=== PATIENT | male | born 1950 | race Caucasian/White ===

== ENCOUNTER 2017-12-23 15:41 | Inpatient (IN) | payer MEDICARE, MEDICAID, SELFPAY ==
[2017-12-23] VITALS (25 sets, daily range): BP systolic 104–173; BP diastolic 63–79; PULSE 46–70; RESP 12–28; TEMP 35.5–36.7; O2SAT 96–100; BMI 27.1; BMI 27.3; BMI 27.2
--- NOTE | 2017-12-23 15:49 | CT_ITS ---
STUDY: CT BRAIN WITHOUT CONTRAST REASON FOR EXAM: Male, 67 years old. Unresponsive. Stroke alert. RADIATION DOSAGE (If Supplied By Facility): CTDIvol = ( 60.81 ) mGy, DLP = ( 1112.69 ) mGycm TECHNIQUE: Transaxial CT imaging of the brain was performed without administration of intravenous contrast material. Individualized dose optimization techniques were used for this CT. COMPARISON: None. FINDINGS: There is no acute bleed or infarct. There are mild chronic ischemic changes. The ventricles are normal in configuration. There is no hydrocephalus. The visualized paranasal sinuses are clear. The mastoid air cells are well aerated. There is no skull fracture. CT/Brain/Head without Contrast IMPRESSION: No acute intracranial abnormality. Mild chronic ischemic changes. N.B. : The above information has been verbally conveyed by Kendall Casanova to Donn Galdamez, Referring Physician, on 12/23/2017 16:38:08 (ET). Electronically Signed: Kendall Casanova, at 16:38 EDT Tel , Service support , N.B. : The above information has been verbally conveyed by Kendall Casanova to Donn Galdamez, Referring Physician, on 12/23/2017 16:38:08 (ET).
--- NOTE | 2017-12-23 15:49 | EKG12_ITS ---
Test Reason : UNRESPONSIVE Blood Pressure : / mmHG Vent. Rate : 066 BPM Atrial Rate : 066 BPM P-R Int : 232 ms QRS Dur : 096 ms QT Int : 420 ms P-R-T Axes : 025 -39 027 degrees QTc Int : 440 ms Sinus rhythm with 1st degree A-V block Left axis deviation Abnormal ECG Confirmed by JAH RICHTER, TIMMY ([id number]), supervising film or videotape editor MENDEZ GAYTAN ([id number]) on 12/24/2017 4:54:44 PM Referred By: ISAÍAS Confirmed By:TIMMY TYSON MD
--- NOTE | 2017-12-23 15:49 | RAD_ITS ---
STUDY: X-RAY CHEST REASON FOR EXAM: Male, 67 years old. Intubation TECHNIQUE: Frontal view of the chest COMPARISON: 08/24/2016 FINDINGS: There is an endotracheal tube noted with its tip approximately 3 cm above the cuong. There is an enteric tube noted with its tip in the stomach. The lungs are clear. There are no pleural effusions. There is no pneumothorax. The heart is normal in size. The visualized osseous structures are within normal limits. RAD/Chest 1 View (Portable) IMPRESSION: Satisfactory position of the support lines and tubes. No acute thoracic pathology. Electronically Signed: Kendall Casanova, at 16:19 EDT Tel , Service support ,
--- NOTE | 2017-12-23 15:50 | CT_ITS ---
STUDY: CT CERVICAL SPINE WITHOUT CONTRAST REASON FOR EXAM: Male, 67 years old. Unresponsive RADIATION DOSAGE (If Supplied By Facility): CTDIvol = ( 26.82 ) mGy, DLP = ( 630.03 ) mGycm TECHNIQUE: High resolution transaxial imaging was performed without contrast material. Sagittal and coronal images were reconstructed. Individualized dose optimization techniques were used for this CT. COMPARISON: None FINDINGS: Normal craniovertebral junction. Normal anterior atlantoaxial articulation. Normal odontoid process. Normal cervical lordosis. Normal vertebral bodies and posterior osseous elements. C2-3: Normal endplates. Normal disc height and tiny central disc protrusion.. Normal central canal and intervertebral neuroforamina. C3-4: Normal endplates. Normal disc height and minor bulging of the disc. Normal central canal and intervertebral neuroforamina. C4-5: Normal endplates. Normal disc height and small central disc protrusion.. Normal central canal and intervertebral neuroforamina. C5-6: Minor endplate spurring.. Normal disc height and morphology. Normal central canal. Moderate left neuroforaminal stenosis secondary to bony hypertrophy C6-7: Normal endplates. Normal disc height and small central disc protrusion.. Normal central canal and intervertebral neuroforamina. C7-T1: Normal endplates. Normal disc height and morphology. Normal central canal and intervertebral neuroforamina. Ossification of the nuchal ligament.. CT/Spine Cervical without Contras IMPRESSION: No evidence for acute fracture or subluxation. Mild spondylosis. Mild multilevel spinal stenosis secondary to disc disease and bony hypertrophy Electronically Signed: Sanket Kong MD at 17:32 EDT , Service support ,
[2017-12-23] MEDS: Succinylcholine Chloride 200 MG/10 ML Vial 100 MG IV (15:53)
[2017-12-23] MEDS: Etomidate 20 MG/10 ML Vial IV (15:53)
[2017-12-23] MEDS: 0.9% Normal Saline 1,000 ML 1000 ML IV (15:53)
[2017-12-23 15:59] LABS: Absolute Lymphocyte Count 1.45 X10^3/ul (0.83-4.51); Absolute Neutrophil Count 4.7 X10^3/uL (2.0-7.7); Basophil# 0.04 X10^3/uL; Basophil% 0.5 % (0-1); Eosinophil# 0.69 X10^3/uL; Eosinophils% 8.9 % (0-5); Hematocrit 37.2 % (40-54); Hemoglobin 12.7 g/dl (13.0-16.5); Lymphocyte # 1.45 X10^3/ul (4.0); Lymphocyte % 18.7 % (19-41); Mean Corp Hgb Conc 34.1 g/gl (32-36); Mean Corpuscular Hgb 31.4 pg (27.0-32.0); Mean Corpuscular Volume 92.1 fL (80-94); Mean Platelet Vol. 10.3 fl (6.2-12.0); Monocyte# 0.85 X10^3/uL; Monocyte% 10.9 % (0-10); Neutrophil # 4.73 X10^3/uL (2.7-7.7); Neutrophil % 60.9 % (47-70); Platelet Count 177 K/mm3 (150-450); RBC Distribution Width CV 13.5 % (11.6-14.6); RBC Distribution Width SD 45.6 fl (35.1-43.9); Red Blood Count 4.04 M/mm3 (4.6-6.2); White Blood Count 7.8 K/mm3 (4.4-11.0)
[2017-12-23 16:01] LABS: Bedside Glucose 167 mg/dL (70-110)
[2017-12-23] MEDS: Midazolam 5 MG/ML Syringe IV ×2 (16:02→16:10)
[2017-12-23 16:06] LABS: POSITIVE COUNT NO; POSITIVE DIFFERENTIAL NO; POSITIVE MORPHOLOGY NO
[2017-12-23] MEDS: hydrALAZINE 20 MG/ML Vial 10 MG IV (16:11)
[2017-12-23 16:18] LABS: ALB/GLOB Ratio 0.8 RATIO (0.9-2.4); AST(SGOT) 25 U/L (15-37); Alanine Aminotransfer ALT/SGPT 26 U/L (16-61); Albumin, Serum 2.7 g/dL (3.2-5.0); Alkaline Phosphatase 92 U/L (45-117); Anion Gap 10 (5-15); BUN 22 mg/dL (7-18); BUN/Creat Ratio 13.3 RATIO (10-20); Calcium,Total 8.2 mg/dL (8.5-10.1); Chloride 108 mmol/L (98-107); Creatinine, Serum 1.65 mg/dL (0.70-1.30); EST Glomerular Filtration Rate 44 mL/min (>60); Est Glom Filt Rate - Afr Amer 54 mL/min (>60); Globulin 3.3 g/dL (2.2-4.2); Glucose 152 mg/dL (74-106); Lipase 77 U/L (73-393); Potassium 3.9 mmol/L (3.5-5.1); Sodium Level 143 mmol/L (136-145)
--- NOTE | 2017-12-23 16:20 | CT_ITS ---
STUDY: CTA NECK WITH CONTRAST REASON FOR EXAM: Male, 67 years old. Unresponsive RADIATION DOSAGE (If Supplied By Facility): CTDIvol = ( 17.66 ) mGy, DLP = ( 2339.85 ) mGycm TECHNIQUE: CT angiography with multi-detector data acquisition was performed from the aortic arch to the skull base following intravenous administration of 100 ml of Isovue 370 contrast. MIP images were reconstructed from the axial data set. Post-processing of the angiographic images was performed, with multiplanar reformation and 3D reconstruction. Individualized dose optimization techniques were used for this CT. COMPARISON: None. FINDINGS: AORTIC ARCH: Normal visualized aortic arch. Normal origins of the brachiocephalic, left common carotid, and left subclavian arteries. RIGHT CAROTID ARTERIES: Normal right common carotid artery (CCA). There is mild atherosclerotic plaque formation with minimal narrowing of the right carotid bulb. There is mild atherosclerotic plaque formation of the origin of the right internal carotid artery with less than 50% cross sectional diameter stenosis. Normal visualized cervical portion of the right internal carotid artery. Normal origin of the right external carotid artery (ECA). LEFT CAROTID ARTERIES: Normal left common carotid artery (CCA). There is mild atherosclerotic plaque formation with minimal narrowing of the left carotid bulb. Normal origin of the left internal carotid (ICA) artery without a hemodynamically significant stenosis. Normal visualized cervical portion of the left internal carotid artery. Normal origin of the left external carotid artery (ECA). VERTEBRAL ARTERIES: Visualized. Focal calcified plaque origin right vertebral artery. Left vertebral artery normal. CT/CTA Head W/WO Contrast IMPRESSION: Mild to moderate stenosis origin right vertebral artery. Otherwise no significant stenoses. Electronically Signed: Miguel Londono MD at 17:30 EDT , Service support ,
--- NOTE | 2017-12-23 16:21 | CT_ITS ---
STUDY: CTA NECK WITH CONTRAST REASON FOR EXAM: Male, 67 years old. Unresponsive RADIATION DOSAGE (If Supplied By Facility): CTDIvol = ( 17.66 ) mGy, DLP = ( 2339.85 ) mGycm TECHNIQUE: CT angiography with multi-detector data acquisition was performed from the aortic arch to the skull base following intravenous administration of 100 ml of Isovue 370 contrast. MIP images were reconstructed from the axial data set. Post-processing of the angiographic images was performed, with multiplanar reformation and 3D reconstruction. Individualized dose optimization techniques were used for this CT. COMPARISON: None. FINDINGS: AORTIC ARCH: Normal visualized aortic arch. Normal origins of the brachiocephalic, left common carotid, and left subclavian arteries. RIGHT CAROTID ARTERIES: Normal right common carotid artery (CCA). There is mild atherosclerotic plaque formation with minimal narrowing of the right carotid bulb. There is mild atherosclerotic plaque formation of the origin of the right internal carotid artery with less than 50% cross sectional diameter stenosis. Normal visualized cervical portion of the right internal carotid artery. Normal origin of the right external carotid artery (ECA). LEFT CAROTID ARTERIES: Normal left common carotid artery (CCA). There is mild atherosclerotic plaque formation with minimal narrowing of the left carotid bulb. Normal origin of the left internal carotid (ICA) artery without a hemodynamically significant stenosis. Normal visualized cervical portion of the left internal carotid artery. Normal origin of the left external carotid artery (ECA). VERTEBRAL ARTERIES: Visualized. Focal calcified plaque origin right vertebral artery. Left vertebral artery normal. CT/CTA Neck W/WO Contrast IMPRESSION: Mild to moderate stenosis origin right vertebral artery. Otherwise no significant stenoses. Electronically Signed: Miguel Londono MD at 17:30 EDT , Service support ,
[2017-12-23] MEDS: Propofol 10MG/Ml 1,000 MG/100 ML Bottle 2.73 MG CONT INF ×2 (16:27→18:49)
[2017-12-23 16:29] LABS: International Normalized Ratio 1.1; Partial Thromboplast Time 29.8 Seconds (24.1-36.2); Prothrombin Time (Protime)PT. 14.3 SECONDS (11.7-14.9)
[2017-12-23 16:35] LABS: Bacteria 0 SEEN /hpf (None Seen); Mucous, Urine 0 SEEN /hpf (<or=2+); Squamous Epithelial Cells - UA 0 SEEN /hpf (0-5)
[2017-12-23 16:51] LABS: Allen Test POS; Base Excess -1 mmol/L (-2 to +2); Bicarbonate 23.1 mmol/L (22-26); Blood Gas Specimen Type ART; FI02 30; Mode A-C; O2 Delivery Device Vent; PEEP 5; PO2 85 mmHG (75-100); RR 12; SITE R Brachial; SO2 97 % (95-99); Time Given 1635; Total Carbon Dioxide 24 mmol/L; Vt 500; pCO2 33.7 mmHg (35-45); pH 7.45 (7.35-7.45)
--- NOTE | 2017-12-23 16:51 | ED.RN ---
PROPROFAL 50 GIVEN BOLUS TITRATE TO 20
[2017-12-23] MEDS: 0.9% Normal Saline 1,000 ML 150 ML IV (17:03)
[2017-12-23 17:05] LABS: Lactic Acid 2.5 mmol/L (0.4-2.0)
--- NOTE | 2017-12-23 17:05 | ED.RN ---
LACTIC 2.[address] [facility] METZ AWARE
[2017-12-23 17:16] LABS: Color, Urine Yellow (Yellow); Glucose, Dipstick 50 mg/dl (Normal); Ketone-Dipstick Negative (Negative); Leukocyte Esterase-Dipstick Negative /ul (Negative); Nitrite-Dipstick Negative (Negative); Occult Blood-Urine 50 /ul (Negative); Protein-Dipstick 500 mg/dl (Negative); Urine Bilirubin Dipstick Negative (Negative); Urine Clarity Clear (Clear); Urine Urobilinogen Normal (Normal)
--- NOTE | 2017-12-23 17:16 | ED.RN ---
FENTANYL DRIP WAS STARTED AT 1710. UNABLE TO SCAN THE MED OR THE WRIST BAND IN THE ROOM. IS MADE AWARE.
--- NOTE | 2017-12-23 17:35 | ED.VISSUMM ---
- ER Visit Summary Date of Service: 12/23/17 Chief Complaint: Unresponsive History of Present Illness: The patient is a 67 M who went out to the [facility] to 10 to his horses at around 9:00 this morning. states that at that time he was acting normally. This afternoon he reportedly was found seen stumbling across the barn and fell over a barrel. EMS notes that he was able to slightly squeeze their hands with both sides but was essentially minimally responsive. 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 He takes aspirin and Plavix. No history of stroke. Physical Examination: Patient is hypertensive. 227/117. Temperature 97.9 heart rate is 67 respirations are 16 and pulse ox is 96% on room air Gen: Well-nourished well-developed Head: Normocephalic atraumatic Eyes: Perrl 4-2 bilaterally ENT: TMs clear no rhinorrhea moist mucous membranes Neck: Supple no lymphadenopathy no JVD nontender CVS: Regular rate rhythm no murmurs normal S1-S2 Respiratory: No distress clear to auscultation bilaterally chest nontender Abdomen: Soft nontender nondistended normal bowel sounds no masses Back: Nontender Extremity: Nontender no edema Skin: Normal color no rash Neuro: Patient is stuporous to almost comatose. His eyes are open and he has a slight corneal reflex. He has no gag. The patient mumbles incoherently when asked to repeat a phrase. I cannot get him to hold his arms up or his legs up. I cannot get him to squeeze my hands. I can get him to withdraw slightly to pain. There is no posturing. Pupils are 4 - 2 bilaterally Test Results: EKG sinus rhythm with a first-degree AV block at a rate of 66. White count 7.8 hemoglobin 12.7. Creatinine 1.65. Glucose 152. INR 1.1 PTT 29.8. Troponin less than 0.0 015 lactic acid 2.5. Chest x-ray shows adequate positioning of the endotracheal tube and orogastric tube. CT the brain demonstrated no intracranial hemorrhage or obvious stroke. CTA head and neck showed mild to moderate stenosis on the right but no obvious cut off. Emergency Department Course and Treatment: Patient was minimally responsive with no gag reflex. Patient underwent rapid sequence intubation and 80 endotracheal tube was placed in the first attempt without any difficulty. Orogastric tube was placed by this physician. Patient was taken to CT scan. Patient received hydralazine for hypertension while in the CT scanner he also received Versed for sedation. When brought back to the room he was placed on propofol and fentanyl drips. Blood pressure has dramatically been improved while being sedated. At this point there is no clear etiology for the patient's abrupt altered mental status. Patient will be transferred to the intensive care unit. Impression: 1. Altered mental status of unknown etiology 2. Hypertensive emergency 3. Intubation by physician 4. Orogastric tube by physician 5. Critical care time 35 minutes This note was generated with [employer] dictation software. It may contain incorrect words, spelling, and punctuation that were not noted in review of the chart prior to signing ED Disposition - Plan for ED Patient: Chief Complaint: Syncope Referrals: Tamanna Moreno [Primary Care Provider] -
[2017-12-23 17:38] LABS: Red Blood Cells-Urine 0 SEEN /hpf (0-5); White Blood Cells 0-5 SEEN /hpf (0-5)
--- NOTE | 2017-12-23 17:38 | PCM.CON.CC ---
Problem List (1) Hypertensive emergency Status: Acute (2) Acute metabolic encephalopathy Status: Acute (3) Old myocardial infarction Status: Chronic Comment: Acute Ant ID w/ ST elevation January 2013 (4) Diabetes mellitus Status: Chronic Qualifiers: Diabetes mellitus type: type 2 Diabetes mellitus longterm insulin use: with longterm use Diabetes mellitus complication status: with circulatory complication (5) Nicotine abuse Status: Chronic (6) Other longterm (current) drug therapy Status: Chronic (7) Atherosclerotic heart disease of [place] coronary artery without angina pectoris Status: Chronic Qualifiers: [place] vs. transplanted heart: [place] heart Comment: Cardiac cath w/PTCA PIA LAD January 11, 2013; Cardiac Cath w/PTCA PIA prox LCX, PIA distal RCA, PIA Mid RCA 2012; PCI with PIA LAD, POBA D1 D2 07/19/14; PTCA & Promus PIA to PDA 08/11/14 (8) H/O percutaneous transluminal coronary angioplasty Status: Chronic Comment: Cardiac cath w/PTCA PIA LAD January 11, 2013; Cardiac Cath w/PTCA PIA prox LCX, PIA distal RCA, PIA Mid RCA 2012; PCI with PIA LAD, POBA D1 D2 07/19/14; PTCA & Promus PIA to PDA 08/11/14 (9) HLD (hyperlipidemia) Status: Chronic Qualifiers: Hyperlipidemia type: pure hypercholesterolemia Reason for Consult Date of Consultation: 12/23/17 Reason for Consultation: Encephalopathy with coma History of Present Illness: The patient is a 67 year old M, with past medical history listed below, who presented to [facility] on 12/23/2017 after decreased mental status. Patient was reportedly of his usual health this morning [place]. Patient's reports that over the last 2-3 weeks he has had increased shortness of breath, but did not have any significant change in his cough, sputum production or shortness of breath in the last 24-48 hours. Patient was reportedly walking around and then became stuporous. EMS was called and patient was transported to the emergency room for evaluation. While in the emergency room, patient was noted to be hypertensive per ER physician report. Patient was also noted to have decreased mental status with no gag reflex. There was some concern for a possible hemorrhagic stroke, so airway was secured with intubation and patient was transported to the CT scanner. She was reportedly given Versed, etomidate and succinylcholine prior to my evaluation. I was notified of the intubation and met the patient in the CT scanner. Patient CT scan did not show any intracranial hemorrhage, so a CTA was performed showing no acute CVA. Patient is not interactive on my evaluation, but did have some spontaneous arm and head movement. Patient's was at the bedside during my evaluation in the ER. She had reported the patient does have a history of extensive coronary artery disease and sees Dr. Miller. Patient's also reports the patient has an extensive smoking history and is to see Dr. Moreno in [place] and reportedly was to have a lot of tests completed this Friday. Patient does have inhalers that he uses on a regular basis. Patient reportedly has had issues with syncope, but never this bad. She is not aware of any recent fever, chills, dysuria, reports of headache or focal neurologic deficit. There is no report of seizure activity noted. Past Medical History Past Medical History (Chronic Problems): Chronic Problems (Last Updated 12/01/17 @ 10:29 by Aniboom) Orthostatic hypotension (Chronic) Old myocardial infarction (Chronic) Acute Ant ID w/ ST elevation January 2013 Diabetes mellitus (Chronic) Nicotine abuse (Chronic) Other longterm (current) drug therapy (Chronic) Atherosclerotic heart disease of [place] coronary artery without angina pectoris (Chronic) Cardiac cath w/PTCA PIA LAD January 11, 2013; Cardiac Cath w/PTCA PIA prox LCX, PIA distal RCA, PIA Mid RCA 2012; PCI with PIA LAD, POBA D1 D2 07/19/14; PTCA & Promus PIA to PDA 08/11/14 H/O percutaneous transluminal coronary angioplasty (Chronic) Cardiac cath w/PTCA PIA LAD January 11, 2013; Cardiac Cath w/PTCA PIA prox LCX, PIA distal RCA, PIA Mid RCA 2012; PCI with PIA LAD, POBA D1 D2 07/19/14; PTCA & Promus PIA to PDA 08/11/14 HLD (hyperlipidemia) (Chronic) Medical History: Medical History (Last Updated 12/01/17 @ 10:29 by Aniboom) Orthostatic hypotension (Chronic) I95.1 Old myocardial infarction (Chronic) I25.2 Acute Ant ID w/ ST elevation January 2013 Diabetes mellitus (Chronic) E11.9 Nicotine abuse (Chronic) Z72.0 Other longterm (current) drug therapy (Chronic) Z79.899 Atherosclerotic heart disease of [place] coronary artery without angina pectoris (Chronic) I25.10 Cardiac cath w/PTCA PIA LAD January 11, 2013; Cardiac Cath w/PTCA PIA prox LCX, PIA distal RCA, PIA Mid RCA 2012; PCI with PIA LAD, POBA D1 D2 07/19/14; PTCA & Promus PIA to PDA 08/11/14 HLD (hyperlipidemia) (Chronic) E78.5 Arthritis M19.90 Depression F32.9 Dizziness and giddiness R42 GERD (gastroesophageal reflux disease) K21.9 Pain in limb M79.609 Stomach ulcer K25.9 Allergies No Known Allergies Allergy (Verified 12/23/17 15:46) Home Medications: Ambulatory Orders Medication Instructions Recorded aspirin 81 mg chewable tablet 81 mg PO QDAY #90 tab 08/01/17 atorvastatin 80 mg tablet 80 mg PO QDAY #90 tab 08/01/17 clopidogrel 75 mg tablet 75 mg PO QDAY #90 tab 08/01/17 insulin aspart U-100 100 unit/mL 10 unit SC QDAY #15 ml 08/01/17 subcutaneous pen insulin glargine (U-100) 100 25 unit SC QHS #10 ml 08/01/17 unit/mL subcutaneous solution metoprolol tartrate 25 mg tablet 25 mg PO BID #180 tab 08/01/17 nitroglycerin 0.4 mg sublingual 0.4 mg SUBLINGUAL Q5-15M PRN #25 08/01/17 tablet tab omeprazole 40 mg capsule,delayed 40 mg PO QDAY #90 cap 08/01/17 release pregabalin 50 mg capsule 50 mg PO QDAY #90 cap 08/01/17 furosemide 20 mg tablet 20 mg PO QDAY 12/01/17 losartan 100 mg tablet 100 mg PO QDAY 12/01/17 metformin 1,000 mg tablet 1,000 mg PO BID 12/01/17 Surgical History: Surgical History (Last Updated 12/01/17 @ 10:29 by Luis Barrera) H/O percutaneous transluminal coronary angioplasty (Chronic) Z98.61 Cardiac cath w/PTCA PIA LAD January 11, 2013; Cardiac Cath w/PTCA PIA prox LCX, PIA distal RCA, PIA Mid RCA 2012; PCI with PIA LAD, POBA D1 D2 07/19/14; PTCA & Promus PIA to PDA 08/11/14 Smoking Status: Current every day smoker Review of Systems Unable to obtain accurate/complete ROS d/t: Decreased mental status. See HPI Patient Problems: Active and Suspected Problems (Last Updated 12/01/17 @ 10:29 by Luis Barrera) Hypertensive emergency (Acute) Acute metabolic encephalopathy (Acute) Objective: CT scan of the head was reviewed. This did not appear to have any intracranial bleed. Chest x-ray showed no acute infiltrates and endotracheal tube was approximately 2-3 cm from the cuong. OG appears to be in appropriate position. CT scan of the neck was grossly unremarkable for any etiology of patient's decreased mental status. - Physical Exam General: - - Intubated and sedated. Positive gag reflex noted. Very little spontaneous movement for me. Sensation appear to be intact bilaterally. No facial droop is appreciated. HEENT: Atraumatic, Normocephalic, - - Pupils are very sluggish. Oral: Moist Mucosa, No Gingival or Mucosal Lesions/ Ulcerations Neck: Supple, No JVD, No Nodes, Trachea Midline Lungs: No rhonchi, No wheeze, No rales, Diminished, - - Metric expansion. No dullness to percussion. Cardiovascular: Regular rate, Regular Rhythm, Normal S1, Normal S2, No murmurs, No rub noted, No Gallop Abdomen: Bowel Sounds Present, Soft, Non Tender, Non-Distended Extremities: No clubbing, No cyanosis, No edema, Capillary Refill Less than 3 Seconds Skin: No rashes, No breakdown Musculoskeletal: No Tenderness to Palpation of Joints or Extremities, No Muscle Wasting Lymphatic: No Cervical, Supraclavicular, or Inguinal Adenopathy Neurological: - - See above. No doll's eyes noted. Psych/Mental Status: Flat Affect Vital Signs Temp Pulse Resp BP Pulse Ox 36.6 C 58 L 15 117/65 99 12/23/17 15:42 12/23/17 17:20 12/23/17 17:20 12/23/17 17:20 12/23/17 17:20 Oxygen Delivery Method Mechanical Ventilator Weight: 91 kg Body Mass Index (BMI) 27.1 Finger Stick Blood Glucose 167 Laboratory Tests Past 24 Hrs 12/23/17 12/23/17 12/23/17 15:46 15:46 15:46 WBC 7.8 RBC 4.04 L Hgb 12.7 L Hct 37.2 L MCV 92.1 MCH 31.4 MCHC 34.1 RDW 13.5 RDW Differential 45.6 H Plt Count 177 MPV 10.3 Immature Gran % (Auto) 0.100 Neut % (Auto) 60.9 Lymph % (Auto) 18.7 L [place] % (Auto) 10.9 H Eos % (Auto) 8.9 H Baso % (Auto) 0.5 Absolute Neuts (auto) 4.7 Absolute Lymphs (auto) 1.45 Total Counted Not Reportable PT 14.3 INR 1.1 APTT 29.8 Specimen Type Sample Site pH Bicarbonate Actual POC Total CO2 Base Excess O2 Saturation O2 % ABG pCO2 ABG pO2 [place] Test Respiration Rate O2 Delivery Device Minute Volume Vent Mode Tidal Volume POC PEEP Blood Gas Notified Whom Blood Gas Notified Time Sodium 143 Potassium 3.9 Chloride 108 H Carbon Dioxide 25.0 Anion Gap 10 BUN 22 H Creatinine 1.65 H Est GFR (MDRD) Af Amer 54 L Est GFR (MDRD) Non-Af 44 L BUN/Creatinine Ratio 13.3 Glucose 152 H Lactic Acid Calcium 8.2 L Total Bilirubin 0.30 AST 25 ALT 26 Alkaline Phosphatase 92 Troponin I < 0.015 Total Protein 6.0 L Albumin 2.7 L Globulin 3.3 Albumin/Globulin Ratio 0.8 L Lipase 77 Urine Color Urine Clarity Urine pH Ur Specific [place] Urine Protein Urine Glucose (UA) Urine Ketones Urine Occult Blood Urine Nitrite Urine Bilirubin Urine Urobilinogen Ur Leukocyte Esterase Urine RBC Urine WBC Ur Squamous Epith Cells Urine Bacteria Urine Mucus Urine Opiates Screen Urine Methadone Screen Ur Barbiturates Screen Ur Phencyclidine Scrn Ur Amphetamines Screen U Methamphetamin-MDMA U Benzodiazepines Scrn Urine Cocaine Screen U Cannabinoids Screen Ur Drug Screen Comment Ethyl Alcohol 12/23/17 12/23/17 12/23/17 15:46 15:46 16:30 WBC RBC Hgb Hct MCV MCH MCHC RDW RDW Differential Plt Count MPV Immature Gran % (Auto) Neut % (Auto) Lymph % (Auto) [place] % (Auto) Eos % (Auto) Baso % (Auto) Absolute Neuts (auto) Absolute Lymphs (auto) Total Counted PT INR APTT Specimen Type Sample Site pH Bicarbonate Actual POC Total CO2 Base Excess O2 Saturation O2 % ABG pCO2 ABG pO2 [place] Test Respiration Rate O2 Delivery Device Minute Volume Vent Mode Tidal Volume POC PEEP Blood Gas Notified Whom Blood Gas Notified Time Sodium Potassium Chloride Carbon Dioxide Anion Gap BUN Creatinine Est GFR (MDRD) Af Amer Est GFR (MDRD) Non-Af BUN/Creatinine Ratio Glucose Lactic Acid 2.5 H Calcium Total Bilirubin AST ALT Alkaline Phosphatase Troponin I Total Protein Albumin Globulin Albumin/Globulin Ratio Lipase Urine Color Yellow Urine Clarity Clear Urine pH 7.0 Ur Specific [place] 1.010 Urine Protein 500 H Urine Glucose (UA) 50 H Urine Ketones Negative Urine Occult Blood 50 H Urine Nitrite Negative Urine Bilirubin Negative Urine Urobilinogen Normal Ur Leukocyte Esterase Negative Urine RBC 0 SEEN Urine WBC 0-5 SEEN Ur Squamous Epith Cells 0 SEEN Urine Bacteria 0 SEEN Urine Mucus 0 SEEN Urine Opiates Screen Urine Methadone Screen Ur Barbiturates Screen Ur Phencyclidine Scrn Ur Amphetamines Screen U Methamphetamin-MDMA U Benzodiazepines Scrn Urine Cocaine Screen U Cannabinoids Screen Ur Drug Screen Comment Ethyl Alcohol 6.0 12/23/17 12/23/17 16:30 16:44 WBC RBC Hgb Hct MCV MCH MCHC RDW RDW Differential Plt Count MPV Immature Gran % (Auto) Neut % (Auto) Lymph % (Auto) [place] % (Auto) Eos % (Auto) Baso % (Auto) Absolute Neuts (auto) Absolute Lymphs (auto) Total Counted PT INR APTT Specimen Type ART Sample Site R Brachial pH 7.45 Bicarbonate Actual 23.1 POC Total CO2 24 Base Excess -1 O2 Saturation 97 O2 % 30 ABG pCO2 33.7 L ABG pO2 85 [place] Test POS Respiration Rate 12 O2 Delivery Device Vent Minute Volume 9.00 Vent Mode A-C Tidal Volume 500 POC PEEP 5 Blood Gas Notified Whom ED Blood Gas Notified Time 1635 Sodium Potassium Chloride Carbon Dioxide Anion Gap BUN Creatinine Est GFR (MDRD) Af Amer Est GFR (MDRD) Non-Af BUN/Creatinine Ratio Glucose Lactic Acid Calcium Total Bilirubin AST ALT Alkaline Phosphatase Troponin I Total Protein Albumin Globulin Albumin/Globulin Ratio Lipase Urine Color Urine Clarity Urine pH Ur Specific [place] Urine Protein Urine Glucose (UA) Urine Ketones Urine Occult Blood Urine Nitrite Urine Bilirubin Urine Urobilinogen Ur Leukocyte Esterase Urine RBC Urine WBC Ur Squamous Epith Cells Urine Bacteria Urine Mucus Urine Opiates Screen Pending Urine Methadone Screen Pending Ur Barbiturates Screen Pending Ur Phencyclidine Scrn Pending Ur Amphetamines Screen Pending U Methamphetamin-MDMA Pending U Benzodiazepines Scrn Pending Urine Cocaine Screen Pending U Cannabinoids Screen Pending Ur Drug Screen Comment Ethyl Alcohol POC Glucose 12/23/17 15:44 POC Glucose 167 H Clinical Impression(s) from Imaging Studies Brain CT 12/23/17 15:49 IMPRESSION: No acute intracranial abnormality. Mild chronic ischemic changes. N.B. : The above information has been verbally conveyed by Kendall Casanova to Donn Galdamez, Referring Physician, on 12/23/2017 16:38:08 (ET). Electronically Signed: Kendall Casanova at 16:38 EDT Tel , Service support , N.B. : The above information has been verbally conveyed by Kendall Casanova to Donn Galdamez, Referring Physician, on 12/23/2017 16:38:08 (ET). Chest X-Ray 12/23/17 15:49 IMPRESSION: Satisfactory position of the support lines and tubes. No acute thoracic pathology. Electronically Signed: Kendall Casanova at 16:19 EDT Tel , Service support , Cervical Spine CT 12/23/17 15:50 IMPRESSION: No evidence for acute fracture or subluxation. Mild spondylosis. Mild multilevel spinal stenosis secondary to disc disease and bony hypertrophy Electronically Signed: Sanket Kong MD at 17:32 EDT , Service support , Neck CTA 12/23/17 16:21 IMPRESSION: Mild to moderate stenosis origin right vertebral artery. Otherwise no significant stenoses. Electronically Signed: Miguel Londono MD at 17:30 EDT , Service support , Assessment/Plan Active and Suspected Problems (Last Updated 12/01/17 @ 10:29 by Luis Barrera) Hypertensive emergency (Acute) Acute metabolic encephalopathy (Acute) RECOMMENDATIONS: 1. Continue mechanical ventilation on current settings 2. Propofol and fentanyl for sedation 3. Cycle cardiac enzymes 4. Hydralazine and labetalol as needed for systolic blood pressure greater than 180 5. Possible EEG in a.m. IMPRESSIONS: 1. Acute respiratory failure secondary to coma Patient with reported decreased GCS on presentation requiring intubation. Patient did have a report of an elevated blood pressure initially with a lack of gag reflex. ABG shows no significant CO2 retention that would lead to decreased mental status. There is no significant leukocytosis to suggest acute infection. No coagulopathy is appreciated. Patient does have an elevation in creatinine compared to previous, but also has a significant history for cardiovascular disease. Tox screen is unremarkable. Patient does not have sedative medications noted on reported home medication list. Patient's glucose was reportedly appropriate on scene. We will continue with mechanical ventilation and support of cardiovascular status overnight. Would cycle troponins. Spontaneous breathing trial and awakening trial per protocol. 2. Coronary artery disease status post multiple stents Patient does have a history of multiple cardiac stents in the past. EKG is unremarkable at this time. Would recommend continuing with cardiac enzymes and telemetry. Chest x-ray is not consistent with congestive heart failure at this time. Patient has not had an echocardiogram recently. 3. Diabetes mellitus type 2 Patient currently n.p.o. Would monitor blood sugars every 6 hours. Sliding scale only at this time. We will continue to monitor closely. 4. Advanced age/lack of clinical history/hyperlipidemia/probable COPD/GERD/depression Complicates care, management, recovery and prognosis. Patient can likely be held on baseline medications for now. There is no indication of a suicide attempt, but volatile alcohols are currently being evaluated. TIME: 35 minutes of critical care time spent addressing patient's decreased mental status, respiratory failure, review of all data and collaboration with care team. (4:20 PM to 6 PM)
--- NOTE | 2017-12-23 17:43 | ED.RN ---
FENTANYL WAS TITRATED TO 5 MLS/HR. DIPRIVAN TITRATED TO 25MCG
[2017-12-23 17:51] LABS: Amphetamine Urine VISTA NEGATIVE (<1000 ng/mL); Barbiturate Urine VISTA NEGATIVE (< 200 ng/mL); Benzodiazepine Urine VISTA POSITIVE (< 200 ng/mL); Cocaine Urine VISTA NEGATIVE (< 300 ng/mL); Ecstacy Urine VISTA NEGATIVE (< 500 ng/mL); Methadone Urine VISTA NEGATIVE (< 300 ng/mL); PCP Urine VISTA NEGATIVE (< 25 ng/mL); THC Urine VISTA NEGATIVE (< 50 ng/mL); Vista UDS pH Range 7
--- NOTE | 2017-12-23 17:54 | CON.PCM_ITS ---
Problem List (1) Hypertensive emergency Status: Acute (2) Acute metabolic encephalopathy Status: Acute (3) Old myocardial infarction Status: Chronic Comment: Acute Ant [facility] w/ ST elevation January 2013 (4) Diabetes mellitus Status: Chronic Qualifiers: Diabetes mellitus type: type 2 Diabetes mellitus shelter insulin use: with shelter use Diabetes mellitus complication status: with circulatory complication (5) Nicotine abuse Status: Chronic (6) Other shelter (current) drug therapy Status: Chronic (7) Atherosclerotic heart disease of [place] coronary artery without angina pectoris Status: Chronic Qualifiers: [place] vs. transplanted heart: [place] heart Comment: Cardiac cath w/PTCA PIA LAD January 11, 2013; Cardiac Cath w/PTCA PIA prox LCX, PIA distal RCA, PIA Mid RCA 2012; PCI with PIA LAD, POBA D1 D2 ; PTCA & Promus PIA to PDA 08/11/14 (8) H/O percutaneous transluminal coronary angioplasty Status: Chronic Comment: Cardiac cath w/PTCA PIA LAD January 11, 2013; Cardiac Cath w/PTCA PIA prox LCX, PIA distal RCA, PIA Mid RCA 2012; PCI with PIA LAD, POBA D1 D2 07/19/14; PTCA & Promus PIA to PDA 08/11/14 (9) HLD (hyperlipidemia) Status: Chronic Qualifiers: Hyperlipidemia type: pure hypercholesterolemia Reason for Consult Date of Consultation: 12/23/17 Reason for Consultation: Encephalopathy with coma History of Present Illness: The patient is a 67 year old M, with past medical history listed below, who presented to [facility] on 12/23/2017 after decreased mental status. Patient was reportedly of his usual health this morning [place]. Patient's reports that over the last 2-3 weeks he has had increased shortness of breath, but did not have any significant change in his cough, sputum production or shortness of breath in the last 24-48 hours. Patient was reportedly walking around and then became stuporous. EMS was called and patient was transported to the emergency room for evaluation. While in the emergency room, patient was noted to be hypertensive per ER physician report. Patient was also noted to have decreased mental status with no gag reflex. There was some concern for a possible hemorrhagic stroke, so airway was secured with intubation and patient was transported to the CT scanner. She was reportedly given Versed, etomidate and succinylcholine prior to my evaluation. I was notified of the intubation and met the patient in the CT scanner. Patient CT scan did not show any intracranial hemorrhage, so a CTA was performed showing no acute CVA. Patient is not interactive on my evaluation , but did have some spontaneous arm and head movement. Patient's was at the bedside during my evaluation in the ER. She had reported the patient does have a history of extensive coronary artery disease and sees Dr. Miller. Patient's also reports the patient has an extensive smoking history and is to see Dr. Moreno in [place] and reportedly was to have a lot of tests completed this Friday. Patient does have inhalers that he uses on a regular basis. Patient reportedly has had issues with syncope, but never this bad. She is not aware of any recent fever, chills, dysuria, reports of headache or focal neurologic deficit. There is no report of seizure activity noted. Past Medical History Past Medical History (Chronic Problems): Chronic Problems (Last Updated 12/01/17 @ 10:29 by Realie) Orthostatic hypotension (Chronic) Old myocardial infarction (Chronic) Acute Ant [facility] w/ ST elevation January 2013 Diabetes mellitus (Chronic) Nicotine abuse (Chronic) Other shelter (current) drug therapy (Chronic) Atherosclerotic heart disease of [place] coronary artery without angina pectoris (Chronic) Cardiac cath w/PTCA PIA LAD January 11, 2013; Cardiac Cath w/PTCA PIA prox LCX, PIA distal RCA, PIA Mid RCA 2012; PCI with PIA LAD, POBA D1 D2 07/19/14; PTCA & Promus PIA to PDA 08/11/14 H/O percutaneous transluminal coronary angioplasty (Chronic) Cardiac cath w/PTCA PIA LAD January 11, 2013; Cardiac Cath w/PTCA PIA prox LCX, PIA distal RCA, PIA Mid RCA 2012; PCI with PIA LAD, POBA D1 D2 07/19/14; PTCA & Promus PIA to PDA 08/11/14 HLD (hyperlipidemia) (Chronic) Medical History: Medical History (Last Updated 12/01/17 @ 10:29 by Realie) Orthostatic hypotension (Chronic) I95.1 Old myocardial infarction (Chronic) I25.2 Acute Ant [facility] w/ ST elevation January 2013 Diabetes mellitus (Chronic) E11.9 Nicotine abuse (Chronic) Z72.0 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) Z79.899 Atherosclerotic heart disease of [place] coronary artery without angina pectoris (Chronic) I25.10 Cardiac cath w/PTCA PIA LAD January 11, 2013; Cardiac Cath w/PTCA PIA prox LCX, PIA distal RCA, PIA Mid RCA 2012; PCI with PIA LAD, POBA D1 D2 07/19/14; PTCA & Promus PIA to PDA 08/11/14 HLD (hyperlipidemia) (Chronic) E78.5 Arthritis M19.90 Depression F32.9 Dizziness and giddiness R42 GERD (gastroesophageal reflux disease) K21.9 Pain in limb M79.609 Stomach ulcer K25.9 Allergies No Known Allergies Allergy (Verified 12/23/17 15:46) Home Medications: Ambulatory Orders Medication Instructions Recorded aspirin 81 mg chewable tablet 81 mg PO QDAY #90 tab 08/01/17 atorvastatin 80 mg tablet 80 mg PO QDAY #90 tab 08/01/17 clopidogrel 75 mg tablet 75 mg PO QDAY #90 tab 08/01/17 insulin aspart U-100 100 unit/mL 10 unit SC QDAY #15 ml 08/01/17 subcutaneous pen insulin glargine (U-100) 100 25 unit SC QHS #10 ml 08/01/17 unit/mL subcutaneous solution metoprolol tartrate 25 mg tablet 25 mg PO BID #180 tab 08/01/17 nitroglycerin 0.4 mg sublingual 0.4 mg SUBLINGUAL Q5-15M PRN #25 08/01/17 tablet tab omeprazole 40 mg capsule,delayed 40 mg PO QDAY #90 cap 08/01/17 release pregabalin 50 mg capsule 50 mg PO QDAY #90 cap 08/01/17 furosemide 20 mg tablet 20 mg PO QDAY 12/01/17 losartan 100 mg tablet 100 mg PO QDAY 12/01/17 metformin 1,000 mg tablet 1,000 mg PO BID 12/01/17 Surgical History: Surgical History (Last Updated 12/01/17 @ 10:29 by Luis Barrera) H/O percutaneous transluminal coronary angioplasty (Chronic) Z98.61 Cardiac cath w/PTCA PIA LAD January 11, 2013; Cardiac Cath w/PTCA PIA prox LCX, PIA distal RCA, PIA Mid RCA 2012; PCI with PIA LAD, POBA D1 D2 07/19/14; PTCA & Promus PIA to PDA 08/11/14 Smoking Status: Current every day smoker Review of Systems Unable to obtain accurate/complete ROS d/t: Decreased mental status. See HPI Patient Problems: Active and Suspected Problems (Last Updated 12/01/17 @ 10:29 by Luis Barrera) Hypertensive emergency (Acute) Acute metabolic encephalopathy (Acute) Objective: CT scan of the head was reviewed. This did not appear to have any intracranial bleed. Chest x-ray showed no acute infiltrates and endotracheal tube was approximately 2-3 cm from the cuong. OG appears to be in appropriate position. CT scan of the neck was grossly unremarkable for any etiology of patient's decreased mental status. - Physical Exam General: - - Intubated and sedated. Positive gag reflex noted. Very little spontaneous movement for me. Sensation appear to be intact bilaterally. No facial droop is appreciated. HEENT: Atraumatic, Normocephalic, - - Pupils are very sluggish. Oral: Moist Mucosa, No Gingival or Mucosal Lesions/ Ulcerations Neck: Supple, No JVD, No Nodes, Trachea Midline Lungs: No rhonchi, No wheeze, No rales, Diminished, - - Metric expansion. No dullness to percussion. Cardiovascular: Regular rate, Regular Rhythm, Normal S1, Normal S2, No murmurs, No rub noted, No Gallop Abdomen: Bowel Sounds Present, Soft, Non Tender, Non-Distended Extremities: No clubbing, No cyanosis, No edema, Capillary Refill Less than 3 Seconds Skin: No rashes, No breakdown Musculoskeletal: No Tenderness to Palpation of Joints or Extremities, No Muscle Wasting Lymphatic: No Cervical, Supraclavicular, or Inguinal Adenopathy Neurological: - - See above. No doll's eyes noted. Psych/Mental Status: Flat Affect Vital Signs Temp Pulse Resp BP Pulse Ox 36.6 C 58 L 15 117/65 99 12/23/17 15:42 12/23/17 17:20 12/23/17 17:20 12/23/17 17:20 12/23/17 17:20 Oxygen Delivery Method Mechanical Ventilator Weight: 91 kg Body Mass Index (BMI) 27.1 Finger Stick Blood Glucose 167 Laboratory Tests Past 24 Hrs 12/23/17 12/23/17 12/23/17 15:46 15:46 15:46 WBC 7.8 RBC 4.04 L Hgb 12.7 L Hct 37.2 L MCV 92.1 MCH 31.4 MCHC 34.1 RDW 13.5 RDW Differential 45.6 H Plt Count 177 MPV 10.3 Immature Gran % (Auto) 0.100 Neut % (Auto) 60.9 Lymph % (Auto) 18.7 L Barron % (Auto) 10.9 H Eos % (Auto) 8.9 H Baso % (Auto) 0.5 Absolute Neuts (auto) 4.7 Absolute Lymphs (auto) 1.45 Total Counted Not Reportable PT 14.3 INR 1.1 APTT 29.8 Specimen Type Sample Site pH Bicarbonate Actual POC Total CO2 Base Excess O2 Saturation O2 % ABG pCO2 ABG pO2 [place] Test Respiration Rate O2 Delivery Device Minute Volume Vent Mode Tidal Volume POC PEEP Blood Gas Notified Whom Blood Gas Notified Time Sodium 143 Potassium 3.9 Chloride 108 H Carbon Dioxide 25.0 Anion Gap 10 BUN 22 H Creatinine 1.65 H Est GFR (MDRD) Af Amer 54 L Est GFR (MDRD) Non-Af 44 L BUN/Creatinine Ratio 13.3 Glucose 152 H Lactic Acid Calcium 8.2 L Total Bilirubin 0.30 AST 25 ALT 26 Alkaline Phosphatase 92 Troponin I < 0.015 Total Protein 6.0 L Albumin 2.7 L Globulin 3.3 Albumin/Globulin Ratio 0.8 L Lipase 77 Urine Color Urine Clarity Urine pH Ur Specific [place] Urine Protein Urine Glucose (UA) Urine Ketones Urine Occult Blood Urine Nitrite Urine Bilirubin Urine Urobilinogen Ur Leukocyte Esterase Urine RBC Urine WBC Ur Squamous Epith Cells Urine Bacteria Urine Mucus Urine Opiates Screen Urine Methadone Screen Ur Barbiturates Screen Ur Phencyclidine Scrn Ur Amphetamines Screen U Methamphetamin-MDMA U Benzodiazepines Scrn Urine Cocaine Screen U Cannabinoids Screen Ur Drug Screen Comment Ethyl Alcohol 12/23/17 12/23/17 12/23/17 15:46 15:46 16:30 WBC RBC Hgb Hct MCV MCH MCHC RDW RDW Differential Plt Count MPV Immature Gran % (Auto) Neut % (Auto) Lymph % (Auto) Barron % (Auto) Eos % (Auto) Baso % (Auto) Absolute Neuts (auto) Absolute Lymphs (auto) Total Counted PT INR APTT Specimen Type Sample Site pH Bicarbonate Actual POC Total CO2 Base Excess O2 Saturation O2 % ABG pCO2 ABG pO2 [place] Test Respiration Rate O2 Delivery Device Minute Volume Vent Mode Tidal Volume POC PEEP Blood Gas Notified Whom Blood Gas Notified Time Sodium Potassium Chloride Carbon Dioxide Anion Gap BUN Creatinine Est GFR (MDRD) Af Amer Est GFR (MDRD) Non-Af BUN/Creatinine Ratio Glucose Lactic Acid 2.5 H Calcium Total Bilirubin AST ALT Alkaline Phosphatase Troponin I Total Protein Albumin Globulin Albumin/Globulin Ratio Lipase Urine Color Yellow Urine Clarity Clear Urine pH 7.0 Ur Specific [place] 1.010 Urine Protein 500 H Urine Glucose (UA) 50 H Urine Ketones Negative Urine Occult Blood 50 H Urine Nitrite Negative Urine Bilirubin Negative Urine Urobilinogen Normal Ur Leukocyte Esterase Negative Urine RBC 0 SEEN Urine WBC 0-5 SEEN Ur Squamous Epith Cells 0 SEEN Urine Bacteria 0 SEEN Urine Mucus 0 SEEN Urine Opiates Screen Urine Methadone Screen Ur Barbiturates Screen Ur Phencyclidine Scrn Ur Amphetamines Screen U Methamphetamin-MDMA U Benzodiazepines Scrn Urine Cocaine Screen U Cannabinoids Screen Ur Drug Screen Comment Ethyl Alcohol 6.0 12/23/17 12/23/17 16:30 16:44 WBC RBC Hgb Hct MCV MCH MCHC RDW RDW Differential Plt Count MPV Immature Gran % (Auto) Neut % (Auto) Lymph % (Auto) Barron % (Auto) Eos % (Auto) Baso % (Auto) Absolute Neuts (auto) Absolute Lymphs (auto) Total Counted PT INR APTT Specimen Type ART Sample Site R Brachial pH 7.45 Bicarbonate Actual 23.1 POC Total CO2 24 Base Excess -1 O2 Saturation 97 O2 % 30 ABG pCO2 33.7 L ABG pO2 85 [place] Test POS Respiration Rate 12 O2 Delivery Device Vent Minute Volume 9.00 Vent Mode A-C Tidal Volume 500 POC PEEP 5 Blood Gas Notified Whom ED Blood Gas Notified Time 1635 Sodium Potassium Chloride Carbon Dioxide Anion Gap BUN Creatinine Est GFR (MDRD) Af Amer Est GFR (MDRD) Non-Af BUN/Creatinine Ratio Glucose Lactic Acid Calcium Total Bilirubin AST ALT Alkaline Phosphatase Troponin I Total Protein Albumin Globulin Albumin/Globulin Ratio Lipase Urine Color Urine Clarity Urine pH Ur Specific [place] Urine Protein Urine Glucose (UA) Urine Ketones Urine Occult Blood Urine Nitrite Urine Bilirubin Urine Urobilinogen Ur Leukocyte Esterase Urine RBC Urine WBC Ur Squamous Epith Cells Urine Bacteria Urine Mucus Urine Opiates Screen Pending Urine Methadone Screen Pending Ur Barbiturates Screen Pending Ur Phencyclidine Scrn Pending Ur Amphetamines Screen Pending U Methamphetamin-MDMA Pending U Benzodiazepines Scrn Pending Urine Cocaine Screen Pending U Cannabinoids Screen Pending Ur Drug Screen Comment Ethyl Alcohol POC Glucose 12/23/17 15:44 POC Glucose 167 H Clinical Impression(s) from Imaging Studies Brain CT 12/23/17 15:49 IMPRESSION: No acute intracranial abnormality. Mild chronic ischemic changes. N.B. : The above information has been verbally conveyed by Kendall Casanova to Donn Galdamez, Referring Physician, on 12/23/2017 16:38:08 (ET). Electronically Signed: Kendall Casanova at 16:38 EDT Tel , Service support , N.B. : The above information has been verbally conveyed by Kendall Casanova to Donn Galdamez, Referring Physician, on 12/23/2017 16:38:08 (ET). Chest X-Ray 12/23/17 15:49 IMPRESSION: Satisfactory position of the support lines and tubes. No acute thoracic pathology. Electronically Signed: Kendall Casanova at 16:19 EDT Tel , Service support , Cervical Spine CT 12/23/17 15:50 IMPRESSION: No evidence for acute fracture or subluxation. Mild spondylosis. Mild multilevel spinal stenosis secondary to disc disease and bony hypertrophy Electronically Signed: Sanket Kong MD at 17:32 EDT , Service support , Neck CTA 12/23/17 16:21 IMPRESSION: Mild to moderate stenosis origin right vertebral artery. Otherwise no significant stenoses. Electronically Signed: Miguel Londono MD at 17:30 EDT , Service support , Assessment/Plan Active and Suspected Problems (Last Updated 12/01/17 @ 10:29 by Luis Barrera) Hypertensive emergency (Acute) Acute metabolic encephalopathy (Acute) RECOMMENDATIONS: 1. Continue mechanical ventilation on current settings 2. Propofol and fentanyl for sedation 3. Cycle cardiac enzymes 4. Hydralazine and labetalol as needed for systolic blood pressure greater than 180 5. Possible EEG in a.m. IMPRESSIONS: 1. Acute respiratory failure secondary to coma Patient with reported decreased GCS on presentation requiring intubation. Patient did have a report of an elevated blood pressure initially with a lack of gag reflex. ABG shows no significant CO2 retention that would lead to decreased mental status. There is no significant leukocytosis to suggest acute infection. No coagulopathy is appreciated. Patient does have an elevation in creatinine compared to previous, but also has a significant history for cardiovascular disease. Tox screen is unremarkable. Patient does not have sedative medications noted on reported home medication list. Patient's glucose was reportedly appropriate on scene. We will continue with mechanical ventilation and support of cardiovascular status overnight. Would cycle troponins. Spontaneous breathing trial and awakening trial per protocol. 2. Coronary artery disease status post multiple stents Patient does have a history of multiple cardiac stents in the past. EKG is unremarkable at this time. Would recommend continuing with cardiac enzymes and telemetry. Chest x-ray is not consistent with congestive heart failure at this time. Patient has not had an echocardiogram recently. 3. Diabetes mellitus type 2 Patient currently n.p.o. Would monitor blood sugars every 6 hours. Sliding scale only at this time. We will continue to monitor closely. 4. Advanced age/lack of clinical history/hyperlipidemia/probable COPD/GERD/ depression Complicates care, management, recovery and prognosis. Patient can likely be held on baseline medications for now. There is no indication of a suicide attempt, but volatile alcohols are currently being evaluated. TIME: 35 minutes of critical care time spent addressing patient's decreased mental status, respiratory failure, review of all data and collaboration with care team. (4:20 PM to 6 PM)
--- NOTE | 2017-12-23 18:14 | ED.RN ---
TITRATED FENTANYL TO 7.5ML/HR PER VERBAL ORDER DR METZ
--- NOTE | 2017-12-23 18:49 | PCM.HP.STD ---
Problem List (1) Hypertensive emergency Status: Acute (2) Acute metabolic encephalopathy Status: Acute (3) Old myocardial infarction Status: Chronic Comment: Acute Ant [place] w/ ST elevation January 2013 (4) Diabetes mellitus Status: Chronic Qualifiers: Diabetes mellitus type: type 2 Diabetes mellitus penitentiary insulin use: with penitentiary use Diabetes mellitus complication status: with circulatory complication (5) Nicotine abuse Status: Chronic (6) H/O percutaneous transluminal coronary angioplasty Status: Chronic Comment: Cardiac cath w/PTCA PIA LAD January 11, 2013; Cardiac Cath w/PTCA PIA prox LCX, PIA distal RCA, PIA Mid RCA 2012; PCI with PIA LAD, POBA D1 D2 07/19/14; PTCA & Promus PIA to PDA 08/11/14 (7) HLD (hyperlipidemia) Status: Chronic Qualifiers: Hyperlipidemia type: pure hypercholesterolemia History of Present Illness Date of Admission: 12/23/17 Chief Complaint: Unresponsiveness. The patient is a 67 year old M with past medical history as mentioned above presented to the emergency department because he was found unresponsive. Reportedly, patient went on to [facility] this morning and his mentioned that he was acting normally. This afternoon, he reportedly was found stumbling across the barn and he fell. EMS was called and he reported that he was able to slightly squeeze their hands on both sides but was minimally responsive. At this time, his is at the bedside and she mentioned that he has been having issues with balance over the last few weeks. She mentioned that he tends to fall and has been stumbling to the tan. He has a history of CAD status post stents and he has been on aspirin, Plavix, statins, beta blockers and losartan. He had history of type 2 diabetes mellitus and he has been on Lantus and metformin. According to his , he was diagnosed with COPD recently and he was prescribed oxygen at home because his pulse ox has been as low as 80% on room air. At this time, patient is sedated and intubated. At this time, his Hao Coma Scale is 6. On arrival to ER, his blood pressure was 235/184, heart rate was stable. He was afebrile. He was intubated because he was unresponsive and started on mechanical ventilation and sedation. His routine blood work is remarkable for BUN of 22 and creatinine of 1.65. Lactic acid was 2.5. Troponin was negative. LFT and lipase were unremarkable. EKG revealed normal sinus rhythm with first-degree AV block, KS interval of 232 ms, no acute ST elevation. Urine drug screen was positive for benzodiazepines. Blood alcohol level was 6. CT scan brain showed no acute infarction or hemorrhage, no skull fractures. Chest x-ray showed no acute findings, no infiltrate or consolidation. Cervical spine showed no fractures or dislocations, showed arthritic changes. CTA of the head and neck revealed mild to moderate stenosis of the right vertebral artery, otherwise no significant stenosis. He is being admitted for altered mental status, encephalopathy, hypertensive emergency, acute kidney injury. Past Medical History Past Medical History (Chronic Problems): Chronic Problems (Last Updated 12/01/17 @ 10:29 by [employer]) Orthostatic hypotension (Chronic) Old myocardial infarction (Chronic) Acute Ant FL w/ ST elevation January 2013 Diabetes mellitus (Chronic) Nicotine abuse (Chronic) Other penitentiary (current) drug therapy (Chronic) Atherosclerotic heart disease of [place] coronary artery without angina pectoris (Chronic) Cardiac cath w/PTCA PIA LAD January 11, 2013; Cardiac Cath w/PTCA PIA prox LCX, PIA distal RCA, PIA Mid RCA 2012; PCI with PIA LAD, POBA D1 D2 07/19/14; PTCA & Promus PIA to PDA 08/11/14 H/O percutaneous transluminal coronary angioplasty (Chronic) Cardiac cath w/PTCA PIA LAD January 11, 2013; Cardiac Cath w/PTCA PIA prox LCX, PIA distal RCA, PIA Mid RCA 2012; PCI with PIA LAD, POBA D1 D2 07/19/14; PTCA & Promus PIA to PDA 08/11/14 HLD (hyperlipidemia) (Chronic) Medical History: Medical History (Last Updated 12/01/17 @ 10:29 by [employer]) Orthostatic hypotension (Chronic) I95.1 Old myocardial infarction (Chronic) I25.2 Acute Ant FL w/ ST elevation January 2013 Diabetes mellitus (Chronic) E11.9 Nicotine abuse (Chronic) Z72.0 Other spool winder (current) drug therapy (Chronic) Z79.899 Atherosclerotic heart disease of [place] coronary artery without angina pectoris (Chronic) I25.10 Cardiac cath w/PTCA PIA LAD January 11, 2013; Cardiac Cath w/PTCA PIA prox LCX, PIA distal RCA, PIA Mid RCA 2012; PCI with PIA LAD, POBA D1 D2 07/19/14; PTCA & Promus PIA to PDA 08/11/14 HLD (hyperlipidemia) (Chronic) E78.5 Arthritis M19.90 Depression F32.9 Dizziness and giddiness R42 GERD (gastroesophageal reflux disease) K21.9 Pain in limb M79.609 Stomach ulcer K25.9 Allergies No Known Allergies Allergy (Verified 12/23/17 15:46) Home Medications: Ambulatory Orders Medication Instructions Recorded furosemide 20 mg tablet 20 mg PO DAILY 12/01/17 losartan 100 mg tablet 100 mg PO DAILY 12/01/17 metformin 1,000 mg tablet 1,000 mg PO BID 12/01/17 Aspirin 81 mg PO DAILY 12/23/17 Atorvastatin Calcium [Lipitor] 80 mg PO DAILY 12/23/17 Clopidogrel Bisulfate [Clopidogrel] 75 mg PO DAILY 12/23/17 Insulin Glargine,Hum.rec.anlog 34 unit SC QHS 12/23/17 [Lantus] Metoprolol Tartrate 25 mg PO BID 12/23/17 Omeprazole 40 mg PO DAILY 12/23/17 Pregabalin [Lyrica] 50 mg PO DAILY 12/23/17 Surgical History: Surgical History (Last Updated 12/01/17 @ 10:29 by Luis Barrera) H/O percutaneous transluminal coronary angioplasty (Chronic) Z98.61 Cardiac cath w/PTCA PIA LAD January 11, 2013; Cardiac Cath w/PTCA PIA prox LCX, PIA distal RCA, PIA Mid RCA 2012; PCI with PIA LAD, POBA D1 D2 07/19/14; PTCA & Promus PIA to PDA 08/11/14 Surgical History: noncontributory Psychiatric History: No pertinent psych hx Lives: Spouse/ Significant Other Smoking Status: Current every day smoker Tobacco Use: Cigarettes Alcohol: None Drugs: None - *Family History Maternal Family History: Family History (Last Updated 12/01/17 @ 10:29 by Luis Barrera) Father CAD (coronary artery disease) Diabetes Brother Heart disease Myocardial infarction Sister Diabetes History Items: No pertinent history Paternal Family History: Family History (Last Updated 12/01/17 @ 10:29 by Luis Barrera) Father CAD (coronary artery disease) Diabetes Brother Heart disease Myocardial infarction Sister Diabetes History Items: No pertinent history Review of Systems Constitutional: Reports: - - Unobtainable, patient is sedated, intubated. Eyes: Reports: - - Unobtainable, patient is sedated, intubated. HEENT: Reports: - - Unobtainable, patient is sedated, intubated. Cardiovascular: Reports: - - Unobtainable, patient is sedated, intubated. Gastrointestinal: Reports: - - Unobtainable, patient is sedated, intubated. Genitourinary: Reports: - - Unobtainable, patient is sedated, intubated. Musculoskeletal: Reports: - - Unobtainable, patient is sedated, intubated. Skin: Reports: - - Unobtainable, patient is sedated, intubated. Neurological: Reports: - - Unobtainable, patient is sedated, intubated. Endocrine: Reports: - - Unobtainable, patient is sedated, intubated. VTE Information - Inpt Only VTE Present on Admission: No VTE Mechan Device Prophylaxis: None VTE Pharm Prophylaxis ordered?: Yes Patient Problems: Active and Suspected Problems (Last Updated 12/01/17 @ 10:29 by Luis Barrera) Hypertensive emergency (Acute) Acute metabolic encephalopathy (Acute) - Physical Exam General: - - [place] Coma Scale of 6, patient is intubated, sedated. HEENT: Atraumatic, Sluggish Pupils, - - Sluggish reaction to light on the right pupil, left pupil is reacting. Oral: Moist Mucosa, No Gingival or Mucosal Lesions/ Ulcerations Neck: Supple, No JVD, Negative Carotid Bruits, Trachea Midline, Thyroid Normal Size and Texture Lungs: Clear to auscultation, No rhonchi, No wheeze, No rales, Diminished Cardiovascular: Regular rate, Regular Rhythm, Normal S1, Normal S2, No murmurs, PMI Normal Abdomen: Bowel Sounds Present, Soft, Non Tender, Non-Distended, No Hepato-splenomegaly Extremities: No clubbing, No cyanosis, No edema Skin: No rashes, No breakdown Lymphatic: No Cervical, Supraclavicular, or Inguinal Adenopathy Neurological: - - Unable to examine, patient is comatosed. Psych/Mental Status: - - Unable to examine, patient is comatosed. Vital Signs Temp Pulse Resp BP Pulse Ox 98.1 F 56 L 19 H 115/63 100 12/23/17 18:03 12/23/17 18:06 12/23/17 18:06 12/23/17 18:06 12/23/17 18:06 Oxygen Delivery Method Mechanical Ventilator Weight: 200 lb 9.93 oz Body Mass Index (BMI) 27.1 Finger Stick Blood Glucose 167 Laboratory Tests Past 24 Hrs 12/23/17 12/23/17 12/23/17 15:46 15:46 15:46 WBC 7.8 RBC 4.04 L Hgb 12.7 L Hct 37.2 L MCV 92.1 MCH 31.4 MCHC 34.1 RDW 13.5 RDW Differential 45.6 H Plt Count 177 MPV 10.3 Immature Gran % (Auto) 0.100 Neut % (Auto) 60.9 Lymph % (Auto) 18.7 L Banks % (Auto) 10.9 H Eos % (Auto) 8.9 H Baso % (Auto) 0.5 Absolute Neuts (auto) 4.7 Absolute Lymphs (auto) 1.45 Total Counted Not Reportable PT 14.3 INR 1.1 APTT 29.8 Specimen Type Sample Site pH Bicarbonate Actual POC Total CO2 Base Excess O2 Saturation O2 % ABG pCO2 ABG pO2 [place] Test Respiration Rate O2 Delivery Device Minute Volume Vent Mode Tidal Volume POC PEEP Blood Gas Notified Whom Blood Gas Notified Time Sodium 143 Potassium 3.9 Chloride 108 H Carbon Dioxide 25.0 Anion Gap 10 BUN 22 H Creatinine 1.65 H Est GFR (MDRD) Af Amer 54 L Est GFR (MDRD) Non-Af 44 L BUN/Creatinine Ratio 13.3 Glucose 152 H Lactic Acid Calcium 8.2 L Total Bilirubin 0.30 AST 25 ALT 26 Alkaline Phosphatase 92 Troponin I < 0.015 Total Protein 6.0 L Albumin 2.7 L Globulin 3.3 Albumin/Globulin Ratio 0.8 L Lipase 77 Urine Color Urine Clarity Urine pH Ur Specific Jackson Urine Protein Urine Glucose (UA) Urine Ketones Urine Occult Blood Urine Nitrite Urine Bilirubin Urine Urobilinogen Ur Leukocyte Esterase Urine RBC Urine WBC Ur Squamous Epith Cells Urine Bacteria Urine Mucus Urine Opiates Screen Urine Methadone Screen Ur Barbiturates Screen Ur Phencyclidine Scrn Ur Amphetamines Screen U Methamphetamin-MDMA U Benzodiazepines Scrn Urine Cocaine Screen U Cannabinoids Screen Ur Drug Screen Comment Ethyl Alcohol 12/23/17 12/23/17 12/23/17 15:46 15:46 16:30 WBC RBC Hgb Hct MCV MCH MCHC RDW RDW Differential Plt Count MPV Immature Gran % (Auto) Neut % (Auto) Lymph % (Auto) Banks % (Auto) Eos % (Auto) Baso % (Auto) Absolute Neuts (auto) Absolute Lymphs (auto) Total Counted PT INR APTT Specimen Type Sample Site pH Bicarbonate Actual POC Total CO2 Base Excess O2 Saturation O2 % ABG pCO2 ABG pO2 [place] Test Respiration Rate O2 Delivery Device Minute Volume Vent Mode Tidal Volume POC PEEP Blood Gas Notified Whom Blood Gas Notified Time Sodium Potassium Chloride Carbon Dioxide Anion Gap BUN Creatinine Est GFR (MDRD) Af Amer Est GFR (MDRD) Non-Af BUN/Creatinine Ratio Glucose Lactic Acid 2.5 H Calcium Total Bilirubin AST ALT Alkaline Phosphatase Troponin I Total Protein Albumin Globulin Albumin/Globulin Ratio Lipase Urine Color Yellow Urine Clarity Clear Urine pH 7.0 Ur Specific Jackson 1.010 Urine Protein 500 H Urine Glucose (UA) 50 H Urine Ketones Negative Urine Occult Blood 50 H Urine Nitrite Negative Urine Bilirubin Negative Urine Urobilinogen Normal Ur Leukocyte Esterase Negative Urine RBC 0 SEEN Urine WBC 0-5 SEEN Ur Squamous Epith Cells 0 SEEN Urine Bacteria 0 SEEN Urine Mucus 0 SEEN Urine Opiates Screen Urine Methadone Screen Ur Barbiturates Screen Ur Phencyclidine Scrn Ur Amphetamines Screen U Methamphetamin-MDMA U Benzodiazepines Scrn Urine Cocaine Screen U Cannabinoids Screen Ur Drug Screen Comment Ethyl Alcohol 6.0 12/23/17 12/23/17 16:30 16:44 WBC RBC Hgb Hct MCV MCH MCHC RDW RDW Differential Plt Count MPV Immature Gran % (Auto) Neut % (Auto) Lymph % (Auto) Banks % (Auto) Eos % (Auto) Baso % (Auto) Absolute Neuts (auto) Absolute Lymphs (auto) Total Counted PT INR APTT Specimen Type ART Sample Site R Brachial pH 7.45 Bicarbonate Actual 23.1 POC Total CO2 24 Base Excess -1 O2 Saturation 97 O2 % 30 ABG pCO2 33.7 L ABG pO2 85 [place] Test POS Respiration Rate 12 O2 Delivery Device Vent Minute Volume 9.00 Vent Mode A-C Tidal Volume 500 POC PEEP 5 Blood Gas Notified Whom ED Blood Gas Notified Time 1635 Sodium Potassium Chloride Carbon Dioxide Anion Gap BUN Creatinine Est GFR (MDRD) Af Amer Est GFR (MDRD) Non-Af BUN/Creatinine Ratio Glucose Lactic Acid Calcium Total Bilirubin AST ALT Alkaline Phosphatase Troponin I Total Protein Albumin Globulin Albumin/Globulin Ratio Lipase Urine Color Urine Clarity Urine pH Ur Specific [place] Urine Protein Urine Glucose (UA) Urine Ketones Urine Occult Blood Urine Nitrite Urine Bilirubin Urine Urobilinogen Ur Leukocyte Esterase Urine RBC Urine WBC Ur Squamous Epith Cells Urine Bacteria Urine Mucus Urine Opiates Screen NEGATIVE Urine Methadone Screen NEGATIVE Ur Barbiturates Screen NEGATIVE Ur Phencyclidine Scrn NEGATIVE Ur Amphetamines Screen NEGATIVE U Methamphetamin-MDMA NEGATIVE U Benzodiazepines Scrn POSITIVE H Urine Cocaine Screen NEGATIVE U Cannabinoids Screen NEGATIVE Ur Drug Screen Comment Ethyl Alcohol POC Glucose 12/23/17 15:44 POC Glucose 167 H Clinical Impression(s) from Imaging Studies Brain CT 12/23/17 15:49 IMPRESSION: No acute intracranial abnormality. Mild chronic ischemic changes. N.B. : The above information has been verbally conveyed by Kendall Casanova to Donn Galdamez, Referring Physician, on 12/23/2017 16:38:08 (ET). Electronically Signed: Kendall Casanova, at 16:38 EDT Tel , Service support , N.B. : The above information has been verbally conveyed by Kendall Casanova to Donn Galdamez, Referring Physician, on 12/23/2017 16:38:08 (ET). Chest X-Ray 12/23/17 15:49 IMPRESSION: Satisfactory position of the support lines and tubes. No acute thoracic pathology. Electronically Signed: Kendall Casanova, at 16:19 EDT Tel , Service support , Cervical Spine CT 12/23/17 15:50 IMPRESSION: No evidence for acute fracture or subluxation. Mild spondylosis. Mild multilevel spinal stenosis secondary to disc disease and bony hypertrophy Electronically Signed: Sanket Kong MD at 17:32 EDT , Service support , Head CTA 12/23/17 16:20 IMPRESSION: Mild to moderate stenosis origin right vertebral artery. Otherwise no significant stenoses. Electronically Signed: Miguel Londono MD at 17:30 EDT , Service support , Neck CTA 12/23/17 16:21 IMPRESSION: Mild to moderate stenosis origin right vertebral artery. Otherwise no significant stenoses. Electronically Signed: Miguel Londono MD at 17:30 EDT , Service support , Assessment/Plan All Active Problems (Last Updated 12/01/17 @ 10:29 by Luis Barrera) Hypertensive emergency (Acute) Acute metabolic encephalopathy (Acute) This is a 67 years old male patient presented to the emergency department because of unresponsiveness, found to have high elevated blood pressure as well as acute kidney injury, was intubated for airway protection and is being admitted for encephalopathy, likely metabolic, hypertensive emergency and acute kidney injury. #1 altered mental status/encephalopathy: Probably metabolic encephalopathy due to hypertensive emergency. He does have endorgan damage including acute kidney injury and coma. CT scan brain revealed no acute infarction or hemorrhage. CTA of the head and neck reviewed, no acute findings. EKG revealed normal sinus rhythm with first-degree AV block, troponin is negative. Urine drug screen reviewed. Initially, blood pressure was highly elevated, improved after 2 doses of IV hydralazine. Plan: Admit to intensive care, critical care monitoring, complete bedrest, nothing by mouth, IV fluids, vent management per protocol, continue IV propofol and fentanyl for sedation, critical care consult, serial cardiac enzymes, repeat EKG tomorrow morning, repeat CBC and CMP tomorrow morning, insert Hunt catheter, PT OT evaluation and treatment when appropriate. #2 hypertensive emergency: Reportedly, blood pressure upon arrival was 235/184, came down to around 170 systolic after 2 doses of IV hydralazine. As mentioned above, CT scan brain without acute hemorrhage. He does have acute kidney injury. At this time, blood pressure improved. Last blood pressure was 112/67. Plan: Close medical blood pressure, IV hydralazine as needed for systolic more than 160. #3 acute respiratory failure: Patient was intubated for airway protection. ABG revealed pH of 7.45, PCO2 of 33 and PO2 of 85. Chest x-ray reviewed, no acute findings. Plan to continue vent support, continue sedation, critical care consult as above. #4 acute kidney injury: Baseline kidney function is normal. Plan: IV fluids, and put up a chart, repeat BMP tomorrow morning. #5 CAD status post stents: Plan for serial cardiac enzymes, repeat EKG tomorrow morning. Plan to resume aspirin, statins, Plavix, losartan and metoprolol through OG tube. #6 type 2 diabetes mellitus: N.p.o., Accu-Cheks every 6 hours, insulin sliding scale, hold Lantus and metformin at this time. #7 COPD: Patient is intubated, plan to continue mechanical ventilation as above. #8 hyperlipidemia: Continue statins through orogastric tube. #9 DVT prophylaxis: Subcu heparin. #10 GI prophylaxis: Start IV Pepcid twice daily. #11 CODE STATUS: Patient is intubated, sedated, Hao Coma Scale 6. was at the bedside and she mentioned that she has no idea about her 's and he does not have living will or advanced directive and they never spoke about it. This note was generated with [employer] dictation software. It may contain incorrect words, spelling, and punctuation that were not noted in checking the note before signing. Code Visit Inpatient E&M: 20202 Init Hosp L3
--- NOTE | 2017-12-23 18:59 | HP.PCM_ITS ---
Problem List (1) Hypertensive emergency Status: Acute (2) Acute metabolic encephalopathy Status: Acute (3) Old myocardial infarction Status: Chronic Comment: Acute Ant SD w/ ST elevation January 2013 (4) Diabetes mellitus Status: Chronic Qualifiers: Diabetes mellitus type: type 2 Diabetes mellitus penitentiary insulin use: with penitentiary use Diabetes mellitus complication status: with circulatory complication (5) Nicotine abuse Status: Chronic (6) H/O percutaneous transluminal coronary angioplasty Status: Chronic Comment: Cardiac cath w/PTCA PIA LAD January 11, 2013; Cardiac Cath w/PTCA PIA prox LCX, PIA distal RCA, PIA Mid RCA 2012; PCI with PIA LAD, POBA D1 D2 07/19/14; PTCA & Promus PIA to PDA 08/11/14 (7) HLD (hyperlipidemia) Status: Chronic Qualifiers: Hyperlipidemia type: pure hypercholesterolemia History of Present Illness Date of Admission: 12/23/17 Chief Complaint: Unresponsiveness. The patient is a 67 year old M with past medical history as mentioned above presented to the emergency department because he was found unresponsive. Reportedly, patient went on to [facility] this morning and his mentioned that he was acting normally. This afternoon, he reportedly was found stumbling across the barn and he fell. EMS was called and he reported that he was able to slightly squeeze their hands on both sides but was minimally responsive. At this time, his is at the bedside and she mentioned that he has been having issues with balance over the last few weeks. She mentioned that he tends to fall and has been stumbling to the tan. He has a history of CAD status post stents and he has been on aspirin, Plavix, statins, beta blockers and losartan. He had history of type 2 diabetes mellitus and he has been on Lantus and metformin. According to his , he was diagnosed with COPD recently and he was prescribed oxygen at home because his pulse ox has been as low as 80% on room air. At this time, patient is sedated and intubated. At this time, his [place] Coma Scale is 6. On arrival to ER, his blood pressure was 235/184, heart rate was stable. He was afebrile. He was intubated because he was unresponsive and started on mechanical ventilation and sedation. His routine blood work is remarkable for BUN of 22 and creatinine of 1.65. Lactic acid was 2.5. Troponin was negative. LFT and lipase were unremarkable. EKG revealed normal sinus rhythm with first-degree AV block, ME interval of 232 ms, no acute ST elevation. Urine drug screen was positive for benzodiazepines. Blood alcohol level was 6. CT scan brain showed no acute infarction or hemorrhage, no skull fractures. Chest x-ray showed no acute findings, no infiltrate or consolidation. Cervical spine showed no fractures or dislocations, showed arthritic changes. CTA of the head and neck revealed mild to moderate stenosis of the right vertebral artery, otherwise no significant stenosis. He is being admitted for altered mental status, encephalopathy, hypertensive emergency, acute kidney injury. Past Medical History Past Medical History (Chronic Problems): Chronic Problems (Last Updated 12/01/17 @ 10:29 by [employer]) Orthostatic hypotension (Chronic) Old myocardial infarction (Chronic) Acute Ant SD w/ ST elevation January 2013 Diabetes mellitus (Chronic) Nicotine abuse (Chronic) Other penitentiary (current) drug therapy (Chronic) Atherosclerotic heart disease of [place] coronary artery without angina pectoris (Chronic) Cardiac cath w/PTCA PIA LAD January 11, 2013; Cardiac Cath w/PTCA PIA prox LCX, PIA distal RCA, PIA Mid RCA 2012; PCI with PIA LAD, POBA D1 D2 07/19/14; PTCA & Promus PIA to PDA 08/11/14 H/O percutaneous transluminal coronary angioplasty (Chronic) Cardiac cath w/PTCA PIA LAD January 11, 2013; Cardiac Cath w/PTCA PIA prox LCX, PIA distal RCA, PIA Mid RCA 2012; PCI with PIA LAD, POBA D1 D2 07/19/14; PTCA & Promus PIA to PDA 08/11/14 HLD (hyperlipidemia) (Chronic) Medical History: Medical History (Last Updated 12/01/17 @ 10:29 by [employer]) Orthostatic hypotension (Chronic) I95.1 Old myocardial infarction (Chronic) I25.2 Acute Ant SD w/ ST elevation January 2013 Diabetes mellitus (Chronic) E11.9 Nicotine abuse (Chronic) Z72.0 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 dispatcher (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) drug therapy (Chronic) Z79.899 Atherosclerotic heart disease of [place] coronary artery without angina pectoris (Chronic) I25.10 Cardiac cath w/PTCA PIA LAD January 11, 2013; Cardiac Cath w/PTCA PIA prox LCX, PIA distal RCA, PIA Mid RCA 2012; PCI with PIA LAD, POBA D1 D2 07/19/14; PTCA & Promus IPA to PDA 08/11/14 HLD (hyperlipidemia) (Chronic) E78.5 Arthritis M19.90 Depression F32.9 Dizziness and giddiness R42 GERD (gastroesophageal reflux disease) K21.9 Pain in limb M79.609 Stomach ulcer K25.9 Allergies No Known Allergies Allergy (Verified 12/23/17 15:46) Home Medications: Ambulatory Orders Medication Instructions Recorded furosemide 20 mg tablet 20 mg PO DAILY 12/01/17 losartan 100 mg tablet 100 mg PO DAILY 12/01/17 metformin 1,000 mg tablet 1,000 mg PO BID 12/01/17 Aspirin 81 mg PO DAILY 12/23/17 Atorvastatin Calcium [Lipitor] 80 mg PO DAILY 12/23/17 Clopidogrel Bisulfate [Clopidogrel] 75 mg PO DAILY 12/23/17 Insulin Glargine,Hum.rec.anlog 34 unit SC QHS 12/23/17 [Lantus] Metoprolol Tartrate 25 mg PO BID 12/23/17 Omeprazole 40 mg PO DAILY 12/23/17 Pregabalin [Lyrica] 50 mg PO DAILY 12/23/17 Surgical History: Surgical History (Last Updated 12/01/17 @ 10:29 by Luis Barrera) H/O percutaneous transluminal coronary angioplasty (Chronic) Z98.61 Cardiac cath w/PTCA PIA LAD January 11, 2013; Cardiac Cath w/PTCA PIA prox LCX, PIA distal RCA, PAI Mid RCA 2012; PCI with PIA LAD, POBA D1 D2 07/19/14; PTCA & Promus PIA to PDA 08/11/14 Surgical History: noncontributory Psychiatric History: No pertinent psych hx Lives: Spouse/ Significant Other Smoking Status: Current every day smoker Tobacco Use: Cigarettes Alcohol: None Drugs: None - *Family History Maternal Family History: Family History (Last Updated 12/01/17 @ 10:29 by Luis Barrera) Father CAD (coronary artery disease) Diabetes Brother Heart disease Myocardial infarction Sister Diabetes History Items: No pertinent history Paternal Family History: Family History (Last Updated 12/01/17 @ 10:29 by Luis Barrera) Father CAD (coronary artery disease) Diabetes Brother Heart disease Myocardial infarction Sister Diabetes History Items: No pertinent history Review of Systems Constitutional: Reports: - - Unobtainable, patient is sedated, intubated. Eyes: Reports: - - Unobtainable, patient is sedated, intubated. HEENT: Reports: - - Unobtainable, patient is sedated, intubated. Cardiovascular: Reports: - - Unobtainable, patient is sedated, intubated. Gastrointestinal: Reports: - - Unobtainable, patient is sedated, intubated. Genitourinary: Reports: - - Unobtainable, patient is sedated, intubated. Musculoskeletal: Reports: - - Unobtainable, patient is sedated, intubated. Skin: Reports: - - Unobtainable, patient is sedated, intubated. Neurological: Reports: - - Unobtainable, patient is sedated, intubated. Endocrine: Reports: - - Unobtainable, patient is sedated, intubated. VTE Information - Inpt Only VTE Present on Admission: No VTE Mechan Device Prophylaxis: None VTE Pharm Prophylaxis ordered?: Yes Patient Problems: Active and Suspected Problems (Last Updated 12/01/17 @ 10:29 by Luis Barrera) Hypertensive emergency (Acute) Acute metabolic encephalopathy (Acute) - Physical Exam General: - - [place] Coma Scale of 6, patient is intubated, sedated. HEENT: Atraumatic, Sluggish Pupils, - - Sluggish reaction to light on the right pupil, left pupil is reacting. Oral: Moist Mucosa, No Gingival or Mucosal Lesions/ Ulcerations Neck: Supple, No JVD, Negative Carotid Bruits, Trachea Midline, Thyroid Normal Size and Texture Lungs: Clear to auscultation, No rhonchi, No wheeze, No rales, Diminished Cardiovascular: Regular rate, Regular Rhythm, Normal S1, Normal S2, No murmurs, PMI Normal Abdomen: Bowel Sounds Present, Soft, Non Tender, Non-Distended, No Hepato- splenomegaly Extremities: No clubbing, No cyanosis, No edema Skin: No rashes, No breakdown Lymphatic: No Cervical, Supraclavicular, or Inguinal Adenopathy Neurological: - - Unable to examine, patient is comatosed. Psych/Mental Status: - - Unable to examine, patient is comatosed. Vital Signs Temp Pulse Resp BP Pulse Ox 98.1 F 56 L 19 H 115/63 100 12/23/17 18:03 12/23/17 18:06 12/23/17 18:06 12/23/17 18:06 12/23/17 18:06 Oxygen Delivery Method Mechanical Ventilator Weight: 200 lb 9.93 oz Body Mass Index (BMI) 27.1 Finger Stick Blood Glucose 167 Laboratory Tests Past 24 Hrs 12/23/17 12/23/17 12/23/17 15:46 15:46 15:46 WBC 7.8 RBC 4.04 L Hgb 12.7 L Hct 37.2 L MCV 92.1 MCH 31.4 MCHC 34.1 RDW 13.5 RDW Differential 45.6 H Plt Count 177 MPV 10.3 Immature Gran % (Auto) 0.100 Neut % (Auto) 60.9 Lymph % (Auto) 18.7 L [place] % (Auto) 10.9 H Eos % (Auto) 8.9 H Baso % (Auto) 0.5 Absolute Neuts (auto) 4.7 Absolute Lymphs (auto) 1.45 Total Counted Not Reportable PT 14.3 INR 1.1 APTT 29.8 Specimen Type Sample Site pH Bicarbonate Actual POC Total CO2 Base Excess O2 Saturation O2 % ABG pCO2 ABG pO2 [place] Test Respiration Rate O2 Delivery Device Minute Volume Vent Mode Tidal Volume POC PEEP Blood Gas Notified Whom Blood Gas Notified Time Sodium 143 Potassium 3.9 Chloride 108 H Carbon Dioxide 25.0 Anion Gap 10 BUN 22 H Creatinine 1.65 H Est GFR (MDRD) Af Amer 54 L Est GFR (MDRD) Non-Af 44 L BUN/Creatinine Ratio 13.3 Glucose 152 H Lactic Acid Calcium 8.2 L Total Bilirubin 0.30 AST 25 ALT 26 Alkaline Phosphatase 92 Troponin I < 0.015 Total Protein 6.0 L Albumin 2.7 L Globulin 3.3 Albumin/Globulin Ratio 0.8 L Lipase 77 Urine Color Urine Clarity Urine pH Ur Specific [place] Urine Protein Urine Glucose (UA) Urine Ketones Urine Occult Blood Urine Nitrite Urine Bilirubin Urine Urobilinogen Ur Leukocyte Esterase Urine RBC Urine WBC Ur Squamous Epith Cells Urine Bacteria Urine Mucus Urine Opiates Screen Urine Methadone Screen Ur Barbiturates Screen Ur Phencyclidine Scrn Ur Amphetamines Screen U Methamphetamin-MDMA U Benzodiazepines Scrn Urine Cocaine Screen U Cannabinoids Screen Ur Drug Screen Comment Ethyl Alcohol 12/23/17 12/23/17 12/23/17 15:46 15:46 16:30 WBC RBC Hgb Hct MCV MCH MCHC RDW RDW Differential Plt Count MPV Immature Gran % (Auto) Neut % (Auto) Lymph % (Auto) [place] % (Auto) Eos % (Auto) Baso % (Auto) Absolute Neuts (auto) Absolute Lymphs (auto) Total Counted PT INR APTT Specimen Type Sample Site pH Bicarbonate Actual POC Total CO2 Base Excess O2 Saturation O2 % ABG pCO2 ABG pO2 [place] Test Respiration Rate O2 Delivery Device Minute Volume Vent Mode Tidal Volume POC PEEP Blood Gas Notified Whom Blood Gas Notified Time Sodium Potassium Chloride Carbon Dioxide Anion Gap BUN Creatinine Est GFR (MDRD) Af Amer Est GFR (MDRD) Non-Af BUN/Creatinine Ratio Glucose Lactic Acid 2.5 H Calcium Total Bilirubin AST ALT Alkaline Phosphatase Troponin I Total Protein Albumin Globulin Albumin/Globulin Ratio Lipase Urine Color Yellow Urine Clarity Clear Urine pH 7.0 Ur Specific [place] 1.010 Urine Protein 500 H Urine Glucose (UA) 50 H Urine Ketones Negative Urine Occult Blood 50 H Urine Nitrite Negative Urine Bilirubin Negative Urine Urobilinogen Normal Ur Leukocyte Esterase Negative Urine RBC 0 SEEN Urine WBC 0-5 SEEN Ur Squamous Epith Cells 0 SEEN Urine Bacteria 0 SEEN Urine Mucus 0 SEEN Urine Opiates Screen Urine Methadone Screen Ur Barbiturates Screen Ur Phencyclidine Scrn Ur Amphetamines Screen U Methamphetamin-MDMA U Benzodiazepines Scrn Urine Cocaine Screen U Cannabinoids Screen Ur Drug Screen Comment Ethyl Alcohol 6.0 12/23/17 12/23/17 16:30 16:44 WBC RBC Hgb Hct MCV MCH MCHC RDW RDW Differential Plt Count MPV Immature Gran % (Auto) Neut % (Auto) Lymph % (Auto) [place] % (Auto) Eos % (Auto) Baso % (Auto) Absolute Neuts (auto) Absolute Lymphs (auto) Total Counted PT INR APTT Specimen Type ART Sample Site R Brachial pH 7.45 Bicarbonate Actual 23.1 POC Total CO2 24 Base Excess -1 O2 Saturation 97 O2 % 30 ABG pCO2 33.7 L ABG pO2 85 [place] Test POS Respiration Rate 12 O2 Delivery Device Vent Minute Volume 9.00 Vent Mode A-C Tidal Volume 500 POC PEEP 5 Blood Gas Notified Whom ED Blood Gas Notified Time 1635 Sodium Potassium Chloride Carbon Dioxide Anion Gap BUN Creatinine Est GFR (MDRD) Af Amer Est GFR (MDRD) Non-Af BUN/Creatinine Ratio Glucose Lactic Acid Calcium Total Bilirubin AST ALT Alkaline Phosphatase Troponin I Total Protein Albumin Globulin Albumin/Globulin Ratio Lipase Urine Color Urine Clarity Urine pH Ur Specific [place] Urine Protein Urine Glucose (UA) Urine Ketones Urine Occult Blood Urine Nitrite Urine Bilirubin Urine Urobilinogen Ur Leukocyte Esterase Urine RBC Urine WBC Ur Squamous Epith Cells Urine Bacteria Urine Mucus Urine Opiates Screen NEGATIVE Urine Methadone Screen NEGATIVE Ur Barbiturates Screen NEGATIVE Ur Phencyclidine Scrn NEGATIVE Ur Amphetamines Screen NEGATIVE U Methamphetamin-MDMA NEGATIVE U Benzodiazepines Scrn POSITIVE H Urine Cocaine Screen NEGATIVE U Cannabinoids Screen NEGATIVE Ur Drug Screen Comment Ethyl Alcohol POC Glucose 12/23/17 15:44 POC Glucose 167 H Clinical Impression(s) from Imaging Studies Brain CT 12/23/17 15:49 IMPRESSION: No acute intracranial abnormality. Mild chronic ischemic changes. N.B. : The above information has been verbally conveyed by Kendall Casanova to Donn Galdamez, Referring Physician, on 12/23/2017 16:38:08 (ET). Electronically Signed: Kendall Casanova, at 16:38 EDT Tel , Service support , N.B. : The above information has been verbally conveyed by Kendall Casanova to Donn Galdamez, Referring Physician, on 12/23/2017 16:38:08 (ET). Chest X-Ray 12/23/17 15:49 IMPRESSION: Satisfactory position of the support lines and tubes. No acute thoracic pathology. Electronically Signed: Kendall Casanova, at 16:19 EDT Tel , Service support , Cervical Spine CT 12/23/17 15:50 IMPRESSION: No evidence for acute fracture or subluxation. Mild spondylosis. Mild multilevel spinal stenosis secondary to disc disease and bony hypertrophy Electronically Signed: Sanket Kong MD at 17:32 EDT , Service support , Head CTA 12/23/17 16:20 IMPRESSION: Mild to moderate stenosis origin right vertebral artery. Otherwise no significant stenoses. Electronically Signed: Miguel Londono MD at 17:30 EDT , Service support , Neck CTA 12/23/17 16:21 IMPRESSION: Mild to moderate stenosis origin right vertebral artery. Otherwise no significant stenoses. Electronically Signed: Miguel Londono MD at 17:30 EDT , Service support , Assessment/Plan All Active Problems (Last Updated 12/01/17 @ 10:29 by Luis Barrera) Hypertensive emergency (Acute) Acute metabolic encephalopathy (Acute) This is a 67 years old male patient presented to the emergency department because of unresponsiveness, found to have high elevated blood pressure as well as acute kidney injury, was intubated for airway protection and is being admitted for encephalopathy, likely metabolic, hypertensive emergency and acute kidney injury. #1 altered mental status/encephalopathy: Probably metabolic encephalopathy due to hypertensive emergency. He does have endorgan damage including acute kidney injury and coma. CT scan brain revealed no acute infarction or hemorrhage. CTA of the head and neck reviewed, no acute findings. EKG revealed normal sinus rhythm with first-degree AV block, troponin is negative. Urine drug screen reviewed. Initially, blood pressure was highly elevated, improved after 2 doses of IV hydralazine. Plan: Admit to intensive care, critical care monitoring, complete bedrest, nothing by mouth, IV fluids, vent management per protocol, continue IV propofol and fentanyl for sedation, critical care consult , serial cardiac enzymes, repeat EKG tomorrow morning, repeat CBC and CMP tomorrow morning, insert Hunt catheter, PT OT evaluation and treatment when appropriate. #2 hypertensive emergency: Reportedly, blood pressure upon arrival was 235/184, came down to around 170 systolic after 2 doses of IV hydralazine. As mentioned above, CT scan brain without acute hemorrhage. He does have acute kidney injury. At this time, blood pressure improved. Last blood pressure was 112/ 67. Plan: Close medical blood pressure, IV hydralazine as needed for systolic more than 160. #3 acute respiratory failure: Patient was intubated for airway protection. ABG revealed pH of 7.45, PCO2 of 33 and PO2 of 85. Chest x-ray reviewed, no acute findings. Plan to continue vent support, continue sedation, critical care consult as above. #4 acute kidney injury: Baseline kidney function is normal. Plan: IV fluids, and put up a chart, repeat BMP tomorrow morning. #5 CAD status post stents: Plan for serial cardiac enzymes, repeat EKG tomorrow morning. Plan to resume aspirin, statins, Plavix, losartan and metoprolol through OG tube. #6 type 2 diabetes mellitus: N.p.o., Accu-Cheks every 6 hours, insulin sliding scale, hold Lantus and metformin at this time. #7 COPD: Patient is intubated, plan to continue mechanical ventilation as above. #8 hyperlipidemia: Continue statins through orogastric tube. #9 DVT prophylaxis: Subcu heparin. #10 GI prophylaxis: Start IV Pepcid twice daily. #11 CODE STATUS: Patient is intubated, sedated, [place] Coma Scale 6. was at the bedside and she mentioned that she has no idea about her 's and he does not have living will or advanced directive and they never spoke about it. This note was generated with [employer] dictation software. It may contain incorrect words, spelling, and punctuation that were not noted in checking the note before signing. Code Visit Inpatient E&M: 27737 Init Hosp L3
[2017-12-23] MEDS: 0.9% Normal Saline 1,000 ML 100 ML IV (19:40)
[2017-12-23 19:53] LABS: Reflex Lactate? Y
[2017-12-23 20:50] LABS: Lactic Acid 0.9 mmol/L (0.4-2.0)
[2017-12-23] MEDS: 0.9% NaCl IVPB Med Flush (250 mL) 15 ML IV (21:49)
[2017-12-23] MEDS: Chlorhexidine 15 ML PO (21:50)
--- NOTE | 2017-12-23 22:02 | CT_ITS ---
STUDY: CT BRAIN WITHOUT CONTRAST REASON FOR EXAM: Male, 67 years old. Altered mental status RADIATION DOSAGE (If Supplied By Facility): CTDIvol = ( 44.99 ) mGy, DLP = ( 829.85 ) mGycm TECHNIQUE: Transaxial CT imaging of the brain was performed without administration of intravenous contrast material. Individualized dose optimization techniques were used for this CT. COMPARISON: December 23, 2017 FINDINGS: Normal soft tissue structures. Normal calvarium. Normal size ventricles and extra-axial spaces for the patient's age. Normal white matter tracts of the cerebral hemispheres. Normal basal ganglia and thalami. 6 mm calcified lesion head of caudate on the left. Normal brainstem. Normal cerebellum. There is no intracranial hemorrhage. There are no findings of an acute ischemic infarction. Air-fluid level right maxillary sinus. CT/Brain/Head without Contrast IMPRESSION: Calcifications left caudate head of doubtful significance. No acute disease. Electronically Signed: Miguel Londono MD at 22:45 EDT , Service support ,
[2017-12-23] MEDS: 0.9% NaCl Peripheral Flush Adult/Peds IV ×2 (22:30→23:43)
[2017-12-23 22:35] LABS: M R Staph aureus DNA By PCR Negative (Negative); Probe Check PASS; Specimen Processing Control PASS
--- NOTE | 2017-12-23 22:54 | PCM.HOSP.N ---
Hospitalist Note Notified by nursing earlier the patient's pupils are fixed and dilated. Given the patient coming in with unresponsive decreased gag reflex I advised repeat head CT. Patient sedation was held at that point. Apparently in the CAT scan patient was agitated and try to pull out his endotracheal tube. Since arriving to the floor patient does respond to his voice, he still intubated and does really nothing else purposeful at this point time but his pupils are not fixed and dilated. I suspected that the patient's decreased responsiveness and pupil dilation was related with the medication received for rapid sequence intubation and just the sedation that he had. Patient is being resumed slowly on his sedation at this point time. Head CT showed no acute process. No indication for any change in the patient's therapy at this point time unless new events arise. Code Visit Procedures: Other Procedure - See Report - Non billable rounding.
[2017-12-23] MEDS: Insulin Lispro 100 UNIT/ML INSULN.PEN SC (23:40)
[2017-12-23 23:55] LABS: Bedside Glucose 157 mg/dL (70-110)
[2017-12-24] VITALS (29 sets, daily range): BP systolic 130–170; BP diastolic 70–136; PULSE 59–90; RESP 10–21; TEMP 35.9–36.7; O2SAT 94–100
[2017-12-24] MEDS: Propofol 10MG/Ml 1,000 MG/100 ML Bottle 2.73 MG CONT INF (01:40)
[2017-12-24 03:59] LABS: Absolute Lymphocyte Count 1.57 X10^3/ul (0.83-4.51); Absolute Neutrophil Count 8.2 X10^3/uL (2.0-7.7); Basophil# 0.06 X10^3/uL; Basophil% 0.5 % (0-1); Eosinophil# 0.77 X10^3/uL; Eosinophils% 6.6 % (0-5); Hematocrit 34.8 % (40-54); Lymphocyte # 1.57 X10^3/ul (4.0); Lymphocyte % 13.5 % (19-41); Mean Corp Hgb Conc 34.5 g/gl (32-36); Mean Corpuscular Hgb 32.3 pg (27.0-32.0); Mean Corpuscular Volume 93.5 fL (80-94); Mean Platelet Vol. 10.2 fl (6.2-12.0); Monocyte# 1.02 X10^3/uL; Monocyte% 8.8 % (0-10); Neutrophil # 8.17 X10^3/uL (2.7-7.7); Neutrophil % 70.3 % (47-70); Platelet Count 168 K/mm3 (150-450); RBC Distribution Width CV 13.5 % (11.6-14.6); RBC Distribution Width SD 44.6 fl (35.1-43.9); Red Blood Count 3.72 M/mm3 (4.6-6.2); White Blood Count 11.6 K/mm3 (4.4-11.0)
[2017-12-24 04:07] LABS: POSITIVE COUNT NO; POSITIVE DIFFERENTIAL NO; POSITIVE MORPHOLOGY NO
[2017-12-24 04:20] LABS: ALB/GLOB Ratio 0.8 RATIO (0.9-2.4); AST(SGOT) 20 U/L (15-37); Alanine Aminotransfer ALT/SGPT 22 U/L (16-61); Albumin, Serum 2.3 g/dL (3.2-5.0); Alkaline Phosphatase 74 U/L (45-117); Anion Gap 7 (5-15); BUN 18 mg/dL (7-18); BUN/Creat Ratio 15.4 RATIO (10-20); Calcium,Total 7.5 mg/dL (8.5-10.1); Chloride 112 mmol/L (98-107); Creatinine, Serum 1.17 mg/dL (0.70-1.30); EST Glomerular Filtration Rate 66 mL/min (>60); Est Glom Filt Rate - Afr Amer 80 mL/min (>60); Globulin 2.9 g/dL (2.2-4.2); Glucose 122 mg/dL (74-106); Potassium 3.7 mmol/L (3.5-5.1); Protein, Total 5.2 g/dL (6.4-8.2); Sodium Level 145 mmol/L (136-145)
[2017-12-24] MEDS: Heparin Injection (Vial) 5,000 UNIT/ML VIAL 5000 UNIT SC ×3 (05:33→21:21)
[2017-12-24] MEDS: 0.9% Normal Saline 1,000 ML 100 ML IV ×2 (05:33→17:36)
--- NOTE | 2017-12-24 05:55 | EKG12_ITS ---
Test Reason : AM EKG Blood Pressure : / mmHG Vent. Rate : 063 BPM Atrial Rate : 063 BPM P-R Int : 212 ms QRS Dur : 092 ms QT Int : 426 ms P-R-T Axes : 034 -39 067 degrees QTc Int : 435 ms Sinus rhythm with 1st degree A-V block Left axis deviation Septal infarct , age undetermined Abnormal ECG Confirmed by RYAN RICHTER, AMMON ([id number]), desk editor MENDEZ GAYTAN ([id number]) on 01/01/2018 11:42:05 AM Referred By: LORE Confirmed By:AMMON DAVIS MD
[2017-12-24 06:21] LABS: Bedside Glucose 125 mg/dL (70-110)
--- NOTE | 2017-12-24 07:25 | PCM.PN.INT ---
Subjective: Overnight events were noted. This morning, patient was following commands appropriately, but became severely agitated during spontaneous awakening trial. Patient was placed back on sedation. On my evaluation, patient was more reasonable and was able to be placed on a spontaneous breathing trial. Patient has tolerated 1 hour a spontaneous breathing and ABG is currently pending. General: Alert, Cooperative, No apparent distress, - - Following commands. Appears stated age. HEENT: Atraumatic, PERRLA, EOMI, Normocephalic, - - Slight scleral injection without icterus Oral: Moist Mucosa, No Gingival or Mucosal Lesions/ Ulcerations Neck: Supple, No JVD, No Nodes, Trachea Midline Lungs: No rhonchi, No wheeze, No rales, Diminished, - - Symmetric expansion. No dullness to percussion. Cardiovascular: Regular rate, Regular Rhythm, Normal S1, Normal S2, No murmurs, No rub noted, No Gallop Abdomen: Bowel Sounds Present, Soft, Non Tender, Non-Distended Extremities: No clubbing, No cyanosis, No edema, Capillary Refill Less than 3 Seconds Skin: No rashes, No breakdown Musculoskeletal: No Tenderness to Palpation of Joints or Extremities, No Muscle Wasting Lymphatic: No Cervical, Supraclavicular, or Inguinal Adenopathy Neurological: Cranial nerves II-XII grossly intact, Neuro grossly intact, Motor Exam 5/5 strength throughout, Sensory exam intact to light touch and pain Psych/Mental Status: Appropriate, Anxious Vital Signs Temp Pulse Resp BP Pulse Ox 36.2 C L 68 16 168/82 H 100 12/24/17 06:00 12/24/17 07:00 12/24/17 07:00 12/24/17 07:00 12/24/17 07:00 Oxygen Delivery Method Mechanical Ventilator Weight: 92.3 kg Body Mass Index (BMI) 27.3 Intake and Output for Last 24 Hours 12/22/17 12/23/17 12/24/17 23:59 23:59 23:59 Intake Total 555 / 555 668.8 / 668.8 Output Total 900 / 900 425 / 425 Balance -345 / -345 243.8 / 243.8 Labs (Last 48 Hours) 12/23/17 12/23/17 12/23/17 19:45 19:45 19:45 WBC RBC Hgb Hct MCV MCH MCHC RDW RDW Differential Plt Count MPV Immature Gran % (Auto) Neut % (Auto) Lymph % (Auto) [place] % (Auto) Eos % (Auto) Baso % (Auto) Absolute Neuts (auto) Absolute Lymphs (auto) Total Counted Sodium Potassium Chloride Carbon Dioxide Anion Gap BUN Creatinine Est GFR (MDRD) Af Amer Est GFR (MDRD) Non-Af BUN/Creatinine Ratio Glucose Lactic Acid 0.9 Calcium Total Bilirubin AST ALT Alkaline Phosphatase Troponin I < 0.015 Total Protein Albumin Globulin Albumin/Globulin Ratio MRSA (PCR) Negative POC Glucose 12/23/17 12/23/17 12/24/17 22:55 23:35 03:50 WBC 11.6 H RBC 3.72 L Hgb 12.0 L Hct 34.8 L MCV 93.5 MCH 32.3 H MCHC 34.5 RDW 13.5 RDW Differential 44.6 H Plt Count 168 MPV 10.2 Immature Gran % (Auto) 0.300 Neut % (Auto) 70.3 H Lymph % (Auto) 13.5 L [place] % (Auto) 8.8 Eos % (Auto) 6.6 H Baso % (Auto) 0.5 Absolute Neuts (auto) 8.2 H Absolute Lymphs (auto) 1.57 Total Counted Not Reportable Sodium Potassium Chloride Carbon Dioxide Anion Gap BUN Creatinine Est GFR (MDRD) Af Amer Est GFR (MDRD) Non-Af BUN/Creatinine Ratio Glucose Lactic Acid Calcium Total Bilirubin AST ALT Alkaline Phosphatase Troponin I < 0.015 Total Protein Albumin Globulin Albumin/Globulin Ratio MRSA (PCR) POC Glucose 157 H 12/24/17 12/24/17 03:50 05:26 WBC RBC Hgb Hct MCV MCH MCHC RDW RDW Differential Plt Count MPV Immature Gran % (Auto) Neut % (Auto) Lymph % (Auto) [place] % (Auto) Eos % (Auto) Baso % (Auto) Absolute Neuts (auto) Absolute Lymphs (auto) Total Counted Sodium 145 Potassium 3.7 Chloride 112 H Carbon Dioxide 26.0 Anion Gap 7 BUN 18 Creatinine 1.17 Est GFR (MDRD) Af Amer 80 Est GFR (MDRD) Non-Af 66 BUN/Creatinine Ratio 15.4 Glucose 122 H Lactic Acid Calcium 7.5 L Total Bilirubin 0.20 AST 20 ALT 22 Alkaline Phosphatase 74 Troponin I Total Protein 5.2 L Albumin 2.3 L Globulin 2.9 Albumin/Globulin Ratio 0.8 L MRSA (PCR) POC Glucose 125 H Clinical Impression(s) from Imaging Studies Brain CT 12/23/17 15:49 IMPRESSION: No acute intracranial abnormality. Mild chronic ischemic changes. N.B. : The above information has been verbally conveyed by Kendall Casanova to Donn Galdamez, Referring Physician, on 12/23/2017 16:38:08 (ET). Electronically Signed: Kendall Casanova at 16:38 EDT Tel , Service support , N.B. : The above information has been verbally conveyed by Kendall Casanova to Donn Galdamez, Referring Physician, on 12/23/2017 16:38:08 (ET). Chest X-Ray 12/23/17 15:49 IMPRESSION: Satisfactory position of the support lines and tubes. No acute thoracic pathology. Electronically Signed: Kendall Casanova at 16:19 EDT Tel , Service support , Cervical Spine CT 12/23/17 15:50 IMPRESSION: No evidence for acute fracture or subluxation. Mild spondylosis. Mild multilevel spinal stenosis secondary to disc disease and bony hypertrophy Electronically Signed: Sanket Kong MD at 17:32 EDT , Service support , Head CTA 12/23/17 16:20 IMPRESSION: Mild to moderate stenosis origin right vertebral artery. Otherwise no significant stenoses. Electronically Signed: Miguel Londono MD at 17:30 EDT , Service support , Neck CTA 12/23/17 16:21 IMPRESSION: Mild to moderate stenosis origin right vertebral artery. Otherwise no significant stenoses. Electronically Signed: Miguel Londono MD at 17:30 EDT , Service support , Brain CT 12/23/17 22:02 IMPRESSION: Calcifications left caudate head of doubtful significance. No acute disease. Electronically Signed: Miguel Londono MD at 22:45 EDT , Service support , Medical Necessity - Tobacco Use Smoking Status: Current every day smoker Tobacco Use: Cigarettes Assessment/Plan All Active Problems (Last Updated 12/01/17 @ 10:29 by Luis Barrera) Hypertensive emergency (Acute) Acute metabolic encephalopathy (Acute) RECOMMENDATIONS: 1. Potential extubation following results of arterial blood gas 2. Possibly transition to Precedex therapy if unable to pass spontaneous breathing trial 3. Consider consultation to neurology 4. Hydralazine and labetalol as needed for systolic blood pressure greater than 180 5. Possible EEG/MRI IMPRESSIONS: 1. Acute respiratory failure secondary to coma Patient with reported decreased GCS on presentation requiring intubation. Patient did have a report of an elevated blood pressure initially with a lack of gag reflex. ABG shows no significant CO2 retention that would lead to decreased mental status, but this was obtained over an hour after intubation. There is no significant leukocytosis to suggest acute infection. No coagulopathy is appreciated. Renal function has improved compared to admission. Tox screen is unremarkable. Patient does not have sedative medications noted on reported home medication list. Patient's glucose was reportedly appropriate on scene. Cycling cardiac enzymes were unremarkable. Patient may benefit from a neurologic evaluation, but appears to be protecting his airway at this time. Possible extubation later this morning. 2. Coronary artery disease status post multiple stents Patient does have a history of multiple cardiac stents in the past. EKG is unremarkable at this time. We will continue to monitor with telemetry only. No indication for continued cardiac enzymes. Chest x-ray is not consistent with congestive heart failure at this time. Patient has not had an echocardiogram recently. 3. Diabetes mellitus type 2 Patient currently n.p.o. Would monitor blood sugars every 6 hours. Sliding scale only at this time. We will continue to monitor closely. Likely reinitiate diet and home medications following extubation. 4. Advanced age/lack of clinical history/hyperlipidemia/probable COPD/GERD/depression Complicates care, management, recovery and prognosis. Patient can likely be held on baseline medications for now. There is no indication of a suicide attempt, but volatile alcohols are currently being evaluated. TIME: 35 minutes of critical care time spent addressing patient's decreased mental status, respiratory failure, review of all data and collaboration with care team. (6 AM to 7:30 AM) Code Visit 9xxxx: [id number] Critical care first hour
--- NOTE | 2017-12-24 07:32 | PN_ITS ---
Subjective: Overnight events were noted. This morning, patient was following commands appropriately, but became severely agitated during spontaneous awakening trial. Patient was placed back on sedation. On my evaluation, patient was more reasonable and was able to be placed on a spontaneous breathing trial. Patient has tolerated 1 hour a spontaneous breathing and ABG is currently pending. General: Alert, Cooperative, No apparent distress, - - Following commands. Appears stated age. HEENT: Atraumatic, PERRLA, EOMI, Normocephalic, - - Slight scleral injection without icterus Oral: Moist Mucosa, No Gingival or Mucosal Lesions/ Ulcerations Neck: Supple, No JVD, No Nodes, Trachea Midline Lungs: No rhonchi, No wheeze, No rales, Diminished, - - Symmetric expansion. No dullness to percussion. Cardiovascular: Regular rate, Regular Rhythm, Normal S1, Normal S2, No murmurs, No rub noted, No Gallop Abdomen: Bowel Sounds Present, Soft, Non Tender, Non-Distended Extremities: No clubbing, No cyanosis, No edema, Capillary Refill Less than 3 Seconds Skin: No rashes, No breakdown Musculoskeletal: No Tenderness to Palpation of Joints or Extremities, No Muscle Wasting Lymphatic: No Cervical, Supraclavicular, or Inguinal Adenopathy Neurological: Cranial nerves II-XII grossly intact, Neuro grossly intact, Motor Exam 5/5 strength throughout, Sensory exam intact to light touch and pain Psych/Mental Status: Appropriate, Anxious Vital Signs Temp Pulse Resp BP Pulse Ox 36.2 C L 68 16 168/82 H 100 12/24/17 06:00 12/24/17 07:00 12/24/17 07:00 12/24/17 07:00 12/24/17 07:00 Oxygen Delivery Method Mechanical Ventilator Weight: 92.3 kg Body Mass Index (BMI) 27.3 Intake and Output for Last 24 Hours 12/22/17 12/23/17 12/24/17 23:59 23:59 23:59 Intake Total 555 / 555 668.8 / 668.8 Output Total 900 / 900 425 / 425 Balance -345 / -345 243.8 / 243.8 Labs (Last 48 Hours) 12/23/17 12/23/17 12/23/17 19:45 19:45 19:45 WBC RBC Hgb Hct MCV MCH MCHC RDW RDW Differential Plt Count MPV Immature Gran % (Auto) Neut % (Auto) Lymph % (Auto) [place] % (Auto) Eos % (Auto) Baso % (Auto) Absolute Neuts (auto) Absolute Lymphs (auto) Total Counted Sodium Potassium Chloride Carbon Dioxide Anion Gap BUN Creatinine Est GFR (MDRD) Af Amer Est GFR (MDRD) Non-Af BUN/Creatinine Ratio Glucose Lactic Acid 0.9 Calcium Total Bilirubin AST ALT Alkaline Phosphatase Troponin I < 0.015 Total Protein Albumin Globulin Albumin/Globulin Ratio MRSA (PCR) Negative POC Glucose 12/23/17 12/23/17 12/24/17 22:55 23:35 03:50 WBC 11.6 H RBC 3.72 L Hgb 12.0 L Hct 34.8 L MCV 93.5 MCH 32.3 H MCHC 34.5 RDW 13.5 RDW Differential 44.6 H Plt Count 168 MPV 10.2 Immature Gran % (Auto) 0.300 Neut % (Auto) 70.3 H Lymph % (Auto) 13.5 L [place] % (Auto) 8.8 Eos % (Auto) 6.6 H Baso % (Auto) 0.5 Absolute Neuts (auto) 8.2 H Absolute Lymphs (auto) 1.57 Total Counted Not Reportable Sodium Potassium Chloride Carbon Dioxide Anion Gap BUN Creatinine Est GFR (MDRD) Af Amer Est GFR (MDRD) Non-Af BUN/Creatinine Ratio Glucose Lactic Acid Calcium Total Bilirubin AST ALT Alkaline Phosphatase Troponin I < 0.015 Total Protein Albumin Globulin Albumin/Globulin Ratio MRSA (PCR) POC Glucose 157 H 12/24/17 12/24/17 03:50 05:26 WBC RBC Hgb Hct MCV MCH MCHC RDW RDW Differential Plt Count MPV Immature Gran % (Auto) Neut % (Auto) Lymph % (Auto) [place] % (Auto) Eos % (Auto) Baso % (Auto) Absolute Neuts (auto) Absolute Lymphs (auto) Total Counted Sodium 145 Potassium 3.7 Chloride 112 H Carbon Dioxide 26.0 Anion Gap 7 BUN 18 Creatinine 1.17 Est GFR (MDRD) Af Amer 80 Est GFR (MDRD) Non-Af 66 BUN/Creatinine Ratio 15.4 Glucose 122 H Lactic Acid Calcium 7.5 L Total Bilirubin 0.20 AST 20 ALT 22 Alkaline Phosphatase 74 Troponin I Total Protein 5.2 L Albumin 2.3 L Globulin 2.9 Albumin/Globulin Ratio 0.8 L MRSA (PCR) POC Glucose 125 H Clinical Impression(s) from Imaging Studies Brain CT 12/23/17 15:49 IMPRESSION: No acute intracranial abnormality. Mild chronic ischemic changes. N.B. : The above information has been verbally conveyed by Kendall Casanova to Donn Galdamez, Referring Physician, on 12/23/2017 16:38:08 (ET). Electronically Signed: Kendall Casanova at 16:38 EDT Tel , Service support , N.B. : The above information has been verbally conveyed by Kendall Casanova to Donn Galdamez, Referring Physician, on 12/23/2017 16:38:08 (ET). Chest X-Ray 12/23/17 15:49 IMPRESSION: Satisfactory position of the support lines and tubes. No acute thoracic pathology. Electronically Signed: Kendall Casanova at 16:19 EDT Tel , Service support , Cervical Spine CT 12/23/17 15:50 IMPRESSION: No evidence for acute fracture or subluxation. Mild spondylosis. Mild multilevel spinal stenosis secondary to disc disease and bony hypertrophy Electronically Signed: Sanket Kong MD at 17:32 EDT , Service support , Head CTA 12/23/17 16:20 IMPRESSION: Mild to moderate stenosis origin right vertebral artery. Otherwise no significant stenoses. Electronically Signed: Miguel Londono MD at 17:30 EDT , Service support , Neck CTA 12/23/17 16:21 IMPRESSION: Mild to moderate stenosis origin right vertebral artery. Otherwise no significant stenoses. Electronically Signed: Miguel Londono MD at 17:30 EDT , Service support , Brain CT 12/23/17 22:02 IMPRESSION: Calcifications left caudate head of doubtful significance. No acute disease. Electronically Signed: Miguel Londono MD at 22:45 EDT , Service support , Medical Necessity - Tobacco Use Smoking Status: Current every day smoker Tobacco Use: Cigarettes Assessment/Plan All Active Problems (Last Updated 12/01/17 @ 10:29 by Luis Barrera) Hypertensive emergency (Acute) Acute metabolic encephalopathy (Acute) RECOMMENDATIONS: 1. Potential extubation following results of arterial blood gas 2. Possibly transition to Precedex therapy if unable to pass spontaneous breathing trial 3. Consider consultation to neurology 4. Hydralazine and labetalol as needed for systolic blood pressure greater than 180 5. Possible EEG/MRI IMPRESSIONS: 1. Acute respiratory failure secondary to coma Patient with reported decreased GCS on presentation requiring intubation. Patient did have a report of an elevated blood pressure initially with a lack of gag reflex. ABG shows no significant CO2 retention that would lead to decreased mental status, but this was obtained over an hour after intubation. There is no significant leukocytosis to suggest acute infection. No coagulopathy is appreciated. Renal function has improved compared to admission. Tox screen is unremarkable. Patient does not have sedative medications noted on reported home medication list. Patient's glucose was reportedly appropriate on scene. Cycling cardiac enzymes were unremarkable. Patient may benefit from a neurologic evaluation, but appears to be protecting his airway at this time. Possible extubation later this morning. 2. Coronary artery disease status post multiple stents Patient does have a history of multiple cardiac stents in the past. EKG is unremarkable at this time. We will continue to monitor with telemetry only. No indication for continued cardiac enzymes. Chest x-ray is not consistent with congestive heart failure at this time. Patient has not had an echocardiogram recently. 3. Diabetes mellitus type 2 Patient currently n.p.o. Would monitor blood sugars every 6 hours. Sliding scale only at this time. We will continue to monitor closely. Likely reinitiate diet and home medications following extubation. 4. Advanced age/lack of clinical history/hyperlipidemia/probable COPD/GERD/ depression Complicates care, management, recovery and prognosis. Patient can likely be held on baseline medications for now. There is no indication of a suicide attempt, but volatile alcohols are currently being evaluated. TIME: 35 minutes of critical care time spent addressing patient's decreased mental status, respiratory failure, review of all data and collaboration with care team. (6 AM to 7:30 AM) Code Visit 9xxxx: [id number] Critical care first hour
--- NOTE | 2017-12-24 07:40 | PCM.PN.HOSP ---
Patient Problems: Active and Suspected Problems (Last Updated 12/01/17 @ 10:29 by Luis Barrera) Hypertensive emergency (Acute) Acute metabolic encephalopathy (Acute) Subjective: Patient is awake and alert. In preparation for extubation. Currently on 30% FiO2/500 mL tidal volume/26/11. Patient follows commands. Blood pressure is better controlled, currently 160/82. Vitals/I&O's: Vital Signs Temp Pulse Resp BP Pulse Ox 97.1 F L 68 16 168/82 H 100 12/24/17 06:00 12/24/17 07:00 12/24/17 07:00 12/24/17 07:00 12/24/17 07:00 Oxygen Delivery Method Mechanical Ventilator Weight: 203 lb 7.787 oz Body Mass Index (BMI) 27.3 Intake and Output for Last 24 Hours 12/22/17 12/23/17 12/24/17 23:59 23:59 23:59 Intake Total 555 / 555 668.8 / 668.8 Output Total 900 / 900 425 / 425 Balance -345 / -345 243.8 / 243.8 Laboratory Results 12/23/17 19:45: Troponin I < 0.015 12/23/17 19:45: Lactic Acid 0.9 12/23/17 19:45: MRSA (PCR) Negative 12/23/17 22:55: Troponin I < 0.015 12/23/17 23:35: POC Glucose 157 H 12/24/17 03:50: WBC 11.6 H, RBC 3.72 L, Hgb 12.0 L, Hct 34.8 L, MCV 93.5, MCH 32.3 H, MCHC 34.5, RDW 13.5, RDW Differential 44.6 H, Plt Count 168, MPV 10.2, Immature Gran % (Auto) 0.300, Neut % (Auto) 70.3 H, Lymph % (Auto) 13.5 L, [place] % (Auto) 8.8, Eos % (Auto) 6.6 H, Baso % (Auto) 0.5, Absolute Neuts (auto) 8.2 H, Absolute Lymphs (auto) 1.57, Total Counted Not Reportable 12/24/17 03:50: Sodium 145, Potassium 3.7, Chloride 112 H, Carbon Dioxide 26.0, Anion Gap 7, BUN 18, Creatinine 1.17, Est GFR (MDRD) Af Amer 80, Est GFR (MDRD) Non-Af 66, BUN/Creatinine Ratio 15.4, Glucose 122 H, Calcium 7.5 L, Total Bilirubin 0.20, AST 20, ALT 22, Alkaline Phosphatase 74, Total Protein 5.2 L, Albumin 2.3 L, Globulin 2.9, Albumin/Globulin Ratio 0.8 L 12/24/17 05:26: POC Glucose 125 H Current Medications Chlorhexidine Gluconate () 15 ml PO BID KARINE Last Admin: 12/23/17 21:50 Dose: 15 ml Heparin Sodium (Porcine) (Heparin Na) 5,000 unit SC Q8 KARINE Last Admin: 12/24/17 05:33 Dose: 5,000 units Sodium Chloride () 1,000 mls @ 100 mls/hr IV .Q10H KARINE Last Admin: 12/24/17 05:33 Dose: 100 mls/hr Famotidine 20 mg/ Sodium (Chloride) 10 mls @ 300 mls/hr IV Q12 KARINE Last Admin: 12/23/17 21:49 Dose: 300 mls/hr Sodium Chloride () 250 mls @ 15 mls/hr IV .[id number] PRN PRN Reason: SALINE FLUSH Last Admin: 12/23/17 21:49 Dose: 15 mls/hr Dexmedetomidine HCl 400 mcg/ (Sodium Chloride) 100 mls @ 11.37 mls/hr IV .Q8H48M KARINE; 0.5 MCG/KG/HR PRN Reason: Protocol Insulin Human Lispro (Humalog Kwikpen (Bkc)) 0 unit SC Q6 KARINE PRN Reason: Protocol Last Admin: 12/24/17 05:33 Dose: Not Given Ondansetron HCl (Zofran) 4 mg IV Q8H PRN PRN PRN Reason: Nausea Sodium Chloride () 5 - 30 ml IV UD PRN PRN Reason: SALINE FLUSH Last Admin: 12/23/17 23:43 Dose: 20 ml Medical Necessity - Tobacco Use Smoking Status: Current every day smoker Tobacco Use: Cigarettes Assessment/Plan All Active Problems (Last Updated 12/01/17 @ 10:29 by Luis Barrera) Hypertensive emergency (Acute) Acute metabolic encephalopathy (Acute) This is a 67 years old male patient presented to the emergency department because of unresponsiveness, found to have high elevated blood pressure as well as acute kidney injury, was intubated for airway protection and is being admitted for encephalopathy, likely metabolic, hypertensive emergency and acute kidney injury. #1 altered mental status/encephalopathy: Probably metabolic encephalopathy due to hypertensive emergency: Serial troponin enzymes are negative. CT scan brain revealed no acute infarction or hemorrhage. CTA of the head and neck reviewed, no acute findings. #2 hypertensive emergency: Reportedly, blood pressure upon arrival was 235/184, came down to around 170 systolic after 2 doses of IV hydralazine. He does have endorgan damage including acute kidney injury and coma. EKG revealed normal sinus rhythm with first-degree AV block, troponin is negative. Urine drug screen reviewed. Currently the blood pressure is controlled. The patient had IV hydralazine last night. Plan: Close medical blood pressure, IV hydralazine as needed for systolic more than 160. #3 acute respiratory failure mainly because of unresponsiveness: Patient was intubated for airway protection. ABG revealed pH of 7.45, PCO2 of 33 and PO2 of 85. Chest x-ray reviewed, no acute findings. Impression for extubation #4 acute kidney injury: Baseline kidney function is normal. Plan: IV fluids. Repeat lab shows creatinine 1.17. BUN 18 #5 CAD status post stents: Continue aspirin, statins, Plavix, losartan and metoprolol through OG tube. The patient had last echo in 2013 reported as EF 60% with mild concentric LVH and no regional wall motion abnormality. Mild TR with RVSP 34 mmHg. 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 After extubation, if mental status is okay patient can be started on diet #7 COPD: On review of extubation. #8 hyperlipidemia: Continue statins through orogastric tube. #9 DVT prophylaxis: Subcu heparin. #10 GI prophylaxis: Start IV Pepcid twice daily. #11 CODE STATUS: Patient is intubated, sedated, [place] Coma Scale 6. was at the bedside and she mentioned that she has no idea about her 's and he does not have living will or advanced directive and they never spoke about it. Active Medications Chlorhexidine Gluconate () 15 ml PO BID KARINE Last Admin: 12/23/17 21:50 Dose: 15 ml Heparin Sodium (Porcine) (Heparin Na) 5,000 unit SC Q8 KARINE Last Admin: 12/24/17 05:33 Dose: 5,000 units Sodium Chloride () 1,000 mls @ 100 mls/hr IV .Q10H KARINE Last Admin: 12/24/17 05:33 Dose: 100 mls/hr Famotidine 20 mg/ Sodium (Chloride) 10 mls @ 300 mls/hr IV Q12 KARNIE Last Admin: 12/23/17 21:49 Dose: 300 mls/hr Sodium Chloride () 250 mls @ 15 mls/hr IV .[id number] PRN PRN Reason: SALINE FLUSH Last Admin: 12/23/17 21:49 Dose: 15 mls/hr Dexmedetomidine HCl 400 mcg/ (Sodium Chloride) 100 mls @ 11.37 mls/hr IV .Q8H48M KARINE; 0.5 MCG/KG/HR PRN Reason: Protocol Insulin Human Lispro (Humalog Kwikpen (Bkc)) 0 unit SC Q6 KARINE PRN Reason: Protocol Last Admin: 12/24/17 05:33 Dose: Not Given Ondansetron HCl (Zofran) 4 mg IV Q8H PRN PRN PRN Reason: Nausea Sodium Chloride () 5 - 30 ml IV UD PRN PRN Reason: SALINE FLUSH Last Admin: 12/23/17 23:43 Dose: 20 ml Laboratory Results 12/23/17 15:44: POC Glucose 167 H 12/23/17 15:46: WBC 7.8, RBC 4.04 L, Hgb 12.7 L, Hct 37.2 L, MCV 92.1, MCH 31.4, MCHC 34.1, RDW 13.5, RDW Differential 45.6 H, Plt Count 177, MPV 10.3, Immature Gran % (Auto) 0.100, Neut % (Auto) 60.9, Lymph % (Auto) 18.7 L, [place] % (Auto) 10.9 H, Eos % (Auto) 8.9 H, Baso % (Auto) 0.5, Absolute Neuts (auto) 4.7, Absolute Lymphs (auto) 1.45, Total Counted Not Reportable 12/23/17 15:46: PT 14.3, INR 1.1, APTT 29.8 12/23/17 15:46: Sodium 143, Potassium 3.9, Chloride 108 H, Carbon Dioxide 25.0, Anion Gap 10, BUN 22 H, Creatinine 1.65 H, Est GFR (MDRD) Af Amer 54 L, Est GFR (MDRD) Non-Af 44 L, BUN/Creatinine Ratio 13.3, Glucose 152 H, Calcium 8.2 L, Total Bilirubin 0.30, AST 25, ALT 26, Alkaline Phosphatase 92, Troponin I < 0.015, Total Protein 6.0 L, Albumin 2.7 L, Globulin 3.3, Albumin/Globulin Ratio 0.8 L, Lipase 77 12/23/17 15:46: Ethyl Alcohol 6.0 12/23/17 15:46: Lactic Acid 2.5 H 12/23/17 16:30: Urine Color Yellow, Urine Clarity Clear, Urine pH 7.0, Ur Specific [place] 1.010, Urine Protein 500 H, Urine Glucose (UA) 50 H, Urine Ketones Negative, Urine Occult Blood 50 H, Urine Nitrite Negative, Urine Bilirubin Negative, Urine Urobilinogen Normal, Ur Leukocyte Esterase Negative, Urine RBC 0 SEEN, Urine WBC 0-5 SEEN, Ur Squamous Epith Cells 0 SEEN, Urine Bacteria 0 SEEN, Urine Mucus 0 SEEN 12/23/17 16:30: Urine Opiates Screen NEGATIVE, Urine Methadone Screen NEGATIVE, Ur Barbiturates Screen NEGATIVE, Ur Phencyclidine Scrn NEGATIVE, Ur Amphetamines Screen NEGATIVE, U Methamphetamin-MDMA NEGATIVE, U Benzodiazepines Scrn POSITIVE H, Urine Cocaine Screen NEGATIVE, U Cannabinoids Screen NEGATIVE, Ur Drug Screen Comment 12/23/17 16:44: Specimen Type ART, Sample Site R Brachial, pH 7.45, Bicarbonate Actual 23.1, POC Total CO2 24, Base Excess -1, O2 Saturation 97, O2 % 30, ABG pCO2 33.7 L, ABG pO2 85, [place] Test POS, Respiration Rate 12, O2 Delivery Device Vent, Minute Volume 9.00, Vent Mode A-C, Tidal Volume 500, POC PEEP 5, Blood Gas Notified Whom ED , Blood Gas Notified Time 1635 12/23/17 19:45: Troponin I < 0.015 12/23/17 19:45: Lactic Acid 0.9 12/23/17 19:45: MRSA (PCR) Negative 12/23/17 22:55: Troponin I < 0.015 12/23/17 23:35: POC Glucose 157 H 12/24/17 03:50: WBC 11.6 H, RBC 3.72 L, Hgb 12.0 L, Hct 34.8 L, MCV 93.5, MCH 32.3 H, MCHC 34.5, RDW 13.5, RDW Differential 44.6 H, Plt Count 168, MPV 10.2, Immature Gran % (Auto) 0.300, Neut % (Auto) 70.3 H, Lymph % (Auto) 13.5 L, [place] % (Auto) 8.8, Eos % (Auto) 6.6 H, Baso % (Auto) 0.5, Absolute Neuts (auto) 8.2 H, Absolute Lymphs (auto) 1.57, Total Counted Not Reportable 12/24/17 03:50: Sodium 145, Potassium 3.7, Chloride 112 H, Carbon Dioxide 26.0, Anion Gap 7, BUN 18, Creatinine 1.17, Est GFR (MDRD) Af Amer 80, Est GFR (MDRD) Non-Af 66, BUN/Creatinine Ratio 15.4, Glucose 122 H, Calcium 7.5 L, Total Bilirubin 0.20, AST 20, ALT 22, Alkaline Phosphatase 74, Total Protein 5.2 L, Albumin 2.3 L, Globulin 2.9, Albumin/Globulin Ratio 0.8 L 12/24/17 05:26: POC Glucose 125 H Clinical Impression(s) from Imaging Studies Brain CT 12/23/17 15:49 IMPRESSION: No acute intracranial abnormality. Mild chronic ischemic changes. Chest X-Ray 12/23/17 15:49 IMPRESSION: Satisfactory position of the support lines and tubes. Cervical Spine CT 12/23/17 15:50 IMPRESSION: No evidence for acute fracture or subluxation. Mild spondylosis. Mild multilevel spinal stenosis secondary to disc disease and bony hypertrophy Head CTA 12/23/17 16:20 IMPRESSION: Mild to moderate stenosis origin right vertebral artery. Otherwise no significant stenoses. Neck CTA 12/23/17 16:21 IMPRESSION: Mild to moderate stenosis origin right vertebral artery. Otherwise no si Brain CT 12/23/17 22:02 IMPRESSION: Calcifications left caudate head of doubtful significance. No acute disease. Code Visit Inpatient E&M: 34138 Subs Hosp L3
[2017-12-24 07:51] LABS: Allen Test POS; Base Excess -3 mmol/L (-2 to +2); Bicarbonate 21.6 mmol/L (22-26); Blood Gas Specimen Type ART; FI02 30; Mode A-C; O2 Delivery Device Vent; PEEP 5; PO2 104 mmHG (75-100); RR 12; SITE R Brachial; SO2 98 % (95-99); Time Given 742; Total Carbon Dioxide 23 mmol/L; Vt 500; pCO2 32.1 mmHg (35-45); pH 7.44 (7.35-7.45)
--- NOTE | 2017-12-24 08:24 | ECHOD_ITS ---
Reason For Study: HTN Procedure This was a 2D Doppler, Color Flow transthoracic echocardiogram. The study was technically difficult. Exam performed portable in ICU/CCU. Left Ventricle Normal LV size. Moderate concentric left ventricular hypertrophy. Left ventricular systolic function is normal. The estimated ejection fraction is 55 %. Stage 1 diastolic dysfunction. No regional wall motion abnormalities noted. Right Ventricle Normal right ventricle. Normal systolic function. Atria Normal left atrium. Normal right atrium. Mitral Valve Normal mitral valve. Mild (1+) eccentric mitral valve insufficiency. Tricuspid Valve Normal tricuspid valve. Aortic Valve The aortic valve is not well visualized. Pulmonic Valve The pulmonic valve is not well visualized. Great Vessels Normal aortic root. The pulmonary artery is normal size. Normal inferior vena cava. Pericardium/Pleural No pericardial effusion. Medication Performed a rapid injection of agitated mix of 9 cc saline and 1cc air to assess for atrial septal defect. MMode/2D Measurements & Calculations LVIDd: 4.4 cm IVSd: 1.6 cm Ao root diam: 3.9 cm LVIDs: 3.1 cm LVPWd: 1.5 cm LA dimension: 3.3 cm RVDd: 3.0 cm FS: 29.0 % LAV(MOD-bp): 33.3 ml LVAd ap4: 29.0 cm2 SV(MOD-sp4): 39.0 ml LAV(MOD-bp) Indexed: 15.8 ml/m2 EDV(MOD-sp4): 77.6 ml LAV(MOD-sp2): 36.8 ml EDV(sp4-el): 82.2 ml LAV(MOD-sp4): 29.2 ml LVAs ap4: 18.5 cm2 ESV(MOD-sp4): 38.6 ml ESV(sp4-el): 37.5 ml EF(MOD-sp4): 50.2 % EF(sp4-el): 54.3 % SV(sp4-el): 44.6 ml LA A4 area: 14.1 cm2 RA A4 area: 9.6 cm2 Time Measurements MV dec time: 0.22 sec Doppler Measurements & Calculations MV E max lior: 58.9 cm/sec Lat Peak E' Lior: 8.3 cm/sec Med Peak E' Lior: 5.6 cm/sec MV A max lior: 85.7 cm/sec E/E' lat: 7.1 E/E' med: 10.6 MV E/A: 0.69 MV V2 max: 94.2 cm/sec MV P1/2t max lior: 69.6 cm/sec Ao V2 max: 125.8 cm/sec MV max P.5 mmHg MV P1/2t: 83.7 msec Ao max P.3 mmHg MV V2 mean: 50.2 cm/sec MV dec slope: 243.5 cm/sec2 MV mean P.3 mmHg MVA(P1/2t): 2.6 cm2 MV V2 VTI: 20.0 cm LV V1 max: 100.0 cm/sec LV V1 max P.0 mmHg Interpretation Summary Normal LV size. Moderate concentric left ventricular hypertrophy. Left ventricular systolic function is normal. The estimated ejection fraction is 55 %. Stage 1 diastolic dysfunction. Ordering Physician: Konrad Dudley Referring Physician: PRIYANKA FUENTES Performed By: Roger Abdalla RCS
--- NOTE | 2017-12-24 10:05 | CASEMGMT ---
See assessment. SW spoke w/ in room after ICU rounds. Pt intermittentely awake during conversation. Pt is normally alert and oriented, indpendent w/ADL's, drives. Pt has no history of home health or SNF placement. Pt has a cane and walker, uses occasionally as is unsteady at times on his feet. Pt can go up and down stairs but takes his time. Pt is on 2L O2 at night. 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 SW explained will continue to follow for any discharge needs. It is not anticipated pt will have any needs, though SW/CM will follow in the event needs arise. LEO Arriaza, ACCOUNT MANAGER EDUCATION
[2017-12-24] MEDS: Acetaminophen 500 MG Tablet 1000 MG PO (10:53)
--- NOTE | 2017-12-24 11:40 | CON.PCM_ITS ---
Reason for Consult Date of Consultation: 12/24/17 Reason for Consultation: loss of consciousness History of Present Illness: The patient is a 67 year old right handed white male with a history of diabetes and diabetic neuropathy, as well as multiple lightheaded events, was found unresponsive in the [place] at the [facility]. He tells me that he has a history of multiple lightheaded spells, apparently [place] then was found unresponsive. When he came to the emergency department his blood pressure was very high at 227 systolic, his lactate was also elevated at 2.5. He was intubated and he is now extubated. Cause for his event is not otherwise evident. per admit hk&p:The patient is a 67 year old M with past medical history as mentioned above presented to the emergency department because he was found unresponsive. Reportedly, patient went on to [facility] this morning and his mentioned that he was acting normally. This afternoon, he reportedly was found stumbling across the barn and he fell. EMS was called and he reported that he was able to slightly squeeze their hands on both sides but was minimally responsive. At this time, his is at the bedside and she mentioned that he has been having issues with balance over the last few weeks. She mentioned that he tends to fall and has been stumbling to the tan. He has a history of CAD status post stents and he has been on aspirin, Plavix, statins, beta blockers and losartan. He had history of type 2 diabetes mellitus and he has been on Lantus and metformin. According to his , he was diagnosed with COPD recently and he was prescribed oxygen at home because his pulse ox has been as low as 80% on room air. At this time, patient is sedated and intubated. At this time, his Hao Coma Scale is 6. On arrival to ER, his blood pressure was 235/184, heart rate was stable. He was afebrile. He was intubated because he was unresponsive and started on mechanical ventilation and sedation. His routine blood work is remarkable for BUN of 22 and creatinine of 1.65. Lactic acid was 2.5. Troponin was negative. LFT and lipase were unremarkable. EKG revealed normal sinus rhythm with first-degree AV block, MN interval of 232 ms, no acute ST elevation. Urine drug screen was positive for benzodiazepines. Blood alcohol level was 6. CT scan brain showed no acute infarction or hemorrhage, no skull fractures. Chest x-ray showed no acute findings, no infiltrate or consolidation. Cervical spine showed no fractures or dislocations, showed arthritic changes. CTA of the head and neck revealed mild to moderate stenosis of the right vertebral artery, otherwise no significant stenosis. He is being admitted for altered mental status, encephalopathy, hypertensive emergency, acute kidney injury. Past Medical History Past Medical History (Chronic Problems): Chronic Problems (Last Updated 12/01/17 @ 10:29 by Luis [employer]) Orthostatic hypotension (Chronic) Old myocardial infarction (Chronic) Acute Ant [place] w/ ST elevation January 2013 Diabetes mellitus (Chronic) Nicotine abuse (Chronic) Other long-term (current) drug therapy (Chronic) Atherosclerotic heart disease of [place] coronary artery without angina pectoris (Chronic) Cardiac cath w/PTCA PIA LAD January 11, 2013; Cardiac Cath w/PTCA PIA prox LCX, PIA distal RCA, PIA Mid RCA 2012; PCI with PIA LAD, POBA D1 D2 07/19/14; PTCA & Promus PIA to PDA 08/11/14 H/O percutaneous transluminal coronary angioplasty (Chronic) Cardiac cath w/PTCA PIA LAD January 11, 2013; Cardiac Cath w/PTCA PIA prox LCX, PIA distal RCA, PIA Mid RCA 2012; PCI with PIA LAD, POBA D1 D2 07/19/14; PTCA & Promus PIA to PDA 08/11/14 HLD (hyperlipidemia) (Chronic) Medical History: Medical History (Last Updated 12/01/17 @ 10:29 by [employer]) Orthostatic hypotension (Chronic) I95.1 Old myocardial infarction (Chronic) I25.2 Acute Ant [place] w/ ST elevation January 2013 Diabetes mellitus (Chronic) E11.9 Nicotine abuse (Chronic) Z72.0 Other oysterman (current) drug therapy (Chronic) Z79.899 Atherosclerotic heart disease of [place] coronary artery without angina pectoris (Chronic) I25.10 Cardiac cath w/PTCA PIA LAD January 11, 2013; Cardiac Cath w/PTCA PIA prox LCX, PIA distal RCA, PIA Mid RCA 2012; PCI with PIA LAD, POBA D1 D2 07/19/14; PTCA & Promus PIA to PDA 08/11/14 HLD (hyperlipidemia) (Chronic) E78.5 Arthritis M19.90 Depression F32.9 Dizziness and giddiness R42 GERD (gastroesophageal reflux disease) K21.9 Pain in limb M79.609 Stomach ulcer K25.9 Allergies No Known Allergies Allergy (Verified 12/23/17 15:46) Home Medications: Ambulatory Orders Medication Instructions Recorded furosemide 20 mg tablet 20 mg PO DAILY 12/01/17 losartan 100 mg tablet 100 mg PO DAILY 12/01/17 metformin 1,000 mg tablet 1,000 mg PO BID 12/01/17 Aspirin 81 mg PO DAILY 12/23/17 Atorvastatin Calcium [Lipitor] 80 mg PO DAILY 12/23/17 Clopidogrel Bisulfate [Clopidogrel] 75 mg PO DAILY 12/23/17 Insulin Glargine,Hum.rec.anlog 34 unit SC QHS 12/23/17 [Lantus] Metoprolol Tartrate 25 mg PO BID 12/23/17 Omeprazole 40 mg PO DAILY 12/23/17 Pregabalin [Lyrica] 50 mg PO DAILY 12/23/17 Surgical History: Surgical History (Last Updated 12/01/17 @ 10:29 by Luis Barrera) H/O percutaneous transluminal coronary angioplasty (Chronic) Z98.61 Cardiac cath w/PTCA PIA LAD January 11, 2013; Cardiac Cath w/PTCA PIA prox LCX, PIA distal RCA, PIA Mid RCA 2012; PCI with PIA LAD, POBA D1 D2 07/19/14; PTCA & Promus PIA to PDA 08/11/14 Surgical History: noncontributory Psychiatric History: No pertinent psych hx Lives: Spouse/ Significant Other Smoking Status: Current every day smoker Tobacco Use: Cigarettes Alcohol: None Drugs: None - *Family History Maternal Family History: Family History (Last Updated 12/01/17 @ 10:29 by Luis Barrera) Father CAD (coronary artery disease) Diabetes Brother Heart disease Myocardial infarction Sister Diabetes History Items: No pertinent history Paternal Family History: Family History (Last Updated 12/01/17 @ 10:29 by Luis Barrera) Father CAD (coronary artery disease) Diabetes Brother Heart disease Myocardial infarction Sister Diabetes History Items: No pertinent history Review of Systems Constitutional: Denies: Chills, Fever, Night Sweats Eyes: Reports: Blurred vision HEENT: Reports: Head Aches. Denies: Sinus Congestion, Sinus Drainage Cardiovascular: Denies: Chest Pain, Palpitations Respiratory: Reports: Shortness of Breath Gastrointestinal: Denies: Abdominal Pain, Nausea, Vomiting Genitourinary: Denies: Dysuria Musculoskeletal: Denies: Joint Pain, Joint Tenderness Skin: Denies: Rash, Wounds Neurological: Reports: Balance problems, Blurred vision, Double vision, Headaches, Incoordination, Numbness, Tingling. Denies: Difficulty swallowing, Focal weakness Psychiatric: Denies: Anxiety, Depression, Homicidal Ideations, Suicidal Ideations Hematologic/ Lymphatic: Denies: Easy Bruising, Easy Bleeding Patient Problems: Active and Suspected Problems (Last Updated 12/01/17 @ 10:29 by Luis Barrera) Hypertensive emergency (Acute) Acute metabolic encephalopathy (Acute) - Physical Exam General: Alert, Oriented x3, Cooperative HEENT: Atraumatic, PERRLA, EOMI, Normocephalic Neurological: Cranial nerves II-XII grossly intact, - - on my neurologic exam his reflexes are 0 diffusely. There is no drift. There is no abnormalities with respect to forearm orbit testing however there is giveaway weakness in all of his extremities. Sensation is intact to double simultaneous stimulation. Psych/Mental Status: Normal Affect, Appropriate Vital Signs Temp Pulse Resp BP Pulse Ox 36.6 C 89 17 138/83 H 98 12/24/17 09:00 12/24/17 11:00 12/24/17 11:00 12/24/17 11:00 12/24/17 11:00 Oxygen Flow Rate (L/min) 2 Oxygen Delivery Method Room Air Weight: 92.3 kg Body Mass Index (BMI) 27.3 Intake and Output for Last 24 Hours 12/22/17 12/23/17 12/24/17 23:59 23:59 23:59 Intake Total 555 / 555 668.8 / 668.8 Output Total 900 / 900 425 / 425 Balance -345 / -345 243.8 / 243.8 Laboratory Tests Past 24 Hrs 12/23/17 12/23/17 12/23/17 19:45 19:45 19:45 WBC RBC Hgb Hct MCV MCH MCHC RDW RDW Differential Plt Count MPV Immature Gran % (Auto) Neut % (Auto) Lymph % (Auto) [place] % (Auto) Eos % (Auto) Baso % (Auto) Absolute Neuts (auto) Absolute Lymphs (auto) Total Counted Specimen Type Sample Site pH Bicarbonate Actual POC Total CO2 Base Excess O2 Saturation O2 % ABG pCO2 ABG pO2 [place] Test Respiration Rate O2 Delivery Device Minute Volume Vent Mode Tidal Volume POC PEEP Blood Gas Notified Whom Blood Gas Notified Time Sodium Potassium Chloride Carbon Dioxide Anion Gap BUN Creatinine Est GFR (MDRD) Af Amer Est GFR (MDRD) Non-Af BUN/Creatinine Ratio Glucose Lactic Acid 0.9 Calcium Total Bilirubin AST ALT Alkaline Phosphatase Troponin I < 0.015 Total Protein Albumin Globulin Albumin/Globulin Ratio MRSA (PCR) Negative 12/23/17 12/24/17 12/24/17 22:55 03:50 03:50 WBC 11.6 H RBC 3.72 L Hgb 12.0 L Hct 34.8 L MCV 93.5 MCH 32.3 H MCHC 34.5 RDW 13.5 RDW Differential 44.6 H Plt Count 168 MPV 10.2 Immature Gran % (Auto) 0.300 Neut % (Auto) 70.3 H Lymph % (Auto) 13.5 L [place] % (Auto) 8.8 Eos % (Auto) 6.6 H Baso % (Auto) 0.5 Absolute Neuts (auto) 8.2 H Absolute Lymphs (auto) 1.57 Total Counted Not Reportable Specimen Type Sample Site pH Bicarbonate Actual POC Total CO2 Base Excess O2 Saturation O2 % ABG pCO2 ABG pO2 [place] Test Respiration Rate O2 Delivery Device Minute Volume Vent Mode Tidal Volume POC PEEP Blood Gas Notified Whom Blood Gas Notified Time Sodium 145 Potassium 3.7 Chloride 112 H Carbon Dioxide 26.0 Anion Gap 7 BUN 18 Creatinine 1.17 Est GFR (MDRD) Af Amer 80 Est GFR (MDRD) Non-Af 66 BUN/Creatinine Ratio 15.4 Glucose 122 H Lactic Acid Calcium 7.5 L Total Bilirubin 0.20 AST 20 ALT 22 Alkaline Phosphatase 74 Troponin I < 0.015 Total Protein 5.2 L Albumin 2.3 L Globulin 2.9 Albumin/Globulin Ratio 0.8 L MRSA (PCR) 12/24/17 07:45 WBC RBC Hgb Hct MCV MCH MCHC RDW RDW Differential Plt Count MPV Immature Gran % (Auto) Neut % (Auto) Lymph % (Auto) [place] % (Auto) Eos % (Auto) Baso % (Auto) Absolute Neuts (auto) Absolute Lymphs (auto) Total Counted Specimen Type ART Sample Site R Brachial pH 7.44 Bicarbonate Actual 21.6 L POC Total CO2 23 Base Excess -3 L O2 Saturation 98 O2 % 30 ABG pCO2 32.1 L ABG pO2 104 H [place] Test POS Respiration Rate 12 O2 Delivery Device Vent Minute Volume 9.00 Vent Mode A-C Tidal Volume 500 POC PEEP 5 Blood Gas Notified Whom ICU MD Blood Gas Notified Time 742 Sodium Potassium Chloride Carbon Dioxide Anion Gap BUN Creatinine Est GFR (MDRD) Af Amer Est GFR (MDRD) Non-Af BUN/Creatinine Ratio Glucose Lactic Acid Calcium Total Bilirubin AST ALT Alkaline Phosphatase Troponin I Total Protein Albumin Globulin Albumin/Globulin Ratio MRSA (PCR) POC Glucose 12/24/17 12/23/17 05:26 23:35 POC Glucose [address] reviewed, no acute Assessment/Plan All Active Problems (Last Updated 12/01/17 @ 10:29 by Luis Barrera) Hypertensive emergency (Acute) Acute metabolic encephalopathy (Acute) Unresponsiveness: This sounds like prolonged syncope however, he was very hypertensive in the emergency department. Seizures are less likely. There is no evidence of brain injury at this point however given the unexplained nature of these events I think it is reasonable to pursue further testing including MRI with sedation and an EEG if available.
--- NOTE | 2017-12-24 12:04 | MRI_ITS ---
STUDY: MRI BRAIN WITH AND WITHOUT CONTRAST REASON FOR EXAM: Male, 67 years old. Confusion TECHNIQUE: Standardized multiplanar fat and water weighted pulse sequences were obtained. 10 ml of Gadavist contrast material was administered intravenously for the contrast portion of the examination. COMPARISON: CT of the brain on December 23, 2017 FINDINGS: Normal size of the ventricles and extra-axial spaces for the patient's age. Normal white matter tracts of the supratentorial brain. Normal bilateral basal ganglia. Normal thalami. There is no extra-axial fluid accumulation. Normal flow voids within the major intracranial circulation suggesting patency by spin echo criteria. Normal venous enhancement. There is no enhancing intra-axial or extra-axial abnormality. Normal sella turcica, pituitary gland, infundibular stalk, optic chiasm and hypothalamus. Normal tectal plate and pineal gland. Normal midbrain, mariella and medulla. Normal cerebellum. Normal basal cisterns. Normal bilateral temporal bones. Normal bilateral internal auditory canals. There are postsurgical changes involving the right orbit. There is moderate mucosal thickening in the right maxillary sinus and mild mucosal thickening within the ethmoid and sphenoid sinuses.. Normal calvarium and skull base. Normal visualized soft tissue structures. Normal visualized upper cervical spine. MRI/Brain W/WO Contrast IMPRESSION: Normal unenhanced and enhanced MRI of the brain. Right maxillary, bilateral ethmoid and sphenoid sinusitis Electronically Signed: Sanket Kong MD at 16:27 EDT , Service support ,
[2017-12-24 12:21] LABS: Bedside Glucose 158 mg/dL (70-110)
[2017-12-24] MEDS: Insulin Lispro 100 UNIT/ML INSULN.PEN SC ×2 (12:21→21:23)
[2017-12-24] MEDS: DiphenhydrAMINE 50 MG/ML Syringe IV (14:27)
[2017-12-24] MEDS: LORazepam 2 MG/ML Syringe 0.5 MG IV (14:30)
[2017-12-24] MEDS: Haloperidol Lactate 5 MG/ML Vial 3 MG IV (16:16)
[2017-12-24] MEDS: Haloperidol Lactate 5 MG/ML Vial 2 MG IV (17:02)
[2017-12-24] MEDS: Glucerna Shake 120 ML LIQUID PO ×2 (17:36→21:23)
[2017-12-24 17:41] LABS: Bedside Glucose 141 mg/dL (70-110)
[2017-12-24 22:56] LABS: Bedside Glucose 194 mg/dL (70-110)
[2017-12-25] VITALS (15 sets, daily range): BP systolic 127–176; BP diastolic 80–105; PULSE 62–78; RESP 12–20; TEMP 36.2–36.8; O2SAT 93–99
[2017-12-25] MEDS: 0.9% Normal Saline 1,000 ML 100 ML IV (05:03)
[2017-12-25 05:22] LABS: Anion Gap 6 (5-15); BUN 16 mg/dL (7-18); BUN/Creat Ratio 13.1 RATIO (10-20); Calcium,Total 7.6 mg/dL (8.5-10.1); Chloride 114 mmol/L (98-107); Creatinine, Serum 1.22 mg/dL (0.70-1.30); EST Glomerular Filtration Rate 63 mL/min (>60); Est Glom Filt Rate - Afr Amer 76 mL/min (>60); Estimated Creatinine Clearance 64.49 ml/min; Glucose 152 mg/dL (74-106); Phosphorus 2.4 mg/dL (2.5-4.9); Sodium Level 146 mmol/L (136-145)
[2017-12-25 05:24] LABS: Absolute Lymphocyte Count 1.53 X10^3/ul (0.83-4.51); Absolute Neutrophil Count 5.1 X10^3/uL (2.0-7.7); Basophil# 0.04 X10^3/uL; Basophil% 0.5 % (0-1); Eosinophil# 0.52 X10^3/uL; Eosinophils% 6.5 % (0-5); Hematocrit 35.6 % (40-54); Hemoglobin 12.1 g/dl (13.0-16.5); Lymphocyte # 1.53 X10^3/ul (4.0); Mean Corpuscular Hgb 31.5 pg (27.0-32.0); Mean Corpuscular Volume 92.7 fL (80-94); Mean Platelet Vol. 10.5 fl (6.2-12.0); Monocyte# 0.91 X10^3/uL; Monocyte% 11.3 % (0-10); Neutrophil # 5.05 X10^3/uL (2.7-7.7); Neutrophil % 62.6 % (47-70); Platelet Count 167 K/mm3 (150-450); RBC Distribution Width CV 13.8 % (11.6-14.6); RBC Distribution Width SD 46.7 fl (35.1-43.9); Red Blood Count 3.84 M/mm3 (4.6-6.2); White Blood Count 8.1 K/mm3 (4.4-11.0)
[2017-12-25 05:26] LABS: POSITIVE COUNT NO; POSITIVE DIFFERENTIAL NO; POSITIVE MORPHOLOGY NO
[2017-12-25] MEDS: Heparin Injection (Vial) 5,000 UNIT/ML VIAL 5000 UNIT SC (05:52)
[2017-12-25 06:36] LABS: Bedside Glucose 159 mg/dL (70-110)
--- NOTE | 2017-12-25 06:43 | PCM.PN.INT ---
Subjective: Patient did well overnight. No acute issues were reported. Patient has had some elevated blood pressures, but no repeat of presenting neurologic condition has occurred. Patient tolerating room air well. Patient denying any headache at this time. Patient does not feel more short of breath compared to baseline. General: Alert, Oriented x3, Cooperative, No apparent distress, Well developed, Well nourished, - - Speaking in full sentences. HEENT: Atraumatic, PERRLA, EOMI, Normocephalic, - - No scleral icterus or injection noted. Oral: Moist Mucosa, No Gingival or Mucosal Lesions/ Ulcerations Neck: Supple, No JVD, No Nodes, Trachea Midline Lungs: Clear to auscultation, Normal air movement, No rhonchi, No wheeze, No rales, - - Symmetric expansion. No dullness to percussion. Cardiovascular: Regular rate, Regular Rhythm, Normal S1, Normal S2, No murmurs, No rub noted, No Gallop Abdomen: Bowel Sounds Present, Soft, Non Tender, Non-Distended Extremities: No clubbing, No cyanosis, No edema, Capillary Refill Less than 3 Seconds Skin: No rashes, No breakdown Musculoskeletal: No Tenderness to Palpation of Joints or Extremities Lymphatic: No Cervical, Supraclavicular, or Inguinal Adenopathy Neurological: Cranial nerves II-XII grossly intact, Neuro grossly intact, Motor Exam 5/5 strength throughout, Sensory exam intact to light touch and pain Psych/Mental Status: Alert and oriented to time, place, person, mood and affect Vital Signs Temp Pulse Resp BP Pulse Ox 36.8 C 64 16 169/81 H 99 12/25/17 04:00 12/25/17 06:00 12/25/17 06:00 12/25/17 06:00 12/25/17 06:00 Oxygen Flow Rate (L/min) 2 Oxygen Delivery Method Room Air Weight: 94.3 kg Body Mass Index (BMI) 27.3 Intake and Output for Last 24 Hours 12/23/17 12/24/17 12/25/17 23:59 23:59 23:59 Intake Total 555 / 555 2153.8 / 2153.8 1428 / 1428 Output Total 900 / 900 2175 / 2175 1150 / 1150 Balance -345 / -345 -21.2 / -21.2 278 / 278 Labs (Last 48 Hours) 12/23/17 12/23/17 12/23/17 19:45 19:45 19:45 WBC RBC Hgb Hct MCV MCH MCHC RDW RDW Differential Plt Count MPV Immature Gran % (Auto) Neut % (Auto) Lymph % (Auto) [place] % (Auto) Eos % (Auto) Baso % (Auto) Absolute Neuts (auto) Absolute Lymphs (auto) Total Counted Specimen Type Sample Site pH Bicarbonate Actual POC Total CO2 Base Excess O2 Saturation O2 % ABG pCO2 ABG pO2 [place] Test Respiration Rate O2 Delivery Device Minute Volume Vent Mode Tidal Volume POC PEEP Blood Gas Notified Whom Blood Gas Notified Time Sodium Potassium Chloride Carbon Dioxide Anion Gap BUN Creatinine Estim Creat Clear Calc Est GFR (MDRD) Af Amer Est GFR (MDRD) Non-Af BUN/Creatinine Ratio Glucose Lactic Acid 0.9 Calcium Phosphorus Magnesium Total Bilirubin AST ALT Alkaline Phosphatase Troponin I < 0.015 Total Protein Albumin Globulin Albumin/Globulin Ratio MRSA (PCR) Negative POC Glucose 12/23/17 12/23/17 12/24/17 22:55 23:35 03:50 WBC 11.6 H RBC 3.72 L Hgb 12.0 L Hct 34.8 L MCV 93.5 MCH 32.3 H MCHC 34.5 RDW 13.5 RDW Differential 44.6 H Plt Count 168 MPV 10.2 Immature Gran % (Auto) 0.300 Neut % (Auto) 70.3 H Lymph % (Auto) 13.5 L [place] % (Auto) 8.8 Eos % (Auto) 6.6 H Baso % (Auto) 0.5 Absolute Neuts (auto) 8.2 H Absolute Lymphs (auto) 1.57 Total Counted Not Reportable Specimen Type Sample Site pH Bicarbonate Actual POC Total CO2 Base Excess O2 Saturation O2 % ABG pCO2 ABG pO2 [place] Test Respiration Rate O2 Delivery Device Minute Volume Vent Mode Tidal Volume POC PEEP Blood Gas Notified Whom Blood Gas Notified Time Sodium Potassium Chloride Carbon Dioxide Anion Gap BUN Creatinine Estim Creat Clear Calc Est GFR (MDRD) Af Amer Est GFR (MDRD) Non-Af BUN/Creatinine Ratio Glucose Lactic Acid Calcium Phosphorus Magnesium Total Bilirubin AST ALT Alkaline Phosphatase Troponin I < 0.015 Total Protein Albumin Globulin Albumin/Globulin Ratio MRSA (PCR) POC Glucose 157 H 12/24/17 12/24/17 12/24/17 03:50 05:26 07:45 WBC RBC Hgb Hct MCV MCH MCHC RDW RDW Differential Plt Count MPV Immature Gran % (Auto) Neut % (Auto) Lymph % (Auto) [place] % (Auto) Eos % (Auto) Baso % (Auto) Absolute Neuts (auto) Absolute Lymphs (auto) Total Counted Specimen Type ART Sample Site R Brachial pH 7.44 Bicarbonate Actual 21.6 L POC Total CO2 23 Base Excess -3 L O2 Saturation 98 O2 % 30 ABG pCO2 32.1 L ABG pO2 104 H [place] Test POS Respiration Rate 12 O2 Delivery Device Vent Minute Volume 9.00 Vent Mode A-C Tidal Volume 500 POC PEEP 5 Blood Gas Notified Whom ICU MD Blood Gas Notified Time 742 Sodium 145 Potassium 3.7 Chloride 112 H Carbon Dioxide 26.0 Anion Gap 7 BUN 18 Creatinine 1.17 Estim Creat Clear Calc Est GFR (MDRD) Af Amer 80 Est GFR (MDRD) Non-Af 66 BUN/Creatinine Ratio 15.4 Glucose 122 H Lactic Acid Calcium 7.5 L Phosphorus Magnesium Total Bilirubin 0.20 AST 20 ALT 22 Alkaline Phosphatase 74 Troponin I Total Protein 5.2 L Albumin 2.3 L Globulin 2.9 Albumin/Globulin Ratio 0.8 L MRSA (PCR) POC Glucose 125 H 12/24/17 12/24/17 12/24/17 12:14 17:30 21:18 WBC RBC Hgb Hct MCV MCH MCHC RDW RDW Differential Plt Count MPV Immature Gran % (Auto) Neut % (Auto) Lymph % (Auto) [place] % (Auto) Eos % (Auto) Baso % (Auto) Absolute Neuts (auto) Absolute Lymphs (auto) Total Counted Specimen Type Sample Site pH Bicarbonate Actual POC Total CO2 Base Excess O2 Saturation O2 % ABG pCO2 ABG pO2 [place] Test Respiration Rate O2 Delivery Device Minute Volume Vent Mode Tidal Volume POC PEEP Blood Gas Notified Whom Blood Gas Notified Time Sodium Potassium Chloride Carbon Dioxide Anion Gap BUN Creatinine Estim Creat Clear Calc Est GFR (MDRD) Af Amer Est GFR (MDRD) Non-Af BUN/Creatinine Ratio Glucose Lactic Acid Calcium Phosphorus Magnesium Total Bilirubin AST ALT Alkaline Phosphatase Troponin I Total Protein Albumin Globulin Albumin/Globulin Ratio MRSA (PCR) POC Glucose 158 H 141 H 194 H 12/25/17 12/25/17 12/25/17 04:45 04:45 06:29 WBC 8.1 RBC 3.84 L Hgb 12.1 L Hct 35.6 L MCV 92.7 MCH 31.5 MCHC 34.0 RDW 13.8 RDW Differential 46.7 H Plt Count 167 MPV 10.5 Immature Gran % (Auto) 0.100 Neut % (Auto) 62.6 Lymph % (Auto) 19.0 [place] % (Auto) 11.3 H Eos % (Auto) 6.5 H Baso % (Auto) 0.5 Absolute Neuts (auto) 5.1 Absolute Lymphs (auto) 1.53 Total Counted Not Reportable Specimen Type Sample Site pH Bicarbonate Actual POC Total CO2 Base Excess O2 Saturation O2 % ABG pCO2 ABG pO2 [place] Test Respiration Rate O2 Delivery Device Minute Volume Vent Mode Tidal Volume POC PEEP Blood Gas Notified Whom Blood Gas Notified Time Sodium 146 H Potassium 4.0 Chloride 114 H Carbon Dioxide 26.0 Anion Gap 6 BUN 16 Creatinine 1.22 Estim Creat Clear Calc 64.49 Est GFR (MDRD) Af Amer 76 Est GFR (MDRD) Non-Af 63 BUN/Creatinine Ratio 13.1 Glucose 152 H Lactic Acid Calcium 7.6 L Phosphorus 2.4 L Magnesium 2.0 Total Bilirubin AST ALT Alkaline Phosphatase Troponin I Total Protein Albumin Globulin Albumin/Globulin Ratio MRSA (PCR) POC Glucose 159 H Clinical Impression(s) from Imaging Studies Brain MRI 12/24/17 12:04 IMPRESSION: Normal unenhanced and enhanced MRI of the brain. Right maxillary, bilateral ethmoid and sphenoid sinusitis Electronically Signed: Sanket Kong MD at 16:27 EDT , Service support , Medical Necessity - Tobacco Use Smoking Status: Current every day smoker Tobacco Use: Cigarettes Assessment/Plan All Active Problems (Last Updated 12/01/17 @ 10:29 by Luis Barrera) Hypertensive emergency (Acute) Acute metabolic encephalopathy (Acute) RECOMMENDATIONS: 1. Await neurologic workup 2. Reinitiate home medications. 3. Hemodynamically stable on room air. Okay to leave the intensive care unit 4. Defer to hospitalist/neurology and if patient can be discharged today. IMPRESSIONS: 1. Acute respiratory failure secondary to coma Patient successfully liberated from the ventilator yesterday. Patient's mental status appears to be back to baseline. No repeat events have been reported. Patient's blood sugars have been well controlled. Patient with no cough or signs or symptoms of aspiration event during the decreased mental status. 2. Coronary artery disease status post multiple stents Patient does have a history of multiple cardiac stents in the past. EKG is unremarkable at this time. Telemetry has been unremarkable. Echocardiogram does show some diastolic dysfunction, but otherwise is unremarkable and does not explain presenting symptoms. 3. Diabetes mellitus type 2 Patient currently on a p.o. diet. Blood sugars have been well controlled. 4. Advanced age/lack of clinical history/hyperlipidemia/probable COPD/GERD/depression Complicates care, management, recovery and prognosis. Reinitiate baseline medications. Code Visit Inpatient E&M: 59005 Subs Hosp L2
[2017-12-25] MEDS: Insulin Lispro 100 UNIT/ML INSULN.PEN SC (08:38)
--- NOTE | 2017-12-25 08:55 | DCINST_ITS ---
- Discharge Diagnoses Current Active Problems: Current Active and Chronic Problems (Last Updated 12/01/17 @ 10:29 by Luis Barrera) Hypertensive emergency (Acute) Acute metabolic encephalopathy (Acute) You will use the following diet at home:: Calorie/Carbohydrate Controlled ( specify 1200, 1400, etc) - 1800, Cardiac Discharge Activity: May not drive while taking narcotic pain medications. Allergies/Adverse Reactions: Allergies No Known Allergies Allergy (Verified 12/23/17 15:46) Medications to take at Discharge losartan 100 mg tablet 100 mg PO DAILY 12/01/17 metformin 1,000 mg tablet 1,000 mg PO BID 12/01/17 Aspirin 81 mg PO DAILY 12/23/17 Atorvastatin Calcium [Lipitor] 80 mg PO DAILY 12/23/17 Clopidogrel Bisulfate [Clopidogrel] 75 mg PO DAILY 12/23/17 Insulin Glargine,Hum.rec.anlog [Lantus] 34 unit SC QHS 12/23/17 Metoprolol Tartrate 25 mg PO BID 12/23/17 Omeprazole 40 mg PO DAILY 12/23/17 Pregabalin [Lyrica] 50 mg PO DAILY 12/23/17 Hydrochlorothiazide [Hctz] 12.5 mg PO DAILY #30 tab 12/25/17 The following prescriptions were given: Hydrochlorothiazide [Hctz] 12.5 mg PO DAILY #30 tab Primary Care Physician: Tamanna Moreno [Primary Care Provider] - Please follow up with your Primary Care Physician in: in 2 weeks
--- NOTE | 2017-12-25 08:56 | DS.PCM_ITS ---
Discharge Date and Diagnosis Date of Admission: 12/23/17 Date of Discharge: 12/25/17 - Primary Discharge Diagnosis Active and Suspected Problems (Last Updated 12/01/17 @ 10:29 by Luis Barrera) #1 altered mental status/ACUTE encephalopathy; Probably metabolic encephalopathy due to hypertensive emergency: Resolved #2 hypertensive emergency with features of end organ damage: #3 acute respiratory failure mainly because of unresponsiveness required intubation for airway protection. #4 acute kidney injury; exact etiology unclear but possible features of hypertensive emergency probably ATN: - Secondary Discharge Diagnosis Chronic Problems (Last Updated 12/01/17 @ 10:29 by Luis Barrera) Orthostatic hypotension (Chronic) Old myocardial infarction (Chronic) Acute Ant MA w/ ST elevation January 2013 Diabetes mellitus (Chronic) Nicotine abuse (Chronic) Other senior living (current) drug therapy (Chronic) Atherosclerotic heart disease of [place] coronary artery without angina pectoris (Chronic) Cardiac cath w/PTCA PIA LAD January 11, 2013; Cardiac Cath w/PTCA PIA prox LCX, PIA distal RCA, PIA Mid RCA 2012; PCI with PIA LAD, POBA D1 D2 07/19/14; PTCA & Promus PIA to PDA 08/11/14 H/O percutaneous transluminal coronary angioplasty (Chronic) Cardiac cath w/PTCA PIA LAD January 11, 2013; Cardiac Cath w/PTCA PIA prox LCX, PIA distal RCA, PIA Mid RCA 2012; PCI with PIA LAD, POBA D1 D2 07/19/14; PTCA & Promus PIA to PDA 08/11/14 HLD (hyperlipidemia) (Chronic) Hospital Course and Treatment Summary of Care Provided: This is a 67 years old male patient presented to the emergency department because of unresponsiveness, found to have high elevated blood pressure as well as acute kidney injury, was intubated for airway protection and is being admitted for encephalopathy, likely metabolic, hypertensive emergency and acute kidney injury. The patient was seen and examined today General: Alert, Oriented x3, Cooperative, No apparent distress, Well developed, Well nourished HEENT: Atraumatic, PERRLA, EOMI, Normocephalic, scleral icterus negative Oral: Moist Mucosa, No Gingival or Mucosal Lesions/ Ulcerations Neck: Supple, No JVD, No Nodes, Trachea Midline Lungs: Clear to auscultation, Normal air movement, No rhonchi, No wheeze, No rales Cardiovascular: Regular rate, Regular Rhythm, Normal S1, Normal S2, No murmurs, No rub noted, No Gallop Abdomen: Bowel Sounds Present, Soft, Non Tender, Non-Distended Extremities: No clubbing, No cyanosis, No edema Skin: No rashes, No breakdown Musculoskeletal: No Tenderness to Palpation of Joints or Extremities Lymphatic: No Cervical, Supraclavicular, or Inguinal Adenopathy Neurological: Cranial nerves II-XII grossly intact, Neuro grossly intact, Motor Exam 5/5 strength throughout Overall hospital course and management as follows #1 altered mental status/encephalopathy; Probably metabolic encephalopathy due to hypertensive emergency: Resolved serial troponin enzymes are negative. CT scan brain revealed no acute infarction or hemorrhage. CTA of the head and neck reviewed, no acute findings. EEG showed nonspecific slowing of EEG waves but no epileptiform discharges. Seen by neurologist Dr. Brothers for discharge home #2 hypertensive emergency with features of endorgan damage: Reportedly, blood pressure upon arrival was 235/184, came down to around 170 systolic after 2 doses of IV hydralazine. He does have endorgan damage including acute kidney injury and coma. EKG revealed normal sinus rhythm with first-degree AV block, troponin is negative. Urine drug screen reviewed. Currently the blood pressure is controlled. The patient had IV hydralazine last night. Currently blood pressure is lowered systolic in 156/94. Heart rate 67/min. Pulse ox 98% on room air. #3 acute respiratory failure mainly because of unresponsiveness: Patient was intubated for airway protection. ABG revealed pH of 7.45, PCO2 of 33 and PO2 of 85. Chest x-ray reviewed, no acute findings. The patient was extubated yesterday and currently on room air #4 acute kidney injury; exact etiology unclear but possible features of hypertensive emergency probably ATN: Baseline kidney function is normal. Admitting creatinine was 1.65, BUN 22. Plan: IV fluids. Repeat lab shows creatinine 1.17. BUN 18; on baseline. #5 CAD status post stents: Continue aspirin, statins, Plavix, losartan and metoprolol through OG tube. The patient had last echo in 2013 reported as EF 60 % with mild concentric LVH and no regional wall motion abnormality. Mild TR with RVSP 34 mmHg. 2D echo was done on 12/24/2017 and reported as EF 55% with normal left ventricular systolic function with moderate concentric LVH. Stage I diastolic dysfunction. No regional wall motion abnormality. Normal right ventricle systolic function and size. Normal right and left atrium. Mild eccentric MR. #6 type 2 diabetes mellitus: Initially patient was n.p.o. and then started diet. On Accu-Cheks before meals and at bedtime. Resume home medication. Blood sugars controlled #7 COPD: Stable. #8 hyperlipidemia: Continue statins through orogastric tube. #9 DVT prophylaxis: Subcu heparin. #10 GI prophylaxis: Start IV Pepcid twice daily. #11 CODE STATUS: Patient is intubated, sedated, Hao Coma Scale 6. was at the bedside and she mentioned that she has no idea about her 's and he does not have living will or advanced directive and they never spoke about it. Discharge medication reconciliation done. Discharge follow-up instructions discussed with the patient. Patient wants to go home. Total time spent, exact 35 minutes on discharge meds reconciliation, examination , review of imaging and blood test and discussion with the patient on follow-up instructions. Clinical Impression(s) from Imaging Studies Brain CT 12/23/17 15:49 IMPRESSION: No acute intracranial abnormality. Mild chronic ischemic changes. N.B. : The above information has been verbally conveyed by Kendall Casanova to Donn Galdamez, Referring Physician, on 12/23/2017 16:38:08 (ET). Electronically Signed: Kendall Casanova, at 16:38 EDT Tel , Service support , N.B. : The above information has been verbally conveyed by Kendall Casanova to Donn Galdamez, Referring Physician, on 12/23/2017 16:38:08 (ET). Chest X-Ray 12/23/17 15:49 IMPRESSION: Satisfactory position of the support lines and tubes. No acute thoracic pathology. Electronically Signed: Kendall Casanova, at 16:19 EDT Tel , Service support , Cervical Spine CT 12/23/17 15:50 IMPRESSION: No evidence for acute fracture or subluxation. Mild spondylosis. Mild multilevel spinal stenosis secondary to disc disease and bony hypertrophy Electronically Signed: Sanket Kong MD at 17:32 EDT , Service support , Head CTA 12/23/17 16:20 IMPRESSION: Mild to moderate stenosis origin right vertebral artery. Otherwise no significant stenoses. Electronically Signed: Miguel Londono MD at 17:30 EDT , Service support , Neck CTA 12/23/17 16:21 IMPRESSION: Mild to moderate stenosis origin right vertebral artery. Otherwise no significant stenoses. Electronically Signed: Miguel Londono MD at 17:30 EDT , Service support , Brain CT 12/23/17 22:02 IMPRESSION: Calcifications left caudate head of doubtful significance. No acute disease. Electronically Signed: Miguel Londono MD at 22:45 EDT , Service support , Brain MRI 12/24/17 12:04 IMPRESSION: Normal unenhanced and enhanced MRI of the brain. Right maxillary, bilateral ethmoid and sphenoid sinusitis Electronically Signed: Sanket Kong MD at 16:27 EDT , Service support , Laboratory Results 12/24/17 12:14: POC Glucose 158 H 12/24/17 17:30: POC Glucose 141 H 12/24/17 21:18: POC Glucose 194 H 12/25/17 04:45: WBC 8.1, RBC 3.84 L, Hgb 12.1 L, Hct 35.6 L, MCV 92.7, MCH 31.5 , MCHC 34.0, RDW 13.8, RDW Differential 46.7 H, Plt Count 167, MPV 10.5, Immature Gran % (Auto) 0.100, Neut % (Auto) 62.6, Lymph % (Auto) 19.0, [place] % ( Auto) 11.3 H, Eos % (Auto) 6.5 H, Baso % (Auto) 0.5, Absolute Neuts (auto) 5.1, Absolute Lymphs (auto) 1.53, Total Counted Not Reportable 12/25/17 04:45: Sodium 146 H, Potassium 4.0, Chloride 114 H, Carbon Dioxide 26.0 , Anion Gap 6, BUN 16, Creatinine 1.22, Estim Creat Clear Calc 64.49, Est GFR ( MDRD) Af Amer 76, Est GFR (MDRD) Non-Af 63, BUN/Creatinine Ratio 13.1, Glucose 152 H, Calcium 7.6 L, Phosphorus 2.4 L, Magnesium 2.0 12/25/17 06:29: POC Glucose 159 H Discharge Activity: May not drive while taking narcotic pain medications. Home Medications: Medications to take at Discharge losartan 100 mg tablet 100 mg PO DAILY 12/01/17 metformin 1,000 mg tablet 1,000 mg PO BID 12/01/17 Aspirin 81 mg PO DAILY 12/23/17 Atorvastatin Calcium [Lipitor] 80 mg PO DAILY 12/23/17 Clopidogrel Bisulfate [Clopidogrel] 75 mg PO DAILY 12/23/17 Insulin Glargine,Hum.rec.anlog [Lantus] 34 unit SC QHS 12/23/17 Metoprolol Tartrate 25 mg PO BID 12/23/17 Omeprazole 40 mg PO DAILY 12/23/17 Pregabalin [Lyrica] 50 mg PO DAILY 12/23/17 Hydrochlorothiazide [Hctz] 12.5 mg PO DAILY #30 tab 12/25/17 Following Prescrptions Were Given to Patient: Hydrochlorothiazide [Hctz] 12.5 mg PO DAILY #30 tab Primary Care Physician: Tamanna Moreno [Primary Care Provider] - Please follow up with your Primary Care Physician in: in 2 weeks Medical Necessity - Tobacco Use Smoking Status: Current every day smoker Tobacco Use: Cigarettes Meaningful Use Info Meaningful Use Diagnoses (Choose all that apply): None applicable Code Visit Inpatient E&M: 16445 Disch Hosp
[2017-12-25] MEDS: Pantoprazole Sodium 40 MG Tablet PO (09:28)
[2017-12-25] MEDS: Metoprolol Tartrate 25 MG Tablet PO (09:28)
[2017-12-25] MEDS: Furosemide 20 MG Tablet PO (09:29)
[2017-12-25] MEDS: Clopidogrel Bisulfate 75 MG Tablet PO (09:29)
[2017-12-25] MEDS: Losartan Potassium 100 MG Tablet PO (09:29)
[2017-12-25] MEDS: Aspirin 81 MG TAB.CHEW PO (09:29)
[2017-12-25] MEDS: Pregabalin 50 MG Capsule PO (09:29)
[2017-12-25] MEDS: Glucerna Shake 120 ML LIQUID PO (09:31)
[2017-12-25] MEDS: HYDROCHLOROTHIAZIDE 12.5 MG CAPSULE PO (09:31)
--- NOTE | 2017-12-25 11:18 | PN.NEURO_ITS ---
Patient Problems: Active and Suspected Problems (Last Updated 12/01/17 @ 10:29 by Luis Barrera) Hypertensive emergency (Acute) Acute metabolic encephalopathy (Acute) Subjective: No new complaints. Feels baseline. is present and agrees. Objective: Examination is nonfocal. - Physical Exam Vital Signs Temp Pulse Resp BP Pulse Ox 36.2 C L 67 20 H 176/89 H 98 12/25/17 08:00 12/25/17 11:00 12/25/17 11:00 12/25/17 11:00 12/25/17 11:00 Oxygen Flow Rate (L/min) 2 Oxygen Delivery Method Room Air Weight: 94.3 kg Body Mass Index (BMI) 27.3 Intake and Output for Last 24 Hours 12/23/17 12/24/17 12/25/17 23:59 23:59 23:59 Intake Total 555 / 555 2153.8 / 2153.8 1428 / 1428 Output Total 900 / 900 2175 / 2175 1150 / 1150 Balance -345 / -345 -21.2 / -21.2 278 / 278 Laboratory Tests Past 24 Hrs 12/25/17 12/25/17 04:45 04:45 WBC 8.1 RBC 3.84 L Hgb 12.1 L Hct 35.6 L MCV 92.7 MCH 31.5 MCHC 34.0 RDW 13.8 RDW Differential 46.7 H Plt Count 167 MPV 10.5 Immature Gran % (Auto) 0.100 Neut % (Auto) 62.6 Lymph % (Auto) 19.0 [place] % (Auto) 11.3 H Eos % (Auto) 6.5 H Baso % (Auto) 0.5 Absolute Neuts (auto) 5.1 Absolute Lymphs (auto) 1.53 Total Counted Not Reportable Sodium 146 H Potassium 4.0 Chloride 114 H Carbon Dioxide 26.0 Anion Gap 6 BUN 16 Creatinine 1.22 Estim Creat Clear Calc 64.49 Est GFR (MDRD) Af Amer 76 Est GFR (MDRD) Non-Af 63 BUN/Creatinine Ratio 13.1 Glucose 152 H Calcium 7.6 L Phosphorus 2.4 L Magnesium 2.0 POC Glucose 12/25/17 12/24/17 12/24/17 06:29 21:18 17:30 POC Glucose 159 H 194 H 141 H 12/24/17 12:14 POC Glucose 158 H MRI reviewed, no acute. EEG normal. Medical Necessity - Tobacco Use Smoking Status: Current every day smoker Tobacco Use: Cigarettes Assessment/Plan All Active Problems (Last Updated 12/01/17 @ 10:29 by Luis Barrera) Hypertensive emergency (Acute) Acute metabolic encephalopathy (Acute) Unresponsiveness: This sounds like prolonged syncope however, he was very hypertensive in the emergency department. Sting is normal including MRI and EEG. Okay to discharge to home. I suggested to the patient that he follow his blood pressures at home, and pursue adequate hydration. Outpatient follow-up.
--- NOTE | 2017-12-25 11:19 | EEG_ITS ---
- Electroencephalogram Date of service 12/24/17 This is an 18 channel electroencephalogram performed utilizing the International 10-20 electrode placement protocol as well as EKG reference leads , photic stimulation and hyperventilation. The patient did drowse during the recording. Background activity is 7 Hz symmetrically in the posterior leads which attenuates with eye opening. Hyperventilation is performed with good effort for 2 minutes with no lateralizing or epileptiform changes and the post hyperventilatory phase was unremarkable. EKG rhythm strip recording was normal sinus rhythm throughout the recording and photic stimulation does generate a normal symmetric driving response in the posterior leads. Impression: This EEG is abnormal due to very mild nonspecific slowing however there are no epileptiform abnormalities.
--- NOTE | 2017-12-25 11:37 | CASEMGMT ---
Pt had PT/OT today, as per OT pt walked 2 laps with a walker, as long as someone is w/pt he should be fine to return home and should use his walker. SW spoke w/pt and in room in regard to discharge plan. SW reiterated what PT/OT had said, that if pt uses walker and someone is with him, he should be fine to go home. Pt feels he is walking at his baseline, pt and both in agreement for pt to return home. states she can be w/pt. Home health is not indicated at this time, pt is not home bound as per pt and . SW again encouraged pt to use the walker when he goes home. Pt and both state understanding. No further needs, pt home w/ today. LEO Arriaza, [employer]
== END 2017-12-25 12:00 | disposition home or self-care (01) | DRG 70 ==
LOC: ED 16:03 → ICU 18:45
PROVIDERS: Internal Medicine Critical Care Medicine; Admitting Provider Hospitalist; Emergency Provider Emergency Medicine; Family Provider Internal Medicine Infectious Disease; PCP Internal Medicine Infectious Disease; Visit Provider Internal Medicine
DX: G93.41 Metabolic encephalopathy (principal); N17.0 Acute kidney failure with tubular necrosis; J96.00 Acute respiratory failure, unspecified whether with hypoxia or hypercapnia; I16.1 Hypertensive emergency; E78.5 Hyperlipidemia, unspecified; I44.0 Atrioventricular block, first degree; I25.10 Atherosclerotic heart disease of native coronary artery without angina pectoris; F17.200 Nicotine dependence, unspecified, uncomplicated; J44.9 Chronic obstructive pulmonary disease, unspecified; K21.9 Gastro-esophageal reflux disease without esophagitis; F32.9 Major depressive disorder, single episode, unspecified; R40.2430 Glasgow coma scale score 3-8, unspecified time; I25.2 Old myocardial infarction; Z79.899 Other long term (current) drug therapy; Z79.82 Long term (current) use of aspirin; Z79.4 Long term (current) use of insulin
CPT/HCPCS: 31500; 36600; 51702; 70450; 70496; 70498; 70553; 71045; 72125; 80048; 80053; 80307; 80320; 81001; 82803; 82962; 83605; 83690; 83735; 84100; 84484; 85025; 85610; 85730; 87641; 93005; 93306; 94002; 94003; 94660; 97162; 97166; 97802; 99251; 99285; 99406; A9585; J7030; J7050; Q9967; A4216; G0463; G0480; J0330; J3490

== ENCOUNTER → 2018-06-25 16:26 | Outpatient (CLI) | payer MEDICARE, MEDICAID, SELFPAY ==
[2018-06-25 15:41] VITALS: BMI 26.2
[2018-06-25 18:22] LABS: AST(SGOT) 15 U/L (15-37); Alanine Aminotransfer ALT/SGPT 21 U/L (16-61); Albumin, Serum 2.9 g/dL (3.2-5.0); Alkaline Phosphatase 100 U/L (45-117); Anion Gap 8 (5-15); BUN 33 mg/dL (7-18); BUN/Creat Ratio 22.8 RATIO (10-20); Bilirubin, Direct 0.13 mg/dL (0.00-0.30); Calcium,Total 8.9 mg/dL (8.5-10.1); Chloride 105 mmol/L (98-107); Cholesterol 143 mg/dL (200); Creatinine, Serum 1.45 mg/dL (0.70-1.30); EST Glomerular Filtration Rate 51 mL/min (>60); Est Glom Filt Rate - Afr Amer 62 mL/min (>60); Globulin 3.5 g/dL (2.2-4.2); Glucose 184 mg/dL (74-106); High Density Lipoprotein 43 mg/dL; Potassium 3.9 mmol/L (3.5-5.1); Protein, Total 6.4 g/dL (6.4-8.2); Sodium Level 140 mmol/L (136-145); Triglycerides 108 mg/dL; Very Low Density Lipoprotein 22 mg/dL (5-40)
--- OUTSIDE RECORDS SUMMARY | 2018-08-11 14:07 | XMS RPT_ITS ---
:1950 Author Organization OHIP Support Name Relationship Address Phone LANDFAIR RAUL Unavailable [address] + [place], [place] [phone] LANDFAIR, RAUL Unavailable [address] Unavailable [place], [place] [phone] NOT GIVEN Unavailable Unavailable Unavailable LANDFAIR, RAUL Unavailable [address] + [place] [address] LANDFAIR, ALIA Unavailable [address] [place] [address] R Unavailable Unavailable Unavailable LANDFAIR, RAUL Unavailable [address] + [place] [address] LANDFAIR, ALIA Unavailable [address] + [place] [address] R Unavailable Unavailable Unavailable LANDFAIR, RAUL Unavailable [address] + [place], [place] [phone] LANDFAIR, RAUL Unavailable [address] Unavailable [place], [place] [phone] NOT GIVEN Unavailable Unavailable Unavailable NOT GIVEN Unavailable Unavailable Unavailable NOT GIVEN Unavailable Unavailable Unavailable LANDFAIR, RAUL Unavailable [address] + [place], [place] [phone] LANDFAIR, RAUL Unavailable [address] Unavailable [place], [place] [phone] NOT GIVEN Unavailable Unavailable Unavailable NOT GIVEN Unavailable Unavailable Unavailable NOT GIVEN Unavailable Unavailable Unavailable LANDFAIR, RAUL Unavailable [address] + [place], [place] [phone] LANDFAIR, RAUL Unavailable [address] Unavailable [place], [place] [phone] NOT GIVEN Unavailable Unavailable Unavailable LANDFAIR, RAUL Unavailable [address] + [place], [place] [phone] LANDFAIR, RAUL Unavailable [address] Unavailable [place], [place] [phone] NOT GIVEN Unavailable Unavailable Unavailable NOT GIVEN Unavailable Unavailable Unavailable LANDFAIR, RAUL Unavailable [address] + [place] [address] LANDFAIR, ALIA Unavailable [address] + [place] [address] R Unavailable Unavailable Unavailable LANDFAIR, RAUL Unavailable [address] + [place] [address] LANDFAIR, ALIA Unavailable [address] + [place] [address] R Unavailable Unavailable Unavailable LANDFAIR, RAUL Unavailable [address] + [place] [address] LANDFAIR, ALIA Unavailable [address] + [place] [address] R Unavailable Unavailable Unavailable LANDFAIR, RAUL Unavailable [address] + [place] [address] LANDFAIR, ALIA Unavailable [address] + [place] [address] R Unavailable Unavailable Unavailable LANDFAIR, RAUL Unavailable [address] + [place] [address] LANDFAIR, ALIA Unavailable [address] + [place] [address] R Unavailable Unavailable Unavailable LANDFAIR, RAUL Unavailable [address] + [place] [address] LANDFAIR, ALIA Unavailable [address] + [place] [address] R Unavailable Unavailable Unavailable LANDFAIR, RAUL Unavailable [address] + [place] [address] LANDFAIR, ALIA Unavailable [address] + [place] [address] R Unavailable Unavailable Unavailable LANDFAIR, RAUL Unavailable [address] + [place], [place] [phone] LANDFAIR, RAUL Unavailable [address] Unavailable [place], [place] [phone] NOT GIVEN Unavailable Unavailable Unavailable LANDFAIR, RAUL Unavailable [address] + [place] [address] LANDFAIR, ALIA Unavailable [address] + [place] [address] R Unavailable Unavailable Unavailable LANDFAIR, RAUL Unavailable [address] + [place] [address] LANDFAIR, ALIA Unavailable [address] + [place] [address] R Unavailable Unavailable Unavailable LANDFAIR, RAUL Unavailable [address] + [place] [address] LANDFAIR, ALIA Unavailable [address] + [place] [address] R Unavailable Unavailable Unavailable LANDFAIR, RAUL Unavailable [address] + [place], [place] [phone] LANDFAIR, RAUL Unavailable [address] Unavailable [place], [place] [phone] NOT GIVEN Unavailable Unavailable Unavailable LANDFAIR, RAUL Unavailable [address] + [place], [place] [phone] LANDFAIR, RAUL Unavailable [address] Unavailable [place], [place] [phone] NOT GIVEN Unavailable Unavailable Unavailable LANDFAIR, RAUL Unavailable [address] + [place], [place] [phone] LANDFAIR, RAUL Unavailable [address] Unavailable [place], [place] [phone] NOT GIVEN Unavailable Unavailable Unavailable LANDFAIR, RAUL Unavailable [address] + [place], [place] [phone] LANDFAIR, RAUL Unavailable [address] Unavailable [place], [place] [phone] NOT GIVEN Unavailable Unavailable Unavailable Care Team Providers Name Role Phone TAMANNA FUENTES MD Admitting Unavailable TAMANNA FUENTES MD Attending Unavailable TAMANNA FUENTES MD Primary Care Unavailable TALAMPAS, TRISHA Consulting Unavailable PROVIDER, UNKNOWN Consulting Unavailable MYRIAM, JAYAPRAKASH Admitting Unavailable MYRIAM, JAYAPRAKASH Attending Unavailable MYRIAM, JAYAPRAKASH Primary Care Unavailable TAMANNA FUENTES MD Referring Unavailable RHIANNA RUBIO DO Admitting Unavailable RHIANNA RUBIO DO Attending Unavailable RHIANNA RUBIO DO Primary Care Unavailable TALAMPAS, TRISHA Consulting Unavailable PROVIDER, UNKNOWN Consulting Unavailable TAMANNA FUENTES MD Admitting Unavailable TAMANNA FUENTES MD Attending Unavailable TAMANNA FUENTES MD Primary Care Unavailable TALAMPAS, TRISHA Referring Unavailable TALAMPAS, TRISHA Consulting Unavailable PROVIDER, UNKNOWN Consulting Unavailable TAMANNA FUENTES MD Admitting Unavailable TAMANNA FUENTES MD Attending Unavailable TAMANNA FUENTES MD Primary Care Unavailable TALAMPAS, TRISHA Consulting Unavailable PROVIDER, UNKNOWN Consulting Unavailable TAMANNA FUENTES MD Admitting Unavailable TAMANNA FUENTES MD Attending Unavailable TAMANNA FUENTES MD Primary Care Unavailable TALAMPAS, TRISHA Consulting Unavailable PROVIDER, UNKNOWN Consulting Unavailable TAMANNA FUENTES MD Admitting Unavailable TAMANNA FUENTES MD Attending Unavailable TAMANNA FUENTES MD Primary Care Unavailable TALAMPAS, TRISHA Consulting Unavailable PROVIDER, UNKNOWN Consulting Unavailable PRAKASH EVANS MD Admitting Unavailable PRAKASH EVANS MD Attending Unavailable PRAKASH EVANS MD Primary Care Unavailable TALAMPAS, TRISHA Consulting Unavailable PROVIDER, UNKNOWN Consulting Unavailable MYRIAM, JAYAPRAKASH Admitting Unavailable MYRIAM, JAYAPRAKASH Attending Unavailable MYRIAM, JAYAPRAKASH Primary Care Unavailable TAMANNA FUENTES MD Referring Unavailable TAMANNA FUENTES MD Consulting Unavailable PROVIDER, UNKNOWN Consulting Unavailable PROVIDER, UNKNOWN Consulting Unavailable PROVIDER, UNKNOWN Consulting Unavailable PRAKASH EVANS MD Admitting Unavailable PRAKASH EVANS MD Attending Unavailable PRAKASH EVANS MD Primary Care Unavailable TALAMPAS, TRISHA Consulting Unavailable PROVIDER, UNKNOWN Consulting Unavailable TAMANNA FUENTES MD Admitting Unavailable TAMANNA FUENTES MD Attending Unavailable TAMANNA FUENTES MD Primary Care Unavailable TALAMPAS, TRISHA Consulting Unavailable PROVIDER, UNKNOWN Consulting Unavailable TAMANNA FUENTES MD Admitting Unavailable TAMANNA FUENTES MD Attending Unavailable TAMANNA FUENTES MD Primary Care Unavailable TALAMPAS, TRISHA Consulting Unavailable PROVIDER, UNKNOWN Consulting Unavailable MYRIAM, JAYAPRAKASH Admitting Unavailable MYRIAM, JAYAPRAKASH Attending Unavailable MYRIAM, JAYAPRAKASH Primary Care Unavailable TALAMPAS, TRISHA Consulting Unavailable PROVIDER, UNKNOWN Consulting Unavailable MYRIAM, JAYAPRAKASH Admitting Unavailable MYRIAM, JAYAPRAKASH Attending Unavailable MYRIAM, JAYAPRAKASH Primary Care Unavailable TALAMPAS, TRISHA Consulting Unavailable PROVIDER, UNKNOWN Consulting Unavailable TAMANNA FUENTES MD Admitting Unavailable TAMANNA FUENTES MD Attending Unavailable TAMANNA FUENTES MD Primary Care Unavailable TAMANNA FUENTES MD Consulting Unavailable PROVIDER, UNKNOWN Consulting Unavailable PROVIDER, UNKNOWN Consulting Unavailable PROVIDER, UNKNOWN Consulting Unavailable Jeff Miller Attending Unavailable OMRAN, YASSER Referring Unavailable Jeff Miller Attending Unavailable Angela Jeff Referring Unavailable OMRAN, YASSER Primary Care Unavailable Hortencia Mathew Attending Unavailable Zunilda Cabezas Attending Unavailable Mainor Soto Attending Unavailable Talampas, Trisha Referring Unavailable Talampas, Trisha Primary Care Unavailable OMRAN, YASSER Primary Care Unavailable Ashelfah, Ghasem Admitting Unavailable Luis Enrique, Konrad Attending Unavailable Ortiz, Kehinde Consulting Unavailable Juarez, Agustin Consulting Unavailable Ashelfah, Ghasem Admitting Unavailable Ashelfah, Ghasem Attending Unavailable OMRAN, YASSER Primary Care Unavailable Luis Enrique, Konrad Consulting Unavailable Ashelfah, Ghasem Admitting Unavailable Luis Enrique, Konrad Attending Unavailable OMRAN, YASSER Primary Care Unavailable Ortiz, Keihnde Consulting Unavailable Luis Enrique, Konrad Consulting Unavailable Ashelfah, Ghasem Admitting Unavailable Luis Enrique, Konrad Attending Unavailable OMRAN, YASSER Primary Care Unavailable Ortiz, Kehinde Consulting Unavailable Juarez, Agustin Consulting Unavailable Luis Enrique, Konrad Consulting Unavailable Ortiz, Kehinde Attending Unavailable Ashelfah, Ghasem Referring Unavailable Angela, [place] Attending Unavailable Darron Davis Attending Unavailable Karl Noble Referring Unavailable PROBLEMS PROBLEMS DATE TYPE CONDITION / CODE ATTENDING STATUS SOURCE Principle Type 2 diabetes TAMANNA FUENTES MD Active [facility] 9 Diagnosis mellitus without [facility] complications / Hospital E119(ICD-10) Repository Secondary Essential (primary) TAMANNA FUENTES MD Active [facility] 9 Diagnosis hypertension / [facility] I10(ICD-10) Hospital Repository Unknown I16.1 - Hypertensive Angela, Jeff Active [facility] emergency / Community I16.1(ICD-10) Hospital Repository Unknown E78.5 - Angela, Jeff Active [facility] Hyperlipidemia, Community unspecified / Hospital E78.5(ICD-10) Repository Unknown Z98.61 - Coronary Angela, [place] Active [place] 8 angioplasty status / Community Z98.61(ICD-10) Hospital Repository Secondary Vitamin D deficiency, TAMANNA FUENTES MD Active [facility] 8 Diagnosis unspecified / [facility] E559(ICD-10) Hospital Repository Secondary Unspecified TAMANNA FUENTES MD Active [facility] 8 Diagnosis abnormalities of gait [facility] and mobility / Hospital R269(ICD-10) Repository Secondary Type 2 diabetes LATOUF, PRAKASH Active [facility] 8 Diagnosis mellitus without MD [facility] complications / Hospital E119(ICD-10) Repository Principle Abnormal weight loss / LATOUF, PRAKASH Active [facility] 8 Diagnosis R634(ICD-10) [facility] Repository Secondary Shortness of breath / LATOUF, PRAKASH Active [facility] 8 Diagnosis R0602(ICD-10) [facility] Repository Secondary Encounter for routine LATOUF, PRAKASH Active [facility] 8 Diagnosis child health [facility] examination without Hospital abnormal findings / Repository F19437(ICD-10) Principle Essential (primary) TAMANNA FUENTES MD 8 Diagnosis hypertension / [facility] I10(ICD-10) Hospital Repository Unknown I25.10 - MoodisDarron altman Active [facility] 8 Atherosclerotic heart Community disease [facility] coronary artery Repository without angina pectoris / I25.10(ICD-10) Unknown R44.0 - Auditory MoodisDarron altman Active [facility] hallucinations / Community R44.0(ICD-10) Hospital Repository Unknown R94.31 - Abnormal MoodispaDarron carver Active [facility] 8 electrocardiogram Community [ECG] [EKG] / Hospital R94.31(ICD-10) Repository Unknown I25.2 - Old myocardial MoodispaDarron carver Active [place] 8 infarction / Community I25.2(ICD-10) Hospital Repository Admitting Shortness of breath / RHIANNA RUBIO DO Active [facility] 8 Diagnosis R0602(ICD-10) [facility] Hospital Repository Principle Chronic obstructive DIDRHIANNA FAN DO Active [facility] 8 Diagnosis pulmonary disease with [facility] (acute) exacerbation / Hospital J441(ICD-10) Repository Secondary Heart failure, RHIANNA RUBIO DO Active [facility] 8 Diagnosis unspecified / [facility] I509(ICD-10) Hospital Repository Secondary Old myocardial DIDRHIANNA FAN DO Active [facility] 8 Diagnosis infarction / [facility] I252(ICD-10) Hospital Repository Secondary Atherosclerotic heart DIDRHIANNA FAN DO Active [facility] 8 Diagnosis disease of [place] [facility] coronary artery Hospital without angina Repository pectoris / I2510(ICD-10) Secondary Presence of DIDRHIANNA FAN DO Active [facility] 8 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 / Z951(ICD-10) Hospital Repository Secondary Presence of coronary RHIANNA RUBIO DO Active [facility] 8 Diagnosis angioplasty implant [facility] and graft / Hospital Z955(ICD-10) Repository Secondary Nicotine dependence, RHIANNA RUBIO DO Active [facility] 8 Diagnosis cigarettes, [facility] uncomplicated / Hospital H56085(ICD-10) Repository Admitting Type 2 diabetes MYRIAM, Active [facility] 8 Diagnosis mellitus without JAYAPRAKASH [facility] complications / Hospital E119(ICD-10) Repository Secondary Proteinuria, MYRIAM, Active [facility] 8 Diagnosis unspecified / JAYAPRAKASH [facility] R809(ICD-10) Hospital Repository Admitting Pneumonia, unspecified TAMANNA FUENTES MD Active [facility] 8 Diagnosis organism / [facility] J189(ICD-10) Hospital Repository Principle Pneumonia, unspecified [facility] J189(ICD-10) Hospital Repository Secondary Chronic obstructive T[facility] ([facility] exacerbation / Hospital J441(ICD-10) Repository PROCEDURES PROCEDURES No Procedure Records FoundRESULTS RESULTS CBC (NO DIFF) Collected: 07/29/2018 Status: F Source: [facility] 4:40 PM [facility] REPOSITORY TYPE CODE TESTS RESULT OUT OF RANGE REFERENCE UNITS LAB CBC (NO DIFF)(LOINC ) CBC (NO DIFF) Result Comment: CBC(WITHOUT DIFFERENTIAL) LAB WBC(LOINC) 4.5 - 10.8 x 10EE3/UL WBC 8.4 LAB RBC(LOINC) 4.50 - x 10EE6/UL 6.00 RBC Low 4.17 LAB HEMOGLOBIN(LOINC) 13.0 - g/dl 17.5 HEMOGLOBIN 13.2 LAB HEMATOCRIT(LOINC) 40.0 - % 52.0 Low HEMATOCRIT 38.9 LAB MCV(LOINC) 81 - 98 fl MCV 93 LAB MCH(LOINC) 27 - 33 pg MCH 32 LAB MCHC(LOINC) 32 - 36 X10 3 MCHC 34 LAB RDW/CV(LOINC) 12.0 - % 15.6 RDW/CV 13.7 LAB PLATELET(LOINC) 150 - 450 x10EE3/UL PLATELET 202 LAB MPV(LOINC) 6.4 - 10.5 fl MPV 8.9 Result Comment: {CB] Performed By: #### [id number] #### [facility] [place],[address] [place] [address] LIPID PROFILE Collected: 07/29/2018 Status: F Source: [facility] 4:40 PM [facility] REPOSITORY TYPE CODE TESTS RESULT OUT OF REFERENCE UNITS RANGE LAB LIPID PROFILE(LOIN C) LIPID PROFILE Result Comment: LIPID PROFILE LAB TRIGLYCERIDE(LOINC) 0 - 150 mg/dl TRIGLYCERIDE 122 LAB CHOLESTEROL(LOINC) 0 - 200 mg/dl CHOLESTEROL 131 LAB HDL(LOINC) 40 - 60 mg/dl HDL Low 39 LAB CHOL/HDL(LOINC) 0.0 - 5.0 CHOL/HDL 3.4 LAB LDL(LOINC) 0 - 129 mg/dl LDL 68 Performed By: #### [id number] #### [facility] [place],[address] [place] [address] CMP WITH EGFR Collected: 07/29/2018 Status: F Source: [facility] 4:40 PM [facility] REPOSITORY TYPE CODE TESTS RESULT OUT OF RANGE REFERENCE UNITS LAB CMP with eGFR(LOINC) CMP with eGFR Result Comment: COMPREHENSIVE METABOLIC PANEL LAB SODIUM(LOINC) 136 - 145 mmol/l SODIUM Low 135 LAB POTASSIUM(LOINC) 3.5 - 5.1 mmol/L POTASSIUM 4.7 LAB CHLORIDE(LOINC) 98 - 107 mmol/L CHLORIDE 101 LAB CO2(LOINC) 21.0 - mmol/L 31.0 CO2 27.8 LAB GLUCOSE(LOINC) 74 - 106 mg/dl GLUCOSE High 337 LAB BUN(LOINC) 6 - 20 mg/dl BUN High 34 LAB CREATININE(LOINC) 0.7 - 1.3 mg/dl High CREATININE 1.9 LAB AST/SGOT(LOINC) 13 - 39 U/L AST/SGOT 15 LAB ALK PHOS(LOINC) 38 - 126 U/L ALK PHOS 94 LAB CALCIUM(LOINC) 8.6 - mg/dl 10.2 CALCIUM 9.1 LAB TOTAL 6.4 - 8.3 g/dl PROTEIN(LOINC) TOTAL Low PROTEIN 6.0 LAB ALBUMIN(LOINC) 3.4 - 4.8 g/dL ALBUMIN 3.4 LAB GLOBULIN(LOINC) 1.5 - 3.8 G/DL GLOBULIN 2.6 LAB A/G RATIO(LOINC) 0.9 - 1.6 A/G RATIO 1.3 LAB TOTAL BILI(LOINC) 0.0 - 1.5 mg/dl TOTAL BILI 0.4 LAB B/C RATIO(LOINC) 0 - 30 ratio B/C RATIO 18 LAB ALT/SGPT(LOINC) 10 - 40 U/L ALT/SGPT 15 LAB ANION GAP(LOINC) 10 - 20 mmol/L ANION GAP 11 LAB AGE(LOINC) years AGE 68 LAB eGFR(LOINC) 60 - 999 ML/MINUTE eGFR Low 35 LAB eGFR(AA)(LOINC) 60 - 999 ML/MINUTE eGFR(AA) Low 43 Result Comment: ACCORDING TO THE NATIONAL KIDNEY DISEASE EDUCATION PROGRAM(NKDE), A NORMAL eGFR IS A VALUE GREATER THAN OR EQUAL TO 60 ML/MIN/1.73 SQ METERS. CHRONIC KIDNEY DISEASE: <60mL/MIN/1.73 SQ METERS KIDNEY FAILURE: <15mL/MIN/1.73 SQ METERS THIS TEST SHOULD ONLY BE USED FOR PATIENTS 18 YEARS OF AGE AND OLDER. Performed By: #### [id number] #### [facility] [place],[address] [place], [place] [phone] HGB A1C Collected: 07/29/2018 Status: F Source: [facility] [place] 4:40 PM [facility] REPOSITORY TYPE CODE TESTS RESULT OUT OF RANGE REFERENCE UNITS LAB HGB A1C(LOINC) HGB A1C Result Comment: _HEMOGLOBIN A1C_ HGB A1C Reported: 07/30/2018 08:58 Status=F TEST RESULT FLAG RANGE UNITS Hemoglobin A1c 10.1 H 4.3-5.6 % 07/30/18.900.rfl.COMPLETE.ATLR [place] [employer] guidelines indicate that patients with HgbA1c in the range 5.7-6.4% are at increased risk for development of diabetes, and intervention by lifestyle modification may be beneficial. HgbA1c greater or equal to 6.5% is considered diagnostic of diabetes. Est. Average Glucose 243 mg/dL 07/30/18.rfl.COMPLETE.ATLR eAG: (Estimated average glucose) is a calculated value from HgbA1c and is retail account representative of the average blood glucose level in the last 2-3 month period. [facility] [address] [place] [address] Christina Zaidi M.D. [id number] Performed By: #### [id number] #### [facility] [place],[address] [id number] HEMOGLOBIN A1C Collected: 07/29/2018 Status: F Source: [place] 4:40 PM CLINIC REFERENCE REPOSITORY TYPE CODE TESTS RESULT OUT OF REFERENCE UNITS RANGE LAB HGBA1C(PATRICIA 4.3-5.6 % NC) High Hemoglobin A1c 10.1 LAB HBA0(LOINC mg/dL ) Est. Average Glucose 243 BASIC METABOLIC Collected: 06/25/2018 Status: F Source: [place] PROFILE (BMP) 4:42 PM [facility] REPOSITORY TYPE CODE TESTS RESULT OUT OF RANGE REFERENCE UNITS LAB L501.0100 74-106 mg/dL High GLU 184 Result Comment: Fasting Glucose result greater than or equal to 126 mg/dL suggests DIABETES MELLITUS per A.D.A. criteria. Please note revised GLUCOSE reference range effective 2017. LAB L501.1000 7-18 mg/dL High BUN 33 LAB L501.1100 0.70-1.30 mg/dL High CREAT,SERUM 1.45 Result Comment: The validity of the calculated GFR AND GFRAA in patients over 70 years has not been determined. Clinical correlation is essential. LAB L501.1110 >60 mL/min Low EST GFR 51 Result Comment: Non- GFR Calc LAB L501.1115 >60 mL/min Normal EST GFR - AA 62 Result Comment: GFR Calc LAB L501.1300 10-20 RATIO High BUN/CRE 22.8 LAB L501.2200 8.5-10.1 mg/dL CA Normal 8.9 LAB L501.5300 136-145 mmol/L NA Normal 140 LAB L501.5600 3.5-5.1 mmol/L K Normal 3.9 LAB L501.5900 98-107 mmol/L CL Normal 105 LAB L501.6100 21.0-32.0 mmol/L Normal CO2 27.0 LAB L501.6200 5-15 Normal GAP 8 Performed By: #### L500.2500, L500.3400, L500.4100 #### [facility] [address] [place], [place], [id number] LIVER PROFILE Collected: 06/25/2018 Status: F Source: [place] 4:42 PM [facility] REPOSITORY TYPE CODE TESTS RESULT OUT OF RANGE REFERENCE UNITS LAB L501.1500 6.4-8.2 g/dL Normal T PROT 6.4 LAB L501.1800 3.2-5.0 g/dL Low ALB 2.9 LAB L501.1950 2.2-4.2 g/dL Normal GLOB 3.5 LAB L501.4100 15-37 U/L Normal AST 15 LAB L501.4305 45-117 U/L Normal ALK P 100 LAB L501.4405 16-61 U/L Normal ALT 21 LAB L501.4600 0.20-1.00 mg/dL Normal T BILI 0.50 LAB L501.4700 0.00-0.30 mg/dL Normal D BILI 0.13 Performed By: #### L500.2500, L500.3400, L500.4100 #### [facility] [address] [facility] [address] [place], [place], [address] LIPID PROFILE Collected: 06/25/2018 Status: F Source: [facility] 4:42 PM [facility] REPOSITORY TYPE CODE TESTS RESULT OUT OF RANGE REFERENCE UNITS LAB L501.4900 200 mg/dL Normal CHOL 143 Result Comment: <200 mg/dL Desirable 200-240 mg/dL Borderline >240 mg/dL High Risk LAB L501.5000 mg/dL Normal TRIG 108 Result Comment: The drugs N-Acetylcysteine and Metamizole may falsely depress this assay. Serum Triglycerides Reference Interval Normal <150 mg/dL Borderline high 150 - 199 mg/dL High 200 - 499 mg/dL Very High > or = 500 mg/dL LAB L501.6400 mg/dL Normal HDL 43 Result Comment: The drugs N-Acetylcysteine and Metamizole may falsely depress this assay. Reference Range HDL <40 mg/dL Low HDL Cholesterol HDL >or= 60 mg/dL High HDL Cholesterol LAB L501.6500 0-130 mg/dL Normal LDL 78 LAB L501.6600 5-40 mg/dL Normal VLDL 22 Performed By: #### L500.2500, L500.3400, L500.4100 #### [facility] [address] [place], [address] CARDIOLOGY VISIT Observed: 06/25/2018 Status: F Source: [place] [facility] 4:00 PM [facility] REPOSITORY [facility] [address] [place] [address] OFFICE VISIT Date of Service: 06/25/18 MR#: [id number] Acct: [id number] Name: FAYE MAO Rep #: [id number] : 1950 Provider: Jeff Miller MD Age/Sex: 68/M Location: [facility] Status: Signed HPI HPI Chief Complaint: Follow-up visit Details: FAYE MAO, is a 68 M who presents to the office today for a follow-up visit. He is a gentleman with a history of coronary artery disease status post drug-eluting stents to the mid left anterior descending artery in January 2013, drug-eluting stent to the proximal circumflex artery mid and distal right coronary artery in February 2013 and drug-eluting stents to the mid LAD and proximal diagonal in July 2014. He also had repeat drug-eluting stent placed to the posterior descending artery at the end of July 2014. He tells me that he recently presented to the hospital in December of this year with a hypertensive emergency with encephalopathy. He was admitted to the intensive care unit his blood pressure was over 200 systolic. An echocardiogram which was performed demonstrated preserved ejection fraction and no wall motion abnormalities. He was treated aggressively with blood pressure medication and has done well since. He has had no neck arm or jaw discomfort suggest angina occasional dizziness has been noted but this is chronic and no syncopal episodes have been present. His physical exam here today demonstrates clear lung mohan regular rate and rhythm and no pedal edema his blood pressure is under excellent control. Intake Vital Signs06/25/18 Height 6 ft 1 in 06/25/18 Weight: 199 lb 06/25/18 Body Mass Index (BMI) 26.2 06/25/18 Blood Pressure 128/74 H 06/25/18 Blood Pressure Location Lt brachial Intake Visit Reasons: 7 m fu Online Advertising Manager Required: No Accompanied by: none Is patient in pain?: No Allergies No Known Allergies Allergy (Verified 06/25/18 15:44) Medications losartan 100 mg tablet 100 mg PO DAILY 12/01/17 [History Confirmed 06/25/18] metformin 1,000 mg tablet 1,000 mg PO BID 12/01/17 [History Confirmed 06/25/18] Aspirin 81 mg PO DAILY 12/23/17 [History Confirmed 06/25/18] Atorvastatin Calcium [Lipitor] 80 mg PO DAILY 12/23/17 [History Confirmed 06/25/18] Insulin Glargine,Hum.rec.anlog [Lantus] 34 unit SUBCUT QHS 12/23/17 [History Confirmed 06/25/18] Metoprolol Tartrate 25 mg PO BID 12/23/17 [History Confirmed 06/25/18] Omeprazole 40 mg PO DAILY 12/23/17 [History Confirmed 06/25/18] Pregabalin [Lyrica] 50 mg PO DAILY 12/23/17 [History Confirmed 06/25/18] Hydrochlorothiazide [Hctz] 12.5 mg PO DAILY #30 tab 12/25/17 [Rx Confirmed 06/25/18] clopidogrel 75 mg tablet 75 mg PO DAILY #30 tab 01/30/18 [Rx Confirmed 06/25/18] PFSH Medical History Orthostatic hypotension (Chronic) Old myocardial infarction (Chronic) Diabetes mellitus (Chronic) Nicotine abuse (Chronic) Other mcc (current) drug therapy (Chronic) Atherosclerotic heart disease of [place] coronary artery without angina pectoris (Chronic) HLD (hyperlipidemia) (Chronic) Arthritis (Chronic) Depression (Chronic) Dizziness and giddiness (Chronic) GERD (gastroesophageal reflux disease) (Chronic) Pain in limb (Chronic) Stomach ulcer (Chronic) Surgical History H/O percutaneous transluminal coronary angioplasty (Chronic) Family History Father CAD (coronary artery disease) CABG Diabetes Brother Heart disease Myocardial infarction Sister Diabetes Social History Smoking Status: Current every day smoker alcohol intake: never substance use type: does not use ROS Const Const: Negative for fatigue, weakness, night sweats, excessive sweating, frequent falls, headache(s) or daytime sleepiness Eyes Eyes: Negative for loss of peripheral vision, transient loss of vision, blind spots, double vision or blurry vision ENT ENT: Positive for dizziness (ongoing); negative for headache(s), balance problems, Nosebleed/epistaxis, tongue swelling or lip swelling Cardio Chest Pain: No Palpitations: No Edema: None Muscle aches with walking: Bilateral Resp Respiratory: Positive for SOB at rest and SOB with activity; negative for SOB orthopnea\SOB lying down, Cough or paroxysmal nocturnal dyspnea GI GI: Negative nausea, vomiting, heartburn, black,tarry stools or bright, red blood in stools : Negative for hematuria Musc Musc: Negative for balance problems, muscle aches/ myalgia, muscle weakness or joint pain Skin Skin: Negative non-healing lesions, unusual bruising or rash Neuro Neuro: Positive for dizziness (ongoing); negative for weakness, frequent falls, headache(s), double vision, lightheadedness, orthostatic symptoms, blurry vision or lack of coordination Aleksandr Hematologic/Lymphatic: Negative for easy bruising or easy bleeding Endo Endo: Negative for fatigue, excessive sweating, cold intolerance, heat intolerance, increased thirst/drinking or hair loss Psych Psych: Negative for anxiety or depression Allergy Allergy/Immunology: Negative for throat swelling, Negative for tongue swelling, Negative for hives, Negative for rash, Negative for lip swelling Cardiology Exam Const Appearance: cooperative, healthy appearing, well developed, well groomed and no acute distress Nutritional Appearance: well nourished and average body habitus Orientation: alert, awake and oriented x3 Head Head: normal to inspection, normocephalic and atraumatic Ears: hearing grossly normal bilaterally and external ears normal Nose: external nose normal, nasal mucous membranes and turbinates normal, nares normal, septum normal, no nasal discharge Face and Sinus: face symmetric Mouth: oral mucosae normal, tongue normal, oropharynx normal and moist mucous membranes Teeth and gingiva: dentition normal Throat: posterior oropharynx normal, tonsils normal and uvula midline Eyes General: appearance normal, both eyes and all related structures Eyelids: eyelids normal Conjunctivae: conjunctivae normal Pupils: PERRL, normal by confrontation and accommodation normal EOM: EOM intact bilaterally Neck Neck: normal visual inspection, trachea midline and no JVD JVD: +5 Carotids: normal carotid upstroke and bounding pulses Chest Chest inspection: normal inspection of the chest, symmetric chest movement and normal respiratory effort Auscultation: Bilateral: Clear to Auscultation Cardio Palpation: normal PMI Rate: regular rate Rhythm: regular rhythm Heart sounds: S1 normal, S2 normal and normal, physiologic split S2; negative rub, gallop or murmur GI GI: normal to inspection, soft, no hepatosplenomegaly and bowel sounds present Neuro General: alert, awake, oriented x3, no focal sensory deficit, gait normal and moves all extremities Skin Skin: no rashes or lesions noted Extremities Pulses: Normal: Right Femoral Pulse, Left Femoral Pulse, Right Dorsalis Pedis Pulse, Left Dorsalis Pedis Pulse, Right Posterior Tibial Pulse, Left Posterior Tibial Pulse, Right Radial Pulse, Left Radial Pulse Lower Extremity Edema: None: Bilateral Musculoskel Musculoskeletal: No joint tenderness Psych Psychological: normal affect Assessment AND Plan 1. Hypertensive emergency I16.1 Plan His blood pressure at this time appears to be much better controlled. He has not had a recent chemistry profile done and I will suggest that we obtain one. At this time I will not suggest that we make any changes. His last echocardiogram had demonstrated preserved ejection fraction. Orders Orders: 2. H/O percutaneous transluminal coronary angioplasty Z98.61 Cardiac cath w/PTCA PIA LAD January 11, 2013; Cardiac Cath w/PTCA PIA prox LCX, PIA distal RCA, PIA Mid RCA 2012; PCI with PIA LAD, POBA D1 D2 07/19/14; PTCA AND Promus PIA to PDA 08/11/14 Plan He does have a history of percutaneous transluminal coronary and angioplasty as noted above. With his recent hypertensive episode he did not have any significant abnormalities. We will continue to treat him aggressively. 3. Pure hypercholesterolemia E78.5 Plan He does have a history of hyperlipidemia. In addition I do not see a recent lipid profile performed. Depending on the findings further recommendations will be made. Thank you for allowing me to participate in the care of your patient. Please don't hesitate to call if any issues arise Orders Orders: Plan Detail Follow Up 6 Months (jhr) Coding Level of Care Code Off vis,est,level 4 Diagnoses Hypertensive emergency I16.1 H/O percutaneous transluminal coronary angioplasty Z98.61 Pure hypercholesterolemia E78.5 Hyperlipidemia type: pure hypercholesterolemia Coding Level of Care Code Off vis,est,level 4 Diagnoses Hypertensive emergency I16.1 H/O percutaneous transluminal coronary angioplasty Z98.61 Pure hypercholesterolemia E78.5 Hyperlipidemia type: pure hypercholesterolemia 12/13/18 1600 <Electronically signed by Jeff Miller MD> Date Jeff Miller MD Cosigner Signature: Date (if applicable) CC: Tamanna Fuentes CBC Collected: 04/13/2018 Status: F Source: [facility] 9:43 [facility] REPOSITORY TYPE CODE TESTS RESULT OUT OF RANGE REFERENCE UNITS LAB CBC(LOINC) CBC Result Comment: CBC-COMPLETE BLOOD COUNT LAB WBC(LOINC) 4.5 - 10.8 x 10EE3/UL WBC 8.7 LAB RBC(LOINC) 4.50 - x 10EE6/UL 6.00 RBC Low 4.18 LAB HEMOGLOBIN(LOINC) 13.0 - g/dl 17.5 HEMOGLOBIN 13.6 LAB HEMATOCRIT(LOINC) 40.0 - % 52.0 Low HEMATOCRIT 38.9 LAB MCV(LOINC) 81 - 98 fl MCV 93 LAB MCH(LOINC) 27 - 33 pg MCH 33 LAB MCHC(LOINC) 32 - 36 X10 3 MCHC 35 LAB RDW/CV(LOINC) 12.0 - % 15.6 RDW/CV 13.6 LAB PLATELET(LOINC) 150 - 450 x10EE3/UL PLATELET 204 LAB MPV(LOINC) 6.4 - 10.5 fl MPV 9.2 Result Comment: AUTOMATED DIFFERENTIAL LAB NEUT %(LOINC) 46.0 - 76.0 % NEUT % 71.4 LAB LYMPH %(LOINC) 20.0 - 45.0 % LYMPH % Low 15.4 LAB MONOS %(LOINC) 0.0 - 10.0 % MONOS % 8.3 LAB EO %(LOINC) 0.0 - 7.0 % EO % 4.1 LAB BASO %(LOINC) 0.0 - 2.0 % BASO % 0.8 LAB Lymph #(LOINC) 0.80 - 2.80 x10EE3/U L Lymph # 1.30 LAB Neut #(LOINC) 1.50 - 7.10 x10EE3/U L Neut # 6.20 LAB [place] #(LOINC) 0.20 - 1.00 x10EE3/U L [place] # 0.70 LAB EO #(LOINC) 0.00 - 0.50 x10EE3/U L EO # 0.40 LAB Baso #(LOINC) 0.00 - 0.10 x10EE3/U L Baso # 0.10 LAB MANUAL DIFF(LOINC) MANUAL DIFF N/A LAB MORPHOLOGY(LOINC ) MORPHOLOGY N/A Result Comment: {CD] Performed By: #### [id number] #### [place] [id number] RENAL FUNCTION PANEL Collected: 04/13/2018 Status: F Source: [facility]U [place] 9:43 AM [facility] REPOSITORY TYPE CODE TESTS RESULT OUT OF REFERENCE UNITS RANGE LAB RENAL FUNCTION PANEL(LOINC) RENAL FUNCTION PANEL Result Comment: RENAL FUNCTION PANEL LAB SODIUM(LOINC) 136 - 145 mmol/l SODIUM 137 LAB POTASSIUM(LOINC) 3.5 - 5.1 mmol/L POTASSIUM 4.9 LAB CHLORIDE(LOINC) 98 - 107 mmol/L CHLORIDE 104 LAB GLUCOSE(LOINC) 74 - 106 mg/dl GLUCOSE High 432 LAB BUN(LOINC) 6 - 20 mg/dl BUN High 29 LAB CREATININE(LOINC) 0.7 - 1.3 mg/dl High CREATININE 1.6 LAB CALCIUM(LOINC) 8.6 - mg/dl 10.2 CALCIUM 9.3 LAB ALBUMIN(LOINC) 3.4 - 4.8 g/dL ALBUMIN Low 3.3 LAB B/C RATIO(LOINC) 0 - 30 ratio B/C RATIO 18 LAB CO2(LOINC) 21.0 - mmol/L 31.0 CO2 26.7 LAB PHOSPHORUS(LOINC) 2.7 - 4.9 mg/dl PHOSPHORUS 3.4 Performed By: #### [id number] #### [address] [address] VITAMIN D, 25 Collected: 04/13/2018 Status: F Source: [facility] HYDROXY 9:43 AM [facility] REPOSITORY TYPE CODE TESTS RESULT OUT OF RANGE REFERENCE UNITS LAB VitD(LOINC) 30.00 - 100 ng/mL Low VitD 19.02 Result Comment: 25-OHD3 indicates both endogenous production and supplementation. 25-OHD2 is an indicator of exogenous sources, such as diet or supplementation. Therapy is based on measurement of Total 25-OHD, with levels <20 ng/mL indicative of Vitamin D deficiency, while levels between 20 ng/mL and 30 ng/mL suggest insufficiency. Optimal levels are >=30ng/mL. Vitamin D, 25-OH D3 Not Established Vitamin D, 25-OH D2 Not Established Performed By: #### [id number] #### [facility] [place],[address] [place] [address] MICROALBUMIN RANDOM Collected: 04/13/2018 Status: F Source: [facility] URINE W/CREATININE 9:43 [facility] REPOSITORY TYPE CODE TESTS RESULT OUT OF REFERENCE UNITS RANGE LAB MICROALBUMIN 0.1 - 25.1 mg/dL UR(LOINC) High MICROALBUMIN UR 128.1 LAB CREATININE mg/dl UR(LOINC) CREATININE UR 63.4 Result Comment: Microalbumin/Creat Ratio LAB UACR(LOINC) mg/g UACR 2020 Performed By: #### [id number] #### [facility] [place],[address] [place] [address] PTH, INTACT (W/OUT Collected: 04/13/2018 Status: F Source: [facility] CALCIUM) [QUEST] 9:43 [facility] REPOSITORY TYPE CODE TESTS RESULT OUT OF REFERENCE UNITS RANGE LAB PTH, INTACT (W/OUT CALCIUM) [QUEST](LOINC PTH, ) INTACT (W/OUT CALCIUM) [QUEST] Result Comment: _PTH, INTACT (WITHOUT CALCIUM)_ PTH, INTACT WITHOUT CALCIUM Reported: 04/15/2018 13:16 Status=F TEST RESULT FLAG RANGE UNITS PARATHYROID 14 14-64 pg/mL 04/15/[id number].HERIBERTO.AMRR .2731-8 HORMONE,INTACT Interpretive Guide Intact PTH Calcium Normal Parathyroid Normal Normal Hypoparathyroidism Low or Low Normal Low Hyperparathyroidism Primary Normal or High High Secondary High Normal or Low Tertiary High High Non-Parathyroid Hypercalcemia Low or Low Normal High For additional information, please refer to [email or web address]/faq/SVF830 (This link is being provided for informational/ educational purposes only.) Test Performed by [employer] [employer] [facility], [address] [place] [address] Dlaton Rhodes M.D., Ph.D., Director of Laboratories , [facility] [id number] Performed By: #### [id number] #### [facility] [place],[address] [place] [address] CBC (NO DIFF) Collected: 02/23/2018 Status: F Source: [facility] 8:49 AM [facility] REPOSITORY TYPE CODE TESTS RESULT OUT OF RANGE REFERENCE UNITS LAB CBC (NO DIFF)(LOINC ) CBC (NO DIFF) Result Comment: CBC(WITHOUT DIFFERENTIAL) LAB WBC(LOINC) 4.5 - 10.8 x 10EE3/UL WBC 8.7 LAB RBC(LOINC) 4.50 - x 10EE6/UL 6.00 RBC Low 4.07 LAB HEMOGLOBIN(LOINC) 13.0 - g/dl 17.5 HEMOGLOBIN 13.4 LAB HEMATOCRIT(LOINC) 40.0 - % 52.0 Low HEMATOCRIT 37.8 LAB MCV(LOINC) 81 - 98 fl MCV 93 LAB MCH(LOINC) 27 - 33 pg MCH 33 LAB MCHC(LOINC) 32 - 36 X10 3 MCHC 36 LAB RDW/CV(LOINC) 12.0 - % 15.6 RDW/CV 13.9 LAB PLATELET(LOINC) 150 - 450 x10EE3/UL PLATELET 204 LAB MPV(LOINC) 6.4 - 10.5 fl MPV 9.4 Result Comment: {CB] Performed By: #### [id number] #### [facility] [place],[address] [place] [address] CMP WITH EGFR Collected: 02/23/2018 Status: F Source: [facility] 8:49 AM [facility] REPOSITORY TYPE CODE TESTS RESULT OUT OF RANGE REFERENCE UNITS LAB CMP with eGFR(LOINC) CMP with eGFR Result Comment: COMPREHENSIVE METABOLIC PANEL LAB SODIUM(LOINC) 136 - 145 mmol/l SODIUM 137 LAB POTASSIUM(LOINC) 3.5 - 5.1 mmol/L POTASSIUM 4.6 LAB CHLORIDE(LOINC) 98 - 107 mmol/L CHLORIDE 104 LAB CO2(LOINC) 21.0 - mmol/L 31.0 CO2 27.2 LAB GLUCOSE(LOINC) 74 - 106 mg/dl GLUCOSE High 333 LAB BUN(LOINC) 6 - 20 mg/dl BUN High 29 LAB CREATININE(LOINC) 0.7 - 1.3 mg/dl High CREATININE 1.5 LAB AST/SGOT(LOINC) 13 - 39 U/L AST/SGOT Low 11 LAB ALK PHOS(LOINC) 38 - 126 U/L ALK PHOS 106 LAB CALCIUM(LOINC) 8.6 - mg/dl 10.2 CALCIUM 9.6 LAB TOTAL 6.4 - 8.3 g/dl PROTEIN(LOINC) TOTAL PROTEIN 6.4 LAB ALBUMIN(LOINC) 3.4 - 4.8 g/dL ALBUMIN 3.5 LAB GLOBULIN(LOINC) 1.5 - 3.8 G/DL GLOBULIN 2.9 LAB A/G RATIO(LOINC) 0.9 - 1.6 A/G RATIO 1.2 LAB TOTAL BILI(LOINC) 0.0 - 1.5 mg/dl TOTAL BILI 0.4 LAB B/C RATIO(LOINC) 0 - 30 ratio B/C RATIO 19 LAB ALT/SGPT(LOINC) 10 - 40 U/L ALT/SGPT 12 LAB ANION GAP(LOINC) 10 - 20 mmol/L ANION GAP 10 LAB AGE(LOINC) years AGE 67 LAB eGFR(LOINC) 60 - 999 ML/MINUTE eGFR Low 47 LAB eGFR(AA)(LOINC) 60 - 999 ML/MINUTE eGFR(AA) Low 57 Result Comment: ACCORDING TO THE NATIONAL KIDNEY DISEASE EDUCATION PROGRAM(NKDE), A NORMAL eGFR IS A VALUE GREATER THAN OR EQUAL TO 60 ML/MIN/1.73 SQ METERS. CHRONIC KIDNEY DISEASE: <60mL/MIN/1.73 SQ METERS KIDNEY FAILURE: <15mL/MIN/1.73 SQ METERS THIS TEST SHOULD ONLY BE USED FOR PATIENTS 18 YEARS OF AGE AND OLDER. Performed By: #### [id number] #### [address] [address] VITAMIN D, 25 Collected: 02/23/2018 Status: F Source: [facility] 8:49 AM [facility] REPOSITORY TYPE CODE TESTS RESULT OUT OF RANGE REFERENCE UNITS LAB VitD(LOINC) 30.00 - 100 ng/mL Low VitD 17.59 Result Comment: 25-OHD3 indicates both endogenous production and supplementation. 25-OHD2 is an indicator of exogenous sources, such as diet or supplementation. Therapy is based on measurement of Total 25-OHD, with levels <20 ng/mL indicative of Vitamin D deficiency, while levels between 20 ng/mL and 30 ng/mL suggest insufficiency. Optimal levels are >=30ng/mL. Vitamin D, 25-OH D3 Not Established Vitamin D, 25-OH D2 Not Established Performed By: #### [id number] #### [address] [address] HGB A1C Collected: 02/23/2018 Status: F Source: [facility] 8:49 AM [facility] REPOSITORY TYPE CODE TESTS RESULT OUT OF RANGE REFERENCE UNITS LAB HGB 4.4 - 6.4 % A1C(LOINC) High HGB A1C 9.0 Result Comment: {HB] {A1] Performed By: #### [id number] #### [address] [address] 12 LEAD ELECTROCARDIOGRAM Observed: 01/01/2018 Status: F Source: [place] 11:42 AM [facility] REPOSITORY [facility] Cardiovascular Services [address] [place] [address] 12 Lead EKG 12/24/17 0438 MR#: [id number] Acct: [id number] Name: FAYE MAO Rep #: [id number] : 1950 67 From: Darron Davis MD Attending Dr: Konrad Dudley MD Status: DIS IN Ordering Dr: Emma Scherer MD Date: 12/24/17 Location: ICU Sex: M C Admitted: 12/23/17 Test Reason : AM EKG Blood Pressure : / mmHG Vent. Rate : 063 BPM Atrial Rate : 063 BPM P-R Int : 212 ms QRS Dur : 092 ms QT Int : 426 ms P-R-T Axes : 034 -39 067 degrees QTc Int : 435 ms Sinus rhythm with 1st degree A-V block Left axis deviation Septal infarct , age undetermined Abnormal ECG Confirmed by RYAN RICHTER, DARRON ([id number]), supervising editor news reel MENDEZ GAYTAN ([id number]) on 01/01/2018 11:42:05 AM Referred By: LORE Confirmed By:DARRON DAVIS MD 01/01/18 1142 Date Darron Davis MD CC: Emma Scherer; Konrad Dudley MD; TAMANNA FUENTES Signed 12 LEAD ELECTROCARDIOGRAM Observed: 12/29/2017 Status: F Source: [facility] 8:41 AM [facility] REPOSITORY [facility] Cardiovascular Services [address] [place] [address] 12 Lead EKG 12/23/17 1544 MR#: [id number] Acct: [id number] Name: FAYE MAO Rep #: [id number] : 1950 67 From: Jeff Miller MD Attending Dr: Konrad Dudley MD Status: DIS IN Ordering Dr: Donn Galdamez DO Date: 12/23/17 Location: ICU Sex: M C Admitted: 12/23/17 Test Reason : UNRESPONSIVE Blood Pressure : / mmHG Vent. Rate : 066 BPM Atrial Rate : 066 BPM P-R Int : 232 ms QRS Dur : 096 ms QT Int : 420 ms P-R-T Axes : 025 -39 027 degrees QTc Int : 440 ms Sinus rhythm with 1st degree A-V block Left axis deviation Abnormal ECG Confirmed by JEFF MILLER MD ([id number]), supervising editor news reel MENDEZ GAYTAN ([id number]) on 12/24/2017 4:54:44 PM Referred By: ISAÍAS Confirmed By:JEFF MILLER MD 12/24/17 1654 Date Jeff Miller MD CC: Donn Galdamez DO; Konrad Dudley MD; TAMANNA FUENTES Signed EMERGENCY DEPARTMENT Observed: 12/26/2017 Status: F Source: [facility] SUMMARY 4:09 PM [facility] REPOSITORY [facility] Medical Records Department [address] [place] [address] Emergency Department Summary 12/23/17 1735 MR#: [id number] Acct: [id number] Name: FAYE MAO Rep #: [id number] : 1950 67 From: Donn Galdamez DO PCP: TAMANNA FUENTES Status: DIS IN - ER Visit Summary Date of Service: 12/23/17 Chief Complaint: Unresponsive History of Present Illness: The patient is a 67 M [facility] at around 9:00 this morning. states that at that time he was acting normally. This afternoon he reportedly was found seen stumbling across the barn and fell over a barrel. EMS notes that he was able to slightly squeeze their hands with both sides but was essentially minimally responsive. He has a history of [place] and has 7 cardiac stents. He takes aspirin and Plavix. No history of stroke. Physical Examination: Patient is hypertensive. 227/117. Temperature 97.9 heart rate is 67 respirations are 16 and pulse ox is 96% on room air Gen: Well-nourished well-developed Head: Normocephalic atraumatic Eyes: Perrl 4-2 bilaterally ENT: TMs clear no rhinorrhea moist mucous membranes Neck: Supple no lymphadenopathy no JVD nontender CVS: Regular rate rhythm no murmurs normal S1-S2 Respiratory: No distress clear to auscultation bilaterally chest nontender Abdomen: Soft nontender nondistended normal bowel sounds no masses Back: Nontender Extremity: Nontender no edema Skin: Normal color no rash Neuro: Patient is stuporous to almost comatose. His eyes are open and he has a slight corneal reflex. He has no gag. The patient mumbles incoherently when asked to repeat a phrase. I cannot get him to hold his arms up or his legs up. I cannot get him to squeeze my hands. I can get him to withdraw slightly to pain. There is no posturing. Pupils are 4 - 2 bilaterally Test Results: EKG sinus rhythm with a first-degree AV block at a rate of 66. White count 7.8 hemoglobin 12.7. Creatinine 1.65. Glucose 152. INR 1.1 PTT 29.8. Troponin less than 0.0 015 lactic acid 2.5. Chest x-ray shows adequate positioning of the endotracheal tube and orogastric tube. CT the brain demonstrated no intracranial hemorrhage or obvious stroke. CTA head and neck showed mild to moderate stenosis on the right but no obvious cut off. Emergency Department Course and Treatment: Patient was minimally responsive with no gag reflex. Patient underwent rapid sequence intubation and 80 endotracheal tube was placed in the first attempt without any difficulty. Orogastric tube was placed by this physician. Patient was taken to CT scan. Patient received hydralazine for hypertension while in the CT scanner he also received Versed for sedation. When brought back to the room he was placed on propofol and fentanyl drips. Blood pressure has dramatically been improved while being sedated. At this point there is no clear etiology for the patient's abrupt altered mental status. Patient will be transferred to the intensive care unit. Impression: 1. Altered mental status of unknown etiology 2. Hypertensive emergency 3. Intubation by physician 4. Orogastric tube by physician 5. Critical care time 35 minutes This note was generated with Prenova dictation software. It may contain incorrect words, spelling, and punctuation that were not noted in review of the chart prior to signing ED Disposition - Plan for ED Patient: Chief Complaint: Syncope Referrals: Tamanna Fuentes [Primary Care Provider] - What to do if you have Problems For any increased pain, shortness of breath, bleeding, nausea or vomiting, chest pain, or any unexpected problems, contact your Primary Care Provider. Call [facility] ([phone]) or report to the closest Emergency Room. Call 911 if necessary. 06/15/18 1609 <Electronically signed by Donn Galdamez DO> Date Donn Galdamez DO Cosigner Signature (If Indicated): Date CC: TAMANNA FUENTES CONSULTATION Observed: 12/26/2017 Status: F Source: [facility] 11:22 AM [facility] REPOSITORY [facility] Medical Records Department [address] [place] [address] Consultation 12/24/17 1138 MR#: [id number] Acct: [id number] Name: FAYE MAO Rep #: [id number] : 1950 67 From: Agustin Juarez MD PCP: TAMANNA FUENTES Status: DIS IN Y Location: ICU [id number] Reason for Consult Date of Consultation: 12/24/17 Reason for Consultation: loss of consciousness History of Present Illness: The patient is a 67 year old right handed white male with a history of diabetes and diabetic neuropathy, as well as multiple lightheaded events, was [facility] un[facility]. He tells me that he has a history of multiple lightheaded spells, apparently [place] then was found unresponsive. When he came to the emergency department his blood pressure was very high at 227 systolic, his lactate was also elevated at 2.5. He was intubated and he is now extubated. Cause for his event is not otherwise evident. per admit hk AND p:The patient is a 67 year old M with past medical history as mentioned above presented to the emergency department because he was found unresponsive. Reportedly, patient went on to [facility] this morning and his mentioned that he was acting normally. This afternoon, he reportedly was found stumbling across the barn and he fell. EMS was called and he reported that he was able to slightly squeeze their hands on both sides but was minimally responsive. At this time, his is at the bedside and she mentioned that he has been having issues with balance over the last few weeks. She mentioned that he tends to fall and has been stumbling to the tan. He has a history of CAD status post stents and he has been on aspirin, Plavix, statins, beta blockers and losartan. He had history of type 2 diabetes mellitus and he has been on Lantus and metformin. According to his , he was diagnosed with COPD recently and he was prescribed oxygen at home because his pulse ox has been as low as 80% on room air. At this time, patient is sedated and intubated. At this time, his Hao Coma Scale is 6. On arrival to ER, his blood pressure was 235/184, heart rate was stable. He was afebrile. He was intubated because he was unresponsive and started on mechanical ventilation and sedation. His routine blood work is remarkable for BUN of 22 and creatinine of 1.65. Lactic acid was 2.5. Troponin was negative. LFT and lipase were unremarkable. EKG revealed normal sinus rhythm with first- degree AV block, NC interval of 232 ms, no acute ST elevation. Urine drug screen was positive for benzodiazepines. Blood alcohol level was 6. CT scan brain showed no acute infarction or hemorrhage, no skull fractures. Chest x-ray showed no acute findings, no infiltrate or consolidation. Cervical spine showed no fractures or dislocations, showed arthritic changes. CTA of the head and neck revealed mild to moderate stenosis of the right vertebral artery, otherwise no significant stenosis. He is being admitted for altered mental status, encephalopathy, hypertensive emergency, acute kidney injury. 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) Atherosclerotic heart disease of [place] coronary artery without angina pectoris (Chronic) Cardiac cath w/PTCA PIA LAD January 11, 2013; Cardiac Cath w/PTCA PIA prox LCX, PIA distal RCA, PIA Mid RCA 2012; PCI with PIA LAD, POBA D1 D2 07/19/14; PTCA AND Promus PIA to PDA 08/11/14 H/O percutaneous transluminal coronary angioplasty (Chronic) Cardiac cath w/PTCA PIA LAD January 11, 2013; Cardiac Cath w/PTCA PIA prox LCX, PIA distal RCA, PIA Mid RCA 2012; PCI with PIA LAD, POBA D1 D2 07/19/14; PTCA AND Promus PIA to PDA 08/11/14 HLD (hyperlipidemia) (Chronic) Medical History: Medical History (Last Updated 12/01/17 @ 10:29 by Luis Brarera) Orthostatic hypotension (Chronic) I95.1 Old myocardial infarction (Chronic) I25.2 Acute Ant [place] w/ ST elevation January 2013 Diabetes mellitus (Chronic) E11.9 Nicotine abuse (Chronic) Z72.0 Other mcc (current) drug therapy (Chronic) Z79.899 Atherosclerotic heart disease of [place] coronary artery without angina pectoris (Chronic) I25.10 Cardiac cath w/PTCA PIA LAD January 11, 2013; Cardiac Cath w/PTCA PIA prox LCX, PIA distal RCA, PIA Mid RCA 2012; PCI with PIA LAD, POBA D1 D2 07/19/14; PTCA AND Promus PIA to PDA 08/11/14 HLD (hyperlipidemia) (Chronic) E78.5 Arthritis M19.90 Depression F32.9 Dizziness and giddiness R42 GERD (gastroesophageal reflux disease) K21.9 Pain in limb M79.609 Stomach ulcer K25.9 Allergies No Known Allergies Allergy (Verified 12/23/17 15:46) Home Medications: Ambulatory Orders Medication Instructions Recorded furosemide 20 mg tablet 20 mg PO DAILY 12/01/17 losartan 100 mg tablet 100 mg PO DAILY 12/01/17 metformin 1,000 mg tablet 1,000 mg PO BID 12/01/17 Surgical History: Surgical History (Last Updated 12/01/17 @ 10:29 by Luis Smartling) H/O percutaneous transluminal coronary angioplasty (Chronic) Z98.61 Cardiac cath w/PTCA PIA LAD January 11, 2013; Cardiac Cath w/PTCA PIA prox LCX, PIA distal RCA, PIA Mid RCA 2012; PCI with PIA LAD, POBA D1 D2 07/19/14; PTCA AND Promus PIA to PDA 08/11/14 Surgical History: noncontributory Psychiatric History: No pertinent psych hx Lives: Spouse/ Significant Other Smoking Status: Current every day smoker Tobacco Use: Cigarettes Alcohol: None Drugs: None - *Family History Maternal Family History: Family History (Last Updated 12/01/17 @ 10:29 by Luis Barrera) Father CAD (coronary artery disease) Diabetes Brother Heart disease Myocardial infarction Sister Diabetes History Items: No pertinent history Paternal Family History: Family History (Last Updated 12/01/17 @ 10:29 by Luis Barrera) Father CAD (coronary artery disease) Diabetes Brother Heart disease Myocardial infarction Sister Diabetes History Items: No pertinent history Review of Systems Constitutional: Denies: Chills, Fever, Night Sweats Eyes: Reports: Blurred vision HEENT: Reports: Head Aches. Denies: Sinus Congestion, Sinus Drainage Cardiovascular: Denies: Chest Pain, Palpitations Respiratory: Reports: Shortness of Breath Gastrointestinal: Denies: Abdominal Pain, Nausea, Vomiting Genitourinary: Denies: Dysuria Musculoskeletal: Denies: Joint Pain, Joint Tenderness Skin: Denies: Rash, Wounds Neurological: Reports: Balance problems, Blurred vision, Double vision, Headaches, Incoordination, Numbness, Tingling. Denies: Difficulty swallowing, Focal weakness Psychiatric: Denies: Anxiety, Depression, Homicidal Ideations, Suicidal Ideations Hematologic/ Lymphatic: Denies: Easy Bruising, Easy Bleeding Patient Problems: Active and Suspected Problems (Last Updated 12/01/17 @ 10:29 by Luis Barrera) Hypertensive emergency (Acute) Acute metabolic encephalopathy (Acute) - Physical Exam General: Alert, Oriented x3, Cooperative HEENT: Atraumatic, PERRLA, EOMI, Normocephalic Neurological: Cranial nerves II-XII grossly intact, - - on my neurologic exam his reflexes are 0 diffusely. There is no drift. There is no abnormalities with respect to forearm orbit testing however there is giveaway weakness in all of his extremities. Sensation is intact to double simultaneous stimulation. Psych/Mental Status: Normal Affect, Appropriate Vital Signs Temp Pulse Resp BP Pulse Ox 36.6 C 89 17 138/83 H 98 12/24/17 09:00 12/24/17 11:00 12/24/17 11:00 12/24/17 11:00 12/24/17 11:00 Oxygen Flow Rate (L/min) 2 Oxygen Delivery Method Room Air Weight: 92.3 kg Body Mass Index (BMI) 27.3 Intake and Output for Last 24 Hours Intake Total 555 / 555 668.8 / 668.8 Output Total 900 / 900 425 / 425 Balance -345 / -345 243.8 / 243.8 Laboratory Tests Past 24 Hrs WBC RBC Hgb Hct MCV MCH MCHC RDW RDW Differential WBC 11.6 H RBC 3.72 L Hgb 12.0 L Hct 34.8 L MCV 93.5 MCH 32.3 H WBC RBC Hgb Hct POC Glucose POC Glucose [address] reviewed, no acute Assessment/Plan All Active Problems (Last Updated 12/01/17 @ 10:29 by Luis Barrera) Hypertensive emergency (Acute) Acute metabolic encephalopathy (Acute) Unresponsiveness: This sounds like prolonged syncope however, he was very hypertensive in the emergency department. Seizures are less likely. There is no evidence of brain injury at this point however given the unexplained nature of these events I think it is reasonable to pursue further testing including MRI with sedation and an EEG if available. 12/26/17 1122 <Electronically signed by Agustin Juarez MD> Date Agustin Juarez MD Cosigner Signature (if applicable): Date CC: Kehinde Alcantar MD; Agustin Juarez MD; TAMANNA FUENTES Signed ELECTROENCEPHALOGRAM Observed: 12/26/2017 Status: F Source: [place] 11:22 AM [facility] REPOSITORY [facility] Pulmonary Services/Neurology [address] [place] [address] MR#: [id number] Acct: [id number] Name: FAYE MAO Rep #: [id number] : 1950 67 From: Agustin Juarez MD [facility] Dr[facility]: DIS IN Ordering Dr: Date: Location: ICU [place] [address] Sex: M C - Electroencephalogram Date of service 12/24/17 This is an 18 channel electroencephalogram performed utilizing the International 10-20 electrode placement protocol as well as EKG reference leads, photic stimulation and hyperventilation. The patient did drowse during the recording. Background activity is 7 Hz symmetrically in the posterior leads which attenuates with eye opening. Hyperventilation is performed with good effort for 2 minutes with no lateralizing or epileptiform changes and the post hyperventilatory phase was unremarkable. EKG rhythm strip recording was normal sinus rhythm throughout the recording and photic stimulation does generate a normal symmetric driving response in the posterior leads. Impression: This EEG is abnormal due to very mild nonspecific slowing however there are no epileptiform abnormalities. 12/26/17 1122 <Electronically signed by Agustin Juarez MD> Date Agustin Juarez MD CC: Agustin Juarez MD; Konrad Dudley MD; TAMANNA FUENTES Date Dictated: 12/25/17 1118 Date Transcribed: 12/25/171117 Furniture Detailer: NF Signed DISCHARGE SUMMARY Observed: 12/25/2017 Status: F Source: [place] 12:25 PM [facility] REPOSITORY [facility] Medical Records Department [address] [place] [id number] Discharge Summary 12/25/17 0856 MR#: [id number] Acct: [id number] Name: FAYE MAO Rep #: [id number] : 1950 67 From: Konrad Dudley MD PCP: TAMANNA FUENTES Status: DIS IN [facility] Date and Diagnosis Date of Admission: 12/23/17 Date of Discharge: 12/25/17 - Primary Discharge Diagnosis Active and Suspected Problems (Last Updated 12/01/17 @ 10:29 by BrennenRidley) #1 altered mental status/ACUTE encephalopathy; Probably metabolic encephalopathy due to hypertensive emergency: Resolved #2 hypertensive emergency with features of end organ damage: #3 acute respiratory failure mainly because of unresponsiveness required intubation for airway protection. #4 acute kidney injury; exact etiology unclear but possible features of hypertensive emergency probably ATN: - Secondary Discharge Diagnosis Chronic Problems (Last Updated 12/01/17 @ 10:29 by Luis Barrera) Orthostatic hypotension (Chronic) Old myocardial infarction (Chronic) Acute Ant [place] w/ ST elevation January 2013 Diabetes mellitus (Chronic) Nicotine abuse (Chronic) Other mcc (current) drug therapy (Chronic) Atherosclerotic heart disease of [place] coronary artery without angina pectoris (Chronic) Cardiac cath w/PTCA PIA LAD January 11, 2013; Cardiac Cath w/PTCA PIA prox LCX, PIA distal RCA, PIA Mid RCA 2012; PCI with PIA LAD, POBA D1 D2 07/19/14; PTCA AND Promus PIA to PDA 08/11/14 H/O percutaneous transluminal coronary angioplasty (Chronic) Cardiac cath w/PTCA PIA LAD January 11, 2013; Cardiac Cath w/PTCA PIA prox LCX, PIA distal RCA, PIA Mid RCA 2012; PCI with PIA LAD, POBA D1 D2 07/19/14; PTCA AND Promus PIA to PDA 08/11/14 HLD (hyperlipidemia) (Chronic) Hospital Course and Treatment Summary of Care Provided: This is a 67 years old male patient presented to the emergency department because of unresponsiveness, found to have high elevated blood pressure as well as acute kidney injury, was intubated for airway protection and is being admitted for encephalopathy, likely metabolic, hypertensive emergency and acute kidney injury. The patient was seen and examined today General: Alert, Oriented x3, Cooperative, No apparent distress, Well developed, Well nourished HEENT: Atraumatic, PERRLA, EOMI, Normocephalic, scleral icterus negative Oral: Moist Mucosa, No Gingival or Mucosal Lesions/ Ulcerations Neck: Supple, No JVD, No Nodes, Trachea Midline Lungs: Clear to auscultation, Normal air movement, No rhonchi, No wheeze, No rales Cardiovascular: Regular rate, Regular Rhythm, Normal S1, Normal S2, No murmurs, No rub noted, No Gallop Abdomen: Bowel Sounds Present, Soft, Non Tender, Non-Distended Extremities: No clubbing, No cyanosis, No edema Skin: No rashes, No breakdown Musculoskeletal: No Tenderness to Palpation of Joints or Extremities Lymphatic: No Cervical, Supraclavicular, or Inguinal Adenopathy Neurological: Cranial nerves II-XII grossly intact, Neuro grossly intact, Motor Exam 5/5 strength throughout Overall hospital course and management as follows #1 altered mental status/encephalopathy; Probably metabolic encephalopathy due to hypertensive emergency: Resolved serial troponin enzymes are negative. CT scan brain revealed no acute infarction or hemorrhage. CTA of the head and neck reviewed, no acute findings. EEG showed nonspecific slowing of EEG waves but no epileptiform discharges. Seen by neurologist Dr. Brothers for discharge home #2 hypertensive emergency with features of endorgan damage: Reportedly, blood pressure upon arrival was 235/184, came down to around 170 systolic after 2 doses of IV hydralazine. He does have endorgan damage including acute kidney injury and coma. EKG revealed normal sinus rhythm with first-degree AV block, troponin is negative. Urine drug screen reviewed. Currently the blood pressure is controlled. The patient had IV hydralazine last night. Currently blood pressure is lowered systolic in 156/94. Heart rate 67/min. Pulse ox 98% on room air. #3 acute respiratory failure mainly because of unresponsiveness: Patient was intubated for airway protection. ABG revealed pH of 7.45, PCO2 of 33 and PO2 of 85. Chest x-ray reviewed, no acute findings. The patient was extubated yesterday and currently on room air #4 acute kidney injury; exact etiology unclear but possible features of hypertensive emergency probably ATN: Baseline kidney function is normal. Admitting creatinine was 1.65, BUN 22. Plan: IV fluids. Repeat lab shows creatinine 1.17. BUN 18; on baseline. #5 CAD status post stents: Continue aspirin, statins, Plavix, losartan and metoprolol through OG tube. The patient had last echo in 2013 reported as EF 60% with mild concentric LVH and no regional wall motion abnormality. Mild TR with RVSP 34 mmHg. 2D echo was done on 12/24/2017 and reported as EF 55% with normal left ventricular systolic function with moderate concentric LVH. Stage I diastolic dysfunction. No regional wall motion abnormality. Normal right ventricle systolic function and size. Normal right and left atrium. Mild eccentric MR. #6 type 2 diabetes mellitus: Initially patient was n.p.o. and then started diet. On Accu-Cheks before meals and at bedtime. Resume home medication. Blood sugars controlled #7 COPD: Stable. #8 hyperlipidemia: Continue statins through orogastric tube. #9 DVT prophylaxis: Subcu heparin. #10 GI prophylaxis: Start IV Pepcid twice daily. #11 CODE STATUS: Patient is intubated, sedated, [place] Coma Scale 6. was at the bedside and she mentioned that she has no idea about her 's and he does not have living will or advanced directive and they never spoke about it. Discharge medication reconciliation done. Discharge follow- up instructions discussed with the patient. Patient wants to go home. Total time spent, exact 35 minutes on discharge meds reconciliation, examination, review of imaging and blood test and discussion with the patient on follow-up instructions. Clinical Impression(s) from Imaging Studies Brain CT 12/23/17 15:49 IMPRESSION: No acute intracranial abnormality. Mild chronic ischemic changes. N.B. : The above information has been verbally conveyed by Kendall Casanova to Donn Galdamez, Referring Physician, on 12/23/2017 16:38:08 (ET). Electronically Signed: Kendall Casanova, at 16:38 EDT Tel , Service support , N.B. : The above information has been verbally conveyed by Kendall Casanova to Donn Galdamez, Referring Physician, on 12/23/2017 16:38:08 (ET). Chest X-Ray 12/23/17 15:49 IMPRESSION: Satisfactory position of the support lines and tubes. No acute thoracic pathology. Electronically Signed: Kendall Casanova, at 16:19 EDT Tel , Service support , Cervical Spine CT 12/23/17 15:50 IMPRESSION: No evidence for acute fracture or subluxation. Mild spondylosis. Mild multilevel spinal stenosis secondary to disc disease and bony hypertrophy Electronically Signed: Sanket Kong MD at 17:32 EDT , Service support , Head CTA 12/23/17 16:20 IMPRESSION: Mild to moderate stenosis origin right vertebral artery. Otherwise no significant stenoses. Electronically Signed: Miguel Londono MD at 17:30 EDT , Service support , Neck CTA 12/23/17 16:21 IMPRESSION: Mild to moderate stenosis origin right vertebral artery. Otherwise no significant stenoses. Electronically Signed: Miguel Londono MD at 17:30 EDT , Service support , Brain CT 12/23/17 22:02 IMPRESSION: Calcifications left caudate head of doubtful significance. No acute disease. Electronically Signed: Miguel Londono MD at 22:45 EDT , Service support , Brain MRI 12/24/17 12:04 IMPRESSION: Normal unenhanced and enhanced MRI of the brain. Right maxillary, bilateral ethmoid and sphenoid sinusitis Electronically Signed: Sanket Kong MD at 16:27 EDT , Service support , Laboratory Results 12/24/17 12:14: POC Glucose 158 H 12/24/17 17:30: POC Glucose 141 H 12/24/17 21:18: POC Glucose 194 H 12/25/17 04:45: WBC 8.1, RBC 3.84 L, Hgb 12.1 L, Hct 35.6 L, MCV 92.7, MCH 31.5, MCHC 34.0, RDW 13.8, RDW Differential 46.7 H, Plt Count 167, MPV 10.5, Immature Gran % (Auto) 0.100, Neut % (Auto) 62.6, Lymph % (Auto) 19.0, [place] % (Auto) 11.3 H, Eos % (Auto) 6.5 H, Baso % (Auto) 0.5, Absolute Neuts (auto) 5.1, Absolute Lymphs (auto) 1.53, Total Counted Not Reportable 12/25/17 04:45: Sodium 146 H, Potassium 4.0, Chloride 114 H, Carbon Dioxide 26.0, Anion Gap 6, BUN 16, Creatinine 1.22, Estim Creat Clear Calc 64.49, Est GFR (MDRD) Af Amer 76, Est GFR (MDRD) Non-Af 63, BUN/Creatinine Ratio 13.1, Glucose 152 H, Calcium 7.6 L, Phosphorus 2.4 L, Magnesium 2.0 12/25/17 06:29: POC Glucose 159 H Discharge Activity: May not drive while taking narcotic pain medications. Home Medications: Medications to take at Discharge losartan 100 mg tablet 100 mg PO DAILY 12/01/17 metformin 1,000 mg tablet 1,000 mg PO BID 12/01/17 Aspirin 81 mg PO DAILY 12/23/17 Atorvastatin Calcium [Lipitor] 80 mg PO DAILY 12/23/17 Clopidogrel Bisulfate [Clopidogrel] 75 mg PO DAILY 12/23/17 Insulin Glargine,Hum.rec.anlog [Lantus] 34 unit SC QHS 12/23/17 Metoprolol Tartrate 25 mg PO BID 12/23/17 Omeprazole 40 mg PO DAILY 12/23/17 Pregabalin [Lyrica] 50 mg PO DAILY 12/23/17 Hydrochlorothiazide [Hctz] 12.5 mg PO DAILY #30 tab 12/25/17 Following Prescrptions Were Given to Patient: Hydrochlorothiazide [Hctz] 12.5 mg PO DAILY #30 tab Primary Care Physician: Tamanna Fuentes [Primary Care Provider] - Please follow up with your Primary Care Physician in: in 2 weeks Medical Necessity - Tobacco Use Smoking Status: Current every day smoker Tobacco Use: Cigarettes Meaningful Use Info Meaningful Use Diagnoses (Choose all that apply): None applicable Code Visit Inpatient E AND M: 96729 Disch Hosp 12/25/17 1225 <Electronically signed by Konrad Dudley MD> Date Konrad Dudley MD Cosigner Signature (if applicable): Date CC: Konrad Dudley MD; TAMANNA FUENTES Signed DISCHARGE INSTRUCTION Observed: 12/25/2017 Status: F Source: [place] 8:56 AM [facility] REPOSITORY [facility] Medical Records Department [address] [place] [address] Instructions for Home/Discharge Instructions 12/25/17 0854 MR#: [id number] Acct: [id number] Name: FAYE MAO Rep #: [id number] : 1950 67 From: Konrad Dudley MD PCP: TAMANNA FUENTES Status: ADM IN - Discharge Diagnoses Current Active Problems: Current Active and Chronic Problems (Last Updated 12/01/17 @ 10:29 by Luis Barrera) Hypertensive emergency (Acute) Acute metabolic encephalopathy (Acute) You will use the following diet at home:: Calorie/Carbohydrate Controlled (specify 1200, 1400, etc) - 1800, Cardiac Discharge Activity: May not drive while taking narcotic pain medications. Allergies/Adverse Reactions: Allergies No Known Allergies Allergy (Verified 12/23/17 15:46) Medications to take at Discharge losartan 100 mg tablet 100 mg PO DAILY 12/01/17 metformin 1,000 mg tablet 1,000 mg PO BID 12/01/17 Aspirin 81 mg PO DAILY 12/23/17 Atorvastatin Calcium [Lipitor] 80 mg PO DAILY 12/23/17 Clopidogrel Bisulfate [Clopidogrel] 75 mg PO DAILY 12/23/17 Insulin Glargine,Hum.rec.anlog [Lantus] 34 unit SC QHS 12/23/17 Metoprolol Tartrate 25 mg PO BID 12/23/17 Omeprazole 40 mg PO DAILY 12/23/17 Pregabalin [Lyrica] 50 mg PO DAILY 12/23/17 Hydrochlorothiazide [Hctz] 12.5 mg PO DAILY #30 tab 12/25/17 The following prescriptions were given: Hydrochlorothiazide [Hctz] 12.5 mg PO DAILY #30 tab Primary Care Physician: Tamanna Fuentes [Primary Care Provider] - Please follow up with your Primary Care Physician in: in 2 weeks 12/25/17 0855 <Electronically signed by Konrad Dudley MD> Date Konrad Dudley MD CC: Kehinde Alcantar MD; Agustin Juarez MD; TAMANNA FUENTES BEDSIDE GLUCOSE Collected: 12/25/2017 Status: F Source: [place] 6:29 AM [facility] REPOSITORY TYPE CODE TESTS RESULT OUT OF REFERENCE UNITS RANGE LAB L501.080 70-110 mg/dL High BEDSIDE GLU 159 Result Comment: MANAGEMENT OF PATIENT CARE PER NURSING PROTOCOL Performed By: #### L501.080 #### [facility] Point of Care [address] [place], [place] [address] BASIC METABOLIC Collected: 12/25/2017 Status: F Source: [place] PROFILE (BMP) 4:45 AM [facility] REPOSITORY TYPE CODE TESTS RESULT OUT OF RANGE REFERENCE UNITS LAB L501.0100 74-106 mg/dL High GLU 152 Result Comment: Fasting Glucose result greater than or equal to 126 mg/dL suggests DIABETES MELLITUS per A.D.A. criteria. Please note revised GLUCOSE reference range effective 2017. LAB L501.1000 7-18 mg/dL Normal BUN 16 LAB L501.1100 0.70-1.30 mg/dL Normal CREAT,SERUM 1.22 Result Comment: The validity of the calculated GFR AND GFRAA in patients over 70 years has not been determined. Clinical correlation is essential. LAB L501.1110 >60 mL/min Normal EST GFR 63 Result Comment: Non- GFR Calc LAB L501.1115 >60 mL/min Normal EST GFR - AA 76 Result Comment: GFR Calc LAB L501.1255 ml/min Normal Estimated CRCL 64.49 LAB L501.1300 10-20 RATIO Normal BUN/CRE 13.1 LAB L501.2200 8.5-10 mg/dL Low .1 CA 7.6 LAB L501.5300 136-14 mmol/L High 5 NA 146 LAB L501.5600 3.5-5. mmol/L Normal 1 K 4.0 LAB L501.5900 98-107 mmol/L High CL 114 LAB L501.6100 21.0-3 mmol/L Normal 2.0 CO2 26.0 LAB L501.6200 5-15 Normal GAP 6 Performed By: #### L500.2500, L501.2300, L501.5200 #### [facility] [address] [place], [place], [address] PHOSPHORUS Collected: 12/25/2017 Status: F Source: [place] 4:45 AM [facility] REPOSITORY TYPE CODE TESTS RESULT OUT OF RANGE REFERENCE UNITS LAB L501.2300 2.5-4.9 mg/dL Low PHOS 2.4 Performed By: #### L500.2500, L501.2300, L501.5200 #### [facility] [address] [place], [place], [address] MAGNESIUM Collected: 12/25/2017 Status: F Source: [place] 4:45 AM [facility] REPOSITORY TYPE CODE TESTS RESULT OUT OF RANGE REFERENCE UNITS LAB L501.5200 1.6-2.6 mg/dL Normal MG 2.0 Performed By: #### L500.2500, L501.2300, L501.5200 #### [facility] [address] [place], [address] CBC W/DIFF, AUTOMATED Collected: 12/25/2017 Status: F Source: [place] 4:45 AM [facility] REPOSITORY TYPE CODE TESTS RESULT OUT OF RANGE REFERENCE UNITS LAB L100.1000 4.4-11.0 K/mm3 Normal WBC 8.1 LAB L100.1200 4.6-6.2 M/mm3 Low RBC 3.84 LAB L100.1300 13.0-16.5 g/dl Low HGB 12.1 LAB L100.1400 40-54 % Low HCT 35.6 LAB L100.1500 80-94 fL Normal MCV 92.7 LAB L100.1600 27.0-32.0 pg Normal MCH 31.5 LAB L100.1700 32-36 g/gl Normal MCHC 34.0 LAB L100.1810 11.6-14.6 % Normal RDW CV 13.8 LAB L100.1820 35.1-43.9 fl High RDW SD 46.7 LAB L100.1900 150-450 K/mm3 Normal PLT 167 LAB L100.2000 6.2-12.0 fl Normal MPV 10.5 LAB L100.2100 47-70 % Normal NEUT% 62.6 LAB L100.2200 19-41 % Normal LY% 19.0 LAB L100.2300 0-10 % High MONO% 11.3 LAB L100.2400 0-5 % High EO% 6.5 LAB L100.2500 0-1 % Normal BASO% 0.5 LAB L100.2550 0.0-0.9 % Normal IM GRAN % 0.100 Result Comment: IG% - Immature Granulocytes (promyelocytes, myelocytes and metamyelocytes) > 1% indicates that a LEFT SHIFT is Present. LAB L100.2620 2.0-7.7 X10 3/uL Normal Absolute Neut 5.1 LAB L100.2720 0.83-4.51 X10 3/ul Normal Absolute Lymph 1.53 Performed By: #### L100.0100 #### [facility] [address] [place], [address] BEDSIDE GLUCOSE Collected: 12/24/2017 Status: F Source: [place] 9:18 PM [facility] REPOSITORY TYPE CODE TESTS RESULT OUT OF REFERENCE UNITS RANGE LAB L501.080 70-110 mg/dL High BEDSIDE GLU 194 Result Comment: MANAGEMENT OF PATIENT CARE PER NURSING PROTOCOL Performed By: #### L501.080 #### [facility] Point of Care [address] [place] [address] BEDSIDE GLUCOSE Collected: 12/24/2017 Status: F Source: [place] 5:30 PM [facility] REPOSITORY TYPE CODE TESTS RESULT OUT OF REFERENCE UNITS RANGE LAB L501.080 70-110 mg/dL High BEDSIDE GLU 141 Result Comment: MANAGEMENT OF PATIENT CARE PER NURSING PROTOCOL Performed By: #### L501.080 #### [facility] Point of Care [address] [place] [address] BEDSIDE GLUCOSE Collected: 12/24/2017 Status: F Source: [place] 12:14 PM [facility] REPOSITORY TYPE CODE TESTS RESULT OUT OF REFERENCE UNITS RANGE LAB L501.080 70-110 mg/dL High BEDSIDE GLU 158 Result Comment: MANAGEMENT OF PATIENT CARE PER NURSING PROTOCOL Performed By: #### L501.080 #### [facility] Point of Care [address] [place] [address] BRAIN W/WO CONTRAST Observed: 12/24/2017 Status: F Source: [place] 12:07 PM [facility] REPOSITORY [facility] Imaging Services [address] [place] [address] Brain W/WO Contrast MR#: [id number] Acct: [id number] Name: FAYE MAO Rep #: [id number] : 1950 M 67 From: Sanket Kong MD PCP: TAMANNA FUENTES Status: ADM IN Study: Brain W/WO Contrast Date of Exam: 12/24/17 Exam# [id number] Ordering Dr: Agustin Juarez MD STUDY: MRI BRAIN WITH AND WITHOUT CONTRAST REASON FOR EXAM: Male, 67 years old. Confusion TECHNIQUE: Standardized multiplanar fat and water weighted pulse sequences were obtained. 10 ml of Gadavist contrast material was administered intravenously for the contrast portion of the examination. COMPARISON: CT of the brain on December 23, 2017 FINDINGS: Normal size of the ventricles and extra-axial spaces for the patient's age. Normal white matter tracts of the supratentorial brain. Normal bilateral basal ganglia. Normal thalami. There is no extra-axial fluid accumulation. Normal flow voids within the major intracranial circulation suggesting patency by spin echo criteria. Normal venous enhancement. There is no enhancing intra-axial or extra-axial abnormality. Normal sella turcica, pituitary gland, infundibular stalk, optic chiasm and hypothalamus. Normal tectal plate and pineal gland. Normal midbrain, mariella and medulla. Normal cerebellum. Normal basal cisterns. Normal bilateral temporal bones. Normal bilateral internal auditory canals. There are postsurgical changes involving the right orbit. There is moderate mucosal thickening in the right maxillary sinus and mild mucosal thickening within the ethmoid and sphenoid sinuses.. Normal calvarium and skull base. Normal visualized soft tissue structures. Normal visualized upper cervical spine. MRI/Brain W/WO Contrast IMPRESSION: Normal unenhanced and enhanced MRI of the brain. Right maxillary, bilateral ethmoid and sphenoid sinusitis Electronically Signed: Sanket Kong MD at 16:27 EDT , Service support , CC: Agustin Juarez MD; TAMANNA FUENTES Furniture Detailer: Signed ECHOCARDIOGRAM COMPLETE Observed: 12/24/2017 Status: F Source: [place] 11:54 AM [facility] REPOSITORY [facility] Cardiovascular Services [address] [place] [address] Echo Complete 12/24/17 0849 MR#: [id number] Acct: [id number] Name: FAYE MAO Rep #: [id number] : 1950 67 From: Jeff Miller MD Attending Dr: Konrad Dudley MD Status: ADM IN Ordering Dr: Konrad Dudley MD Date: 12/24/17 Location: ICU Sex: M C Admitted: 12/23/17 Reason For Study: HTN Procedure This was a 2D Doppler, Color Flow transthoracic echocardiogram. The study was technically difficult. Exam performed portable in ICU/CCU. Left Ventricle Normal LV size. Moderate concentric left ventricular hypertrophy. Left ventricular systolic function is normal. The estimated ejection fraction is 55 %. Stage 1 diastolic dysfunction. No regional wall motion abnormalities noted. Right Ventricle Normal right ventricle. Normal systolic function. Atria Normal left atrium. Normal right atrium. Mitral Valve Normal mitral valve. Mild (1+) eccentric mitral valve insufficiency. Tricuspid Valve Normal tricuspid valve. Aortic Valve The aortic valve is not well visualized. Pulmonic Valve The pulmonic valve is not well visualized. Great Vessels Normal aortic root. The pulmonary artery is normal size. Normal inferior vena cava. Pericardium/Pleural No pericardial effusion. Medication Performed a rapid injection of agitated mix of 9 cc saline and 1cc air to assess for atrial septal defect. MMode/2D Measurements AND Calculations LVIDd: 4.4 cm IVSd: 1.6 cm Ao root diam: 3.9 cm LVIDs: 3.1 cm LVPWd: 1.5 cm LA dimension: 3.3 cm RVDd: 3.0 cm FS: 29.0 % LAV(MOD-bp): 33.3 ml LVAd ap4: 29.0 cm2 SV(MOD-sp4): 39.0 ml LAV(MOD-bp) Indexed: 15.8 ml/m2 EDV(MOD-sp4): 77.6 ml LAV(MOD-sp2): 36.8 ml EDV(sp4-el): 82.2 ml LAV(MOD-sp4): 29.2 ml LVAs ap4: 18.5 cm2 ESV(MOD-sp4): 38.6 ml ESV(sp4-el): 37.5 ml EF(MOD-sp4): 50.2 % EF(sp4-el): 54.3 % SV(sp4-el): 44.6 ml LA A4 area: 14.1 cm2 RA A4 area: 9.6 cm2 Time Measurements MV dec time: 0.22 sec Doppler Measurements AND Calculations MV E max kiko: 58.9 cm/sec Lat Peak E' Kiko: 8.3 cm/sec Med Peak E' Kiko: 5.6 cm/sec MV A max kiko: 85.7 cm/sec E/E' lat: 7.1 E/E' med: 10.6 MV E/A: 0.69 MV V2 max: 94.2 cm/sec MV P1/2t max kiko: 69.6 cm/sec Ao V2 max: 125.8 cm/sec MV max P.5 mmHg MV P1/2t: 83.7 msec Ao max P.3 mmHg MV V2 mean: 50.2 cm/sec MV dec slope: 243.5 cm/sec2 MV mean P.3 mmHg MVA(P1/2t): 2.6 cm2 MV V2 VTI: 20.0 cm LV V1 max: 100.0 cm/sec LV V1 max P.0 mmHg Interpretation Summary Normal LV size. Moderate concentric left ventricular hypertrophy. Left ventricular systolic function is normal. The estimated ejection fraction is 55 %. Stage 1 diastolic dysfunction. Ordering Physician: Konrad Dudley Referring Physician: TAMANNA FUENTES Performed By: Roger Abdalla RCS 12/24/17 1154 Date Jeff Miller MD CC: Konrad Dudley MD; TAMANNA FUENTES Date Dictated: 12/24/17 0849 Date Transcribed: 12/24/17 1154 Furniture Detailer: Signed BLOOD GASES BY [facility] Collected: 12/24/2017 Status: F Source: [place] 7:45 AM [facility] REPOSITORY TYPE CODE TESTS RESULT OUT OF RANGE REFERENCE UNITS LAB L9000.9990 Normal BLD GAS TYPE ART LAB L9001.1000 R Normal SITE Brachial LAB L9001.1010 Normal RONALD TEST POS LAB L9001.1048 Normal Mode A-C LAB L9001.1050 O2 Normal Delivery Dev Vent LAB L9001.1060 MV Normal 9.00 LAB L9001.1065 Vt Normal 500 LAB L9001.1070 RR 12 Normal LAB L9001.1074 30 Normal FI02 LAB L9001.1076 5 Normal PEEP LAB L9001.1104 Normal Results To ICU MD LAB L9001.1105 Normal Time Given 742 LAB L9001.1110 7.35-7.45 pH Normal - I-STAT 7.44 LAB L9001.1210 35-45 mmHg Low pCO2 - ISTAT 32.1 LAB L9001.1310 75-100 mmHG High PO2 I-STAT 104 LAB L9001.2300 22-26 mmol/L Low HCO3 ISTAT 21.6 LAB L9001.2400 -2 to +2 mmol/L Low BE -3 ISTAT LAB L9001.2415 mmol/L 23 Normal TOTAL CO2 ISTAT LAB L9001.2425 95-99 % 98 Normal SO2 ISTAT Performed By: #### L9000.0800 #### [facility] Point of Care [address] [facility] [place] [address] CONSULTATION Observed: 12/24/2017 Status: F Source: [place] 5:33 AM [facility] REPOSITORY [facility] Medical Records Department [address] [place] [address] Consultation 12/23/17 1738 MR#: [id number] Acct: [id number] Name: FAYE MAO Manisha Rep #: [id number] : 1950 67 From: Kehinde Alcantar MD PCP: TAMANNA FUENTES Status: ADM IN Y Location: ICU ICU04-1 Problem List (1) Hypertensive emergency Status: Acute (2) Acute metabolic encephalopathy Status: Acute (3) Old myocardial infarction Status: Chronic Comment: Acute Ant [place] w/ ST elevation January 2013 (4) Diabetes mellitus Status: Chronic Qualifiers: Diabetes mellitus type: type 2 Diabetes mellitus ferry terminal agent insulin use: with mcc use Diabetes mellitus complication status: with circulatory complication (5) Nicotine abuse Status: Chronic (6) Other ferry terminal agent (current) drug therapy Status: Chronic (7) Atherosclerotic heart disease of [place] coronary artery without angina pectoris Status: Chronic Qualifiers: [place] vs. transplanted heart: [place] heart Comment: Cardiac cath w/PTCA PIA LAD January 11, 2013; Cardiac Cath w/PTCA PIA prox LCX, PIA distal RCA, PIA Mid RCA 2012; PCI with PIA LAD, POBA D1 D2 07/19/14; PTCA AND Promus PIA to PDA 08/11/14 (8) H/O percutaneous transluminal coronary angioplasty Status: Chronic Comment: Cardiac cath w/PTCA PIA LAD January 11, 2013; Cardiac Cath w/PTCA PIA prox LCX, PIA distal RCA, PIA Mid RCA 2012; PCI with PIA LAD, POBA D1 D2 07/19/14; PTCA AND Promus PIA to PDA 08/11/14 (9) HLD (hyperlipidemia) Status: Chronic Qualifiers: Hyperlipidemia type: pure hypercholesterolemia Reason for Consult Date of Consultation: 12/23/17 Reason for Consultation: Encephalopathy with coma History of Present Illness: The patient is a 67 year old M, with past medical history listed below, who presented to [facility] on 12/23/2017 after decreased mental status. Patient was reportedly of his usual health this morning [place]. Patient's reports that over the last 2-3 weeks he has had increased shortness of breath, but did not have any significant change in his cough, sputum production or shortness of breath in the last 24-48 hours. Patient was reportedly walking around and then became stuporous. EMS was called and patient was transported to the emergency room for evaluation. While in the emergency room, patient was noted to be hypertensive per ER physician report. Patient was also noted to have decreased mental status with no gag reflex. There was some concern for a possible hemorrhagic stroke, so airway was secured with intubation and patient was transported to the CT scanner. She was reportedly given Versed, etomidate and succinylcholine prior to my evaluation. I was notified of the intubation and met the patient in the CT scanner. Patient CT scan did not show any intracranial hemorrhage, so a CTA was performed showing no acute CVA. Patient is not interactive on my evaluation, but did have some spontaneous arm and head movement. Patient's was at the bedside during my evaluation in the ER. She had reported the patient does have a history of extensive coronary artery disease and sees Dr. Miller. Patient's also reports the patient has an extensive smoking history and is to see Dr. Fuentes in [place] and reportedly was to have a lot of tests completed this Friday. Patient does have inhalers that he uses on a regular basis. Patient reportedly has had issues with syncope, but never this bad. She is not aware of any recent fever, chills, dysuria, reports of headache or focal neurologic deficit. There is no report of seizure activity noted. 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) Atherosclerotic heart disease of [place] coronary artery without angina pectoris (Chronic) Cardiac cath w/PTCA PIA LAD January 11, 2013; Cardiac Cath w/PTCA PIA prox LCX, PIA distal RCA, PIA Mid RCA 2012; PCI with PIA LAD, POBA D1 D2 07/19/14; PTCA AND Promus PIA to PDA 08/11/14 H/O percutaneous transluminal coronary angioplasty (Chronic) Cardiac cath w/PTCA PIA LAD January 11, 2013; Cardiac Cath w/PTCA PIA prox LCX, PIA distal RCA, PIA Mid RCA 2012; PCI with PIA LAD, POBA D1 D2 07/19/14; PTCA AND Promus PIA to PDA 08/11/14 HLD (hyperlipidemia) (Chronic) Medical History: Medical History (Last Updated 12/01/17 @ 10:29 by Luis Barrera) Orthostatic hypotension (Chronic) I95.1 Old myocardial infarction (Chronic) I25.2 Acute Ant [place] w/ ST elevation January 2013 Diabetes mellitus (Chronic) E11.9 Nicotine abuse (Chronic) Z72.0 Other mcc (current) drug therapy (Chronic) Z79.899 Atherosclerotic heart disease of [place] coronary artery without angina pectoris (Chronic) I25.10 Cardiac cath w/PTCA PIA LAD January 11, 2013; Cardiac Cath w/PTCA PIA prox LCX, PIA distal RCA, PIA Mid RCA 2012; PCI with PIA LAD, POBA D1 D2 07/19/14; PTCA AND Promus PIA to PDA 08/11/14 HLD (hyperlipidemia) (Chronic) E78.5 Arthritis M19.90 Depression F32.9 Dizziness and giddiness R42 GERD (gastroesophageal reflux disease) K21.9 Pain in limb M79.609 Stomach ulcer K25.9 Allergies No Known Allergies Allergy (Verified 12/23/17 15:46) Home Medications: Ambulatory Orders Medication Instructions Recorded aspirin 81 mg chewable tablet 81 mg PO QDAY #90 tab 08/01/17 Surgical History: Surgical History (Last Updated 12/01/17 @ 10:29 by Luis Barrera) H/O percutaneous transluminal coronary angioplasty (Chronic) Z98.61 Cardiac cath w/PTCA PIA LAD January 11, 2013; Cardiac Cath w/PTCA PIA prox LCX, PIA distal RCA, PIA Mid RCA 2012; PCI with PIA LAD, POBA D1 D2 07/19/14; PTCA AND Promus PIA to PDA 08/11/14 Smoking Status: Current every day smoker Review of Systems Unable to obtain accurate/complete ROS d/t: Decreased mental status. See HPI Patient Problems: Active and Suspected Problems (Last Updated 12/01/17 @ 10:29 by Luis Barrera) Hypertensive emergency (Acute) Acute metabolic encephalopathy (Acute) Objective: CT scan of the head was reviewed. This did not appear to have any intracranial bleed. Chest x-ray showed no acute infiltrates and endotracheal tube was approximately 2-3 cm from the cuong. OG appears to be in appropriate position. CT scan of the neck was grossly unremarkable for any etiology of patient's decreased mental status. - Physical Exam General: - - Intubated and sedated. Positive gag reflex noted. Very little spontaneous movement for me. Sensation appear to be intact bilaterally. No facial droop is appreciated. HEENT: Atraumatic, Normocephalic, - - Pupils are very sluggish. Oral: Moist Mucosa, No Gingival or Mucosal Lesions/ Ulcerations Neck: Supple, No JVD, No Nodes, Trachea Midline Lungs: No rhonchi, No wheeze, No rales, Diminished, - - Metric expansion. No dullness to percussion. Cardiovascular: Regular rate, Regular Rhythm, Normal S1, Normal S2, No murmurs, No rub noted, No Gallop Abdomen: Bowel Sounds Present, Soft, Non Tender, Non-Distended Extremities: No clubbing, No cyanosis, No edema, Capillary Refill Less than 3 Seconds Skin: No rashes, No breakdown Musculoskeletal: No Tenderness to Palpation of Joints or Extremities, No Muscle Wasting Lymphatic: No Cervical, Supraclavicular, or Inguinal Adenopathy Neurological: - - See above. No doll's eyes noted. Psych/Mental Status: Flat Affect Vital Signs Temp Pulse Resp BP Pulse Ox 36.6 C 58 L 15 117/65 99 12/23/17 15:42 12/23/17 17:20 12/23/17 17:20 12/23/17 17:20 12/23/17 17:20 Oxygen Delivery Method Mechanical Ventilator Weight: 91 kg Body Mass Index (BMI) 27.1 Finger Stick Blood Glucose 167 Laboratory Tests Past 24 Hrs WBC RBC Hgb Hct MCV MCH POC Glucose POC Glucose 167 H Clinical Impression(s) from Imaging Studies Brain CT 12/23/17 15:49 IMPRESSION: No acute intracranial abnormality. Mild chronic ischemic changes. N.B. : The above information has been verbally conveyed by Kendall Casanova to Donn Galdamez, Referring Physician, on 12/23/2017 16:38:08 (ET). Electronically Signed: Kendall Casanova, at 16:38 EDT Tel , Service support , N.B. : The above information has been verbally conveyed by Kendall Casanova to Donn Galdamez, Referring Physician, on 12/23/2017 16:38:08 (ET). Chest X-Ray 12/23/17 15:49 IMPRESSION: Satisfactory position of the support lines and tubes. No acute thoracic pathology. Electronically Signed: Kendall Casanova, at 16:19 EDT Tel , Service support , Cervical Spine CT 12/23/17 15:50 IMPRESSION: No evidence for acute fracture or subluxation. Mild spondylosis. Mild multilevel spinal stenosis secondary to disc disease and bony hypertrophy Electronically Signed: Sanket Kong MD at 17:32 EDT , Service support , Neck CTA 12/23/17 16:21 IMPRESSION: Mild to moderate stenosis origin right vertebral artery. Otherwise no significant stenoses. Electronically Signed: Miguel Londono MD at 17:30 EDT , Service support , Assessment/Plan Active and Suspected Problems (Last Updated 12/01/17 @ 10:29 by Luis Barrera) Hypertensive emergency (Acute) Acute metabolic encephalopathy (Acute) RECOMMENDATIONS: 1. Continue mechanical ventilation on current settings 2. Propofol and fentanyl for sedation 3. Cycle cardiac enzymes 4. Hydralazine and labetalol as needed for systolic blood pressure greater than 180 5. Possible EEG in a.m. IMPRESSIONS: 1. Acute respiratory failure secondary to coma Patient with reported decreased GCS on presentation requiring intubation. Patient did have a report of an elevated blood pressure initially with a lack of gag reflex. ABG shows no significant CO2 retention that would lead to decreased mental status. There is no significant leukocytosis to suggest acute infection. No coagulopathy is appreciated. Patient does have an elevation in creatinine compared to previous, but also has a significant history for cardiovascular disease. Tox screen is unremarkable. Patient does not have sedative medications noted on reported home medication list. Patient's glucose was reportedly appropriate on scene. We will continue with mechanical ventilation and support of cardiovascular status overnight. Would cycle troponins. Spontaneous breathing trial and awakening trial per protocol. 2. Coronary artery disease status post multiple stents Patient does have a history of multiple cardiac stents in the past. EKG is unremarkable at this time. Would recommend continuing with cardiac enzymes and telemetry. Chest x-ray is not consistent with congestive heart failure at this time. Patient has not had an echocardiogram recently. 3. Diabetes mellitus type 2 Patient currently n.p.o. Would monitor blood sugars every 6 hours. Sliding scale only at this time. We will continue to monitor closely. 4. Advanced age/lack of clinical history/hyperlipidemia/probable COPD/GERD/depression Complicates care, management, recovery and prognosis. Patient can likely be held on baseline medications for now. There is no indication of a suicide attempt, but volatile alcohols are currently being evaluated. TIME: 35 minutes of critical care time spent addressing patient's decreased mental status, respiratory failure, review of all data and collaboration with care team. (4:20 PM to 6 PM) 12/24/17 0533 <Electronically signed by Kehinde Alcantar MD> Date Kehinde Alcantar MD Cosigner Signature (if applicable): Date CC: TAMANNA FUENTES Signed BEDSIDE GLUCOSE Collected: 12/24/2017 Status: F Source: [place] 5:26 AM [facility] REPOSITORY TYPE CODE TESTS RESULT OUT OF REFERENCE UNITS RANGE LAB L501.080 70-110 mg/dL High BEDSIDE GLU 125 Result Comment: Dr Espino Followed MANAGEMENT OF PATIENT CARE PER NURSING PROTOCOL Performed By: #### L501.080 #### [facility] [place] [address] CBC W/DIFF, AUTOMATED Collected: 12/24/2017 Status: F Source: [place] 3:50 AM [facility] REPOSITORY TYPE CODE TESTS RESULT OUT OF RANGE REFERENCE UNITS LAB L100.1000 4.4-11.0 K/mm3 High WBC 11.6 LAB L100.1200 4.6-6.2 M/mm3 Low RBC 3.72 LAB L100.1300 13.0-16.5 g/dl Low HGB 12.0 LAB L100.1400 40-54 % Low HCT 34.8 LAB L100.1500 80-94 fL Normal MCV 93.5 LAB L100.1600 27.0-32.0 pg High MCH 32.3 LAB L100.1700 32-36 g/gl Normal MCHC 34.5 LAB L100.1810 11.6-14.6 % Normal RDW CV 13.5 LAB L100.1820 35.1-43.9 fl High RDW SD 44.6 LAB L100.1900 150-450 K/mm3 Normal PLT 168 LAB L100.2000 6.2-12.0 fl Normal MPV 10.2 LAB L100.2100 47-70 % High NEUT% 70.3 LAB L100.2200 19-41 % Low LY% 13.5 LAB L100.2300 0-10 % Normal MONO% 8.8 LAB L100.2400 0-5 % High EO% 6.6 LAB L100.2500 0-1 % Normal BASO% 0.5 LAB L100.2550 0.0-0.9 % Normal IM GRAN % 0.300 Result Comment: IG% - Immature Granulocytes (promyelocytes, myelocytes and metamyelocytes) > 1% indicates that a LEFT SHIFT is Present. LAB L100.2620 2.0-7.7 X10 3/uL High Absolute Neut 8.2 LAB L100.2720 0.83-4.51 X10 3/ul Normal Absolute Lymph 1.57 Performed By: #### L100.0100 #### [facility] [address] [place], [address] COMPREHENSIVE METABOLIC Collected: 12/24/2017 Status: F Source: [facility] 3:50 AM [facility] REPOSITORY TYPE CODE TESTS RESULT OUT OF RANGE REFERENCE UNITS LAB L501.0100 74-106 mg/dL High GLU 122 Result Comment: Fasting Glucose result from 100 to 125 mg/dL suggests IMPAIRED HOMEOSTASIS per A.D.A. criteria. Please note revised GLUCOSE reference range effective 2017. LAB L501.1000 7-18 mg/dL Normal BUN 18 LAB L501.1100 0.70-1.30 mg/dL Normal CREAT,SERUM 1.17 Result Comment: The validity of the calculated GFR AND GFRAA in patients over 70 years has not been determined. Clinical correlation is essential. LAB L501.1110 >60 mL/min Normal EST GFR 66 Result Comment: Non- GFR Calc LAB L501.1115 >60 mL/min Normal EST GFR - AA 80 Result Comment: GFR Calc LAB L501.1300 10-20 RATIO Normal BUN/CRE 15.4 LAB L501.1500 6.4-8.2 g/dL Low T PROT 5.2 LAB L501.1800 3.2-5.0 g/dL Low ALB 2.3 LAB L501.1950 2.2-4.2 g/dL Normal GLOB 2.9 LAB L501.2000 0.9-2.4 RATIO Low A/G 0.8 LAB L501.2200 8.5-10.1 mg/dL Low CA 7.5 LAB L501.4100 15-37 U/L Normal AST 20 LAB L501.4305 45-117 U/L Normal ALK P 74 LAB L501.4405 16-61 U/L Normal ALT 22 LAB L501.4600 0.20-1.00 mg/dL T Normal BILI 0.20 LAB L501.5300 136-145 mmol/L NA Normal 145 LAB L501.5600 3.5-5.1 mmol/L K Normal 3.7 LAB L501.5900 98-107 mmol/L High CL 112 LAB L501.6100 21.0-32.0 mmol/L Normal CO2 26.0 LAB L501.6200 5-15 Normal GAP 7 Performed By: #### L500.4050 #### [facility] [address] [place], [place], [address] BEDSIDE GLUCOSE Collected: 12/23/2017 Status: F Source: [place] 11:35 PM [facility] REPOSITORY TYPE CODE TESTS RESULT OUT OF REFERENCE UNITS RANGE LAB L501.080 70-110 mg/dL High BEDSIDE GLU 157 Result Comment: Dr Espino Followed MANAGEMENT OF PATIENT CARE PER NURSING PROTOCOL Performed By: #### L501.080 #### [facility] Point of Care [address] [place] [place] [address] TROPONIN-I Collected: 12/23/2017 Status: F Source: [place] 10:55 PM [facility] REPOSITORY TYPE CODE TESTS RESULT OUT OF RANGE REFERENCE UNITS LAB L501.4010 <0.045 ng/mL Normal < 0.015 TROPONIN-I Result Comment: TROPONIN-I EXPECTED VALUES <0.045 Negative 0.045 - 0.590 Consistent with Cardiac Damage > OR = 0.600 Critical Value Not every elevated troponin is indicative of [place]. These values should be used with clinical judgement in examining the patient's clinical picture for diagnosis. To establish a diagnosis of [place] versus myocardial injury, there must be a demonstrated rise and/or fall in the troponin values, in addition to ischemic symptoms, EKG changes, new regional wall motion abnormality, and/or angiographical evidence. PLEASE NOTE: REFERENCE RANGES EDITED 17 Performed By: #### L501.4010 #### [facility] [address] [place], [address] BRAIN/HEAD WITHOUT Observed: 12/23/2017 Status: F Source: [facility] [place] CONTRAST 10:03 PM [facility] REPOSITORY [facility] Imaging Services [address] [place] [address] Brain/Head without Contrast MR#: [id number] Acct: [id number] Name: FAYE MAO Rep #: [id number] : 1950 M 67 From: Miguel Londono MD PCP: TAMANNA FUENTES Status: ADM IN Study: Brain/Head without Contrast Date of Exam: 12/23/17 Exam# [id number] Ordering Dr: Karl Noble DO STUDY: CT BRAIN WITHOUT CONTRAST REASON FOR EXAM: Male, 67 years old. Altered mental status RADIATION DOSAGE (If Supplied By Facility): CTDIvol = ( 44.99 ) mGy, DLP = ( 829.85 ) mGycm TECHNIQUE: Transaxial CT imaging of the brain was performed without administration of intravenous contrast material. Individualized dose optimization techniques were used for this CT. COMPARISON: December 23, 2017 FINDINGS: Normal soft tissue structures. Normal calvarium. Normal size ventricles and extra-axial spaces for the patient's age. Normal white matter tracts of the cerebral hemispheres. Normal basal ganglia and thalami. 6 mm calcified lesion head of caudate on the left. Normal brainstem. Normal cerebellum. There is no intracranial hemorrhage. There are no findings of an acute ischemic infarction. Air-fluid level right maxillary sinus. CT/Brain/Head without Contrast IMPRESSION: Calcifications left caudate head of doubtful significance. No acute disease. Electronically Signed: Miguel Londono MD at 22:45 EDT , Service support , CC: Karl FUENTES Furniture Detailer: Signed TROPONIN-I Collected: 12/23/2017 Status: F Source: [place] 7:45 PM [facility] REPOSITORY Order Comment: 'TROP' Serial specimen #1, #2 or #3: 2 TYPE CODE TESTS RESULT OUT OF RANGE REFERENCE UNITS LAB L501.4010 <0.045 ng/mL Normal < 0.015 TROPONIN-I Result Comment: TROPONIN-I EXPECTED VALUES <0.045 Negative 0.045 - 0.590 Consistent with Cardiac Damage > OR = 0.600 Critical Value Not every elevated troponin is indicative of [place]. These values should be used with clinical judgement in examining the patient's clinical picture for diagnosis. To establish a diagnosis of [place] versus myocardial injury, there must be a demonstrated rise and/or fall in the troponin values, in addition to ischemic symptoms, EKG changes, new regional wall motion abnormality, and/or angiographical evidence. PLEASE NOTE: REFERENCE RANGES EDITED 17 Performed By: #### L501.4010 #### [facility] [address] [place], [place], [address] LACTIC ACID Collected: 12/23/2017 Status: F Source: [place] 7:45 PM [facility] REPOSITORY Order Comment: Yes/No query for Sepsis Lactate Rule Y TYPE CODE TESTS RESULT OUT OF RANGE REFERENCE UNITS LAB L503.6005 0.4-2.0 mmol/L Normal LACTIC ACID 0.9 Performed By: #### L503.6005 #### [facility] [address] [place], [address] M R STAPH AUREUS Collected: 12/23/2017 Status: F Source: [place] DNA BY PCR 7:45 PM [facility] REPOSITORY TYPE CODE TESTS RESULT OUT OF RANGE REFERENCE UNITS LAB L8200.1100 Negative Normal MRSA Negative RESULT Performed By: #### L8200.1000 #### [facility] [address] [place], [address] HISTORY AND PHYSICAL Observed: 12/23/2017 Status: F Source: [facility] [place] EXAM 7:11 PM [facility] REPOSITORY [facility] Medical Records Department [address] [place] [address] History and Physical 12/23/179 MR#: [id number] Acct: [id number] Name: FAYE MAO Rep #: [id number] : 1950 67 From: Emma Scherer MD PCP: TAMANNA FUENTES Status: ADM IN Y Location: ICU ICU04-1 Problem List (1) Hypertensive emergency Status: Acute (2) Acute metabolic encephalopathy Status: Acute (3) Old myocardial infarction Status: Chronic Comment: Acute Ant [place] w/ ST elevation January 2013 (4) Diabetes mellitus Status: Chronic Qualifiers: Diabetes mellitus type: type 2 Diabetes mellitus ferry terminal agent insulin use: with ferry terminal agent use Diabetes mellitus complication status: with circulatory complication (5) Nicotine abuse Status: Chronic (6) H/O percutaneous transluminal coronary angioplasty Status: Chronic Comment: Cardiac cath w/PTCA PIA LAD January 11, 2013; Cardiac Cath w/PTCA PIA prox LCX, PIA distal RCA, PIA Mid RCA 2012; PCI with PIA LAD, POBA D1 D2 07/19/14; PTCA AND Promus PIA to PDA 08/11/14 (7) HLD (hyperlipidemia) Status: Chronic Qualifiers: Hyperlipidemia type: pure hypercholesterolemia History of Present Illness Date of Admission: 12/23/17 Chief Complaint: Unresponsiveness. The patient is a 67 year old M with past medical history as mentioned above presented to the emergency department because he was found unresponsive. Reportedly, patient went on to [facility] this morning and his mentioned that he was acting normally. This afternoon, he reportedly was found stumbling across the barn and he fell. EMS was called and he reported that he was able to slightly squeeze their hands on both sides but was minimally responsive. At this time, his is at the bedside and she mentioned that he has been having issues with balance over the last few weeks. She mentioned that he tends to fall and has been stumbling to the tan. He has a history of CAD status post stents and he has been on aspirin, Plavix, statins, beta blockers and losartan. He had history of type 2 diabetes mellitus and he has been on Lantus and metformin. According to his , he was diagnosed with COPD recently and he was prescribed oxygen at home because his pulse ox has been as low as 80% on room air. At this time, patient is sedated and intubated. At this time, his [place] Coma Scale is 6. On arrival to ER, his blood pressure was 235/184, heart rate was stable. He was afebrile. He was intubated because he was unresponsive and started on mechanical ventilation and sedation. His routine blood work is remarkable for BUN of 22 and creatinine of 1.65. Lactic acid was 2.5. Troponin was negative. LFT and lipase were unremarkable. EKG revealed normal sinus rhythm with first-degree AV block, NC interval of 232 ms, no acute ST elevation. Urine drug screen was positive for benzodiazepines. Blood alcohol level was 6. CT scan brain showed no acute infarction or hemorrhage, no skull fractures. Chest x-ray showed no acute findings, no infiltrate or consolidation. Cervical spine showed no fractures or dislocations, showed arthritic changes. CTA of the head and neck revealed mild to moderate stenosis of the right vertebral artery, otherwise no significant stenosis. He is being admitted for altered mental status, encephalopathy, hypertensive emergency, acute kidney injury. Past Medical History Past Medical History (Chronic Problems): Chronic Problems (Last Updated 12/01/17 @ 10:29 by Luis Barrera) Orthostatic hypotension (Chronic) Old myocardial infarction (Chronic) Acute Ant [place] w/ ST elevation January 2013 Diabetes mellitus (Chronic) Nicotine abuse (Chronic) Other mcc (current) drug therapy (Chronic) Atherosclerotic heart disease of [place] coronary artery without angina pectoris (Chronic) Cardiac cath w/PTCA PIA LAD January 11, 2013; Cardiac Cath w/PTCA PIA prox LCX, PIA distal RCA, PIA Mid RCA 2012; PCI with PIA LAD, POBA D1 D2 07/19/14; PTCA AND Promus PIA to PDA 08/11/14 H/O percutaneous transluminal coronary angioplasty (Chronic) Cardiac cath w/PTCA PIA LAD January 11, 2013; Cardiac Cath w/PTCA PIA prox LCX, PIA distal RCA, PIA Mid RCA 2012; PCI with PIA LAD, POBA D1 D2 07/19/14; PTCA AND Promus PAI to PDA 08/11/14 HLD (hyperlipidemia) (Chronic) Medical History: Medical History (Last Updated 12/01/17 @ 10:29 by Luis Barrera) Orthostatic hypotension (Chronic) I95.1 Old myocardial infarction (Chronic) I25.2 Acute Ant [place] w/ ST elevation January 2013 Diabetes mellitus (Chronic) E11.9 Nicotine abuse (Chronic) Z72.0 Other mcc (current) drug therapy (Chronic) Z79.899 Atherosclerotic heart disease of [place] coronary artery without angina pectoris (Chronic) I25.10 Cardiac cath w/PTCA PIA LAD January 11, 2013; Cardiac Cath w/PTCA PIA prox LCX, PIA distal RCA, PIA Mid RCA 2012; PCI with PIA LAD, POBA D1 D2 07/19/14; PTCA AND Promus PIA to PDA 08/11/14 HLD (hyperlipidemia) (Chronic) E78.5 Arthritis M19.90 Depression F32.9 Dizziness and giddiness R42 GERD (gastroesophageal reflux disease) K21.9 Pain in limb M79.609 Stomach ulcer K25.9 Allergies No Known Allergies Allergy (Verified 12/23/17 15:46) Home Medications: Ambulatory Orders Medication Instructions Recorded furosemide 20 mg tablet 20 mg PO DAILY 12/01/17 losartan 100 mg tablet 100 mg PO DAILY 12/01/17 metformin 1,000 mg tablet 1,000 mg PO BID 12/01/17 Surgical History: Surgical History (Last Updated 12/01/17 @ 10:29 by Luis Barrera) H/O percutaneous transluminal coronary angioplasty (Chronic) Z98.61 Cardiac cath w/PTCA PIA LAD January 11, 2013; Cardiac Cath w/PTCA PIA prox LCX, PIA distal RCA, PIA Mid RCA 2012; PCI with PIA LAD, POBA D1 D2 07/19/14; PTCA AND Promus PIA to PDA 08/11/14 Surgical History: noncontributory Psychiatric History: No pertinent psych hx Lives: Spouse/ Significant Other Smoking Status: Current every day smoker Tobacco Use: Cigarettes Alcohol: None Drugs: None - *Family History Maternal Family History: Family History (Last Updated 12/01/17 @ 10:29 by Luis Barrera) Father CAD (coronary artery disease) Diabetes Brother Heart disease Myocardial infarction Sister Diabetes History Items: No pertinent history Paternal Family History: Family History (Last Updated 12/01/17 @ 10:29 by Luis Barrera) Father CAD (coronary artery disease) Diabetes Brother Heart disease Myocardial infarction Sister Diabetes History Items: No pertinent history Review of Systems Constitutional: Reports: - - Unobtainable, patient is sedated, intubated. Eyes: Reports: - - Unobtainable, patient is sedated, intubated. HEENT: Reports: - - Unobtainable, patient is sedated, intubated. Cardiovascular: Reports: - - Unobtainable, patient is sedated, intubated. Gastrointestinal: Reports: - - Unobtainable, patient is sedated, intubated. Genitourinary: Reports: - - Unobtainable, patient is sedated, intubated. Musculoskeletal: Reports: - - Unobtainable, patient is sedated, intubated. Skin: Reports: - - Unobtainable, patient is sedated, intubated. Neurological: Reports: - - Unobtainable, patient is sedated, intubated. Endocrine: Reports: - - Unobtainable, patient is sedated, intubated. VTE Information - Inpt Only VTE Present on Admission: No VTE Mechan Device Prophylaxis: None VTE Pharm Prophylaxis ordered?: Yes Patient Problems: Active and Suspected Problems (Last Updated 12/01/17 @ 10:29 by Luis Barrera) Hypertensive emergency (Acute) Acute metabolic encephalopathy (Acute) - Physical Exam General: - - [place] Coma Scale of 6, patient is intubated, sedated. HEENT: Atraumatic, Sluggish Pupils, - - Sluggish reaction to light on the right pupil, left pupil is reacting. Oral: Moist Mucosa, No Gingival or Mucosal Lesions/ Ulcerations Neck: Supple, No JVD, Negative Carotid Bruits, Trachea Midline, Thyroid Normal Size and Texture Lungs: Clear to auscultation, No rhonchi, No wheeze, No rales, Diminished Cardiovascular: Regular rate, Regular Rhythm, Normal S1, Normal S2, No murmurs, PMI Normal Abdomen: Bowel Sounds Present, Soft, Non Tender, Non-Distended, No Hepato-splenomegaly Extremities: No clubbing, No cyanosis, No edema Skin: No rashes, No breakdown Lymphatic: No Cervical, Supraclavicular, or Inguinal Adenopathy Neurological: - - Unable to examine, patient is comatosed. Psych/Mental Status: - - Unable to examine, patient is comatosed. Vital Signs Temp Pulse Resp BP Pulse Ox 98.1 F 56 L 19 H 115/63 100 12/23/17 18:03 12/23/17 18:06 12/23/17 18:06 12/23/17 18:06 12/23/17 18:06 Oxygen Delivery Method Mechanical Ventilator Weight: 200 lb 9.93 oz Body Mass Index (BMI) 27.1 Finger Stick Blood Glucose 167 Laboratory Tests Past 24 Hrs WBC RBC Hgb Hct MCV MCH POC Glucose POC Glucose 167 H Clinical Impression(s) from Imaging Studies Brain CT 12/23/17 15:49 IMPRESSION: No acute intracranial abnormality. Mild chronic ischemic changes. N.B. : The above information has been verbally conveyed by Kendall Casanova to Donn Galdamez, Referring Physician, on 12/23/2017 16:38:08 (ET). Electronically Signed: Kendall Casanova, at 16:38 EDT Tel , Service support , N.B. : The above information has been verbally conveyed by Kendall Casanova to Donn Galdamez, Referring Physician, on 12/23/2017 16:38:08 (ET). Chest X-Ray 12/23/17 15:49 IMPRESSION: Satisfactory position of the support lines and tubes. No acute thoracic pathology. Electronically Signed: Kendall Casanova, at 16:19 EDT Tel , Service support , Cervical Spine CT 12/23/17 15:50 IMPRESSION: No evidence for acute fracture or subluxation. Mild spondylosis. Mild multilevel spinal stenosis secondary to disc disease and bony hypertrophy Electronically Signed: Sanket Kong MD at 17:32 EDT , Service support , Head CTA 12/23/17 16:20 IMPRESSION: Mild to moderate stenosis origin right vertebral artery. Otherwise no significant stenoses. Electronically Signed: Miguel Londono MD at 17:30 EDT , Service support , Neck CTA 12/23/17 16:21 IMPRESSION: Mild to moderate stenosis origin right vertebral artery. Otherwise no significant stenoses. Electronically Signed: Miguel Londono MD at 17:30 EDT , Service support , Assessment/Plan All Active Problems (Last Updated 12/01/17 @ 10:29 by Luis Barrera) Hypertensive emergency (Acute) Acute metabolic encephalopathy (Acute) This is a 67 years old male patient presented to the emergency department because of unresponsiveness, found to have high elevated blood pressure as well as acute kidney injury, was intubated for airway protection and is being admitted for encephalopathy, likely metabolic, hypertensive emergency and acute kidney injury. #1 altered mental status/encephalopathy: Probably metabolic encephalopathy due to hypertensive emergency. He does have endorgan damage including acute kidney injury and coma. CT scan brain revealed no acute infarction or hemorrhage. CTA of the head and neck reviewed, no acute findings. EKG revealed normal sinus rhythm with first-degree AV block, troponin is negative. Urine drug screen reviewed. Initially, blood pressure was highly elevated, improved after 2 doses of IV hydralazine. Plan: Admit to intensive care, critical care monitoring, complete bedrest, nothing by mouth, IV fluids, vent management per protocol, continue IV propofol and fentanyl for sedation, critical care consult, serial cardiac enzymes, repeat EKG tomorrow morning, repeat CBC and CMP tomorrow morning, insert Hunt catheter, PT OT evaluation and treatment when appropriate. #2 hypertensive emergency: Reportedly, blood pressure upon arrival was 235/184, came down to around 170 systolic after 2 doses of IV hydralazine. As mentioned above, CT scan brain without acute hemorrhage. He does have acute kidney injury. At this time, blood pressure improved. Last blood pressure was 112/67. Plan: Close medical blood pressure, IV hydralazine as needed for systolic more than 160. #3 acute respiratory failure: Patient was intubated for airway protection. ABG revealed pH of 7.45, PCO2 of 33 and PO2 of 85. Chest x-ray reviewed, no acute findings. Plan to continue vent support, continue sedation, critical care consult as above. #4 acute kidney injury: Baseline kidney function is normal. Plan: IV fluids, and put up a chart, repeat BMP tomorrow morning. #5 CAD status post stents: Plan for serial cardiac enzymes, repeat EKG tomorrow morning. Plan to resume aspirin, statins, Plavix, losartan and metoprolol through OG tube. #6 type 2 diabetes mellitus: N.p.o., Accu-Cheks every 6 hours, insulin sliding scale, hold Lantus and metformin at this time. #7 COPD: Patient is intubated, plan to continue mechanical ventilation as above. #8 hyperlipidemia: Continue statins through orogastric tube. #9 DVT prophylaxis: Subcu heparin. #10 GI prophylaxis: Start IV Pepcid twice daily. #11 CODE STATUS: Patient is intubated, sedated, [place] Coma Scale 6. was at the bedside and she mentioned that she has no idea about her 's and he does not have living will or advanced directive and they never spoke about it. This note was generated with [employer] dictation software. It may contain incorrect words, spelling, and punctuation that were not noted in checking the note before signing. Code Visit Inpatient E AND M: 21125 Init Hosp L3 12/23/171910 <Electronically signed by Emma Scherer MD> Date Emma Scherer MD Cosigner Signature: Date (if applicable) CC: Emma Scherer; TAMANNA FUENTES Signed BLOOD GASES BY [facility] Collected: 12/23/2017 Status: F Source: [place] 4:44 PM [facility] REPOSITORY TYPE CODE TESTS RESULT OUT OF RANGE REFERENCE UNITS LAB L9000.9990 Normal BLD GAS TYPE ART LAB L9001.1000 R Normal SITE Brachial LAB L9001.1010 Normal RONALD TEST POS LAB L9001.1048 Normal Mode A-C LAB L9001.1050 O2 Normal Delivery Dev Vent LAB L9001.1060 MV Normal 9.00 LAB L9001.1065 Vt Normal 500 LAB L9001.1070 RR 12 Normal LAB L9001.1074 30 Normal FI02 LAB L9001.1076 5 Normal PEEP LAB L9001.1104 ED Normal Results To LAB L9001.1105 Normal Time Given 1635 LAB L9001.1110 7.35-7.45 pH Normal - I-STAT 7.45 LAB L9001.1210 35-45 mmHg Low pCO2 - ISTAT 33.7 LAB L9001.1310 75-100 mmHG 85 Normal PO2 I-STAT LAB L9001.2300 22-26 mmol/L Normal HCO3 ISTAT 23.1 LAB L9001.2400 -2 to +2 mmol/L BE -1 Normal ISTAT LAB L9001.2415 mmol/L 24 Normal TOTAL CO2 ISTAT LAB L9001.2425 95-99 % 97 Normal SO2 ISTAT Performed By: #### L9000.0800 #### [facility] Point of [facility] [address] [place] [address] URINE DRUG SCREEN Collected: 12/23/2017 Status: F Source: [facility] ([place]) 4:30 PM [facility] REPOSITORY Order Comment: Order Date: 12/23/17 Has pt arrived? Y TYPE CODE TESTS RESULT OUT OF RANGE REFERENCE UNITS LAB L505.0075 TO BE Normal CONFIRMED Result Comment: CONFIRMATORY TESTING FOR ALL POSITIVE URINE DRUG SCREEN RESULTS WILL ONLY BE SENT OUT UPON PHYSICIAN ORDER. VISTA Urine Drug Screen methods provide only preliminary analytical test results. A more specific alternate chemical method must be used in order to obtain a confirmed analytical result. Gas chromatography/mass spectrometery (GC/MS) is the preferred confirmatory method. Clinical consideration and professional judgement should be applied to any drug of abuse test result, particularly when preliminary positive results are used. URINE TCA TESTING MUST BE ORDERED SEPARATELY. USE TEST MNEMONIC: [facility] LAB L505.5005 VISTA UDS PH 7 Normal LAB L505.5015 <1000 ng/mL AMPHETAMINES Normal NEGATIVE LAB L505.5025 < 200 ng/mL BARBITIURATES Normal NEGATIVE LAB L505.5035 < 200 High ng/mL BENZODIAZIPINE POSITIVE LAB L505.5045 < 300 ng/mL COCAINE Normal NEGATIVE LAB L505.5055 < 500 ng/mL ECSTACY Normal NEGATIVE LAB L505.5065 < 300 ng/mL METHADONE Normal NEGATIVE LAB L505.5075 < 300 ng/mL OPIATES Normal NEGATIVE LAB L505.5085 < 25 ng/mL PCP Normal NEGATIVE LAB L505.5095 < 50 ng/mL THC Normal NEGATIVE Performed By: #### L505.5000 #### [facility] [address] [place], [address] URINALYSIS, COMPLETE Collected: 12/23/2017 Status: F Source: [place] 4:30 PM [facility] REPOSITORY Order Comment: Order Date: 12/23/17 How was Urine Obtained? CLEAN CATCH TYPE CODE TESTS RESULT OUT OF RANGE REFERENCE UNITS LAB L400.3000 Yellow COLOR Normal Yellow LAB L400.3050 Clear Normal CLARITY Clear LAB L400.3200 Normal mg/dl High 50 GLUCOSE, UR LAB L400.3300 Negative mg/dL Normal BILIRUBIN URINE Negative LAB L400.3400 Negative mg/dl Normal KETONE UR Negative LAB L400.3465 1.002-1.030 Normal SP.GR. DIPSTX 1.010 LAB L400.3550 5.0 - 8.0 pH UR Normal 7.0 LAB L400.3600 Negative mg/dl High PROT DIPSTX 500 LAB L400.3700 Normal mg/dl Normal UROBILI Normal LAB L400.3750 Negative Normal NITRITE UR Negative LAB L400.3780 Negative /ul High 50 OCCULT BLOOD-UR LAB L400.3800 Negative /ul LEUK Normal ESTERASE Negative LAB L400.4050 0-5 /hpf WBC Normal 0-5 SEEN LAB L400.4100 0-5 /hpf 0 Normal RBC-UA SEEN LAB L400.4150 0-5 /hpf SQUAM 0 Normal EPI SEEN LAB L400.4300 None Seen /hpf 0 Normal BACTERIA SEEN LAB L400.4350 <or=2+ /hpf 0 Normal MUCUS, URINE SEEN Performed By: #### L400.0001 #### [facility] [address] [place], [place], [address] CTA NECK W/WO Observed: 12/23/2017 Status: F Source: [place] CONTRAST 4:21 PM [facility] REPOSITORY [facility] Imaging Services [address] [place] [address] CTA Neck W/WO Contrast MR#: [id number] Acct: [id number] Name: FAYE MOA Rep #: [id number] : 1950 M 67 From: Miguel Londono MD PCP: TAMANNA FUENTES Status: REG ER Study: CTA Neck W/WO Contrast Date of Exam: 12/23/17 Exam# [id number] Ordering Dr: Donn Galdamez DO STUDY: CTA NECK WITH CONTRAST REASON FOR EXAM: Male, 67 years old. Unresponsive RADIATION DOSAGE (If Supplied By Facility): CTDIvol = ( 17.66 ) mGy, DLP = ( 2339.85 ) mGycm TECHNIQUE: CT angiography with multi-detector data acquisition was performed from the aortic arch to the skull base following intravenous administration of 100 ml of Isovue 370 contrast. MIP images were reconstructed from the axial data set. Post-processing of the angiographic images was performed, with multiplanar reformation and 3D reconstruction. Individualized dose optimization techniques were used for this CT. COMPARISON: None. FINDINGS: AORTIC ARCH: Normal visualized aortic arch. Normal origins of the brachiocephalic, left common carotid, and left subclavian arteries. RIGHT CAROTID ARTERIES: Normal right common carotid artery (CCA). There is mild atherosclerotic plaque formation with minimal narrowing of the right carotid bulb. There is mild atherosclerotic plaque formation of the origin of the right internal carotid artery with less than 50% cross sectional diameter stenosis. Normal visualized cervical portion of the right internal carotid artery. Normal origin of the right external carotid artery (ECA). LEFT CAROTID ARTERIES: Normal left common carotid artery (CCA). There is mild atherosclerotic plaque formation with minimal narrowing of the left carotid bulb. Normal origin of the left internal carotid (ICA) artery without a hemodynamically significant stenosis. Normal visualized cervical portion of the left internal carotid artery. Normal origin of the left external carotid artery (ECA). VERTEBRAL ARTERIES: Visualized. Focal calcified plaque origin right vertebral artery. Left vertebral artery normal. CT/CTA Neck W/WO Contrast IMPRESSION: Mild to moderate stenosis origin right vertebral artery. Otherwise no significant stenoses. Electronically Signed: Miguel Londono MD at 17:30 EDT , Service support , CC: Donn Galdamez DO; TAMANNA FUENTES Furniture Detailer: Signed CTA HEAD W/WO Observed: 12/23/2017 Status: F Source: [place] CONTRAST 4:21 PM [facility] REPOSITORY [facility] Imaging Services [facility] [place] [address] CTA Head W/WO Contrast MR#: [id number] Acct: [id number] Name: FAYE AMO Rep #: [id number] : 1950 M 67 From: Miguel Londono MD PCP: TAMANNA FUENTES Status: REG ER Study: CTA Head W/WO Contrast Date of Exam: 12/23/17 Exam# [id number] Ordering Dr: Donn Galdamez DO STUDY: CTA NECK WITH CONTRAST REASON FOR EXAM: Male, 67 years old. Unresponsive RADIATION DOSAGE (If Supplied By Facility): CTDIvol = ( 17.66 ) mGy, DLP = ( 2339.85 ) mGycm TECHNIQUE: CT angiography with multi-detector data acquisition was performed from the aortic arch to the skull base following intravenous administration of 100 ml of Isovue 370 contrast. MIP images were reconstructed from the axial data set. Post-processing of the angiographic images was performed, with multiplanar reformation and 3D reconstruction. Individualized dose optimization techniques were used for this CT. COMPARISON: None. FINDINGS: AORTIC ARCH: Normal visualized aortic arch. Normal origins of the brachiocephalic, left common carotid, and left subclavian arteries. RIGHT CAROTID ARTERIES: Normal right common carotid artery (CCA). There is mild atherosclerotic plaque formation with minimal narrowing of the right carotid bulb. There is mild atherosclerotic plaque formation of the origin of the right internal carotid artery with less than 50% cross sectional diameter stenosis. Normal visualized cervical portion of the right internal carotid artery. Normal origin of the right external carotid artery (ECA). LEFT CAROTID ARTERIES: Normal left common carotid artery (CCA). There is mild atherosclerotic plaque formation with minimal narrowing of the left carotid bulb. Normal origin of the left internal carotid (ICA) artery without a hemodynamically significant stenosis. Normal visualized cervical portion of the left internal carotid artery. Normal origin of the left external carotid artery (ECA). VERTEBRAL ARTERIES: Visualized. Focal calcified plaque origin right vertebral artery. Left vertebral artery normal. CT/CTA Head W/WO Contrast IMPRESSION: Mild to moderate stenosis origin right vertebral artery. Otherwise no significant stenoses. Electronically Signed: Miguel Londono MD at 17:30 EDT , Service support , CC: Donn Galdamez DO; TAMANNA FUENTES Furniture Detailer: Signed CHEST 1 VIEW Observed: 12/23/2017 Status: F Source: [place] (PORTABLE) 3:51 PM [facility] REPOSITORY [facility] Imaging Services [address] [place] [id number] Chest 1 View (Portable) MR#: [id number] Acct: [id number] Name: FAYE MAO Rep #: [id number] : 1950 M 67 From: Kendall Casanova MD PCP: TAMANNA FUENTES Status: REG ER Study: Chest 1 View (Portable) Date of Exam: 12/23/17 Exam# [id number] Ordering Dr: Donn Galdamez DO STUDY: X-RAY CHEST REASON FOR EXAM: Male, 67 years old. Intubation TECHNIQUE: Frontal view of the chest COMPARISON: 08/24/2016 FINDINGS: There is an endotracheal tube noted with its tip approximately 3 cm above the cuong. There is an enteric tube noted with its tip in the stomach. The lungs are clear. There are no pleural effusions. There is no pneumothorax. The heart is normal in size. The visualized osseous structures are within normal limits. RAD/Chest 1 View (Portable) IMPRESSION: Satisfactory position of the support lines and tubes. No acute thoracic pathology. Electronically Signed: Kendall Casanova, at 16:19 EDT Tel , Service support , CC: Donn Galdamez DO; TAMANNA FUENTES Furniture Detailer: Signed BRAIN/HEAD WITHOUT Observed: 12/23/2017 Status: F Source: [facility] CONTRAST 3:51 PM [facility] REPOSITORY [facility] Imaging Services [address] [place] [address] Brain/Head without Contrast MR#: [id number] Acct: [id number] Name: FAYE MAO Rep #: [id number] : 1950 M 67 From: Kendall Casanova MD PCP: TAMANNA FUENTES Status: REG ER Study: Brain/Head without Contrast Date of Exam: 12/23/17 Exam# [id number] Ordering Dr: Donn Galdamez DO STUDY: CT BRAIN WITHOUT CONTRAST REASON FOR EXAM: Male, 67 years old. Unresponsive. Stroke alert. RADIATION DOSAGE (If Supplied By Facility): CTDIvol = ( 60.81 ) mGy, DLP = ( 1112.69 ) mGycm TECHNIQUE: Transaxial CT imaging of the brain was performed without administration of intravenous contrast material. Individualized dose optimization techniques were used for this CT. COMPARISON: None. FINDINGS: There is no acute bleed or infarct. There are mild chronic ischemic changes. The ventricles are normal in configuration. There is no hydrocephalus. The visualized paranasal sinuses are clear. The mastoid air cells are well aerated. There is no skull fracture. CT/Brain/Head without Contrast IMPRESSION: No acute intracranial abnormality. Mild chronic ischemic changes. N.B. : The above information has been verbally conveyed by Kendall Casanova to Donn Galdamez, Referring Physician, on 12/23/2017 16:38:08 (ET). Electronically Signed: Kendall Casanova, at 16:38 EDT Tel , Service support , N.B. : The above information has been verbally conveyed by Kendall Casanova to Donn Galdamez, Referring Physician, on 12/23/2017 16:38:08 (ET). CC: Donn Galdamez DO; TAMANNA FUENTES Furniture Detailer: Signed SPINE CERVICAL Observed: 12/23/2017 Status: F Source: [facility] WITHOUT CONTRAS 3:51 PM [facility] REPOSITORY [facility] Imaging Services [address] [place] [address] Spine Cervical without Contras MR#: [id number] Acct: [id number] Name: FAYE MAO Rep #: [id number] : 1950 67 From: Sanket Kong MD PCP: TAMANNA FUENTES Status: REG ER Study: Spine Cervical without Contras Date of Exam: 12/23/17 Exam# [id number] Ordering Dr: Donn Galdamez DO STUDY: CT CERVICAL SPINE WITHOUT CONTRAST REASON FOR EXAM: Male, 67 years old. Unresponsive RADIATION DOSAGE (If Supplied By Facility): CTDIvol = ( 26.82 ) mGy, DLP = ( 630.03 ) mGycm TECHNIQUE: High resolution transaxial imaging was performed without contrast material. Sagittal and coronal images were reconstructed. Individualized dose optimization techniques were used for this CT. COMPARISON: None FINDINGS: Normal craniovertebral junction. Normal anterior atlantoaxial articulation. Normal odontoid process. Normal cervical lordosis. Normal vertebral bodies and posterior osseous elements. C2-3: Normal endplates. Normal disc height and tiny central disc protrusion.. Normal central canal and intervertebral neuroforamina. C3-4: Normal endplates. Normal disc height and minor bulging of the disc. Normal central canal and intervertebral neuroforamina. C4-5: Normal endplates. Normal disc height and small central disc protrusion.. Normal central canal and intervertebral neuroforamina. C5-6: Minor endplate spurring.. Normal disc height and morphology. Normal central canal. Moderate left neuroforaminal stenosis secondary to bony hypertrophy C6-7: Normal endplates. Normal disc height and small central disc protrusion.. Normal central canal and intervertebral neuroforamina. C7-T1: Normal endplates. Normal disc height and morphology. Normal central canal and intervertebral neuroforamina. Ossification of the nuchal ligament.. CT/Spine Cervical without Contras IMPRESSION: No evidence for acute fracture or subluxation. Mild spondylosis. Mild multilevel spinal stenosis secondary to disc disease and bony hypertrophy Electronically Signed: Sanket Kong MD at 17:32 EDT , Service support , CC: Donn FUENTES Furniture Detailer: Signed CBC W/DIFF, AUTOMATED Collected: 12/23/2017 Status: F Source: [facility] 3:46 PM [facility] REPOSITORY TYPE CODE TESTS RESULT OUT OF RANGE REFERENCE UNITS LAB L100.1000 4.4-11.0 K/mm3 Normal WBC 7.8 LAB L100.1200 4.6-6.2 M/mm3 Low RBC 4.04 LAB L100.1300 13.0-16.5 g/dl Low HGB 12.7 LAB L100.1400 40-54 % Low HCT 37.2 LAB L100.1500 80-94 fL Normal MCV 92.1 LAB L100.1600 27.0-32.0 pg Normal MCH 31.4 LAB L100.1700 32-36 g/gl Normal MCHC 34.1 LAB L100.1810 11.6-14.6 % Normal RDW CV 13.5 LAB L100.1820 35.1-43.9 fl High RDW SD 45.6 LAB L100.1900 150-450 K/mm3 Normal PLT 177 LAB L100.2000 6.2-12.0 fl Normal MPV 10.3 LAB L100.2100 47-70 % Normal NEUT% 60.9 LAB L100.2200 19-41 % Low LY% 18.7 LAB L100.2300 0-10 % High MONO% 10.9 LAB L100.2400 0-5 % High EO% 8.9 LAB L100.2500 0-1 % Normal BASO% 0.5 LAB L100.2550 0.0-0.9 % Normal IM GRAN % 0.100 Result Comment: IG% - Immature Granulocytes (promyelocytes, myelocytes and metamyelocytes) > 1% indicates that a LEFT SHIFT is Present. LAB L100.2620 2.0-7.7 X10 3/uL Normal Absolute Neut 4.7 LAB L100.2720 0.83-4.51 X10 3/ul Normal Absolute Lymph 1.45 Performed By: #### L100.0100 #### [facility] [address] [place], [address] COMPREHENSIVE METABOLIC Collected: 12/23/2017 Status: F Source: [facility] 3:46 PM [facility] REPOSITORY TYPE CODE TESTS RESULT OUT OF RANGE REFERENCE UNITS LAB L501.0100 74-106 mg/dL High GLU 152 Result Comment: Fasting Glucose result greater than or equal to 126 mg/dL suggests DIABETES MELLITUS per A.D.A. criteria. Please note revised GLUCOSE reference range effective 2017. LAB L501.1000 7-18 mg/dL High BUN 22 LAB L501.1100 0.70-1.30 mg/dL High CREAT,SERUM 1.65 Result Comment: The validity of the calculated GFR AND GFRAA in patients over 70 years has not been determined. Clinical correlation is essential. LAB L501.1110 >60 mL/min Low EST GFR 44 Result Comment: Non- GFR Calc LAB L501.1115 >60 mL/min Low EST GFR - AA 54 Result Comment: GFR Calc LAB L501.1300 10-20 RATIO Normal BUN/CRE 13.3 LAB L501.1500 6.4-8.2 g/dL Low T PROT 6.0 LAB L501.1800 3.2-5.0 g/dL Low ALB 2.7 LAB L501.1950 2.2-4.2 g/dL Normal GLOB 3.3 LAB L501.2000 0.9-2.4 RATIO Low A/G 0.8 LAB L501.2200 8.5-10.1 mg/dL Low CA 8.2 LAB L501.4100 15-37 U/L Normal AST 25 LAB L501.4305 45-117 U/L Normal ALK P 92 LAB L501.4405 16-61 U/L Normal ALT 26 LAB L501.4600 0.20-1.00 mg/dL T Normal BILI 0.30 LAB L501.5300 136-145 mmol/L NA Normal 143 LAB L501.5600 3.5-5.1 mmol/L K Normal 3.9 LAB L501.5900 98-107 mmol/L High CL 108 LAB L501.6100 21.0-32.0 mmol/L Normal CO2 25.0 LAB L501.6200 5-15 Normal GAP 10 Performed By: #### L500.4050, L501.2450, L501.4010 #### [facility] [address] [place], [place], [id number] LIPASE Collected: 12/23/2017 Status: F Source: [facility] 3:46 PM [facility] REPOSITORY TYPE CODE TESTS RESULT OUT OF RANGE REFERENCE UNITS LAB L501.2450 73-393 U/L Normal LIPASE 77 Performed By: #### L500.4050, L501.2450, L501.4010 #### [facility] [address] [place], [place], [address] TROPONIN-I Collected: 12/23/2017 Status: F Source: [facility] 3:46 PM [facility] REPOSITORY TYPE CODE TESTS RESULT OUT OF RANGE REFERENCE UNITS LAB L501.4010 <0.045 ng/mL Normal < 0.015 TROPONIN-I Result Comment: TROPONIN-I EXPECTED VALUES <0.045 Negative 0.045 - 0.590 Consistent with Cardiac Damage > OR = 0.600 Critical Value Not every elevated troponin is indicative of AZ. These values should be used with clinical judgement in examining the patient's clinical picture for diagnosis. To establish a diagnosis of AZ versus myocardial injury, there must be a demonstrated rise and/or fall in the troponin values, in addition to ischemic symptoms, EKG changes, new regional wall motion abnormality, and/or angiographical evidence. PLEASE NOTE: REFERENCE RANGES EDITED 17 Performed By: #### L500.4050, L501.2450, L501.4010 #### [facility] [address] [place], [address] PROTHROMBIN TIME W/INR Collected: 12/23/2017 Status: F Source: [facility] 3:46 PM [facility] REPOSITORY TYPE CODE TESTS RESULT OUT OF RANGE REFERENCE UNITS LAB L300.4150 11.7-14.9 SECONDS Normal PROTIME 14.3 LAB L300.4200 Normal INR 1.1 Performed By: #### L300.3900, L300.4310 #### [facility] [address] [place], [address] PARTIAL THROMBOPLAST Collected: 12/23/2017 Status: F Source: [facility] TIME 3:46 PM [facility] REPOSITORY TYPE CODE TESTS RESULT OUT OF RANGE REFERENCE UNITS LAB L300.4310 24.1-36.2 Seconds Normal PTT 29.8 Performed By: #### L300.3900, L300.4310 #### [facility] [address] [place], [address] ALCOHOL, BLOOD Collected: 12/23/2017 Status: F Source: [facility] (MEDICAL)-SERUM 3:46 PM [facility] REPOSITORY TYPE CODE TESTS RESULT OUT OF RANGE REFERENCE UNITS LAB L501.9100 mg/dL Normal SERUM 6.0 ETOH Result Comment: The serum:whole blood ethanol ratio is approximately 1.14 and varies slightly with hematocrit. Medical Alcohol reference interval and critical value in non-tolerant individuals; 50 - 100 Impairment 100 Intoxication 100 - 250 Severe Poisoning 250 - 400 Deep/possible fatal coma Performed By: #### L501.9100 #### [facility] [address] [place], [address] LACTIC ACID Collected: 12/23/2017 Status: F Source: [place] 3:46 PM [facility] REPOSITORY Order Comment: Yes/No query for Sepsis Lactate Rule Y TYPE CODE TESTS RESULT OUT OF REFERENCE UNITS RANGE LAB L503.6005 0.4-2.0 mmol/L High LACTIC ACID 2.5 Result Comment: Critical Result(s) Called at: 17:04:00 12/23/2017 by: Dotty CANTU Performed By: #### L503.6005 #### [facility] [address] [facility] [place], [address] BEDSIDE GLUCOSE Collected: 12/23/2017 Status: F Source: [place] 3:44 PM [facility] REPOSITORY TYPE CODE TESTS RESULT OUT OF REFERENCE UNITS RANGE LAB L501.080 70-110 mg/dL High BEDSIDE GLU 167 Result Comment: MANAGEMENT OF PATIENT CARE PER NURSING PROTOCOL Performed By: #### L501.080 #### [facility] Point of Care [address] [facility] [place] [address] URINALYSIS Collected: 12/13/2017 Status: F Source: [facility] [place] 8:10 AM [facility] REPOSITORY TYPE CODE TESTS RESULT OUT OF REFERENCE UNITS RANGE LAB URINALYSIS (LOINC) URINALYSIS Result Comment: URINALYSIS LAB Specimen Type(LOINC) Specimen Type Clean catch LAB Color(LOINC) NORMAL: YELLOW Color YELLOW LAB Clarity(LOINC) NORMAL: CLEAR Clarity clear LAB ph(LOINC) NORMAL: 5.0-8.0 ph 6 LAB Protein(LOINC) NORMAL: NEGATIVE Protein Abnormal 500 LAB Glucose(LOINC) NORMAL: NORMAL Glucose Abnormal 1000 LAB Ketone(LOINC) NORMAL: NEGATIVE Ketone NEG LAB Bilirubin(LOINC) NORMAL: NEGATIVE Bilirubin NEG LAB Blood(LOINC) NORMAL: NEGATIVE Blood Abnormal 10 LAB Urobilinog(LOINC) NORMAL: NORMAL Urobilinog NORM LAB [place](LOINC) NORMAL: 1.010-1.030 [place] 1.015 LAB Nitrite(LOINC) NORMAL: NEGATIVE Nitrite NEG LAB Leukocytes(LOINC) NORMAL: NEGATIVE Leukocytes NEG LAB Microscopic(LOINC ) Microscopic SEE BELOW Result Comment: MICROSCOPIC LAB Wbc(LOINC) 0-5/hpf Wbc NONE LAB Rbc(LOINC) 0-3/hpf Rbc 0-5 LAB Casts(LOINC) Casts NONE LAB Crystals(LOINC) Crystals NONE LAB Amorphous(LOINC) Amorphous NONE LAB Bacteria(LOINC) Bacteria NONE LAB Epi Cells(LOINC) Epi Cells NONE LAB Mucous(LOINC) Mucous NONE LAB Yeast(LOINC) Yeast NONE Performed By: #### [id number] #### [facility],[address] [place] [address] BMP WITH EGFR Collected: 12/13/2017 Status: F [facility] AM [facility] REPOSITORY TYPE CODE TESTS RESULT OUT OF RANGE REFERENCE UNITS LAB BMP with eGFR(LOINC) BMP with eGFR Result Comment: BASIC METABOLIC PANEL LAB SODIUM(LOINC) 136 - 145 mmol/l SODIUM 137 LAB POTASSIUM(LOINC) 3.5 - 5.1 mmol/L POTASSIUM 3.7 LAB CHLORIDE(LOINC) 98 - 107 mmol/L CHLORIDE High 108 LAB CO2(LOINC) 21.0 - mmol/L 31.0 CO2 28.4 LAB GLUCOSE(LOINC) 74 - 106 mg/dl GLUCOSE High 134 LAB BUN(LOINC) 6 - 20 mg/dl BUN High 25 LAB CREATININE(LOINC) 0.7 - 1.3 mg/dl High CREATININE 1.4 LAB CALCIUM(LOINC) 8.6 - mg/dl 10.2 CALCIUM 9.0 LAB ANION GAP(LOINC) 10 - 20 mmol/L ANION Low GAP 4 LAB AGE(LOINC) years AGE 67 LAB eGFR(LOINC) 60 - 999 ML/MINUTE eGFR Low 51 LAB eGFR(AA)(LOINC) 60 - 999 ML/MINUTE eGFR(AA) >60 Result Comment: ACCORDING TO THE NATIONAL KIDNEY DISEASE EDUCATION PROGRAM(NKDE), A NORMAL eGFR IS A VALUE GREATER THAN OR EQUAL TO 60 ML/MIN/1.73 SQ METERS. CHRONIC KIDNEY DISEASE: <60mL/MIN/1.73 SQ METERS KIDNEY FAILURE: <15mL/MIN/1.73 SQ METERS THIS TEST SHOULD ONLY BE USED FOR PATIENTS 18 YEARS OF AGE AND OLDER. Performed By: #### [id number] #### [facility],[address] [place], [place] [id number] MICROALBUMIN RANDOM Collected: 12/13/2017 Status: F Source: [facility] URINE W/CREATININE 8:10 AM [facility] REPOSITORY TYPE CODE TESTS RESULT OUT OF REFERENCE UNITS RANGE LAB MICROALBUMIN 0.1 - 25.1 mg/dL UR(LOINC) High MICROALBUMIN UR 279.0 LAB CREATININE mg/dl UR(LOINC) CREATININE UR 90.9 Result Comment: Microalbumin/Creat Ratio LAB UACR(LOINC) mg/g UACR 3069 Performed By: #### [id number] #### [facility] [place],[address] [facility],[place] [id number] CNCO Observed: 12/12/2017 Status: COMPLETED Source: [place] 12:[address] [facility] REPOSITORY Letter Text Faye Mao [id number] [place] [id number] 12/12/2017 [facility] #: [id number] Dear , Due to a change in the provider's schedule it has been necessary to reschedule your Appointment. Your original appointment was scheduled for January 21, 2018 at 11:40 AM with Trisha Ko M.D. Your new appointment is now scheduled on January 22, 2018 at 1 PM with Kelsey Schultz CNP. If this new appointment is not convenient for you, please contact our office at [phone]. Thank you for choosing the [facility] as your Healthcare Provider . Sincerely, Internal Medicine Appointment Office CARDIOLOGY VISIT Observed: 12/02/2017 Status: F Source: [facility] REPORT 9:18 AM [facility] REPOSITORY [facility] [address] [facility] [place] [address] OFFICE VISIT Date of Service: 12/01/17 MR#: [id number] Acct: [id number] Name: FAYE MAO Rep #: [id number] : 1950 Provider: CATHIE Soto Age/Sex: 67/M Location: [facility] Status: Signed HPI HPI Details: FAYE MAO, is a 67 M who presents to the office today for a cardiovascular outpatient follow-up. He has history of coronary artery disease with drug-eluting stent to mid LAD in January 2013, drug-eluting stent to proximal LCx, distal RCA and mid RCA in February 2013, drug-eluting stent to mid LAD, proximal third diagonal artery, and proximal first diagonal artery in July 2014, and drug-eluting stent to proximal to mid posterior descending artery at the end of July 2014. He also has a history of hypertension and hyperlipidemia. Pt. denies chest, arm, jaw, or neck discomfort. His exercise tolerance is stable via walking. Pt. denies symptoms of palpitations, lightheadedness, dizziness, near syncope, or syncopal episodes. Pt. denies edema or claudication issues. Pt. denies orthopnea, fever, chills, blood in urine, blood in stool, myalgia, or unexplainable fatigue. He states lower bilateral numbness. He states recent episode of PND. He states SOB with exertion. Pt. states recent testing with overnight oximetry that resulted in the need for oxygen. He will beginning this therapy soon. He states experiencing a respiratory cold. Intake Vital Signs12/01/17 Height 6 ft 1 in 12/01/17 Weight: 192 lb 12/01/17 Body Mass Index (BMI) 25.3 12/01/17 Blood Pressure 130/80 12/01/17 Blood Pressure Location Lt brachial Intake Visit Reasons: 6 M FU Online Advertising Manager Required: No Accompanied by: None Is patient in pain?: No Allergies No Known Allergies Allergy (Verified 12/01/17 10:30) Medications aspirin 81 mg chewable tablet 81 mg PO QDAY #90 tab 08/01/17 [Rx Confirmed 12/01/17] atorvastatin 80 mg tablet 80 mg PO QDAY #90 tab 08/01/17 [Rx Confirmed 12/01/17] clopidogrel 75 mg tablet 75 mg PO QDAY #90 tab 08/01/17 [Rx Confirmed 12/01/17] insulin aspart U-100 100 unit/mL subcutaneous pen 10 unit SC QDAY #15 ml 08/01/17 [Rx Confirmed 12/01/17] insulin glargine (U-100) 100 unit/mL subcutaneous solution 25 unit SC QHS #10 ml 08/01/17 [Rx Confirmed 12/01/17] metoprolol tartrate 25 mg tablet 25 mg PO BID #180 tab 08/01/17 [Rx Confirmed 12/01/17] nitroglycerin 0.4 mg sublingual tablet 0.4 mg SUBLINGUAL Q5- 15M PRN #25 tab 08/01/17 [Rx Confirmed 12/01/17] omeprazole 40 mg capsule,delayed release 40 mg PO QDAY #90 cap 08/01/17 [Rx Confirmed 12/01/17] pregabalin 50 mg capsule 50 mg PO QDAY #90 cap 08/01/17 [Rx Confirmed 12/01/17] furosemide 20 mg tablet 20 mg PO QDAY 12/01/17 [History Confirmed 12/01/17] losartan 100 mg tablet 100 mg PO QDAY 12/01/17 [History Confirmed 12/01/17] metformin 1,000 mg tablet 1,000 mg PO BID 12/01/17 [History Confirmed 12/01/17] Ejection fraction %: 60 to 64 (60% per echo 05/23/2014 at [facility]) [facility] Medical History Orthostatic hypotension (Chronic) Old myocardial infarction (Chronic) Diabetes mellitus (Chronic) Nicotine abuse (Chronic) 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) Atherosclerotic heart disease of [place] coronary artery without angina pectoris (Chronic) HLD (hyperlipidemia) (Chronic) Arthritis (Chronic) Depression (Chronic) Dizziness and giddiness (Chronic) GERD (gastroesophageal reflux disease) (Chronic) Pain in limb (Chronic) Stomach ulcer (Chronic) Surgical History H/O percutaneous transluminal coronary angioplasty (Chronic) Family History Father CAD (coronary artery disease) CABG Diabetes Brother Heart disease Myocardial infarction Sister Diabetes Social History Smoking Status: Current every day smoker alcohol intake: never substance use type: does not use ROS Const Const: Negative for weakness, body ache, fever(s), chills or fatigue ENT ENT: Positive for dizziness (with quick position changes) Cardio Chest Pain: No Palpitations: No Edema: None Muscle aches with walking: None Resp Respiratory: Positive for SOB with activity and paroxysmal nocturnal dyspnea; negative for SOB at rest or SOB orthopnea\SOB lying down GI GI: Negative nausea, black,tarry stools, bright, red blood in stools or vomiting blood/hematemesis : Negative for hematuria or frequent nighttime urination/ nocturia Musc Musc: Negative for muscle aches/ myalgia Skin Skin: Negative non-healing lesions or rash Neuro Neuro: Positive for lightheadedness (with quick position changes), dizziness (with quick position changes) and other (leg numbness); negative for near syncope, syncope, orthostatic symptoms or weakness Endo Endo: Negative for fatigue Allergy Allergy/Immunology: Negative for rash Cardiology Exam Const Appearance: cooperative, healthy appearing, comfortable and no acute distress Orientation: alert, awake and oriented x3 Head Head: normal to inspection Ears: hearing grossly normal bilaterally Nose: external nose normal Face and Sinus: face symmetric Mouth: oral mucosae normal Eyes General: appearance normal, both eyes and all related structures Eyelids: eyelids normal Neck Neck: no JVD and normal visual inspection Carotids: normal carotid upstroke Neck Mass: Negative Neck mass Chest Chest inspection: normal inspection of the chest and normal respiratory effort; negative cough Auscultation: Bilateral: Clear to Auscultation Cardio Rate: regular rate Rhythm: regular rhythm Heart sounds: S1 normal and S2 normal; negative rub or gallop GI GI: normal to inspection Neuro General: alert, awake, oriented x3 and CN's II-XI intact bilaterally Skin Skin: no rashes or lesions noted Extremities Pulses: Normal: Right Posterior Tibial Pulse, Left Posterior Tibial Pulse, Right Radial Pulse, Left Radial Pulse Lower Extremity Edema: None: Bilateral Psych Psychological: normal affect Supplemental Info Echocardiogram from May 2014 showed an estimated ejection fraction of 60%, normal LV size, trivial mitral valve insufficiency, mild tricuspid valve insufficiency, and RSVP of 34 mmgHg. Carotid Duplex US from April 2006 showed no evidence of hemodynamically significant extracranial carotid artery occlussive disease bilaterally with 0-15% stenosis bilateral internal carotids. Lower extremity arterial scan with exercise from November 2013 showed right lower extremity with no evidence of significant arterial occlusive disease in a non- exercise patient with an NAHUN of 1.11 and left lower extremity with no evidence of significant arterial occlusive disease in a non-excise patient with an NAHUN of 1.15. Assessment AND Plan 1. Dyspnea on exertion R06.09 Plan - LUCIE Harman Patient's echocardiogram from May 2014 showed an estimated ejection fraction of 60%, mild tricuspid valve insufficiency, and an RVSP of 34 mmHg. He states feeling as if he has a respiratory cold that is causing his shortness of breath on exertion. He has an upcoming appointment with primary care physician for further evaluation. He was instructed to contact our office if primary care physician believes that his symptoms are not related to a respiratory illness. Given his extensive coronary artery disease, an echocardiogram and stress test should be done to evaluate if any cardiac etiology. Patient was instructed to contact our office after appointment with family physician. He declined office visit appointment in 2-3 weeks to further assess this after family physician appointment. 2. Atherosclerosis of [place] coronary artery of [place] heart without angina pectoris I25.10 Cardiac cath w/PTCA PIA LAD January 11, 2013; Cardiac Cath w/PTCA PIA prox LCX, PIA distal RCA, PIA Mid RCA 2012; PCI with PIA LAD, POBA D1 D2 07/19/14; PTCA AND Promus PIA to PDA 08/11/14 Plan - LUCIE Harman Patient's echocardiogram from May 2014 showed an ejection fraction of 60%. EKG in office showed sinus rhythm with first-degree AV block. Patient denies any chest pain, arm pain, jaw pain, neck pain, or fatigue suggestive of angina at this time. We will continue to monitor this. We will not make any medication regimen changes and will continue risk factor modification. Orders Orders: 3. H/O percutaneous transluminal coronary angioplasty Z98.61 Cardiac cath w/PTCA PIA LAD January 11, 2013; Cardiac Cath w/PTCA PIA prox LCX, PIA distal RCA, PIA Mid RCA 2012; PCI with PIA LAD, POBA D1 D2 07/19/14; PTCA AND Promus PIA to PDA 08/11/14 Plan - LUCIE Harman Patient continue current plan as outlined above. Orders Orders: 4. Essential hypertension I10 Plan LUCIE Chambers Patient's blood pressure is well-controlled today in the office. We will continue to monitor this. We will not make any medication regimen changes. 5. Pure hypercholesterolemia E78.00; E78.0 Plan - LUCIE Harman Patient's most recent lipid panel from December 2016 showed cholesterol: 150, HDL: 39, LDL: 87, and triglycerides: 118. A new order will be placed for patient to have this drawn at his earliest convenience. He will continue current statin medication and wait for results for further recommendation. Orders Orders: Plan Detail Other Medications Discontinued: glimepiride administer with breakfast Discontinued Reason: Pt no lon2 mg PO QDAY arely taking Additional Comments - LUCIE Harman Discussed the above patient with Dr. Miller, he agrees with the plan of care. Thank you for allowing us to participate in the patients plan of care, if you have any questions please do not hesitate to call. This note was generated using a voice recognition system and there may be incorrect words, spelling or punctuation that were not noted when reviewing the office note prior to saving. Coding Level of Care Code Off vis,est,level 3 Diagnoses Dyspnea on exertion R06.09 Atherosclerosis of [place] coronary artery of [place] heart without angina pectoris I25.10 [place] vs. transplanted heart: [place] heart H/O percutaneous transluminal coronary angioplasty Z98.61 Essential hypertension I10 Hypertension type: essential hypertension Pure hypercholesterolemia E78.00; E78.0 Hyperlipidemia type: pure hypercholesterolemia Coding Level of Care Code Off vis,est,level 3 Diagnoses Dyspnea on exertion R06.09 Atherosclerosis of [place] coronary artery of [place] heart without angina pectoris I25.10 [place] vs. transplanted heart: [place] heart H/O percutaneous transluminal coronary angioplasty Z98.61 Essential hypertension I10 Hypertension type: essential hypertension Pure hypercholesterolemia E78.00; E78.0 Hyperlipidemia type: pure hypercholesterolemia 12/01/17 1309 <Electronically signed by Mainor Soto [employer]> Date [employer]or [employer] 12/02/17 0918<Electronically signed by Jeff Miller MD> Cosigner Signature: Date (if applicable) Jeff Miller MD CC: TAMANNA FUENTES 12 LEAD EKG PERFORMED Observed: 12/01/2017 Status: F Source: [facility] 10:32 AM [facility] REPOSITORY [facility] [address] [place] [address] 12 Lead EKG performed by [facility] 12/01/17 1032 MR#: [id number] Acct: [id number] Name: FAYE MAO Rep #: [id number] : 1950 67 From: [employer] Attending Dr: Mainor Soto NP Status: DEP AMB Ordering Dr: Mainor Soto Date: 12/01/17 Location: [facility] Sex: M C Admitted: [facility]/12 Lead EKG performed by [facility] ECG Report Interpretation Sinus Rhythm -First degree A-V block Karen = 224-Left axis -anterior fascicular block. - Nonspecific T-abnormality. ABNORMAL Electronically signed on 12/03/2017 at 13:20 by AngelaJeff 12/03/17 1321 Date [employer]or [employer] CC: Trisha Ko MD; TAMANNA FUENTES Date Dictated: 12/01/17 1032 Date Transcribed: 12/01/17 103 Furniture Detailer: IZABEL Signed EMERGENCY REPORT Observed: 10/26/2017 Status: F Source: [facility] 1:57 AM [facility] REPORT NAME ACCOUNT SEX AGE ADMIT DISCHARGE PT MED. RECORD# NUMBER DATE DATE TYPE ANJELICA [id number] Nakia 67 10/25/17 10/25/17 3 FAYE Dyer [id number] ROOM: ER DATE OF : 1950 DICTATING PHYSICIAN: Rhianna Rubio ADDENDUM DIAGNOSTIC DATA: Blood gas on room air showed a pH of 7.43, pCO2 of 33.5, pO2 of 74, bicarbonate 22, O2 saturation 95%. Urinalysis was negative with a specific gravity of 1.015. Sodium 139, potassium 4.1, chloride 108, CO2 is 24.3, glucose 250. BUN 30, creatinine 1.6. The patient does see a still operator for renal insufficiency. Liver functions came back within normal limits. Anion gap was 11. Troponin was 0.01. Brain natriuretic peptide was elevated at 202. White count was 7.8, hemoglobin 13, hematocrit 37.9, platelet count 183,000. Chest x-ray showed some COPD, but no acute infiltrate. Lactate was normal at 13.4. EKG showed sinus rhythm at 72 beats per minute with a first degree AV block. [place] was approximately -[address] segment changes. EMERGENCY DEPARTMENT COURSE AND TREATMENT: I did give the patient some aerosol treatments here and he is feeling better at this point. On reexamination, his lungs are much better aerated. The wheezing has resolved. I did give him Lasix 40 mg p.o., one dose here for his elevated BNP, but due to his history of renal insufficiency, I did not put him on any daily diuretic. I felt that he should discuss this with his primary care physician and his still operator. He did ask if I could write him a prescription for a nebulizer machine because he thinks that would help him a lot at home, so I did write him for a nebulizer machine as a prescription to use as directed and I wrote him for the albuterol inhalation solution, 0.5% one by nebulizer 2.5 mg (0.5 mL of 0.05% diluted to 3 mL) every 6 hours as needed for shortness of breath. I also wrote him for an albuterol inhaler with AeroChamber, dispense #1. He is to take that as 2 puffs every 6 hours as needed for shortness of breath. I wrote him a script for prednisone 20 mg 1 p.o. b.i.d. dispense #10 with no refill. He was given Solu-Medrol 125 mg IV here tonight. DIAGNOSIS: 1. Acute exacerbation of chronic obstructive pulmonary disease. 2. Congestive heart failure. PLAN/DISPOSITION: The patient was discharged in improved clinically stable condition. I did ask him to call Dr. Fuentes's office on Friday and update him on his condition. If his symptoms become worse or any new problems develop, he is to return to the emergency department. Nursing notes were reviewed. Page 1 of 2 FAEY MAO Emergency Room Report Dictated By: Rhianna Rubio DO TD: 10/25/17 21:00 JOB #: [id number] Transcribed by: terra Electronically signed by: E-Sign: Dr. Rhianna Rubio D.O. 10/26/17 01:57 Page 2 of 2 FAYE MAO Emergency Room Report EMERGENCY REPORT Observed: 10/26/2017 Status: F Source: [facility] 1:57 AM [facility] REPORT NAME ACCOUNT SEX AGE ADMIT DISCHARGE PT MED. RECORD# NUMBER DATE DATE TYPE ANJELICA [id number] M 67 10/25/17 10/25/17 3 FAYE Dyer [id number] ROOM: ER DATE OF : 1950 DICTATING PHYSICIAN: Rhianna Rubio HISTORY OF PRESENT ILLNESS: This is a 67-year-old white male complaining of shortness of breath for the past several days which has been gradually getting worse. He denies any chest pain or other chest discomfort. He states he Just cannot breathe in. He states that if he swallows, then he can breathe in deeply, but if he does not swallow, or have some water to drink so he can swallow, he cannot breathe in deep. He denies any cough, although he was treated as an inpatient here about a month and a half ago for pneumonia. He does not wear oxygen at home. He states the shortness of breath is worse with exertion, especially climbing stairs. Now for the last few nights, his shortness of breath has gotten so bad that the patient cannot sleep. PAST MEDICAL HISTORY: COPD, diabetes. He has had two myocardial infarctions. PAST SURGICAL HISTORY: Seven stents and three balloons. He denies having a CABG. He has also had a cholecystectomy and previous back surgery. He has had previous eye surgery. SOCIAL HISTORY: He is a smoker, 1 pack per day. He denies any use of alcohol. He does live at home with his . REVIEW OF SYSTEMS: Positive for shortness of breath, wheezing. The patient denies any chest pain, cough, sputum, abdominal pain, nausea, vomiting, diarrhea. constipation, melena or hematochezia, headache, numbness, unsteady gait, weakness, neck or back pain, joint pain, skin rashes, swelling, hives, hay fever, swollen glands. Further review of systems is negative. PHYSICAL EXAMINATION: The patient is alert and oriented x3. The patient does appear in some mild to moderate distress secondary to shortness of breath, but he is pleasant and cooperative. HEENT: Pupils are equal and reactive to light. Red reflex is intact bilaterally. Extraocular muscles are intact. No conjunctival injection. No scleral icterus or lid edema. TMs are intact bilaterally. No erythema noted. No external auditory canal edema or bleeding. Nose exhibits no rhinorrhea or epistaxis. Mucous membranes are moist. No pharyngeal erythema. Uvula is midline and elevates. NECK: Supple. Trachea is midline. No JVD or lymphadenopathy. No posterior cervical tenderness. No nuchal rigidity. LUNGS: Lungs are diminished in all lung mohan with some mild bilateral expiratory wheezing noted especially in the bases bilaterally. There is some mild accessory muscles use noted. CV: Heart rate and Page 1 of 2 BRONSON MAOY [facility] Emergency Room Report rhythm are regular with distant heart sounds. No murmur noted. ABDOMEN: Soft and nontender with normoactive bowel sounds x4 quadrants. No guarding or rigidity. No rebound. No palpable abdominal masses. No hepatosplenomegaly. BACK: No midline or paraspinal region tenderness. No increased paraspinal muscle rigidity. Negative Lloyds sign. EXTREMITIES: The patient does have mild 1+ to 2+ pitting edema in the lower extremities especially around the ankles. No cyanosis. Peripheral pulses are intact. No motor or sensory deficits are noted. Hand evaluation analyst are strong and symmetric. NEURO: The patient is alert and oriented x4. No motor or sensory deficits noted. Speech is clear. I presently do not note any conversational dyspnea with the patient sitting on the bed. SKIN: Pale but warm and dry. PSYCH: Normal affect. Pleasant and cooperative. VITAL SIGNS: Blood pressure 190/101, pulse 71, respirations 18, temperature 97.5, pulse oximetry 96% on room air. Weight 210 lbs. DIAGNOSTIC DATA: EKG at 2357 hours shows a sinus rhythm with a first degree AV block. Rate was 72 beats per minute. [place] is approximately -30 degrees. EMERGENCY DEPARTMENT COURSE AND TREATMENT: Presently, we will give the patient some breathing treatments and get a chest x-ray. We will check some blood work including arterial blood gas and then reevaluate. DIAGNOSIS: Dictated By: Rhianna Rubio DO TD: 10/25/17 20:18 JOB #: [id number] Transcribed by: terra Electronically signed by: E-Sign: Dr. Rhianna Rubio D.O. 10/26/17 01:57 Page 2 of 2 BRONSON MAOGlenis Dyer Emergency Room Report ARTERIAL BLOOD GAS Collected: 10/25/2017 Status: F Source: [facility] 1:37 AM [facility] REPOSITORY TYPE CODE TESTS RESULT OUT OF REFERENCE UNITS RANGE LAB ARTERIAL BLOOD GAS ANALYSIS(LOINC ) ARTERIAL BLOOD GAS ANALYSIS Result Comment: ARTERIAL BLOOD GAS LAB pH(LOINC) 7.35 - 7.45 7.43 pH LAB PCO2(LOINC) 35 - 45 mm Hg Low 34 PCO2 LAB PO2(LOINC) 80 - 105 mm Hg Low 74 PO2 LAB HCO3(LOINC) 22 - 26 mmol/L 22 HCO3 LAB BE(LOINC) -2 - 3 -2 BE LAB SaO2(LOINC) 95 - 98 95 SaO2 Result Comment: TIME RESULT CALLED _0045 10/25/17.0138.CE. { FIO2/LPM RA LAB MODALITY(LOINC) MODALITY RA LAB SPO2(LOINC) SPO2 97 LAB TOTAL RR(LOINC) TOTAL RR 20 LAB PULSE(LOINC) PULSE 69 LAB SAMPLE SITE(LOINC) SAMPLE SITE RR LAB VENT(LOINC) VENT N/A LAB ALLENS TEST(LOINC) ALLENS TEST + Result Comment: { TIME CALLED 39 Performed By: #### [id number] #### [facility] [place],[address] [place] [address] URINALYSIS Collected: 10/25/2017 Status: F Source: [facility] 1:34 AM [facility] REPOSITORY TYPE CODE TESTS RESULT OUT OF REFERENCE UNITS RANGE LAB URINALYSIS (INC) URINALYSIS Result Comment: URINALYSIS LAB Specimen Type(LOINC) Specimen Type Clean catch LAB Color(LOINC) NORMAL: YELLOW Color YELLOW LAB Clarity(LOINC) NORMAL: CLEAR Clarity clear LAB ph(LOINC) NORMAL: 5.0-8.0 ph 6.5 LAB Protein(LOINC) NORMAL: NEGATIVE Protein Abnormal 500 LAB Glucose(LOINC) NORMAL: NORMAL Glucose Abnormal 1000 LAB Ketone(LOINC) NORMAL: NEGATIVE Ketone NEG LAB Bilirubin(LOINC) NORMAL: NEGATIVE Bilirubin NEG LAB Blood(LOINC) NORMAL: NEGATIVE Blood Abnormal 50 LAB Urobilinog(LOINC) NORMAL: NORMAL Urobilinog NORM LAB [place](LOINC) NORMAL: 1.010-1.030 [place] 1.015 LAB Nitrite(LOINC) NORMAL: NEGATIVE Nitrite NEG LAB Leukocytes(LOINC) NORMAL: NEGATIVE Leukocytes NEG LAB Microscopic(LOINC ) Microscopic SEE BELOW Result Comment: MICROSCOPIC LAB Wbc(LOINC) 0-5/hpf Wbc 1-5 LAB Rbc(LOINC) 0-3/hpf Rbc 5-10 LAB Casts(LOINC) Casts NONE LAB Crystals(LOINC) Crystals NONE LAB Amorphous(LOINC) Amorphous NONE LAB Bacteria(LOINC) Bacteria TRACE LAB Epi Cells(LOINC) Epi Cells OCC LAB Mucous(LOINC) Mucous TRACE LAB Yeast(LOINC) Yeast NONE Performed By: #### [id number] #### [facility] [place],[address] [place] [address] Observed: 10/25/2017 Status: F Source: [facility] CULTURE BLOOD 12:54 AM [facility] REPOSITORY CULTURE BLOOD _BLOOD CULTURE_ SET: 2 of 2 24HOUR REPORT NO GROWTH 48HOUR REPORT NO GROWTH 72HOUR REPORT NO GROWTH GRAM STAIN: N/A M I C R O B I O L O G Y R E P O R T FINAL Antimicrobial Susceptibility and Organism Identification Report Specimen Number : [id number] Requested : 10/25/17 Specimen Source : BLOOD Collected : 10/25/17 00:54 [facility] : Emergency Room Received : 10/25/17 00:54 Requesting Physician : RAMIRO Patient/Specimen Tests and Comments Specimen Comments FINAL REPORT: No Growth at 5 Days Tech : Source : BLOOD ID # : [id number] FINAL Report Date : / / : Collected : 10/25/17 00:54 10/30/17.JLN. 10/30/17.PO.COMPLETE Performed By: #### [id number] #### [facility] [place],[address] [place] [address] CHEST 2 VIEWS Observed: 10/25/2017 Status: F Source: [facility] 12:39 AM [place] [address] Patient: FAYE MAO Phone#: : [phone] Age: 67 Gender: M Pt. Type: ER Account: [id number] Location: [facility] Ordering: RHIANNA RUBIO Exam Date: 10/25/2017/0:28 Family Phys: TRISHA KO Charge Code: [id number] Physician: Hamblen Order #: [id number] DLP Dose#: PROCEDURE: X-RAY CHEST 2 VIEWS COMPARISON: [facility], CT, CHEST PE W CON, 08/05/2017, 20:17. [facility], XR, CHEST AP, 08/05/2017, 18:31. INDICATIONS: COPD FINDINGS: LUNGS: No acute pulmonary parenchymal abnormality. Mild hyperaeration of the lung mohan. VASCULATURE: Normal. Unremarkable pulmonary vasculature. CARDIAC: Normal. No cardiac silhouette abnormality or cardiomegaly. MEDIASTINUM: Normal. No visible mass or adenopathy. PLEURA: Normal. No effusion or pleural thickening. BONES: Mild degenerative changes of the spine. OTHER: Negative. CONCLUSION: 1. No acute pulmonary parenchymal abnormality. 2. Mild hyperaeration the lung mohan, correlate for COPD. Dictated by: Coty Freeman MD on 10/25/2017 at 10:25 Approved by: Coty Freeman MD on 10/25/2017 at 10:25 CBC Collected: 10/25/2017 Status: F Source: [facility] 12:22 AM [facility] REPOSITORY TYPE CODE TESTS RESULT OUT OF RANGE REFERENCE UNITS LAB CBC(LOINC) CBC Result Comment: CBC-COMPLETE BLOOD COUNT LAB WBC(LOINC) 4.5 - 10.8 x 10EE3/UL WBC 7.8 LAB RBC(LOINC) 4.50 - x 10EE6/UL 6.00 RBC Low 3.99 LAB HEMOGLOBIN(LOINC) 13.0 - g/dl 17.5 HEMOGLOBIN 13.0 LAB HEMATOCRIT(LOINC) 40.0 - % 52.0 Low HEMATOCRIT 37.9 LAB MCV(LOINC) 81 - 98 fl MCV 95 LAB MCH(LOINC) 27 - 33 pg MCH 33 LAB MCHC(LOINC) 32 - 36 X10 3 MCHC 34 LAB RDW/CV(LOINC) 12.0 - % 15.6 RDW/CV 14.1 LAB PLATELET(LOINC) 150 - 450 x10EE3/UL PLATELET 183 LAB MPV(LOINC) 6.4 - 10.5 fl MPV 9.6 Result Comment: AUTOMATED DIFFERENTIAL LAB NEUT %(LOINC) 46.0 - 76.0 % NEUT % 57.5 LAB LYMPH %(LOINC) 20.0 - 45.0 % LYMPH % 23.4 LAB MONOS %(LOINC) 0.0 - 10.0 % MONOS % High 10.4 LAB EO %(LOINC) 0.0 - 7.0 % EO % 6.4 LAB BASO %(LOINC) 0.0 - 2.0 % BASO % High 2.3 LAB Lymph #(LOINC) 0.80 - 2.80 x10EE3/U L Lymph # 1.80 LAB Neut #(LOINC) 1.50 - 7.10 x10EE3/U L Neut # 4.50 LAB [place] #(LOINC) 0.20 - 1.00 x10EE3/U L [place] # 0.80 LAB EO #(LOINC) 0.00 - 0.50 x10EE3/U L EO # 0.50 LAB Baso #(LOINC) 0.00 - 0.10 x10EE3/U L Baso # High 0.20 LAB MANUAL DIFF(LOINC) MANUAL DIFF N/A LAB MORPHOLOGY(LOINC ) MORPHOLOGY N/A Result Comment: {CD] Performed By: #### [id number] #### [place] [address] LACTATE Collected: 10/25/2017 Status: F Source: [facility] 12:22 [facility] REPOSITORY TYPE CODE TESTS RESULT OUT OF REFERENCE UNITS RANGE LAB LACTATE(PATRICIA 4.5 - 18.0 mg/dL NC) LACTATE 13.4 Performed By: #### [id number] #### [place] [address] CMP WITH EGFR Collected: 10/25/2017 Status: F Source: [facility] 12:22 [facility] REPOSITORY TYPE CODE TESTS RESULT OUT OF RANGE REFERENCE UNITS LAB CMP with eGFR(LOINC) CMP with eGFR Result Comment: COMPREHENSIVE METABOLIC PANEL LAB SODIUM(LOINC) 136 - 145 mmol/l SODIUM 139 LAB POTASSIUM(LOINC) 3.5 - 5.1 mmol/L POTASSIUM 4.1 LAB CHLORIDE(LOINC) 98 - 107 mmol/L CHLORIDE High 108 LAB CO2(LOINC) 21.0 - mmol/L 31.0 CO2 24.3 LAB GLUCOSE(LOINC) 74 - 106 mg/dl GLUCOSE High 250 LAB BUN(LOINC) 6 - 20 mg/dl BUN High 30 LAB CREATININE(LOINC) 0.7 - 1.3 mg/dl High CREATININE 1.6 LAB AST/SGOT(LOINC) 13 - 39 U/L AST/SGOT 26 LAB ALK PHOS(LOINC) 38 - 126 U/L ALK PHOS 89 LAB CALCIUM(LOINC) 8.6 - mg/dl 10.2 CALCIUM 8.7 LAB TOTAL 6.4 - 8.3 g/dl PROTEIN(LOINC) TOTAL Low PROTEIN 5.2 LAB ALBUMIN(LOINC) 3.4 - 4.8 g/dL ALBUMIN Low 2.8 LAB GLOBULIN(LOINC) 1.5 - 3.8 G/DL GLOBULIN 2.4 LAB A/G RATIO(LOINC) 0.9 - 1.6 A/G RATIO 1.2 LAB TOTAL BILI(LOINC) 0.0 - 1.5 mg/dl TOTAL BILI 0.3 LAB B/C RATIO(LOINC) 0 - 30 ratio B/C RATIO 19 LAB ALT/SGPT(LOINC) 10 - 40 U/L ALT/SGPT 25 LAB ANION GAP(LOINC) 10 - 20 mmol/L ANION GAP 11 LAB AGE(LOINC) years AGE 67 LAB eGFR(LOINC) 60 - 999 ML/MINUTE eGFR Low 43 LAB eGFR(AA)(LOINC) 60 - 999 ML/MINUTE eGFR(AA) Low 53 Result Comment: ACCORDING TO THE NATIONAL KIDNEY DISEASE EDUCATION PROGRAM(NKDE), A NORMAL eGFR IS A VALUE GREATER THAN OR EQUAL TO 60 ML/MIN/1.73 SQ METERS. CHRONIC KIDNEY DISEASE: <60mL/MIN/1.73 SQ METERS KIDNEY FAILURE: <15mL/MIN/1.73 SQ METERS THIS TEST SHOULD ONLY BE USED FOR PATIENTS 18 YEARS OF AGE AND OLDER. Performed By: #### [id number] #### [place] [address] TROPONIN Collected: 10/25/2017 Status: F Source: [facility] 12:22 [facility] REPOSITORY TYPE CODE TESTS RESULT OUT OF REFERENCE UNITS RANGE LAB TROPONIN 0.00 - 0.05 ng/ml I(LOINC) TROPONIN I 0.01 Result Comment: Elevated troponin (above the 99th percentile) usually indicates myocardial ischemia. Results must be interpreted within the clinical setting. 1.Non-ischemic pathology can also cause elevated troponin levels (e.g., acute pulmonary embolism, myocarditis, pericarditis, heart failure, intracranial injury, rhabdomyolisis, sepsis, shock and renal insufficiency). 2.Approximately 1% of healthy adults have elevated troponin levels. 3.Analytical false positive results rarely occur(due to multiple interferences such as heterophile antibodies). Performed By: #### [id number] #### [place] [address] BNP (B-TYPE NATRIURETIC Collected: 10/25/2017 Status: F [facility] 12[facility] AM [facility] REPOSITORY TYPE CODE TESTS RESULT OUT OF RANGE REFERENCE UNITS LAB BNP(LOINC) 1 - 100 pg/ml High BNP 202 Performed By: #### [id number] #### [facility] [place],[address] [place] [address] Observed: 10/25/2017 Status: F Source: [facility] BLOOD 12:22 AM [facility] REPOSITORY CULTURE BLOOD _BLOOD CULTURE_ SET: 1 of 2 24HOUR REPORT NO GROWTH 48HOUR REPORT NO GROWTH 72HOUR REPORT NO GROWTH GRAM STAIN: N/A M I C R O B I O L O G Y R E P O R T FINAL Antimicrobial Susceptibility and Organism Identification Report Specimen Number : [id number] Requested : 10/25/17 Specimen Source : BLOOD Collected : 10/25/17 00:22 [place] [facility] [place] : Emergency Room Received : 10/25/17 00:22 Requesting Physician : RAMIRO Patient/Specimen Tests and Comments Specimen Comments FINAL REPORT: No Growth at 5 Days Tech : Source : BLOOD ID # : [id number] FINAL Report Date : / / : Collected : 10/25/17 00:22 10/30/17.JLN. 10/30/17.JLN.COMPLETE Performed By: #### [id number] #### [facility] [place],[address] [place] [address] CBC Collected: 10/06/2017 Status: F Source: [facility] 8:33 AM [facility] REPOSITORY TYPE CODE TESTS RESULT OUT OF RANGE REFERENCE UNITS LAB CBC(LOINC) CBC Result Comment: CBC-COMPLETE BLOOD COUNT LAB WBC(LOINC) 4.5 - 10.8 x 10EE3/UL WBC 7.8 LAB RBC(LOINC) 4.50 - x 10EE6/UL 6.00 RBC Low 4.35 LAB HEMOGLOBIN(LOINC) 13.0 - g/dl 17.5 HEMOGLOBIN 13.9 LAB HEMATOCRIT(LOINC) 40.0 - % 52.0 HEMATOCRIT 41.6 LAB MCV(LOINC) 81 - 98 fl MCV 96 LAB MCH(LOINC) 27 - 33 pg MCH 32 LAB MCHC(LOINC) 32 - 36 X10 3 MCHC 34 LAB RDW/CV(LOINC) 12.0 - % 15.6 RDW/CV 14.4 LAB PLATELET(LOINC) 150 - 450 x10EE3/UL PLATELET 187 LAB MPV(LOINC) 6.4 - 10.5 fl MPV 9.7 Result Comment: AUTOMATED DIFFERENTIAL LAB NEUT %(LOINC) 46.0 - 76.0 % NEUT % 64.4 LAB LYMPH %(LOINC) 20.0 - 45.0 % LYMPH % 20.6 LAB MONOS %(LOINC) 0.0 - 10.0 % MONOS % 8.7 LAB EO %(LOINC) 0.0 - 7.0 % EO % 5.3 LAB BASO %(LOINC) 0.0 - 2.0 % BASO % 1.0 LAB Lymph #(LOINC) 0.80 - 2.80 x10EE3/U L Lymph # 1.60 LAB Neut #(LOINC) 1.50 - 7.10 x10EE3/U L Neut # 5.00 LAB [place] #(LOINC) 0.20 - 1.00 x10EE3/U L [place] # 0.70 LAB EO #(LOINC) 0.00 - 0.50 x10EE3/U L EO # 0.40 LAB Baso #(LOINC) 0.00 - 0.10 x10EE3/U L Baso # 0.10 LAB [facility]FF[facility]) MANUAL DIFF N/A LAB MORPHOLOGY([facility] ) MORPHOLOGY N/A Result Comment: {CD] Performed By: #### [id number] #### [facility],[address] [place] [address] CMP WITH EGFR Collected: 10/06/2017 Status: F Source: [facility] 8:33 AM [facility] REPOSITORY TYPE CODE TESTS RESULT OUT OF RANGE REFERENCE UNITS LAB CMP with eGFR([facility]) CMP with eGFR Result Comment: COMPREHENSIVE METABOLIC PANEL LAB SODIUM(LOINC) 136 - 145 mmol/l SODIUM 139 LAB POTASSIUM(INC) 3.5 - 5.1 mmol/L POTASSIUM 4.3 LAB CHLORIDE(LOINC) 98 - 107 mmol/L CHLORIDE 107 LAB CO2(LOINC) 21.0 - mmol/L 31.0 CO2 29.0 LAB GLUCOSE(LOINC) 74 - 106 mg/dl GLUCOSE High 245 LAB BUN(LOINC) 6 - 20 mg/dl BUN High 25 LAB CREATININE(LOINC) 0.7 - 1.3 mg/dl CREATININE 1.2 LAB AST/SGOT(LOINC) 13 - 39 U/L AST/SGOT 15 LAB ALK PHOS(LOINC) 38 - 126 U/L ALK PHOS 94 LAB CALCIUM(LOINC) 8.6 - mg/dl 10.2 CALCIUM 9.2 LAB TOTAL 6.4 - 8.3 g/dl PROTEIN(LOINC) TOTAL Low PROTEIN 5.6 LAB ALBUMIN(LOINC) 3.4 - 4.8 g/dL ALBUMIN Low 2.8 LAB GLOBULIN(LOINC) 1.5 - 3.8 G/DL GLOBULIN 2.8 LAB A/G RATIO(LOINC) 0.9 - 1.6 A/G RATIO 1.0 LAB TOTAL BILI(LOINC) 0.0 - 1.5 mg/dl TOTAL BILI 0.4 LAB B/C RATIO(LOINC) 0 - 30 ratio B/C RATIO 21 LAB ALT/SGPT(LOINC) 10 - 40 U/L ALT/SGPT 15 LAB ANION GAP(LOINC) 10 - 20 mmol/L ANION Low GAP 7 LAB AGE(LOINC) years AGE 67 LAB eGFR(LOINC) 60 - 999 ML/MINUTE eGFR 60 LAB eGFR(AA)(LOINC) 60 - 999 ML/MINUTE eGFR(AA) >60 Result Comment: ACCORDING TO THE NATIONAL KIDNEY DISEASE EDUCATION PROGRAM(NKDE), A NORMAL eGFR IS A VALUE GREATER THAN OR EQUAL TO 60 ML/MIN/1.73 SQ METERS. CHRONIC KIDNEY DISEASE: <60mL/MIN/1.73 SQ METERS KIDNEY FAILURE: <15mL/MIN/1.73 SQ METERS THIS TEST SHOULD ONLY BE USED FOR PATIENTS 18 YEARS OF AGE AND OLDER. Performed By: #### [id number] #### [place] [address] LIPID PROFILE Collected: 10/06/2017 Status: F [facility] REPOSITORY TYPE CODE TESTS RESULT OUT OF REFERENCE UNITS RANGE LAB LIPID PROFILE(LOIN C) LIPID PROFILE Result Comment: LIPID PROFILE LAB TRIGLYCERIDE(LOINC) 0 - 150 mg/dl TRIGLYCERIDE 144 LAB CHOLESTEROL(LOINC) 0 - 200 mg/dl CHOLESTEROL 195 LAB HDL(LOINC) 40 - 60 mg/dl HDL 47 LAB CHOL/HDL(LOINC) 0.0 - 5.0 CHOL/HDL 4.1 LAB LDL(LOINC) 0 - 129 mg/dl LDL 119 Performed By: #### [id number] #### [place] [address] PHOSPHORUS Collected: 10/06/2017 Status: F Source: [facility] 8:33 [facility] REPOSITORY TYPE CODE TESTS RESULT OUT OF REFERENCE UNITS RANGE LAB PHOSPHORUS 2.7 - 4.9 mg/dl (LOINC) PHOSPHORUS 2.8 Performed By: #### [id number] #### [address] [address] MICROALBUMIN RANDOM Collected: 10/06/2017 Status: F Source: [facility] URINE W/CREATININE 8:33 [facility] REPOSITORY TYPE CODE TESTS RESULT OUT OF REFERENCE UNITS RANGE LAB MICROALBUMIN 0.1 - 25.1 mg/dL UR(LOINC) High MICROALBUMIN UR 404.0 LAB CREATININE mg/dl UR(LOINC) CREATININE UR 75.5 Result Comment: Microalbumin/Creat Ratio LAB UACR(LOINC) mg/g UACR 5351 Performed By: #### [id number] #### [facility] [place],[address] [place] [id number] HGB A1C Collected: 10/06/2017 Status: F Source: [facility] 8:33 [facility] REPOSITORY TYPE CODE TESTS RESULT OUT OF RANGE REFERENCE UNITS LAB HGB 4.4 - 6.4 % A1C(LOINC) High HGB A1C 9.7 Result Comment: {HB] {A1] Performed By: #### [id number] #### [address] [address] PTH, INTACT (W/OUT Collected: 10/06/2017 Status: F Source: [facility] CALCIUM) [QUEST] 8:33 [facility] REPOSITORY TYPE CODE TESTS RESULT OUT OF REFERENCE UNITS RANGE LAB PTH, INTACT (W/OUT CALCIUM) [QUEST](LOINC PTH, ) INTACT (W/OUT CALCIUM) [QUEST] Result Comment: _PTH, INTACT (WITHOUT CALCIUM)_ PTH, INTACT WITHOUT CALCIUM Reported: 10/07/2017 13:20 Status=F TEST RESULT FLAG RANGE UNITS PARATHYROID 25 14-64 pg/mL 10/07/17.1331.[facility].COMPLETE.[facility] .2731-8 HORMONE,INTACT Interpretive Guide Intact PTH Calcium Normal Parathyroid Normal Normal Hypoparathyroidism Low or Low Normal Low Hyperparathyroidism Primary Normal or High High Secondary High Normal or Low Tertiary High High Non-Parathyroid Hypercalcemia Low or Low Normal High For additional information, please refer to http://education.CarZen/faq/VQI561 Test Performed by [facility], [employer] [facility], [address] [place] [address] Dalton Rhodes M.D., Ph.D., Director of Laboratories , [place] [id number] Performed By: #### [id number] #### [facility] [place],[address] [place] [address] 25-HYDROXYVITAMIN D (D2,D3) Collected: Status: F Source: RADU LC/MS[QUEST] 10/06/2017 8:33 AM [facility] REPOSITORY TYPE CODE TESTS RESULT OUT OF RANGE REFERENCE UNITS LAB 25-HYDROXYV ITAMIN D (D2,D3) LC/MS[QUEST ](LOINC) 25-HYDROXYVI TAMIN D (D2,D3) LC/MS[QUEST] Result Comment: _25-HYDROXYVITAMIN D(D2,D3), LC/MS/MS_ QUESTASSURED(TM) 25-OH VITAMIN D(D2,D3), LC/MS/MS Reported: 10/08/2017 10:42 Status=F TEST RESULT FLAG RANGE UNITS VITAMIN D, 25-OH, TOTAL 9 L 30-100 ng/mL 10/08/17.1054.rfl.COMPLETE.AMRR .90979-9 VITAMIN D, 25-OH, D3 9 ng/mL 10/08/171054.rfl.COMPLETE.AMRR .1990-1 VITAMIN D, 25-OH, D2 <4 ng/mL 10/08/17.1054.rfl.COMPLETE.AMRR .2236-8 25-OHD3 indicates both endogenous production and supplementation. 25-OHD2 is an indicator of exogenous sources such as diet or supplementation. Therapy is based on measurement of Total 25-OHD, with levels <20 ng/mL indicative of Vitamin D deficiency while levels between 20 ng/mL and 30 ng/mL suggest insufficiency. Optimal levels are > or = 30 ng/mL. For more information on this test, go to http://education.CarZen/faq/ABF475 Test Performed by [facility], [facility] [employer], [address] [place] [address] Dalton Rhodes M.D., Ph.D., Director of Laboratories , [facility] [id number] Performed By: #### [id number] #### [place] [id number] ANKLE COMPLETE RT Observed: 09/08/2017 Status: F Source: RADUALPHONSO FREEDMANKHLOE 5:59 PM [place] [address] Patient: FAYE MAOHugh Phone#: : 1950 Age: 67 Gender: M Pt. Type: Out Account: [id number] Location: 052 Ordering: TAMANNA FUENTES Exam Date: 09/08/2017/17:49 Family Phys: TRISHA KO Charge Code: [id number] Physician: Hamblen Order #: [id number] DLP Dose#: PROCEDURE: X-RAY ANKLE COMPLETE RT MIN 3 VIEWS COMPARISON: None. INDICATIONS: Right Ankle Sprain FINDINGS: BONES: Normal. No significant arthropathy or acute abnormality. SOFT TISSUES: Severe circumferential soft tissue swelling is present. EFFUSION: None visible. OTHER: Negative. CONCLUSION: 1. Circumferential soft tissue swelling. There is no evidence of acute bone abnormality. Dictated by: Kim Galeana MD on 09/08/2017 at 18:02 Approved by: Kim Galeana MD on 09/08/2017 at 18:02 EMERGENCY DEPARTMENT Observed: 08/15/2017 Status: F Source: [facility] SUMMARY 12:31 PM [facility] EMERGENCY DEPARTMENT SUMMARY NAME NUMBER SEX AGE ADMIT DISC TYPE MED.RECORD# ANJELICA Dyer [id number] M [id number] 08/05/17 08/06/17 I/P [id number] ROOM:305MO DATE OF :1950 PHYSICIAN NO.:[id number] PHYSICIAN NAME:ISAURO FUENTES MD PHYSICIAN:ALLEN RICO HISTORY OF PRESENT ILLNESS: The patient came in complaining of shortness of breath, cough, wheezing, and chest pain from the cough. He is just not feeling well. He has had congestion and shortness of breath and just could not tolerate it and presents to the Emergency Department. PAST MEDICAL HISTORY: Diabetes. He has had a heart attack. PAST SURGICAL HISTORY: He has had eye surgery. SOCIAL HISTORY: He does smoke. He denies alcohol use. REVIEW OF SYSTEMS: Ten systems were reviewed and were negative except as mentioned above. PHYSICAL EXAMINATION: He is an awake, alert and oriented male in no acute distress. He is afebrile. Pulse is 78, respirations 16, initial blood pressure 190/100, and pulse oximetry initially in the high 80s. Head is normocephalic, atraumatic. Eyes: Pupils are equal, round and reactive to light. Extraocular muscles are intact. Nares are patent. Throat has adequate oral moisture. Uvula is midline. Neck is supple without petechiae or rash. Heart without murmur. S1 equal to S2. No S3 or S4 appreciated. Lungs have an occasional wheeze. Abdomen is soft, nontender and nondistended. Skin is warm and dry. DIAGNOSTIC DATA: Chest x-ray showed infiltrates bilaterally and also hyperaeration consistent with COPD. His laboratories showed a white count of 9000, hemoglobin 13, and hematocrit 39. D-dimer was elevated at 310. Lactate was 16.1. Troponin was negative. Chemistries were unremarkable other than for a creatinine of 1.5 and BUN of 25. Chest CT showed no pulmonary embolism. EKG showed a rate of 74 and left axis deviation. He had an incomplete right bundle branch block. EMERGENCY DEPARTMENT COURSE AND TREATMENT: The patient was given breathing treatments. He feels better at this time. He was given Rocephin, Zithromax, and Solu-Medrol. DIAGNOSES: 1. Chronic obstructive pulmonary disease exacerbation. 2. Pneumonia. PLAN/DISPOSITION: He will be admitted to the hospital under the care of Dr. Fuentes. D: Jeremiah Borges DO TD: 05:28 JOB #: [id number] Electronically signed by: ISAURO Borges D.O. 08/15/17 12:31 Transcribed by: augustus 08/12/2017 21:07 HISTORY AND PHYSICAL Observed: 08/06/2017 Status: F Source: [facility] EXAM 11:45 PM [facility] HISTORY AND PHYSICAL EXAMINATION NAME NUMBER SEX AGE ADMIT DISC TYPE MED.RECORD# LANDFAIR FAYE E [id number] M 67 08/05/17 08/06/17 I/P [id number] ROOM:305MO DATE OF :1950 PHYSICIAN NO.:[id number] PHYSICIAN NAME:ISAURO FUENTES MD PHYSICIAN:ALLEN RICO CHIEF COMPLAINT: Cough and shortness of breath. HISTORY OF PRESENT ILLNESS: This is a 67-yaer-old male with past medical history significant for chronic tobacco use, coronary artery disease, and insulin required diabetes mellitus type 2 who follows at the [facility] in [place]. He states he has been sick for about a month. He started with runny nose, headache, and not feeling well. He saw the physician. He was placed on steroids. He was told he had a sinus infection, it did not improve. He started with clear nasal drainage, then yellow drainage, congested, cough, wheezing, and short of breath. He was then, last Friday, placed on an antibiotic. He did not improve. He came to the emergency room. Chest x-ray revealed an infiltrate with probable emphysema. He has not been diagnosed with COPD in the past. He is a long-term smoker. He had wheezing bilaterally. He was admitted with acute community acquired pneumonia and reactive airway disease exacerbation, likely COPD. Upon evaluation this morning, he feels better. He is off oxygen support. The wheezing has decreased. He is requesting to go home. He has his to help take care and he feels much better. PAST MEDICAL HISTORY: (1) Influenza A in the past. He did receive his influenza vaccine this year. (2) Reactive airway disease exacerbation. He has not had pulmonary function test in the past, likely COPD. (3) Coronary artery disease status post myocardial infarction with multiple stent placements in the past. (4) Diabetes mellitus type 2 on combination insulin and oral agents. (5) Hyperlipidemia. (6) Hypertension. (7) Acid reflux disease. (8) Pneumonia in the past. PAST SURGICAL HISTORY: (1) Back surgery. (2) Cholecystectomy. (3) Multiple stent placement. MEDICATIONS: Current medications at home (1) Enteric coated aspirin 81 mg daily. (2) Flonase 2 sprays each nostril daily. (3) Lantus 34 units every night. (4) Lipitor 80 mg daily. (5) Losartan 100 mg daily. (6) Lyrica 50 mg twice daily. (7) Metoprolol tartrate 25 mg twice daily. (8) Nitroglycerin 0.4 mg sublingual p.r.n. chest pain. (9) Omeprazole 40 mg daily. (10) Plavix 75 mg daily. (11) Acetaminophen 650 mg every 4 hours p.r.n. (12) Metformin 500 mg twice daily. ALLERGIES: No known drug allergies. FAMILY HISTORY: Father is still living. He does have heart disease and dementia. No reported family history of cancer. SOCIAL HISTORY: The patient is . He lives at home with his spouse. He does have a mentally challenged son at home. He smokes 1 pack of cigarettes per day for over 50 years, occasionally drinks alcohol. He is retired. REVIEW OF SYSTEMS: He had fever at home, nasal congestion, headache, cough, and initially started with muscle aches, which improved. He then started with wheezing, cough became productive, as well as thick nasal drainage. No chest pain. He has had wheezing. He states he does not normally wheeze. PHYSICAL EXAMINATION GENERAL APPEARANCE: The patient was lying in bed in no acute distress. He is alert, pleasant, cooperative, well-nourished, and well-developed male. VITAL SIGNS: Blood pressure 190/100 and this morning blood pressure 122/55, heart rate 52, respirations 20, temperature 97.9, oxygen saturation 96% on room air. This is a well-nourished, well-developed male in no acute distress who is alert, pleasant, and cooperative. HEENT: Unremarkable. NECK: Neck is supple. No nodes, masses, or JVD. No bruits. LUNGS: Revealed increased AP diameter with equal lung expansion, diminished breath sounds bilaterally with few scattered expiratory wheezes. HEART: Regular rate and rhythm. ABDOMEN: Positive bowel sounds, soft, and nontender. EXTREMITIES: Free of pitting edema. Pulses are palpable in dorsalis pedis bilaterally. NEUROLOGIC: He is alert and oriented. Mood, affect, and memory within normal limits. DIAGNOSTIC DATA: White count is 7.0, hemoglobin 12.3, hematocrit 35.5, platelets 132,000. Troponin is negative. Hemoglobin A1c is 9.1%. BUN 32, creatinine 1.7. Albumin 2.8. Influenza A and B negative. Diagnostic studies: Chest x-ray, AP, completed in the emergency room read by the radiologist with densities I both lung bases with developing infiltrates with hyperinflation both lungs. CT of the chest with PE protocol was done in the emergency room due to elevated D- dimer and shortness of breath revealing some atelectasis with no pulmonary embolism. IMPRESSION: 1. Acute community acquired pneumonia. 2. Reactive airway disease exacerbation likely chronic obstructive pulmonary disease with clinical signs of chronic obstructive pulmonary disease, long-term tobaccoism, and findings on chest x-ray. 3. Diabetes mellitus type 2 on insulin therapy uncontrolled. He states his blood sugars used to be 4 and 500s. They are now in the 180s. 4. Known coronary artery disease. PLAN: The patient was admitted to the hospital on broad spectrum IV antibiotics including Rocephin and Zithromax, oxygen support, which he has been weaned off, DuoNeb treatments. We will add incentive spirometry. He was also placed on steroids. It was discussed with the patient, and he is requesting to go home to take care of his . He is significantly improved. He has not had frequent exacerbations. He was recommended for pulmonary function tests as an outpatient, and also he was sent home on his home medications with the addition of prednisone and Ceftin for 7 days and a Z-Aden. Smoking cessation was discussed with the patient. He may need further adjustment of his insulin therapy as an outpatient. He was increased to 38 units subcutaneous every night, and he will need follow up renal functions to evaluate whether he should continue metformin and Losartan. He has requested to be a patient in the office. He was given the number to make an appointment as the computers are currently down, and he was discharged home in stable condition. Above was discussed with the patient. All of his questions were answered. He verbalized understanding of the plan. Dictated by nelson Ta for Tamanna Fuentes M.D. I examined the patient myself, the above is accurate E&M done by me Jerel Fuentes M.D. D: Tamanna Fuentes MD TD: 13:45 JOB #: [id number] Electronically signed by: ISAURO FUENTES MD 08/06/17 23:45 Transcribed by: fay 08/06/2017 14:23 Update to H&P: [ ] No changes: I have examined the patient and reviewed the H&P and there are no changes. [ ] As previously dictated with the following changes: PHYSICIAN SIGNATURE: TIME: DATE: ELECTRONICALLY SIGNED BY: ISAURO FUENTES MD 08/06/17 23:45 CBC Collected: 08/06/2017 Status: F Source: [facility] 5:41 [facility] REPOSITORY TYPE CODE TESTS RESULT OUT OF RANGE REFERENCE UNITS LAB CBC(LOINC) CBC Result Comment: CBC-COMPLETE BLOOD COUNT LAB WBC(LOINC) 4.5 - 10.8 x 10EE3/UL WBC 7.0 LAB RBC(LOINC) 4.50 - x 10EE6/UL 6.00 RBC Low 3.80 LAB HEMOGLOBIN(LOINC) 13.0 - g/dl 17.5 Low HEMOGLOBIN 12.3 LAB HEMATOCRIT(LOINC) 40.0 - % 52.0 Low HEMATOCRIT 35.5 LAB MCV(LOINC) 81 - 98 fl MCV 93 LAB MCH(LOINC) 27 - 33 pg MCH 32 LAB MCHC(LOINC) 32 - 36 X10 3 MCHC 35 LAB RDW/CV(LOINC) 12.0 - % 15.6 RDW/CV 14.0 LAB PLATELET(LOINC) 150 - 450 x10EE3/UL PLATELET Low 132 LAB MPV(LOINC) 6.4 - 10.5 fl MPV 9.4 Result Comment: AUTOMATED DIFFERENTIAL LAB NEUT %(LOINC) 46.0 - 76.0 % NEUT % High 88.0 LAB LYMPH %(LOINC) 20.0 - 45.0 % Low LYMPH % 9.4 LAB MONOS %(LOINC) 0.0 - 10.0 % MONOS % 1.4 LAB EO %(LOINC) 0.0 - 7.0 % EO % 0.0 LAB BASO %(LOINC) 0.0 - 2.0 % BASO % 1.2 LAB Lymph #(LOINC) 0.80 - 2.80 x10EE3/U Low L Lymph # 0.70 LAB Neut #(LOINC) 1.50 - 7.10 x10EE3/U L Neut # 6.10 LAB [place] #(LOINC) 0.20 - 1.00 x10EE3/U Low L [place] # 0.10 LAB EO #(LOINC) 0.00 - 0.50 x10EE3/U L EO # 0.00 LAB Baso #(LOINC) 0.00 - 0.10 x10EE3/U L Baso # 0.10 LAB MANUAL DIFF(LOINC) MANUAL DIFF N/A LAB MORPHOLOGY(INC ) MORPHOLOGY N/A Result Comment: {CD] Performed By: #### [id number] #### [facility] [place],[address] [place] [address] BMP WITH EGFR Collected: 08/06/2017 Status: F Source: [facility] 5:41 AM [facility] REPOSITORY TYPE CODE TESTS RESULT OUT OF RANGE REFERENCE UNITS LAB BMP with eGFR(LOINC) BMP with eGFR Result Comment: BASIC METABOLIC PANEL LAB SODIUM(LOINC) 136 - 145 mmol/l SODIUM 136 LAB POTASSIUM(LOINC) 3.5 - 5.1 mmol/L POTASSIUM 4.0 LAB CHLORIDE(LOINC) 98 - 107 mmol/L CHLORIDE 106 LAB CO2(LOINC) 21.0 - mmol/L 31.0 CO2 21.7 LAB GLUCOSE(LOINC) 74 - 106 mg/dl GLUCOSE High 377 LAB BUN(LOINC) 6 - 20 mg/dl BUN High 32 LAB CREATININE(LOINC) 0.7 - 1.3 mg/dl High CREATININE 1.7 LAB CALCIUM(LOINC) 8.6 - mg/dl 10.2 CALCIUM Low 8.0 LAB ANION GAP(LOINC) 10 - 20 mmol/L ANION GAP 12 LAB AGE(LOINC) years AGE 67 LAB eGFR(LOINC) 60 - 999 ML/MINUTE eGFR Low 40 LAB eGFR(AA)(LOINC) 60 - 999 ML/MINUTE eGFR(AA) Low 49 Result Comment: ACCORDING TO THE NATIONAL KIDNEY DISEASE EDUCATION PROGRAM(NKDE), A NORMAL eGFR IS A VALUE GREATER THAN OR EQUAL TO 60 ML/MIN/1.73 SQ METERS. CHRONIC KIDNEY DISEASE: <60mL/MIN/1.73 SQ METERS KIDNEY FAILURE: <15mL/MIN/1.73 SQ METERS THIS TEST SHOULD ONLY BE USED FOR PATIENTS 18 YEARS OF AGE AND OLDER. Performed By: #### [id number] #### [facility] [place],[address] [place] [address] CT CHEST (PE PROTOCOL) Observed: 08/05/2017 Status: F Source: RADU [facility] 8:36 PM [facility] REPOSITORY [place] [address] Patient: FAYE MAO Phone#: : 1950 Age: 67 Gender: M Pt. Type: ER Account: [id number] Location: [facility] Ordering: JEREMIAH BORGES Exam Date: 08/05/2017/20:17 Family Phys: TRISHALauren KO Charge Code: [id number] Physician: Hamblen Order #: [id number] DLP Dose#: PROCEDURE: CT CHEST WITH CONTRAST FOR PE COMPARISON: [facility], XR, CHEST AP, 08/05/2017, 18:31. [facility], CT, CHEST PE W CON, 10/24/2016, 16:20. INDICATIONS: Cough TECHNIQUE: After obtaining the patient's consent, CT images were obtained with non-ionic intravenous contrast material. Multi-planar images were created to optimize visualization of vascular anatomy with MPR/MIPS and 3D imaging. All CT scans at this facility use dose modulation, iterative reconstruction, and/or weight based dosing when appropriate to reduce radiation dose to as low as reasonably achievable. IV CONTRAST: Visipaque 320,74ml TOTAL DOSE: 7.5 CTDIvol(mGy) FINDINGS: VASCULATURE: Normal. No visible pulmonary arterial thrombus or attenuation. AORTA: Normal. No aneurysm or dissection. LUNGS: There are scattered calcified granulomas. There is atelectasis in the left lung base anteriorly. RUSSELL: There are calcified right hilar lymph nodes. MEDIASTINUM: Normal. No mass or adenopathy. CARDIAC: There are coronary artery calcifications. PLEURA: Normal. No mass or effusion. CHEST WALL: Normal. No mass or axillary adenopathy. Continued Report - Page 2 of 2 Patient: FAYE MAO Phone#: : 1950 Age: 67 Gender: M Pt. Type: ER Account: [id number] Location: 2 Ordering: JEREMIAH BORGES Exam Date: 08/05/2017/20:17 Family Phys: TRISHA KO Charge Code: [id number] Physician: Hamblen Order #: [id number] DLP Dose#: LIMITED ABDOMEN: There are calcified and noncalcified atherosclerotic plaques of the aorta resulting in luminal irregularity in the abdominal portion of the aorta. BONES: There are degenerative changes in the spine. OTHER: Negative. CONCLUSION: 1. No acute pulmonary embolism. 2. Atelectasis in the left lower lobe. Dictated by: Coty Freeman MD on 08/05/2017 at 21:25 Approved by: Coty Freeman MD on 08/05/2017 at 21:25 Observed: 08/05/2017 Status: F Source: [facility] INFLUENZA VIRUS RAPID 6:35 PM [facility] A/B REPOSITORY INFLUENZA A NEGATIVE INFLUENZA B NEGATIVE INTERNAL NEG QC PASS INTERNAL POS QC PASS EXTERNAL QC DONE? YES ACCORDING TO THE STRAIGHTENING MACHINE OPERATOR, THE PERFORMANCE OF THIS TEST HAS NOT BEEN VALIDATED FOR DETECTION OF THE 2009 H1N1 INFLUENZA A VIRUS OF SWINE ORIGIN. THE TEST HAS BEEN DEMONSTRATED TO DETECT MULTIPLE STRAINS OF INFLUENZA A OF HUMAN ORIGIN IN CLINICAL SPECIMENS,BUT THE SWINE FLU INVOLVED IN THE CURRENT OUTBREAK IS A NEWLY EMERGENT STRAIN.THEREFORE, THE PERFORMANCE OF CURRENT RAPID TESTS,INCLUDING THIS ONE, HAS NOT BEEN ESTABLISHED FOR THE DETECTION OF THE CURRENT SWINE FLU IN INFECTED PATIENTS. Performed By: #### [id number] #### [place] [address] LACTATE Collected: 08/05/2017 Status: F Source: [facility] 6:35 PM [facility] REPOSITORY TYPE CODE TESTS RESULT OUT OF REFERENCE UNITS RANGE LAB LACTATE(PATRICIA 4.5 - 18.0 mg/dL NC) LACTATE 16.1 Performed By: #### [id number] #### [place] [address] CBC Collected: 08/05/2017 Status: F Source: [facility] 6:35 PM [facility] REPOSITORY TYPE CODE TESTS RESULT OUT OF RANGE REFERENCE UNITS LAB CBC(LOINC) CBC Result Comment: CBC-COMPLETE BLOOD COUNT LAB WBC(LOINC) 4.5 - 10.8 x 10EE3/UL WBC 9.4 LAB RBC(LOINC) 4.50 - x 10EE6/UL 6.00 RBC Low 4.22 LAB HEMOGLOBIN(LOINC) 13.0 - g/dl 17.5 HEMOGLOBIN 13.7 LAB HEMATOCRIT(LOINC) 40.0 - % 52.0 Low HEMATOCRIT 39.1 LAB MCV(LOINC) 81 - 98 fl MCV 93 LAB MCH(LOINC) 27 - 33 pg MCH 33 LAB MCHC(LOINC) 32 - 36 X10 3 MCHC 35 LAB RDW/CV(LOINC) 12.0 - % 15.6 RDW/CV 14.3 LAB PLATELET(LOINC) 150 - 450 x10EE3/UL PLATELET Low 147 LAB MPV(LOINC) 6.4 - 10.5 fl MPV 9.5 Result Comment: AUTOMATED DIFFERENTIAL LAB NEUT %(LOINC) 46.0 - 76.0 % NEUT % 65.7 LAB LYMPH %(LOINC) 20.0 - 45.0 % LYMPH % 21.5 LAB MONOS %(LOINC) 0.0 - 10.0 % MONOS % 9.3 LAB EO %(LOINC) 0.0 - 7.0 % EO % 2.7 LAB BASO %(LOINC) 0.0 - 2.0 % BASO % 0.8 LAB Lymph #(LOINC) 0.80 - 2.80 x10EE3/U L Lymph # 2.00 LAB Neut #(LOINC) 1.50 - 7.10 x10EE3/U L Neut # 6.20 LAB [place] #(LOINC) 0.20 - 1.00 x10EE3/U L [place] # 0.90 LAB EO #(LOINC) 0.00 - 0.50 x10EE3/U L EO # 0.30 LAB Baso #(LOINC) 0.00 - 0.10 x10EE3/U L Baso # 0.10 LAB MANUAL DIFF(LOINC) MANUAL DIFF N/A LAB MORPHOLOGY(LOINC ) MORPHOLOGY N/A Result Comment: {CD] Performed By: #### [id number] #### [place] [address] TROPONIN Collected: 08/05/2017 Status: F Source: [facility] 6:35 [facility] REPOSITORY TYPE CODE TESTS RESULT OUT OF REFERENCE UNITS RANGE LAB TROPONIN 0.00 - 0.05 ng/ml I(LOINC) TROPONIN I 0.02 Result Comment: Elevated troponin (above the 99th percentile) usually indicates myocardial ischemia. Results must be interpreted within the clinical setting. 1.Non-ischemic pathology can also cause elevated troponin levels (e.g., acute pulmonary embolism, myocarditis, pericarditis, heart failure, intracranial injury, rhabdomyolisis, sepsis, shock and renal insufficiency). 2.Approximately 1% of healthy adults have elevated troponin levels. 3.Analytical false positive results rarely occur(due to multiple interferences such as heterophile antibodies). Performed By: #### [id number] #### [place] [address] CMP WITH EGFR Collected: 08/05/2017 Status: F Source: [facility] 6:35 [facility] REPOSITORY TYPE CODE TESTS RESULT OUT OF RANGE REFERENCE UNITS LAB CMP with eGFR(LOINC) CMP with eGFR Result Comment: COMPREHENSIVE METABOLIC PANEL LAB SODIUM(LOINC) 136 - 145 mmol/l SODIUM 138 LAB POTASSIUM(LOINC) 3.5 - 5.1 mmol/L POTASSIUM 3.9 LAB CHLORIDE(LOINC) 98 - 107 mmol/L CHLORIDE 105 LAB CO2(LOINC) 21.0 - mmol/L 31.0 CO2 26.8 LAB GLUCOSE(LOINC) 74 - 106 mg/dl GLUCOSE High 227 LAB BUN(LOINC) 6 - 20 mg/dl BUN High 25 LAB CREATININE(LOINC) 0.7 - 1.3 mg/dl High CREATININE 1.5 LAB AST/SGOT(LOINC) 13 - 39 U/L AST/SGOT 24 LAB ALK PHOS(LOINC) 38 - 126 U/L ALK PHOS 101 LAB CALCIUM(LOINC) 8.6 - mg/dl 10.2 CALCIUM Low 8.5 LAB TOTAL 6.4 - 8.3 g/dl PROTEIN(LOINC) TOTAL Low PROTEIN 5.5 LAB ALBUMIN(LOINC) 3.4 - 4.8 g/dL ALBUMIN Low 2.8 LAB GLOBULIN(LOINC) 1.5 - 3.8 G/DL GLOBULIN 2.7 LAB A/G RATIO(LOINC) 0.9 - 1.6 A/G RATIO 1.0 LAB TOTAL BILI(LOINC) 0.0 - 1.5 mg/dl TOTAL BILI 0.3 LAB B/C RATIO(LOINC) 0 - 30 ratio B/C RATIO 17 LAB ALT/SGPT(LOINC) 10 - 40 U/L ALT/SGPT 25 LAB ANION GAP(LOINC) 10 - 20 mmol/L ANION GAP 10 LAB AGE(LOINC) years AGE 67 LAB eGFR(LOINC) 60 - 999 ML/MINUTE eGFR Low 47 LAB eGFR(AA)(LOINC) 60 - 999 ML/MINUTE eGFR(AA) Low 57 Result Comment: ACCORDING TO THE NATIONAL KIDNEY DISEASE EDUCATION PROGRAM(NKDE), A NORMAL eGFR IS A VALUE GREATER THAN OR EQUAL TO 60 ML/MIN/1.73 SQ METERS. CHRONIC KIDNEY DISEASE: <60mL/MIN/1.73 SQ METERS KIDNEY FAILURE: <15mL/MIN/1.73 SQ METERS THIS TEST SHOULD ONLY BE USED FOR PATIENTS 18 YEARS OF AGE AND OLDER. Performed By: #### [id number] #### [place] [address] HGB A1C Collected: 08/05/2017 Status: F Source: [facility] 6:35 PM [facility] REPOSITORY TYPE CODE TESTS RESULT OUT OF RANGE REFERENCE UNITS LAB HGB 4.4 - 6.4 % A1C(LOINC) High HGB A1C 9.1 Result Comment: {HB] {A1] Performed By: #### [id number] #### [place] [id number] ALLERGIES ALLERGIES DATE TYPE / CODE NAME / CODE REACTION SEVERITY SOURCE 06/25/2018 Drug No Known Unknown [place] Allergy/[id number](S Allergies/F0019 [facility] NOMED [place]) [address](RXNORM) Hospital Repository Miscellaneous No Known Moderate [facility] Allergy/[id number](S Allergies ([facility] NOMED [facility]) Modifier) Hospital (Qualifier Repository Value) ENCOUNTERS ENCOUNTERS ADMIT/DISCHARGE ACCOUNT ADMITTING ENCOUNTER LOCATION SOURCE NUMBER CLASS 07/29/2018/07/29/19 [id number] TAMANNA FUENTES Ambulatory Radu Pomerene 19 [facility] Repository 06/25/2018 [id number] Ambulatory Katlyn Katlyn 9 [facility] ing:LAB Repository 06/25/2018/06/25/20 [id number] Ambulatory BMSBuilding:B [place] 18 3 [facility] Repository 06/09/2018 [id number] MYRIAM, Ambulatory [facility] 06/09/2018 [id number] TAMANNA FUENTES Ambulatory [facility] Repository 06/09/2018 [id number] PRAKASH EVANS Ambulatory [facility] Repository 06/09/2018 [id number] TAMANNA FUENTES Ambulatory [facility] Repository 06/09/2018 [id number] TAMANNA FUENTSE Ambulatory [facility] Repository 06/09/2018 [id number] TAMANNA FUENTES Ambulatory [facility] Repository 04/13/2018/04/13/20 [id number] MYRIAM, Ambulatory Radu Pomerene [address] [place] [address] Repository 03/02/2018 [id number] PRAKASH EVANS Ambulatory [facility] Repository 02/23/2018/02/24/20 [id number] TAMANNA FUENTES Ambulatory [facility] [address] Repository 12/24/2017/12/26/19 [id number] Ambulatory BMSBuilding:W [place] 18 8 [facility] Repository 12/23/2017/12/26/19 [id number] [facility], Inpatient Katlyn Katlyn 18 7 Ghasem Encounter [facility] ing:ICURoom: Repository [id number]: 1 12/23/2017 [id number] Tamia, Ambulatory BMSBuilding:B [place] 0 Ghasem MS.[facility] Repository 12/23/2017 [id number] Jmelf, Ambulatory BMSBuilding:B [place] 8 [place] [facility] Repository 12/23/2017 [id number] [facility] BMSBuilding:B [place] 7 [place] [facility] Repository 12/23/2017/12/26/19 [id number] Ambulatory BMSBuilding:W [place] 18 6 [facility] Repository 12/23/2017/12/26/19 [id number] Ambulatory BMSBuilding:W [place] 18 9 [facility] Repository 12/13/2017/12/14/19 [id number] MYRIAM, Ambulatory Radu Pomerene 18 [facility] Repository 12/01/2017/12/02/19 [id number] Ambulatory BMSBuilding:B [place] 18 8 [facility] Repository 11/25/2017 [id number] Ambulatory BMS [place] 8 [facility] Repository 11/17/2017 [id number] Ambulatory BMSBuilding:B [place] 4 [facility] Repository 10/25/2017/10/26/19 [id number] RHIANNA RUBIO DO Emergency BuildinR Radu Montano 18 oom: ERBed: [facility] Repository 10/06/2017/10/07/19 [id number] MYRIAM, Ambulatory Radu Pomerene 18 [facility] Repository 09/08/2017/09/08/19 [id number] TAMANNA FUENTES Ambulatory Radu Montano 18 [facility] Repository 08/05/2017/08/06/19 [id number] TAMANNA FUENTES Inpatient BuildinR Rdau Horn MD Encounter oom: 305[facility] Repository PAYERS PAYERS ENCOUNTER GUARANTOR PAYER SUBSCRIBER SOURCE 07/29/2018 FAYE E Primary FAYE E Radu Montano LANDFAIRDOB: Insurance:MEDICARE LANDFAIRDOB: [facility] [id number] [facility] [id number] [facility] TR Number: 4 [facility] Repository [address] [place] [address], [id number] [address] [place] [address] Date:Plan Name: [id number]: () 07/29/2018 Secondary FAYE E Radu Montano Insurance:MEDICAID LANDFAIRDOB: [facility] [id number] Hospital Number: 4 [facility] Repository [id number] [address] [place] [address], Date:Plan Name:[facility] [id number] 06/25/2018 FAYE E Primary FAYE E [place] [id number] TR Insurance:MEDICARE LANDFAIRDOB: [address], PART A BPolicy Number: [id number] [facility] [address]Vpe: [id number] Repository Date:2018-06-25 () 06/25/2018 Secondary FAYE E [place] Insurance:MEDICAIDPoli LANDFAIRDOB: [facility] cy Number: [id number] Hospital [id number] Repository Date:2018-06-25 06/25/2018 Tertiary NOT GIVENUNK [place] Insurance:SELF PAY [facility] Number: Effective Repository Date:2018-06-25 06/25/2018 FAYE E Primary FAYE E [place] [id number] TR Insurance:MEDICARE LANDFAIRDOB: [address], PART A olicy Number: [id number] Regional Medical Center [address]Avk: [id number] Repository Date:2017-12-01 () 06/25/2018 Secondary FAYE E [place] Insurance:MEDICAIDPoli LANDFAIRDOB: [facility] cy Number: [id number] Hospital [id number] Repository Date:2017-12-01 06/25/2018 Tertiary NOT GIVENUNK [place] Insurance:SELF PAY [facility] Number: Effective Repository Date:2018-06-25 06/09/2018 FAYE E Primary FAYE E Radu Pomerene LANDFAIRDOB: Insurance:MEDICARE LANDFAIRDOB: [facility] [id number] [facility] TR Number: [id number] Date:Plan Name: [id number]: () 06/09/2018 Secondary FAYE E Radu Pomerene Insurance:MEDICAID LANDFAIRDOB: [facility] [id number] Hospital Number: [address] Repository [id number] [address], Date: [place] [id number] 06/09/2018 FAYE E Primary FAYE E Radu Pomerene LANDFAIRDOB: Insurance:MEDICARE LANDFAIRDOB: [facility] [id number] Hospital TR Number: [address] Repository [address] [place] [address], [id number] Date:Plan Name:[facility] [id number]: () 06/09/2018 Secondary FAYE E Radu Pomerene Insurance:MEDICAID LANDFAIRDOB: [facility] [id number] Hospital Number: [address] Repository [id number], Date: [place] [id number] 06/09/2018 FAYE E Primary Insurance:S FAYE E Radu Pomerene LANDFAIRDOB: - LANDFAIRDOB: [facility] MEDICARE-PRIMARYPolicy [id number] Hospital TR Number: [address] Repository [address] [place] [address], [id number] Date:Plan Name:[facility] [id number]: () 06/09/2018 Secondary FAYE E Radu Pomerene [facility] LANDFAIRDOB: [facility] [id number] Hospital Number: [address] Repository [id number], [place] [id number] 06/09/2018 FAYE E Primary FAYE E Radu Pomerene LANDFAIRDOB: Insurance:MEDICARE LANDFAIRDOB: [facility] [id number] Hospital TR Number: [address] Repository [address] [place] [address], [id number] Date:Plan Name:[facility] [id number]: () 06/09/2018 Secondary FAYE E Radu Pomerene Insurance:MEDICAID LANDFAIRDOB: [facility] [id number] Hospital Number: [address] Repository [id number] [address] [place] [address], Date: [place] [id number] 06/09/2018 FAYE E Primary Insurance:S FAYE Montano LANDFAIRDOB: - LANDFAIRDOB: [facility] [id number] Number: [address] Repository [address] [place] [address], [id number] [address] [place] [address], [place] [address]Iog: Date:Plan Name:[facility] [id number] () 06/09/2018 Secondary FAYE E Radu Freedmanerene Insurance:ODJFS LANDFAIRDOB: [facility] [id number] Hospital Number: [address] Repository [id number] [address], [place]: [place] [id number] 06/09/2018 FAYE E Primary Insurance:S FAYE Montano LANDFAIRDOB: - LANDFAIRDOB: [facility] MEDICARE-PRIMARYPolicy [id number] Number: [address] Repository [address] [place] [address], [id number] [address] [place] [address], [place] [address]Mbf: Date:Plan Name:[facility] [id number] () 06/09/2018 Secondary FAYE E Radu Freedmanerene Insurance:ODJFS LANDFAIRDOB: [facility] [id number] Hospital Number: [address] Repository [id number] [address] [place] [address], [place]: [place] [address] 04/13/2018 FAYE E Primary FAYE E Radu Freedmanerene LANDFAIRDOB: Insurance:MEDICARE LANDFAIRDOB: [facility] [id number] [facility] [address] Number: [address] Repository [address] [place] [address], [id number] [address] [place] [address], [place] [address]Job: Date:Plan Name:[facility] [id number] () 04/13/2018 Secondary FAYE E Radu Pomerene Insurance:MEDICAID LANDFAIRDOB: [facility] [id number] Hospital Number: [address] Repository [id number] [address], Date:Plan Name:[facility] [id number] 03/02/2018 FAYE E Primary FAYE E Radu Pomerene LANDFAIRDOB: Insurance:MEDICARE LANDFAIRDOB: [facility] [id number] [facility] [address] Number: 4 [facility] Repository [address] [place] [address], [id number] [address]Tet: Date:Plan Name: [id number] () 02/23/2018 FAYE E Primary Insurance:S FAYE E Radu Pomerene LANDFAIRDOB: - LANDFAIRDOB: [facility] [id number] [facility] [address] Number: [address] [facility] [address] Repository [address] [place] [id number] [address]Wye: Date:Plan Name:[facility] [id number] () 02/23/2018 Secondary FAYE E Radu Pomerene Insurance:ODJFS LANDFAIRDOB: [facility] [id number] Hospital Number: [address] Repository [id number], Date:Plan Name:[facility] [phone] 12/24/2017 FAYE E Primary FAYE E [place] [id number] Insurance:MEDICARE LANDFAIRDOB: [address], PART A BPolicy Number: [id number] [facility] [address]Nyy: [id number] Repository Date:2017-12-23 () 12/24/2017 Secondary FAYE E [place] Insurance:MEDICAIDPoli LANDFAIRDOB: [facility] cy Number: [id number] Hospital [id number] Repository Date:2017-12-23 12/24/2017 Tertiary NOT GIVENUNK [place] Insurance:SELF PAY [facility] Number: Effective Repository Date:2017-12-24 12/23/2017 FAYE E Primary FAYE E [place] [id number] TR Insurance:MEDICARE LANDFAIRDOB: [address], PART A BPolicy Number: [id number] Regional Medical Center [address]Uok: [id number] Repository Date:2017-12-23 () 12/23/2017 Secondary FAYE E [place] Insurance:MEDICAIDPoli LANDFAIRDOB: [facility] cy Number: [id number] Hospital [id number] Repository Date:2017-12-23 12/23/2017 Tertiary NOT GIVENUNK [place] Insurance:SELF PAY [facility] Number: Effective Repository Date:2017-12-23 12/23/2017 FAYE E Primary FAYE E [place] [id number] TR Insurance:MEDICARE LANDFAIRDOB: [address], PART A BPolicy Number: [id number] Regional Medical Center [address]Jov: [id number] Repository Date:2017-12-23 () 12/23/2017 Secondary FAYE E [place] Insurance:MEDICAIDPoli LANDFAIRDOB: [facility] cy Number: [id number] Hospital [id number] Repository Date:2017-12-23 12/23/2017 Tertiary NOT GIVENUNK [place] Insurance:SELF PAY [facility] Number: Effective Repository Date:2017-12-23 12/23/2017 FAYE E Primary FAYE E [place] [id number] TR Insurance:MEDICARE LANDFAIRDOB: [address], PART A BPolicy Number: [id number] Regional Medical [facility] [address]Ape: [id number] Repository Date:2017-12-23 () 12/23/2017 Secondary FAYE E [place] Insurance:MEDICAIDPoli LANDFAIRDOB: Community cy Number: [id number] Hospital [id number] Repository Date:2017-12-23 12/23/2017 Tertiary NOT GIVENUNK [place] Insurance:SELF PAY [facility] Number: Effective Repository Date:2017-12-23 12/23/2017 FAYE E Primary FAYE E [place] [id number] TR Insurance:MEDICARE LANDFAIRDOB: [address], PART A BPolicy Number: [id number] Regional Medical Center [address]Tpo: [id number] Repository Date:2017-12-23 () 12/23/2017 Secondary FAYE E [place] Insurance:MEDICAIDPoli LANDFAIRDOB: [facility] cy Number: [id number] Hospital [id number] Repository Date:2017-12-23 12/23/2017 Tertiary NOT GIVENUNK [place] Insurance:SELF PAY [facility] Number: Effective Repository Date:2017-12-23 12/23/2017 FAYE E Primary FAYE E [place] [id number] TR Insurance:MEDICARE LANDFAIRDOB: [address], PART A BPolicy Number: [id number] Regional Medical Center [address]Btm: [id number] Repository Date:2017-12-23 () 12/23/2017 Secondary FAYE E [place] Insurance:MEDICAIDPoli LANDFAIRDOB: [facility] cy Number: [id number] Hospital [id number] Repository Date:2017-12-23 12/23/2017 Tertiary NOT GIVENUNK [place] Insurance:SELF PAY [facility] Number: Effective Repository Date:2017-12-23 12/23/2017 FAYE E Primary FAYE E [place] [id number] TR Insurance:MEDICARE LANDFAIRDOB: [address], PART A BPolicy Number: [id number] Regional Medical Center [address]Oag: [id number] Repository Date:2017-12-23 () 12/23/2017 Secondary FAYE E [place] Insurance:MEDICAIDPoli LANDFAIRDOB: Community cy Number: [id number] Hospital [id number] Repository Date:2017-12-23 12/23/2017 Tertiary NOT GIVENUNK [place] Insurance:SELF PAY [facility] Number: Effective Repository Date:2017-12-23 12/13/2017 FAYE E Primary FAYE E Radu Suene LANDFAIRDOB: Insurance:MEDICARE LANDFAIRDOB: [facility] [id number] Number: [address] [facility] Repository [address] [place] [address], [id number] [address] [place] [address]Odc: Date:Plan Name: [id number] () 12/13/2017 Secondary FAYE E Radu Suene Insurance:MEDICAID LANDFAIRDOB: [facility] [id number] [facility] Number: [address] Repository [id number] [address], Date:Plan Name:[facility] [id number] 12/01/2017 FYAE E Primary FAYE E [place] [id number] Insurance:MEDICARE LANDFAIRDOB: [facility] PART A BPolicy Number: [id number] [id number] [place]ository [place] [address]Gip: Date:2017-07-03 () 12/01/2017 Secondary FAYE E [place] Insurance:MEDICAIDPoli LANDFAIRDOB: Community cy Number: [id number] Hospital [id number] Repository Date:2017-07-03 12/01/2017 Tertiary NOT GIVENUNK [place] Insurance:SELF PAY [facility] Number: Effective Repository Date:2017-07-03 11/25/2017 Faye E Primary Faye E [place] [id number] Insurance:MEDICARE LandfairDOB: [address] PART A BPolicy Number: [id number] [id number] Repository [place] [address]Zwq: Date:2017-11-25 () 11/25/2017 Secondary Faye E [place] Insurance:MEDICAIDPoli LandfairDOB: Community cy Number: [id number] Hospital [id number] Repository Date:2017-11-25 11/25/2017 Tertiary NOT GIVENUNK [place] Insurance:SELF PAY [facility] Number: Effective Repository Date:2017-11-25 11/17/2017 Faye E Primary Faye E [place] [id number] Insurance:MEDICARE LandfairDOB: [facility] PART A BPolicy Number: [id number], [id number] [place]ository [place] [address]Htr: Date:2017-11-17 () 11/17/2017 Secondary Faye E [place] Insurance:MEDICAIDPoli LandfairDOB: [facility] cy Number: [id number] Hospital [id number] Repository Date:2017-11-17 11/17/2017 Tertiary NOT GIVENUNK [place] Insurance:SELF PAY [facility] Number: Effective Repository Date:2017-11-17 10/25/2017 FAYE E Primary FAYE E Radu Pomerene LANDFAIRDOB: Insurance:MEDICARE LANDFAIRDOB: [facility] [id number] [place] [address] [id number] Number: [address] Repository [address] [place] [address] [id number] [address]Nru: Date:Plan Name:[facility] [id number] () 10/25/2017 Secondary FAYE E Radu Pomerene Insurance:MEDICAID LANDFAIRDOB: [facility] [id number] Hospital Number: [address] Repository [id number] [address] [place] [address], Date: [place] [id number] 10/25/2017 Tertiary FAYE E Radu Pomerene Insurance:MEDICARE LANDFAIRDOB: [facility] [id number] Hospital Number: [address] Repository [id number] [address] [place] [address], Date:Plan Name:[facility] [id number] 10/06/2017 FAYE E Primary FAYE E Radu Pomerene LANDFAIRDOB: Insurance:MEDICARE LANDFAIRDOB: [facility] [id number] [facility] [address] Number: [address] Repository [address] [place] [address], [id number] [address]Vew: Date:Plan Name:[facility] [id number] () 10/06/2017 Secondary FAYE E Radu Pomerene Insurance:MEDICAID LANDFAIRDOB: [facility] [id number] Hospital Number: [address] Repository [id number] [address] [place] [address], Date: [place] [id number] 09/08/2017 FAYE E Primary FAYE E Radu Pomerene LANDFAIRDOB: Insurance:MEDICARE LANDFAIRDOB: [facility] [id number] [address] Number: [address] [facility] Repository [address] [place] [address], [id number] [place] Date:Plan Name: [id number]: () 09/08/2017 Secondary FAYE E Radu Pomerene Insurance:MEDICAID LANDFAIRDOB: [facility] [id number] Hospital Number: [address] Repository [id number] [address] [place] [address], Date:Plan Name:[facility] [id number] 08/05/2017 FAYE E Primary FAYE E Radu Pomerene LANDFAIRDOB: Insurance:MEDICARE LANDFAIRDOB: [facility] [id number] Number: [address] Repository [address] [place] [address], [id number] [place] Date:Plan Name: [id number]: () 08/05/2017 Secondary FAYE E Radu Pomerene Insurance:MEDICAID LANDFAIRDOB: [facility] [id number] Hospital Number: [address] Repository [id number] [address] [place] [address], Date:Plan Name:[facility] [id number]
== END ==
PROVIDERS: Family Provider Internal Medicine Infectious Disease; PCP Internal Medicine Infectious Disease; Referring Provider Internal Medicine Cardiovascular Disease; Visit Provider Internal Medicine Cardiovascular Disease
DX: I16.1 Hypertensive emergency (principal); E78.5 Hyperlipidemia, unspecified
CPT/HCPCS: 36415; 80048; 80061; 80076

== ENCOUNTER → 2019-01-18 05:58 | Outpatient (CLI) | payer MEDICARE, MEDICAID, SELFPAY ==
[2018-12-30 08:30] VITALS: BMI 25.4
--- NOTE | 2019-01-18 09:09 | STRESSREP ---
Stress Test Report 68-year-old man with a history of chest pain. Pharmacologic myocardial perfusion stress test. Medications: Losartan, metformin, atorvastatin. Stress protocol: Resting EKG demonstrates normal sinus rhythm with a rate of 68 bpm normal intervals are noted resting blood pressure is 162/82 mmHg. 0.4 mg of regadenoson was infused per usual protocol followed by rapid intravenous and flush injection continuous EKG monitoring was performed. The maximum heart rate attained was 76 bpm which was 50% of maximum predicted heart rate. The maximum workload was 1 metabolic equivalent. At rest there were nonspecific ST-T wave changes noted with no meet the criteria for ischemia. Myocardial perfusion protocol. 11.9 mCi of technetium 99m sestamibi was injected at rest. 0.4 mg of regadenoson was infused per usual protocol peak infusion 34.3 mCi of technetium 99m sestamibi was injected stress and rest images were reconstructed and compared in the short axis vertical and horizontal long axis. Gated images were also obtained. No CT images were obtained. Perfusion SPECT analysis: Review of the images demonstrate uniform perfusion in all areas of myocardium except for the distal anterior septal area on the stress images. This appears to be worse on the resting images. The above is not suggestive of ischemia. Previous apical infarct cannot be completely excluded. Gated SPECT analysis: The gated ejection fraction is noted to be 40%. Conclusion: Pharmacologic stress test with no obvious ischemia noted. Previous apical infarct cannot be completely excluded. Mild cardiomyopathy present.
== END ==
PROVIDERS: Family Provider Internal Medicine Infectious Disease; PCP Internal Medicine Infectious Disease; Referring Provider Physician Assistant Medical; Visit Provider Physician Assistant Medical
DX: I25.10 Atherosclerotic heart disease of native coronary artery without angina pectoris (principal); R07.9 Chest pain, unspecified
CPT/HCPCS: 78452; 93017; A9500; A4216; J2785

== ENCOUNTER → 2020-12-22 12:48 | Outpatient (CLI) | payer MEDICARE, MEDICAID, SELFPAY ==
[2020-10-25 10:25] VITALS: BMI 28.7
--- NOTE | 2020-12-22 12:52 | VDUE_ITS ---
Reason For Study: CKD Right Arm Left Arm Right Cephalic Vein at the wrist measures Left Cephalic Vein at the wrist measures 0.18 x 0.18 cm. 0.17 x 0.17 cm. Right Cephalic Vein in the forearm measures Left Cephalic Vein in the forearm measures 0.22 x 0.24 cm. 0.14 x 0.15 cm. Branch at wrist measure 0.20 x 0.24 cm. Left Cephalic Vein below antecub measures Branch at mid forearm measures 0.17 x 0.19 0.12 x 0.12 cm. cm. Left Cephalic Vein above antecub measures Right Cephalic Vein below antecub measures 0.18 x 0.19 cm. 0.14 x 0.16 cm. Left Cephalic Vein at mid bicep measures Right Cephalic Vein above antecub measures 0.27 x 0.27 cm. 0.19 x 0.21 cm. Left Cephalic Vein at the shoulder measures Right Cephalic Vein mid bicep measures 0.23 x 0.13 x 0.11 cm. 0.26 cm. Basilic vein at origin measures 0.33 x 0.32 Right Cephalic Vein at the shoulder measures cm. 0.23 x 0.25 cm. Basilic vein at bicep measures 0.26 x 0.27 Right Basilic Vein at the origin measures cm. 0.18 x 0.20 cm. Basilic vein above antecub measures 0.24 x Right Basilic Vein mid bicep measures 0.18 x 0.24 cm. 0.22 cm. Left Brachial artery measures 0.45 x 0.44 cm Right Basilic Vein above antecub measures with a velocity of 89.8 cm/sec. 0.24 x 0.23 cm. Left Radial artery measures 0.24 x 0.23 cm Duplicate basilic origin measures 0.20 x 0.19 with a velocity of 68.9 cm/sec. cm. Duplicate basilic mid measures 0.20 x 0.18 cm. Duplicate basilic distal measures 0.22 x 0.20 cm. Right Brachial artery measures 0.48 x 0.51 cm with a velocity of 74.2 cm/sec. Right Radial artery measures 0.23 x 0.20 cm with a velocity of 78.1 cm/sec. VL/Saphenous Vein Mapping, Bilat Interpretation Summary Patent, compressible bilateral cephalic and basilic veins although generally sm all throughout Normal diameter, flow bilateral radial and brachial arteries Ordering Physician: Obie Barron Performed By: Olivia Genao RVT and Student ?
== END ==
PROVIDERS: Referring Provider Internal Medicine Nephrology; Visit Provider Internal Medicine Nephrology
DX: Z01.818 Encounter for other preprocedural examination (principal); N18.32 Chronic kidney disease, stage 3b
CPT/HCPCS: 93970; 93985

== ENCOUNTER 2021-02-01 05:26 | Day surgery (SDC) | payer MEDICARE, MEDICAID, SELFPAY ==
[2021-01-08 05:47] VITALS: BMI 27.8
--- NOTE | 2021-01-26 10:22 | EKG12_ITS ---
Test Reason : PREOP Blood Pressure : / mmHG Vent. Rate : 073 BPM Atrial Rate : 073 BPM P-R Int : 254 ms QRS Dur : 092 ms QT Int : 394 ms P-R-T Axes : 024 -41 065 degrees QTc Int : 434 ms Sinus rhythm with 1st degree A-V block Left axis deviation Abnormal ECG Confirmed by MARIVEL RICHTER, HALLE ([id number]), medical editor JOVITA COTTO ([id number]) on 01/29/2021 9:48:55 AM Referred By: Vick Duran Confirmed By:TIMOTHY ORTA MD
[2021-01-26 11:32] LABS: Hemoglobin 12.9 g/dL (13.0-16.5); Mean Corp Hgb Conc 33.1 g/dL (32-36); Mean Corpuscular Hgb 31.2 pg (27.0-32.0); Mean Corpuscular Volume 94.4 fL (80-94); Mean Platelet Vol. 11.3 fl (6.2-12.0); Platelet Count 211 K/mm3 (150-450); RBC Distribution Width CV 13.6 % (11.6-14.6); RBC Distribution Width SD 46.9 fl (35.1-43.9); Red Blood Count 4.13 M/mm3 (4.6-6.2); White Blood Count 8.1 K/mm3 (4.4-11.0)
[2021-01-26 12:00] LABS: Anion Gap 5 (5-15); BUN 54 mg/dL (7-18); BUN/Creat Ratio 12.9 RATIO (10-20); Calcium,Total 8.6 mg/dL (8.5-10.1); Chloride 109 mmol/L (98-107); Creatinine, Serum 4.19 mg/dL (0.70-1.30); EST Glomerular Filtration Rate 15 mL/min (>60); Est Glom Filt Rate - Afr Amer 18 mL/min (>60); Glucose 112 mg/dL (74-106); Potassium 4.7 mmol/L (3.5-5.1); Sodium Level 140 mmol/L (136-145)
[2021-02-01] VITALS (14 sets, daily range): BP systolic 126–189; BP diastolic 88–103; PULSE 57–85; RESP 16; TEMP 36.1–36.6; O2SAT 95–100; BMI 27.5
--- NOTE | 2021-02-01 06:04 | HP.PCM_ITS ---
History and Physical Date of Admission: 02/01/21 Intake Visit Reasons: 12/22, DIALYSIS ACCESS PLACEMENT Chief Complaint: Follow-up visit Allergies No Known Allergies Allergy (Verified 10/25/20 10:23) [facility] Medical History (Updated 01/08/21 @ 10:[address] Vick Duran MD) Arthritis Atherosclerotic heart disease of [place] coronary artery without angina pectoris Depression Diabetes mellitus Dizziness and giddiness Essential hypertension GERD (gastroesophageal reflux disease) History of ST elevation myocardial infarction (STEMI) (01/11/13) HLD (hyperlipidemia) Nicotine dependence 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) Orthostatic hypotension Pain in limb Stomach ulcer Surgical History History of coronary artery stent placement History of left heart catheterization (06/03/14) Family History Father CAD (coronary artery disease) CABG Diabetes Brother Heart disease Myocardial infarction Sister Diabetes Social History Smoking Status: Current every day smoker alcohol intake: never substance use type: does not use HPI HPI HPI: QUE DEJESUS, is a 70 M who presents to the office today for surgical consultation regarding creation of arteriovenous hemodialysis fistula. The patient is referred by Dr. Barron and a written copy of my surgical consult recommendations will be returned to him. Primary care physician is .. The patient is diabetic on insulin. He has been a long-term cigarette smoker at least to the rate of a pack per day. He has had a previous myocardial infarction he thinks in the late . At that time apparently 7 coronary s tents were placed. He is on chronic clopidogrel therapy. He is not able to climb a flight of stairs secondary to fatigue. Apparently he was hospitalized with a GI bleed but that resolved. He is on chronic omeprazole therapy. He is right arm dominant. He is not currently on hemodialysis. He states that he has not been on temporary dialysis either. December 22, 2020 Reason For Study: CKD Right Arm Left Arm Right Cephalic Vein at the wrist measures Left Cephalic Vein at the wrist measures 0.18 x 0.18 cm. 0.17 x 0.17 cm. Right Cephalic Vein in the forearm measures Left Cephalic Vein in the forearm measures 0.22 x 0.24 cm. 0.14 x 0.15 cm. Branch at wrist measure 0.20 x 0.24 cm. Left Cephalic Vein below antecub measures Branch at mid forearm measures 0.17 x 0.19 0.12 x 0.12 cm. cm. Left Cephalic Vein above antecub measures Right Cephalic Vein below antecub measures 0.18 x 0.19 cm. 0.14 x 0.16 cm. Left Cephalic Vein at mid bicep measures Right Cephalic Vein above antecub measures 0.27 x 0.27 cm. 0.19 x 0.21 cm. Left Cephalic Vein at the shoulder measures Right Cephalic Vein mid bicep measures 0.23 x 0.13 x 0.11 cm. 0.26 cm. Basilic vein at origin measures 0.33 x 0.32 Right Cephalic Vein at the shoulder measures cm. 0.23 x 0.25 cm. Basilic vein at bicep measures 0.26 x 0.27 Right Basilic Vein at the origin measures cm. 0.18 x 0.20 cm. Basilic vein above antecub measures 0.24 x Right Basilic Vein mid bicep measures 0.18 x 0.24 cm. 0.22 cm. Left Brachial artery measures 0.45 x 0.44 cm Right Basilic Vein above antecub measures with a velocity of 89.8 cm/sec. 0.24 x 0.23 cm. Left Radial artery measures 0.24 x 0.23 cm Duplicate basilic origin measures 0.20 x 0.19 with a velocity of 68.9 cm/sec. cm. Duplicate basilic mid measures 0.20 x 0.18 cm. Duplicate basilic distal measures 0.22 x 0.20 cm. Right Brachial artery measures 0.48 x 0.51 cm with a velocity of 74.2 cm/sec. Right Radial artery measures 0.23 x 0.20 cm with a velocity of 78.1 cm/sec. VL/Saphenous Vein Mapping, Bilat Interpretation Summary Patent, compressible bilateral cephalic and basilic veins although generally small throughout Normal diameter, flow bilateral radial and brachial arteries Ordering Physician: Obie Barron Performed By: Olivia Genao RVT and Student General General: Yes weight change and fatigue; No appetite, colon cancer, breast cancer or weakness HEENT HEENT: Yes eye injury and eye surgery; No difficulty swallowing, swollen glands or hoarseness Endo Endocrine: Yes diabetes mellitus; No thyroid disease, thyroid cancer, Hair loss, heat intolerance or cold intolerance Skin Skin: No rash or changing moles Breast Breast: No left breast lump, right breast lump, nipple discharge, breast pain, abnormal mammogram, abnormal US or breast enlargement Musc Musculoskeletal: Yes back problems and arthritis; No rheumatoid arthritis, gout or joint pain Cardio Cardiovascular: Yes heart disease, high blood pressure, heart attack and heart stent; No murmur, pacemaker, atrial fibrillation, shortness of breat with exertion or chest pain Psych Psychiatric: No depression, anxiety or hearing voices Resp Respiratory: Yes shortness of breath, No sleep apnea, Yes cough, Yes COPD, No asthma, Yes emphysema and No wheezing Gastro Gastrointestinal: Yes abdominal pain, Yes nausea or vomiting, No diarrhea, Yes constipation, No blood in stool, Yes acid reflux, No hemorrhoids, Yes ulcers, No gallbladder problem and No black,tarry stools Aleksandr Hematologic: Yes blood thinners, No blood disorders, No bleeding, No anemia and No blood clots Neuro Neurologic: No system reviewed and no additional complaints, except as documented, No as per HPI, No abnormal gait, No abnormal hearing, No abnormal movements, No abnormal speech, No behavioral changes, No burning sensations, No confusion, No convulsions, No disequilibrium, No dizziness, No localized weakness, No frequent falls, No headache(s), No lack of coordination, No loss of vision, No memory loss, Yes numbness, No other visual disturbances, No radicular pain, No restless legs, No sensory deficit, No syncope, Yes tingling, No tremor(s), No weakness and No other Exam Const General: cooperative, comfortable and no acute distress Nutritional Appearance: average body habitus [facility] Head: normal to inspection Eyes General: appearance normal, both eyes and all related structures Chest Other: Increased AP diameter Resp Effort & Inspection: normal respiratory effort Auscultation: clear to auscultation bilaterally Cardio Rate: regular rate Rhythm: regular rhythm GI Palpation: soft and no hepatosplenomegaly Musc Other: Kyphosis noted Skin Other: Diffuse areas of ecchymosis. Neuro Cognition: normal cognition Extrem Other: Bilateral lower extremity swelling Left upper extremity with a visible cephalic vein at the wrist that is patent and compressible. Patent and compressible left upper arm basilic vein. Left radial pulse 2-3+. Psych Affect: normal affect COVID (Procedure Consent) Procedure Criteria Procedure Criteria: Yes Elective The surgeon/proceduralist and patient have discussed in detail the risk of exposure to and/or potential harm posed by the COVID-19 virus with having a surgery/procedure at this time versus the risk of delaying the surgery/procedure. It is not possible to know either the risk of delaying the surgery or procedure or chance of getting an infection with perfect accuracy, but a joint decision was made between the patient and the surgeon/proceduralist to proceed at this time with the scheduled surgery/procedure as indicated on the consent form. Assessment and Plan Assessment and Plan (1) Chronic renal failure, stage 4 (severe): Status: Chronic Plan - Dr. Vick Duran MD: 70-year-old gentleman with stage IV chronic renal insufficiency. He is right arm dominant. Preoperative venous duplex imaging suggests rather small bilateral cephalic and basilic veins. On my inspection of his nondominant left upper extremity he does have a visible superficial patent and compressible left forearm cephalic vein. The left upper arm basilic vein is patent and compressible though borderline small for a male. Duplex imaging of the right upper extremity was much less hopeful. I recommend to the patient a left forearm radiocephalic arteriovenous hemodialysis fistula creation. We will have him hold his clopidogrel for 2 days. He is aware of the technique, benefit, risk of alternatives. I would anticipate perform this under monitored anesthesia care with local anesthetic. The patient describes what sounds like moderate glucose out of control. We will check routine preoperative lab work as well as a hemoglobin A1c. The patient has chronic nicotine addiction and tobacco use. I have recommended to him tobacco cessation. He admits that he is attempted stopping in the past and has failed and is not likely to be able to succeed at this time. He has had an opportunity to ask and have questions answered. He is aware that there are no guarantees of success and that additional maintenance procedures may be required. We will schedule and expedite his care. I very much appreciate the kind opportunity of assisting with the surgical care. Copy: and Dr. Josh Duran M.D., F.A.C.S. Coding Level of Care Code 74517 Diagnoses Chronic renal failure, stage 4 (severe) N18.4 I have re-examined the patient. There are no clinical changes since date of exam.
[2021-02-01] MEDS: Losartan Potassium 100 MG Tablet PO (06:18)
[2021-02-01] MEDS: Metoprolol Tartrate 25 MG Tablet PO ×2 (06:24→06:25)
[2021-02-01 07:25] LABS: Bedside Glucose 221 mg/dL (70-110)
[2021-02-01] MEDS: Lidocaine 1% (30 ml sdv) 30 ML Vial (08:49)
[2021-02-01] MEDS: Bupivacaine Mpf 0.5% 30 ML VIAL (08:49)
[2021-02-01] MEDS: Heparin Injection (Vial) 5,000 UNIT/ML VIAL 5000 UNIT (08:50)
--- NOTE | 2021-02-01 08:59 | PCM.OPRPT ---
Problems Associated Problem List Diagnoses (1) Chronic renal failure, stage 4 (severe): Report of Operation Date of Procedure: 02/01/21 Pre-Operative Diagnosis: Stage IV chronic renal insufficiency Post-Operative Diagnosis: Same Surgery/Procedure Performed:: Left forearm radiocephalic arteriovenous hemodialysis fistula creation Description of Surgical Findings:: Timeout and informed consent was obtained. 70-year-old gentleman was taken the operating placed on the table underwent monitored anesthesia care. The left upper extremity was sterilely prepped and draped. No antibiotics required clean procedure. 1% lidocaine mixed 50-50 with 0.5% Marcaine was used as local anesthetic. A total of 10 cc was used. Ultrasound mapping had been performed preprocedure. An oblique incision was made in the radial aspect of the left wrist. Sharp and blunt dissection was used to identify the cephalic vein. It was dissected free. Distally it was somewhat diminutive. I was able to dissect free the radial artery as well. Vesseloops were placed. I then had to mobilize the cephalic vein more proximally in the distal third of the forearm as the more distal cephalic vein was just too diminutive and I could not get it distended. Patient received 9000 units of heparin. Peripheral vascular clamps were placed on the radial artery. 11 blade was used to make an arteriotomy with which was extended with [place] scissors. The vein was spatulated length and end-to-side venous to arterial anastomosis created with running 7-0 Prolene. At the completion a single repair suture of 7-0 Prolene was required. There appeared to be good flow. Hemostasis was intact. The wound was closed with a deep layer of interrupted 3-0 Vicryl and then a running septic or 4 Monocryl. Steri-Strips Telfa OpSite dressings applied. Sponge and instrument and needle counts were reported to certainly be correct. Specimens none. Drains none. Blood loss minimal. The patient was taken to the recovery area in satisfactory different apparent complication. The hand appeared to be warm and viable. Vick Duran M.D., F.A.C.S. Surgeon: Vick Duran
--- NOTE | 2021-02-01 09:01 | EX.PCM.DISCH ---
Discharge Instructions Procedure Fistula Diet Discharge Diet: Renal Diet Activity Discharge Activity: May Not Drive (for 2-3 days or while taking narcotic pain medications.), May Shower and May Take a Tub Bath (in 5 days.) Lifting Restrictions: 5 pounds Keep extremity elevated above heart level: - (Keep arm elevated above the heart level for 3 days.) Dressing / Incision Call your doctor if your incision/area has: Continuous Slow Oozing, Sudden Increased Bleeding (apply pressure and call your doctor.), Increased Pain/ Swelling, Increased Redness and Foul Smelling Discharge Call your doctor if you observe: Fever of 101 or Higher Suture Line Care: Avoid Pulling/Pushing and Avoid Pinching/Bending Cleanse incision/area with: Keep Dressing Clean & Dry Additional Dressing/Incision Instructions:: Change or remove dressing in one day. May protect with a gauze bandaid. Follow Up Care Please Follow Up With: Vick Duran MD When: Call [phone] to make an appointment for suture removal and follow up in 1 week. Test Results: Test results from this visit will be discussed in further detail at your follow-up appointment, if applicable. Discharge Plan Admission Attending Provider: Vick Duran Discharge Orders/Prescriptions Prescriptions: No Action losartan 100 mg tablet 100 mg PO DAILY RF: 0 metoprolol tartrate 25 mg tablet 50 mg PO BID RF: 0 amlodipine 5 mg tablet 5 mg PO DAILY RF: 0 Lantus U-100 Insulin 100 UNIT/ML solution 50 unit subcut QHS RF: 0 atorvastatin 80 MG tablet 80 mg PO DAILY RF: 0 aspirin 81 MG tablet,chewable 81 mg PO DAILY RF: 0 pregabalin 50 mg capsule 50 mg PO BID RF: 0 amitriptyline 25 mg tablet 25 mg PO QHS RF: 0 pantoprazole 40 mg tablet,delayed release (DR/EC) 40 mg PO BID RF: 0 clopidogrel 75 mg tablet 75 mg PO DAILY Qty: 30 RF: 11
[2021-02-01] MEDS: Pantoprazole Sodium 40 MG Tablet PO (11:53)
--- NOTE | 2021-02-01 12:11 | SUR.PHASEII ---
AT 10:40, LARGE FIRM HEMATOMA NOTED OVER LEFT FOREARM INCISION LINE. THRILL PALPATED; BRUIT AUSCULTATED; NO C/O PAIN. PRESSURE APPLIED TO LEFT FOREARM. DR. Power HERNANDEZ NOTIFIED. AT BEDSIDE.
--- NOTE | 2021-02-01 12:14 | SUR.PHASEII ---
AT 11:40, DR. HERNANDEZ CAME TO BEDSIDE AND ASSESSED THE PATIENT. LEFT FOREARM DRESSING REMOVED. EXTENSION GAUGE, WEBRIL AND OLVIN BANDAGE APPLIED. LEFT ARM ELEVATED ON PILLOWS ABOVE HEART. INSTRUCTED TO HOLD FIRM PRESSURE ON OPERATIVE SITE UNTIL 12 NOON. PATIENT MAY BE DISCHARGED AT 12:30 IF THERE IS NO BLEEDING NOTED.
--- NOTE | 2021-02-01 12:42 | SUR.PHASEII ---
NO FURTHER S/S BLEEDING. REVIEWED D/C INSTRUCTIONS WITH PATIENT AND WHO VERBALIZE UNDERSTANDING.
== END 2021-02-01 12:55 | disposition home or self-care (01) ==
LOC: SDC 05:26 → AC 05:26
PROVIDERS: Referring Provider Surgery; Visit Provider Surgery
PROC: (CPT 36821; principal; 2021-02-01 07:15)
DX: Z49.01 Encounter for fitting and adjustment of extracorporeal dialysis catheter (principal); N18.4 Chronic kidney disease, stage 4 (severe); M19.90 Unspecified osteoarthritis, unspecified site; I25.10 Atherosclerotic heart disease of native coronary artery without angina pectoris; K21.9 Gastro-esophageal reflux disease without esophagitis; E78.5 Hyperlipidemia, unspecified; I25.2 Old myocardial infarction; E11.22 Type 2 diabetes mellitus with diabetic chronic kidney disease; I12.9 Hypertensive chronic kidney disease with stage 1 through stage 4 chronic kidney disease, or unspecified chronic kidney disease; F32.9 Major depressive disorder, single episode, unspecified; F17.210 Nicotine dependence, cigarettes, uncomplicated; Z79.4 Long term (current) use of insulin; Z79.899 Other long term (current) drug therapy; Z79.02 Long term (current) use of antithrombotics/antiplatelets; Z79.82 Long term (current) use of aspirin; Z95.5 Presence of coronary angioplasty implant and graft
CPT/HCPCS: 01844; 36821; 36415; 80048; 82962; 85027; 93005; J7040; J2405

== ENCOUNTER 2021-03-14 16:07 | Emergency (ER) | payer MEDICARE, MEDICAID, SELFPAY ==
[2021-03-14 16:08] VITALS: BP 148/108; PULSE 99; RESP 17; TEMP 36.6; O2SAT 99; BMI 27.3
--- NOTE | 2021-03-14 16:52 | EDS_ITS ---
HPI HPI - GI History of Present Illness Chief Complaint: Abd Pain Detail of Chief Complaint: Epigastric abdominal pain. Informant: patient and spouse/S.O. Abdominal Pain/Flank Pain Onset: Days Context: Gradual Onset Timing: Continuous Quality: Aching and Burning Location: Epigastric Current Severity: Mild Maximum Severity: Moderate Nausea/Vomiting/Emesis GI Symptom: Positive for Nausea and Vomiting Onset: Days Severity: Mild Diarrhea/Melena/Hematochezia GI Symptom: Negative for Diarrhea and Melena Associated Symptoms Associated Symptoms: Negative for Dysuria and Frequency Narrative Narrative: 70-year-old male history of gastritis. Complaining of epigastric abdominal pain with associated nausea vomiting. No hematemesis. No melena. No fever. He has had similar abdominal pain throughout this year. He has had extensive work-ups done at [facility]. He was just admitted to them earlier this week. He has had prior cholecystectomy. He has known coronary artery disease with stents, diabetes and on Plavix. He also has known renal insufficiency. Prior similar symptoms: Yes Recent Illness/Hospitalization: Yes [facility] Medical History Ambulates with cane Arthritis Atherosclerotic heart disease of [place] coronary artery without angina pectoris Cardiology follow-up encounter COPD (chronic obstructive pulmonary disease) Depression Diabetes mellitus Dietary restriction Dizziness and giddiness Easy bruising Essential hypertension Falls frequently Gastric reflux GERD (gastroesophageal reflux disease) High cholesterol History of echocardiogram History of edema History of GI bleed History of heart attack History of pain when walking History of ST elevation myocardial infarction (STEMI) (01/11/13) History of stress test HLD (hyperlipidemia) Hypertension Injury of back Injury of head and neck Insulin dependent diabetes mellitus Migraine headache Neuropathy Nicotine dependence 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) On home oxygen therapy Orthostatic hypotension Pain in limb Shortness of breath on exertion Smoker Stomach ulcer Wears dentures Wears glasses Home Medications losartan 100 mg tablet 100 mg PO DAILY 12/01/17 [History Last Taken 12/23/17] Lantus U-100 Insulin 50 unit SUBCUT QHS 12/23/17 [History Last Taken 12/22/17] aspirin 81 mg PO DAILY 12/23/17 [History Last Taken 12/23/17] atorvastatin 80 mg PO DAILY 12/23/17 [History Last Taken 12/23/17] clopidogrel 75 mg tablet 75 mg PO DAILY #30 tab 03/13/20 [Rx Last Taken Unknown] amlodipine 5 mg tablet 5 mg PO DAILY 08/09/20 [History Last Taken Unknown] metoprolol tartrate 25 mg tablet 50 mg PO BID tab 08/09/20 [History Last Taken Unknown] pregabalin 50 mg capsule 50 mg PO BID cap 08/09/20 [History Last Taken Unknown] amitriptyline 25 mg PO QHS 01/25/21 [History Last Taken Unknown] pantoprazole 40 mg PO BID 01/25/21 [History Last Taken Unknown] furosemide 40 mg tablet tablet PO 03/06/21 [History Last Taken Unknown] ondansetron HCl [Zofran] 4 mg PO Q8H PRN 4 Days tab 03/14/21 [Rx Last Taken Unknown] Allergy/AdvReac Type Severity Reaction Status Date / Time No Known Allergies Allergy Verified 03/14/21 16:07 Family History Father CAD (coronary artery disease) CABG Diabetes Brother Heart disease Myocardial infarction Sister Diabetes Surgical History History of back surgery History of coronary artery stent placement History of laparoscopic cholecystectomy History of left heart catheterization (06/03/14) Hx of arteriovenostomy for renal dialysis (02/01/21) Hx of colonoscopy Social History Smoking Status: Current every day smoker tobacco type: cigarettes alcohol intake: never substance use type: does not use ROS ROS ED ROS Narrative Nausea, vomiting and epigastric deb pain. Review of Systems ROS Unobtainable: Denies due to encephalopathy Constitutional Constitutional ED: Denies chills or fever(s) ENT ENT ED: Denies ear pain or sore throat Cardiovascular Cardiovascular: Denies chest pain Respiratory/Chest Respiratory/Chest: Denies cough or dyspnea Gastrointestinal Gastrointestinal: Reports abdominal pain, nausea and vomiting; Denies constipation, diarrhea or melena Genitourinary Genitourinary ED: Denies dysuria or hematuria Musculoskeletal Musculoskeletal: Denies myalgias Integumentary Denies rash Neurologic Neurologic: Denies headache(s) Psychiatric Psychiatric: Denies depression Endocrine Endocrinology: Denies polyuria Hematologic/Lymphatic Hematologic/Lymphatic: Denies easy bruising Allergic/Immunologic Allergic/Immunologic ED: Denies urticaria EXAM Physical Exam Narrative Exam Narrative: Male no acute distress vital signs stable afebrile. HEENT exam unremarkable. Moist use membranes. Lungs clear to auscultation. Heart regular rate and rhythm no murmur rate about 95. Abdomen soft nondistended normal bowel sounds no peritoneal signs. Tender in epigastric region only. Right upper and right lower quadrant unremarkable. No distention. No signs of obstruction. No masses. No pulsatile mass. Moving all 4 extremities. Nontender no edema. Back nontender. Neurologically is awake and alert. Const Vital Signs: 03/14/21 16:08 Temperature 97.8 F Temperature Source Temporal Pulse Rate 99 Respiratory Rate 17 Blood Pressure 148/108 H Blood Pressure Mean 121 Pulse Ox 99 Oxygen Delivery Method Room Air Positive well nourished and well developed; Negative for obese, cachectic, contractures or unkempt General Appearance ED: well developed and NAD; Negative for unkempt, cachectic, contractures or pallor Nutritional Appearance: Negative for cachectic or obese HEENT Reports moist mucous membranes normocephalic and atraumatic; Negative for trauma or tenderness Eyes PERRL and EOMs intact bilaterally Neck no lymphadenopathy, supple and no JVD General: Negative for tenderness Resp normal respiratory effort and clear to auscultation bilaterally Auscultation: Negative for rales, rhonchi or wheezes Cardio regular rate, regular rhythm, S1 normal heart sound, S2 normal heart sound and no murmurs GI non-distended and no masses; Negative for non-tender Inspection: Negative for abdominal distention Auscultation: normoactive bowel sounds; Negative for hypoactive bowel sounds Palpation: soft, tender and rebound tenderness present; Negative for guarding or rigid Back/Spine no CVA tenderness General Back: Negative for CVA tenderness Extremity full ROM General Extremety ED: Negative for edema or tenderness General Extremity: Negative for edema Neuro CN's II-XII intact bilaterally and moves all extremities Sensorium / Orientation: alert, oriented to person, oriented to place and oriented to time; Negative for orientation impaired, confused or lethargic Psych mental status grossly normal Appearance: Negative for unkempt Skin no wounds General Skin Exam: Negative for jaundice or pallor Lesions: no lesions Rashes: no rashes MDM MDM MDM Narrative Medical decision making narrative: 70-year-old male history of gastritis complaining of epigastric abdominal pain. Treated with morphine for pain. Zofran for nausea. And Protonix along with limited IV fluids. Undergoing evaluation with labs. Currently I do not feel he needs imaging. Repeat exam patient is doing well at 5:50 PM. He was given a second dose of morphine which is pending. His abdomen is benign. We are doing a p.o. fluid challenge if he passes out to be discharged home. He is already on medications for gastritis at home it sounds like his Carafate. He will be discharged home on Zofran. Follow-up with primary care physician. Lab Data Attestation: I reviewed the patient's lab results. Lab results narrative: CBC shows a white count of 11. Hemoglobin 13.5. Basically unremarkable. Electrolytes show normal gap of 8. Patient has chronic renal insufficiency his creatinine is 3.94 which is along his baseline. Glucose is elevated to 93 with his history of diabetes. LFTs unremarkable and alk phos elevated at 142. Lipase 62 and normal. Labs: Laboratory Results - last 24 hr 03/14/21 03/14/21 17:10 17:10 WBC 11.0 RBC 4.34 L Hgb 13.5 Hct 40.6 MCV 93.5 MCH 31.1 MCHC 33.3 RDW Std Deviation 45.3 H RDW Coeff of Janet 13.2 Plt Count 202 MPV 10.7 Immature Gran % (Auto) 0.700 Neut % (Auto) 83.4 H Lymph % (Auto) 8.6 L [place] % (Auto) 6.8 Eos % (Auto) 0.1 Baso % (Auto) 0.4 Absolute Neuts (auto) 9.2 H Absolute Lymphs (auto) 0.95 Nucleated RBC % 0 Sodium 136 Potassium 4.9 Chloride 105 Carbon Dioxide 23.0 Anion Gap 8 BUN 58 H Creatinine 3.94 H Estim Creat Clear Calc 19.72 Est GFR (MDRD) Af Amer 20 L Est GFR (MDRD) Non-Af 16 L BUN/Creatinine Ratio 14.7 Glucose 293 H Calcium 8.9 Total Bilirubin 0.90 AST 13 L ALT 17 Alkaline Phosphatase 142 H Total Protein 7.2 Albumin 3.2 Globulin 4.0 Albumin/Globulin Ratio 0.8 L Lipase 62 L Discharge Plan Triage Chief Complaint: Abd Pain ED Provider: Edmond Morton Dx/Rx/DC Orders Clinical Impression: Abdominal pain with vomiting Instructions: Abdominal Pain Prescriptions: New ondansetron HCl [Zofran] 4 mg tablet 4 mg PO Q8H PRN (Reason: nausea and vomiting) 4 Days RF: 0 No Action losartan 100 mg tablet 100 mg PO DAILY RF: 0 metoprolol tartrate 25 mg tablet 50 mg PO BID RF: 0 amlodipine 5 mg tablet 5 mg PO DAILY RF: 0 furosemide 40 mg tablet PO RF: 0 Lantus U-100 Insulin 100 UNIT/ML solution 50 unit subcut QHS RF: 0 atorvastatin 80 MG tablet 80 mg PO DAILY RF: 0 aspirin 81 MG tablet,chewable 81 mg PO DAILY RF: 0 pregabalin 50 mg capsule 50 mg PO BID RF: 0 amitriptyline 25 mg tablet 25 mg PO QHS RF: 0 pantoprazole 40 mg tablet,delayed release (DR/EC) 40 mg PO BID RF: 0 clopidogrel 75 mg tablet 75 mg PO DAILY Qty: 30 RF: 11 Primary Care Provider: Tamanna Moreno Referrals: Tamanna Moreno MD [Primary Care Provider] - 3-5 Days Activity Restrictions/Additional Instructions: Plenty of fluids and rest. Increase diet slowly as tolerated. Zofran as needed for nausea which you may swallow the medication or let it dissolve in your time. Return if feeling worse. Follow-up with your doctor. Disposition Disposition: Home, Self Care
[2021-03-14] MEDS: morphine 8 MG/ML Syringe 6 MG IV (17:18)
[2021-03-14] MEDS: 0.9% Normal Saline 1,000 ML 125 ML IV (17:18)
[2021-03-14] MEDS: Ondansetron 4 MG/2 ML Vial IV (17:18)
[2021-03-14 17:20] LABS: Absolute Lymphocyte Count 0.95 X10^3/uL (0.83-4.51); Absolute Neutrophil Count 9.2 X10^3/uL (2.0-7.7); Basophil# 0.04 X10^3/uL; Basophil% 0.4 % (0-1); Eosinophil# 0.01 X10^3/uL; Eosinophils% 0.1 % (0-5); Hematocrit 40.6 % (40-54); Hemoglobin 13.5 g/dL (13.0-16.5); Lymphocyte # 0.95 X10^3/ul (0.83-4.51); Lymphocyte % 8.6 % (19-41); Mean Corp Hgb Conc 33.3 g/dL (32-36); Mean Corpuscular Hgb 31.1 pg (27.0-32.0); Mean Corpuscular Volume 93.5 fL (80-94); Mean Platelet Vol. 10.7 fl (6.2-12.0); Monocyte# 0.75 X10^3/uL; Monocyte% 6.8 % (0-10); NRBC Flagged by Analyzer 0 % (0-5); Neutrophil # 9.16 X10^3/uL (2.7-7.7); Neutrophil % 83.4 % (47-70); Platelet Count 202 K/mm3 (150-450); RBC Distribution Width CV 13.2 % (11.6-14.6); RBC Distribution Width SD 45.3 fl (35.1-43.9); Red Blood Count 4.34 M/mm3 (4.6-6.2)
[2021-03-14 17:42] LABS: ALB/GLOB Ratio 0.8 RATIO (0.9-2.4); AST(SGOT) 13 U/L (15-37); Alanine Aminotransfer ALT/SGPT 17 U/L (16-61); Albumin, Serum 3.2 g/dL (3.2-5.0); Alkaline Phosphatase 142 U/L (45-117); Anion Gap 8 (5-15); BUN 58 mg/dL (7-18); BUN/Creat Ratio 14.7 RATIO (10-20); Calcium,Total 8.9 mg/dL (8.5-10.1); Chloride 105 mmol/L (98-107); Creatinine, Serum 3.94 mg/dL (0.70-1.30); EST Glomerular Filtration Rate 16 mL/min (>60); Est Glom Filt Rate - Afr Amer 20 mL/min (>60); Estimated Creatinine Clearance 19.72 ml/min; Glucose 293 mg/dL (74-106); Lipase 62 U/L (73-393); Potassium 4.9 mmol/L (3.5-5.1); Protein, Total 7.2 g/dL (6.4-8.2); Sodium Level 136 mmol/L (136-145)
[2021-03-14] MEDS: Morphine 4 MG/ML Syringe IV (18:01)
[2021-03-14 18:41] VITALS: BP 166/99; PULSE 94; RESP 14; O2SAT 95
== END 2021-03-14 19:13 | disposition home or self-care (01) ==
PROVIDERS: Emergency Provider Emergency Medicine; PCP Internal Medicine Infectious Disease
DX: R10.13 Epigastric pain (principal); R11.10 Vomiting, unspecified; F17.210 Nicotine dependence, cigarettes, uncomplicated; I25.2 Old myocardial infarction; I25.10 Atherosclerotic heart disease of native coronary artery without angina pectoris; Z90.49 Acquired absence of other specified parts of digestive tract; Z95.5 Presence of coronary angioplasty implant and graft; Z87.19 Personal history of other diseases of the digestive system; Z79.02 Long term (current) use of antithrombotics/antiplatelets
CPT/HCPCS: 80053; 83690; 85025; 96365; 96375; 96376; 99283; J7030; J2405; J3490

== ENCOUNTER 2021-04-11 14:32 | Emergency (ER) | payer MEDICARE, MEDICAID, SELFPAY ==
[2021-04-11 14:32] VITALS: BP 142/88; PULSE 89; RESP 16; TEMP 36.3; O2SAT 100; BMI 25.7
== END 2021-04-11 15:57 | disposition left against medical advice (07) ==
LOC: ED 15:57
PROVIDERS: PCP Internal Medicine Infectious Disease
DX: Z53.21 Procedure and treatment not carried out due to patient leaving prior to being seen by health care provider (principal)

== ENCOUNTER → 2021-05-03 11:36 | Outpatient (CLI) | payer MEDICARE, MEDICAID, SELFPAY ==
--- NOTE | 2021-05-03 10:40 | NM_ITS ---
CLINICAL: 71-year-old male with reported history of abdominal pain and nausea. SEMI-SOLID PHASE 99m Tc SULFUR COLLOID GASTRIC EMPTYING STUDY COMPARISON: None available FINDINGS: The patient was administered 1.0 mCi of 99m Tc sulfur colloid mixed with oatmeal and consumed per os. Image acquisitions in the anterior-posterior projections for a total of 60 minutes. There is prompt visualization of the stomach. There is no gastroesophageal reflux identified. First order kinetics are maintained throughout the duration of the acquisitions. The T ? linear fit was calculated to be 62.53 minutes, (Normal: 12-56 minutes). NM/Gastric Emptying Study IMPRESSION: 1. ABNORMAL 99m Tc sulfur colloid semi-solid phase (oatmeal) gastric emptying imaging examination. A. There is mild delayed semi-solid phase gastric emptying compared to normal controls with maintained first order kinetics throughout all components of the examination. (Ashish et al, J Nucl Med Tech 38: 186, 2010). Electronically Signed: Swapnil Yañez DO at 21:52 EDT Tel , Service support ,
== END ==
PROVIDERS: PCP Internal Medicine Infectious Disease; Referring Provider Internal Medicine Gastroenterology; Visit Provider Internal Medicine Gastroenterology
DX: R11.10 Vomiting, unspecified (principal)
CPT/HCPCS: 78264; A9541

== ENCOUNTER → 2021-05-07 14:12 | Outpatient (CLI) | payer MEDICARE, MEDICAID, SELFPAY ==
--- NOTE | 2021-05-07 14:13 | CT_ITS ---
STUDY: CT ABDOMEN AND PELVIS WITH CONTRAST REASON FOR EXAM: Male, 71 years old. ABD pain with vomiting RADIATION DOSAGE (If Supplied By Facility): CTDIvol = ( 19.34 ) mGy, DLP = ( 1186.52 ) mGycm TECHNIQUE: Transaxial images were obtained from the dome of the diaphragm to the symphysis pubis with oral contrast. Oral and amp; IV Readi-CAT and amp; 100mL Isovue-370 was administered. Sagittal and coronal images were reconstructed. Individualized dose optimization techniques were used for this CT. COMPARISON: 08/03/2012 FINDINGS: The visualized lung bases are unremarkable. The visualized portions of the heart are within normal limits. Normal liver. There is non-visualization of the gallbladder, which may be secondary to either contraction or a prior cholecystectomy. Normal spleen. Normal pancreas. Normal bilateral adrenal glands. Normal right kidney. Normal left kidney. Normal visualized stomach. Normal small intestine. Normal colon. There is non-visualization of the appendix. There is diffuse atherosclerotic calcification of the abdominal aorta, without a demonstrated aneurysm. Normal inferior vena cava. Normal retroperitoneum. Normal urinary bladder. Normal abdominal wall. Mild dextroscoliosis of the thoracic lumbar spine with degenerative disc disease. CT/Abdomen/Pelvis WITH Contrast IMPRESSION: Normal enhanced CT of the abdomen and pelvis. Electronically Signed: Swapnil Castillo MD at 8:49 EDT Tel , Service support ,
[2021-05-07 14:32] VITALS: BP 127/74; PULSE 59; RESP 16; TEMP 36.2; O2SAT 93; BMI 27.8
[2021-05-09 07:40] LABS: CREATININE FINGERSTICK 4.4 mg/dL (0.70-1.30)
== END ==
PROVIDERS: PCP Internal Medicine Infectious Disease; Referring Provider Internal Medicine Gastroenterology; Visit Provider Internal Medicine Gastroenterology
DX: R10.9 Unspecified abdominal pain (principal)
CPT/HCPCS: 74177; J7040; Q9967

== ENCOUNTER 2021-05-08 11:51 | Day surgery (SDC) | payer MEDICARE, MEDICAID, SELFPAY ==
--- NOTE | 2021-05-08 | IMM_PTH ---
PATIENT: QUE DEJESUS LOC: EN U#:[id number] AGE/SX: 71/M ROOM: RE05/08/[address]: Dr. Raul Jacome DO : 1950 BED: DIS: 05/08/2021 SPEC #: [id number] RECD: 05/11/21 13:43 STATUS: KRISTY REQ #: [id number] MARISOL: 05/08/21 00:[address]: Raul Jacome DEPT: IMMUNOHISTOCHEMISTRY RECD BY: Lizz Pitt ENTERED: 05/11/21 13:44 SP TYPE: IMMUNO OTHR DR: Dr. Tamanna Moreno MD Tissues: Esophagus, NOS Procedures: P53 (initial) KI-67 (add) PHYSICIAN & INSTITUTION [place] [address] SPECIMEN INFORMATION: Tissue Source: Distal esophagus Clinical Info: Abdominal pain with vomiting, constipation Specimen Number: [id number] CPT code: 97171, 09630 METHODOLOGY: Deparaffinized sections of prefer/formalin-fixed tissue or PAP/DQ stained slides are incubated with monoclonal/polyclonal antibodies/oligonucleotide probes. Localization is made via biotin free immunoperoxidase method. Appropriate controls are performed and reacted as expected. Results on target cell population are indicated in the following table: RESULTS: ANTIBODY / CLONE RESULT P53 (DO-7) negative Ki-67 (30-9) positive, low These tests were developed and their performance characteristics determined by [facility]. They may not have been cleared or approved by the U.S. Food and Drug Administration. The FDA has determined that such clearance or approval is not necessary. The above immunohistochemical/dualISH markers are ordered and reviewed by the Pathologist. INTERPRETATION: Distal esophagus, biopsy: Goblet cell metaplasia. No evidence of dysplasia. AM:estefany 05/14/2021
[2021-05-08] MEDS: Lactated Ringers 1,000 ML 100 ML IV (12:05)
[2021-05-08 12:19] VITALS: BP 145/92; PULSE 61; RESP 16; TEMP 36.2; O2SAT 98; BMI 28.2
[2021-05-08 12:31] LABS: Bedside Glucose 65 mg/dL (70-110)
--- NOTE | 2021-05-08 13:15 | EGD_PTH ---
PATIENT: QUE DEJESUS LOC: EN U#:[id number] AGE/SX: 71/M ROOM: RE05/08/[address]: Dr. Raul Jacome DO : 1950 BED: DIS: 05/08/2021 SPEC #: [id number] RECD: 05/08/21 16:02 STATUS: KRISTY XENIA #: [id number] MARISOL: 05/08/21 13:[address]: Raul Jacome DEPT: SURGICAL PATHOLOGY RECD BY: Tracey Cody ENTERED: 05/09/21 10:29 SP TYPE: EGD BIOPSY OT DR: Dr. Tamanna Moreno MD Tissues: Esophagus, NOS Procedures: Special Stain Group II Surgery Specimen Level IV Alcian Blue/PAS (control) HEADER OPERATION: EGD ([facility] [place]) PRE-OP DIAGNOSIS: Abdominal pain with vomiting, constipation TISSUE SUBMITTED: Distal esophagus MICROSCOPIC DIAGNOSIS Distal esophagus, biopsy: Gastroesophageal junctional mucosa with mild chronic inflammation. 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 No evidence of dysplasia. See comment. AM:estefany 05/10/2021 COMMENT Alcian blue/PAS stain with matched control supports the above diagnosis. Immunohistochemistry ([id number]) for P53 and Ki-67 will be performed and results will be reported separately. MICROSCOPIC DESCRIPTION Slides are reviewed. GROSS DESCRIPTION Received in fixative is one container labeled with the patient's name and designated distal esophagus. The specimen consists of two irregular fragments of light san soft tissue that in aggregate measure 0.6 x 0.3 x 0.1 cm. The specimen is totally submitted in one cassette. / ABRAM:estefany 05/09/21 TC:3 CPT: 59868, 79568
--- NOTE | 2021-05-08 14:03 | PCM.HP.BLA ---
History and Physical Date of Admission: 05/08/21 [facility] [id number] [place] [address] OFFICE VISITDate of Service: 04/26/21 MR#:[id number]:[id number]: QUE DEJESUS [facility] #:[id number]:1950 Provider:Raul Friend, DOAge/Sex: 71/M [place] [place] Intake Vital Signs 04/26/21 09:30 Height 6 ft 1 in Weight: 204 lb 4 oz BMI 26.9 Intake Visit Reasons: stomach pain/ reflux w/ vomitting Chief Complaint: check fistula 8wks post Allergies No Known Allergies Allergy (Verified 04/26/21 09:10) Medications losartan 100 mg tablet 100 mg PO DAILY 12/01/17 [History Confirmed 04/26/21] Lantus U-100 Insulin 50 unit SUBCUT QHS 12/23/17 [History Confirmed 04/11/21] aspirin 81 mg PO DAILY 12/23/17 [History Confirmed 04/26/21] atorvastatin 80 mg PO DAILY 12/23/17 [History Confirmed 04/26/21] clopidogrel 75 mg tablet 75 mg PO DAILY #30 tab 03/13/20 [Rx Confirmed 04/26/21] amlodipine 5 mg tablet 5 mg PO DAILY 08/09/20 [History Confirmed 04/26/21] metoprolol tartrate 25 mg tablet 50 mg PO BID tab 08/09/20 [History Confirmed 04/26/21] pregabalin 50 mg capsule 50 mg PO BID cap 08/09/20 [History Confirmed 04/26/21] amitriptyline 25 mg PO QHS 01/25/21 [History Confirmed 04/26/21] pantoprazole 40 mg PO BID 01/25/21 [History Confirmed 04/26/21] furosemide 40 mg tablet tablet PO 03/06/21 [History Confirmed 04/26/21] ondansetron HCl [Zofran] 4 mg PO Q8H PRN 4 Days tab 03/14/21 [Rx Confirmed 04/26/21] sucralfate 1 gram tablet 1 g PO .qid tab 04/26/21 [History Confirmed 04/26/21] PFSH Medical History (Updated 04/26/21 @ 10:[address] Carter Friend, DO) Ambulates with cane Arthritis Atherosclerotic heart disease of [place] coronary artery without angina pectoris Cardiology follow-up encounter Constipation COPD (chronic obstructive pulmonary disease) Depression Diabetes mellitus Dietary restriction Dizziness and giddiness Easy bruising Essential hypertension Falls frequently Gastric reflux GERD (gastroesophageal reflux disease) High cholesterol History of echocardiogram History of edema History of GI bleed History of heart attack History of pain when walking History of ST elevation myocardial infarction (STEMI) (01/11/13) History of stress test HLD (hyperlipidemia) Hypertension Injury of back Injury of head and neck Insulin dependent diabetes mellitus Migraine headache Neuropathy Nicotine dependence 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) On home oxygen therapy Orthostatic hypotension Pain in limb Shortness of breath on exertion Smoker Stomach ulcer Wears dentures Wears glasses Surgical History History of back surgery History of coronary artery stent placement History of laparoscopic cholecystectomy History of left heart catheterization (06/03/14) Hx of arteriovenostomy for renal dialysis (02/01/21) Hx of colonoscopy Family History Father CAD (coronary artery disease) CABG Diabetes Brother Heart disease Myocardial infarction Sister Diabetes Social History Smoking Status: Current every day smoker tobacco type: cigarettes alcohol intake: never substance use type: does not use HPI HPI Chief Complaint: check fistula 8wks post Details: QUE DEJESUS, is a 71 M who presents to the office today for evaluation of nausea and vomiting. He has a past medical history of CAD status post PTCA with stents, chronic kidney disease stage V status post AV fistula placement for hemodialysis. For the past year he has been developing worsening nausea vomiting and new onset constipation. He did have an upper GI bleed that was thought to be secondary to severe gastritis. He underwent an upper endoscopy and it showed bleeding in the gastric body and antrum secondary to gastritis. He also underwent colonoscopy and had 4 polyps removed. He comes in today because his symptoms of nausea vomiting have been getting worse and been refractory to PPI therapy, H2 receptor maggie therapy and Carafate. He has also been losing weight. He complains of fatigue and weakness. He also complains of foul-smelling breath. Symptoms include fatigue, abdominal pain located mid epigastric and upper mid chest, bloating, change in bowel habits to new onset constipation with a bowel movement once every week to two weeks, heartburn, nausea with emesis. He was hospitalized in [facility] in July and August and has visited ED several times since. During hospitalization he has had blood pumped out of his stomach. He has been told that he has severe acid reflux and that this is eating away at the lining of his stomach. PCP started carafate which has been unhelpful. Also taking pantoprazole which has also been unhelpful. Diet changes include avoidance of spicy and acidic food. Peptobismol attempted and makes him ill. EGD and Clonoscopy both performed August 2020. ROS Const Constitutional: Positive for fatigue, frequent falls, headache(s), weakness and weight change (loss) Eyes Eyes: Positive for blurry vision and vision loss ENT ENT: Positive for hearing loss and headache(s) Resp Respiratory: Positive for cough and shortness of breath Cardio Cardiology: Positive for dyspnea on exertion Gastro GI: Positive for abdominal pain, bloating, change in bowel habits, constipation, heartburn, nausea/dyspepsia and vomiting Musc Musculoskeletal: Positive for abnormal gait, back pain, muscle weakness, numbness, stiffness and tingling Neuro Neurology: Positive for abnormal gait, weakness, frequent falls, headache(s), numbness and tingling Endo Endocrine: Positive for fatigue and increased thirst/drinking Aleksandr/Lymp Hematologic/Lymphatic: Positive for easy bruising Exam Const General: cooperative and comfortable Nutritional Appearance: average body habitus and well nourished [facility] Head: normal to inspection Ears: hearing grossly normal bilaterally Nose: external nose normal Face and sinus: normal facial exam Mouth: oral mucosae normal Throat: posterior oropharynx normal Eyes General: appearance normal, both eyes and all related structures Neck Neck: normal visual inspection Chest Chest palpation & inspection: normal inspection of the chest and normal palpation of entire chest wall Resp Effort & Inspection: normal respiratory effort Auscultation: Bilateral: Clear to Auscultation Cardio Palpation: normal PMI Rate: regular rate Rhythm: regular rhythm GI Inspection: normal to inspection Auscultation: normal bowel sounds Percussion: normal to percussion Palpation: no hepatosplenomegaly Skin General: no rashes or lesions noted Neuro General: patient alert Extrem General: normal to inspection Psych Affect: normal affect Quality Reporting Tobacco Screening ([facility] 138) Smoking Status: Current every day smoker Assessment and Plan Assessment and Plan (1) Abdominal pain with vomiting: Status: Acute Plan - Dr. Carter Friend, DO: Abdominal pain with nausea vomiting in a patient who is end-stage renal disease. Diffuse diagnosis does include hyperuricemia, gastroparesis, gastritis, peptic ulcer disease, medication side effect, and idiopathic. Recommendations are upper endoscopy for evaluation of his upper GI tract and gastric emptying study. I would not empirically start him on any medicines at this time. We will get him scheduled LAZARO. (2) Constipation: Status: Acute Plan - Dr. Carter Friend, DO: His severe constipation can also be secondary to end-stage renal disease and contributing to his nausea and vomiting due to incomplete evacuation of the colon. We will need to get imaging of the abdomen pelvis to see if there is any structural changes in the colon that will cause his symptoms. For now we will just continue stool softeners as needed until we perform upper endoscopy. As most of the other agents will harm the kidneys.
[2021-05-08 14:30] VITALS: BP 121/70; BP 145/92; PULSE 55; RESP 16; TEMP 35.8; O2SAT 96
--- NOTE | 2021-05-08 14:32 | OP.EGD_ITS ---
Patient Name: Faye Mao Procedure Date: 05/08/2021 2:04 PM Date of : 1950 Age: 71 Procedure: Upper GI endoscopy Indications: Epigastric abdominal pain Providers: Raul Jacome DO Medicines: Propofol per Anesthesia Patient Profile: This is a 71 year old male. Refer to note in patient chart for documentation of history and physical. Patient has symptoms of acute nausea. Patient has symptoms. Complications: No immediate complications. Procedure: Pre-Anesthesia Assessment: - Prior to the procedure, a History and Physical was performed, and patient medications and allergies were reviewed. The patient is competent. The risks and benefits of the procedure and the sedation options and risks were discussed with the patient. All questions were answered and informed consent was obtained. Patient identification and proposed procedure were verified by the physician in the pre-procedure area. Mental Status Examination: alert and oriented. Airway Examination: normal oropharyngeal airway and neck mobility. Respiratory Examination: clear to auscultation. CV Examination: normal. Prophylactic Antibiotics: The patient does not require prophylactic antibiotics. Prior Anticoagulants: The patient has taken no previous anticoagulant or antiplatelet agents. ASA Grade Assessment: II - A patient with mild systemic disease. After reviewing the risks and benefits, the patient was deemed in satisfactory condition to undergo the procedure. The anesthesia plan was to use moderate sedation / analgesia (conscious sedation). Immediately prior to administration of medications, the patient was re-assessed for adequacy to receive sedatives. The heart rate, respiratory rate, oxygen saturations, blood pressure, adequacy of pulmonary ventilation, and response to care were monitored throughout the procedure. The physical status of the patient was re-assessed after the procedure. After obtaining informed consent, the endoscope was passed under direct vision. Throughout the procedure, the patient's blood pressure, pulse, and oxygen saturations were monitored continuously. The gastroscope was introduced through the mouth, and advanced to the second part of duodenum. The upper GI endoscopy was accomplished without difficulty. The patient tolerated the procedure well. Moderate Sedation: Moderate (conscious) sedation was administered by the endoscopy nurse and supervised by the endoscopist. The patient's oxygen saturation, heart rate, blood pressure and response to care were monitored. Total physician intraservice time was 15 minutes. Scope In: 2:16:39 PM Scope Out: 2:22:30 PM Total Procedure Duration Time 0 hours 5 minutes 51 seconds Findings: LA Grade A (one or more mucosal breaks less than 5 mm, not extending between tops of 2 mucosal folds) esophagitis with no bleeding was found 34 to 35 cm from the incisors. Biopsies were taken with a cold forceps for histology. Verification of patient identification for the specimen was done. Estimated blood loss was minimal. Impression: - LA Grade A reflux esophagitis. Rule out Schaeffer's esophagus. Biopsied. - Normal anastomosis. - Normal second portion of the duodenum. Recommendation: - Patient has a contact number available for emergencies. The signs and symptoms of potential delayed complications were discussed with the patient. Return to normal activities tomorrow. Written discharge instructions were provided to the patient. - Resume previous diet. - Continue present medications. - Await pathology results. - Repeat upper endoscopy in 1 year for surveillance. - Return to GI clinic in 2 weeks. Procedure Code(s): --- Professional --- 46488, Esophagogastroduodenoscopy, flexible, transoral; with biopsy, single or multiple G0500, Moderate sedation services provided by the same physician or other qualified health director of primary care performing a gastrointestinal endoscopic service that sedation supports, requiring the presence of an independent trained observer to assist in the monitoring of the patient's level of consciousness and physiological status; initial 15 minutes of intra-service time; patient age 5 years or older (additional time may be reported with 35389, as appropriate) Diagnosis Code(s): --- Professional --- K21.0, Gastro-esophageal reflux disease with esophagitis R10.13, Epigastric pain CPT copyright 2017 [employer]. All rights reserved. The codes documented in this report are preliminary and upon drafter construction review may be revised to meet current compliance requirements. Raul Jacome DO 05/08/2021 2:32:06 PM This report has been signed electronically. Number of Addenda: 1 Note Initiated On: 05/08/2021 2:04 PM Addendum Number: 1 Addendum Date: 03/14/2022 4:49:52 PM MAC was used instead of moderate sedation for this patient. Raul Jacome DO 03/14/2022 4:49:57 PM This report has been signed electronically.
--- NOTE | 2021-05-08 14:33 | OP.CCLET_ITS ---
03/14/2022 [address] [place] [address] Re : Upper GI endoscopy procedure for Faye Mao Dear Dr. Moreno This procedure was performed on Saturday, May 08, 2021. My impressions and recommendations are as follows: Impressions : - LA Grade A reflux esophagitis. Rule out Schaeffer's esophagus. Biopsied. - Normal anastomosis. - Normal second portion of the duodenum. Recommendations : - Patient has a contact number available for emergencies. The signs and symptoms of potential delayed complications were discussed with the patient. Return to normal activities tomorrow. Written discharge instructions were provided to the patient. - Resume previous diet. - Continue present medications. - Await pathology results. - Repeat upper endoscopy in 1 year for surveillance. - Return to GI clinic in 2 weeks. My findings are described in the full procedure note, which is enclosed. If I can be of further assistance, please feel free to contact me at . Sincerely, Raul Jacome, 05/08/2021 2:32:06 PM This report has been signed electronically.
[2021-05-08 14:35] VITALS: BP 126/71; BP 145/92; PULSE 55; RESP 16; O2SAT 95
[2021-05-08 14:40] VITALS: BP 131/74; BP 145/92; PULSE 55; RESP 16; O2SAT 95
[2021-05-08 14:45] VITALS: BP 132/80; BP 145/92; PULSE 55; RESP 16; O2SAT 95
[2021-05-08 14:50] VITALS: BP 138/89; BP 145/92; PULSE 55; RESP 16; TEMP 36.1; O2SAT 95
[2021-05-08 15:16] LABS: Bedside Glucose 52 mg/dL (70-110)
== END 2021-05-08 16:18 ==
LOC: EN 11:52 → AC 11:53
PROVIDERS: PCP Internal Medicine Infectious Disease; Referring Provider Internal Medicine Infectious Disease; Visit Provider Internal Medicine Gastroenterology
PROC: 0DJ08ZZ Inspection of Upper Intestinal Tract, Via Natural or Artificial Opening Endoscopic (ICD-10-PCS; CPT 43235; principal; 2021-05-08 13:10)
DX: K21.00 Gastro-esophageal reflux disease with esophagitis, without bleeding (principal); K22.70 Barrett's esophagus without dysplasia; I25.10 Atherosclerotic heart disease of native coronary artery without angina pectoris; E10.22 Type 1 diabetes mellitus with diabetic chronic kidney disease; I12.0 Hypertensive chronic kidney disease with stage 5 chronic kidney disease or end stage renal disease; N18.6 End stage renal disease; E78.00 Pure hypercholesterolemia, unspecified; F17.210 Nicotine dependence, cigarettes, uncomplicated; I25.2 Old myocardial infarction; R63.4 Abnormal weight loss; Z79.4 Long term (current) use of insulin; Z99.2 Dependence on renal dialysis; Z95.5 Presence of coronary angioplasty implant and graft; Z79.82 Long term (current) use of aspirin; Z79.899 Other long term (current) drug therapy; Z68.28 Body mass index [BMI] 28.0-28.9, adult
CPT/HCPCS: 43239; 82962; 88305; 88313; 88341; 88342; J7120; J2405

== ENCOUNTER 2021-05-31 22:40 | Emergency (ER) | payer MEDICARE, MEDICAID, SELFPAY ==
[2021-05-31 22:41] VITALS: BP 144/90; PULSE 99; RESP 18; TEMP 36.8; O2SAT 100; BMI 26.7
--- NOTE | 2021-05-31 22:55 | EDS_ITS ---
HPI History of Present Illness Chief Complaint: Nausea/Vomiting Informant: patient and family Narrative Narrative: 71-year-old male presents the emergency room for evaluation of vomiting. He has been in the company of his son. The son tells me that he has been throwing up for 3 days. They tell me they were down at outside hospital where they gave him a liter of fluids and Zofran and that is all they did for him so they left. Actually they did blood work and a CT scan as well. Son states that they were not very happy that there was no room in the emergency room and was not pleased with the way things were going so they signed out AMA and drove here. He tell me that he takes lactulose for his gastritis. His sock and stocking ironer is Dr. Jacome. I reviewed Dr. Jacome's last note. Patient has a history of gastroparesis end- stage renal disease Schaeffer's esophagitis. He recently had a CT scan that was negative and a gastric emptying study that was delayed. He was given a course of Reglan and he was being treated for his constipation with lactulose. He is on PPI therapy. Patient states he has some abdominal tenderness due to throwing up. States he does not feel bloated. No reported fevers. [facility] Medical History Ambulates with cane Arthritis Atherosclerotic heart disease of [place] coronary artery without angina pectoris Barretts esophagus Cardiology follow-up encounter Constipation COPD (chronic obstructive pulmonary disease) Depression Diabetes mellitus Dietary restriction Dizziness and giddiness Easy bruising Essential hypertension Falls frequently Gastric reflux Gastritis Gastroparesis GERD (gastroesophageal reflux disease) High cholesterol History of echocardiogram History of edema History of GI bleed History of pain when walking History of ST elevation myocardial infarction (STEMI) (01/11/13) History of stress test HLD (hyperlipidemia) Injury of back Injury of head and neck Insulin dependent diabetes mellitus Migraine headache Nausea Neuropathy Nicotine dependence 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) On home oxygen therapy Orthostatic hypotension Pain in limb Problem with dialysis access Shortness of breath on exertion Smoker Stomach ulcer Wears dentures Wears glasses Home Medications losartan 100 mg tablet 100 mg PO DAILY 12/01/17 [History Last Taken 12/23/17] Lantus U-100 Insulin 70 unit SUBCUT QHS 06/12/18 [History Last Taken 12/22/17] aspirin 81 mg PO DAILY 12/23/17 [History Last Taken 05/04/21] atorvastatin 80 mg PO DAILY 12/23/17 [History Last Taken 12/23/17] clopidogrel 75 mg tablet 75 mg PO DAILY #30 tab 03/13/20 [Rx Last Taken 05/04/21] amlodipine 5 mg tablet 5 mg PO DAILY 08/09/20 [History Last Taken Unknown] metoprolol tartrate 25 mg tablet 50 mg PO BID tab 08/09/20 [History Last Taken Unknown] pregabalin 50 mg capsule 50 mg PO BID cap 08/09/20 [History Last Taken Unknown] amitriptyline 25 mg PO QHS 01/25/21 [History Last Taken Unknown] pantoprazole 40 mg PO BID 01/25/21 [History Last Taken Unknown] furosemide 40 mg tablet 60 mg PO DAILY 03/06/21 [History Last Taken Unknown] ondansetron HCl [Zofran] 4 mg PO Q8H PRN 4 Days tab 03/14/21 [Rx Last Taken Unknown] sucralfate 1 gram tablet 1 g PO .qid tab 04/26/21 [History Last Taken Unknown] lactulose 10 gram/15 mL oral solution 20 g PO TID #473 ml 05/22/21 [Rx Last Taken Unknown] metoclopramide HCl 10 mg tablet 10 mg PO Q6H PRN 30 Days #120 tab 05/22/21 [Rx Last Taken Unknown] metoclopramide HCl [Reglan] 10 mg PO Q6H PRN #20 tab 05/31/21 [Rx Last Taken Unknown] ondansetron 4 mg PO Q6H PRN PRN #15 tab 05/31/21 [Rx Last Taken Unknown] Allergy/AdvReac Type Severity Reaction Status Date / Time No Known Allergies Allergy Verified 05/31/21 22:43 Family History Father CAD (coronary artery disease) CABG Diabetes Brother Heart disease Myocardial infarction Sister Diabetes Surgical History History of back surgery History of coronary artery stent placement History of laparoscopic cholecystectomy History of left heart catheterization (06/03/14) Hx of arteriovenostomy for renal dialysis (02/01/21) Hx of colonoscopy Hx of surgical procedure Social History Smoking Status: Current every day smoker tobacco type: cigarettes alcohol intake: never substance use type: does not use ROS ROS ED Constitutional Constitutional ED: Denies chills or weight loss Eyes Eyes: Denies change in vision or diplopia ENT ENT ED: Denies ear pain, rhinorrhea or sore throat Cardiovascular Cardiovascular: Denies chest pain, orthopnea, palpitations or racing heartbeat Respiratory/Chest Respiratory/Chest: Denies cough, dyspnea or orthopnea Gastrointestinal Gastrointestinal: Reports nausea and vomiting; Denies abdominal pain or diarrhea Genitourinary Genitourinary ED: Denies dysuria, hematuria or urinary frequency Musculoskeletal Musculoskeletal: Denies arthralgias or myalgias Integumentary Denies abscess or rash Neurologic Neurologic: Denies headache(s) or weakness Psychiatric Psychiatric: Denies anxiety, depression, suicidal ideation or suicidal thoughts Endocrine Endocrinology: Denies polydipsia, polyphagia or polyuria Allergic/Immunologic Allergic/Immunologic ED: Denies mouth swelling, tongue swelling or urticaria EXAM Physical Exam Const Vital Signs: 05/31/21 22:41 Temperature 98.2 F Temperature Source Temporal Pulse Rate 99 Respiratory Rate 18 Blood Pressure 144/90 H Blood Pressure Mean 108 Pulse Ox 100 Oxygen Delivery Method Room Air Positive well nourished and well developed General Appearance ED: well developed HEENT Reports normocephalic, head/scalp atraumatic, TM's clear and moist mucous membranes Negative for trauma Tympanic Membrane ED: Yes TM's clear Eyes PERRL and EOMs intact bilaterally Neck no lymphadenopathy, supple and no JVD Resp normal respiratory effort and clear to auscultation bilaterally Cardio regular rate, regular rhythm and no murmurs GI non-distended Auscultation: normoactive bowel sounds Palpation: soft and tender epigastric; Negative for guarding or rebound tenderness present Back/Spine no CVA tenderness and normal ROM Extremity normal to inspection General Extremety ED: Negative for edema General Extremity: Negative for edema Neuro oriented x3 and CN's II-XII intact bilaterally Sensorium / Orientation: alert Motor Exam: strength 5/5 throughout Psych mental status grossly normal Mood & Affect: Negative for depressed or tearful Skin no rashes or lesions noted and no wounds MDM MDM MDM Narrative Medical decision making narrative: Patient received a liter of IV fluids and Reglan. White count slightly elevated 13.3. Hemoglobin 13.7 platelet count 217. CMP showed a BUN of 52 with a creatinine of 3.92. This appears steady with his prior recent labs. His CO2 is 25 normal sodium and potassium. This is interesting given 3 days of no food or drink. Patient was given a Sprite. He is feeling better. I will write him for prescription for Zofran and Reglan. Lab Data Attestation: I reviewed the patient's lab results. Labs: Laboratory Results - last 24 hr 05/31/21 05/31/21 23:06 23:06 WBC 13.3 H RBC 4.30 L Hgb 13.7 Hct 40.2 MCV 93.5 MCH 31.9 MCHC 34.1 RDW Std Deviation 45.5 H RDW Coeff of Janet 13.3 Plt Count 217 MPV 10.4 Immature Gran % (Auto) 1.200 H Neut % (Auto) 82.7 H Lymph % (Auto) 9.6 L [place] % (Auto) 5.7 Eos % (Auto) 0.3 Baso % (Auto) 0.5 Absolute Neuts (auto) 11.0 H Absolute Lymphs (auto) 1.28 Nucleated RBC % 0 Sodium 138 Potassium 4.7 Chloride 108 H Carbon Dioxide 25.0 Anion Gap 5 BUN 52 H Creatinine 3.92 H Estim Creat Clear Calc 18.97 Est GFR (MDRD) Af Amer 20 L Est GFR (MDRD) Non-Af 16 L BUN/Creatinine Ratio 13.3 Glucose 226 H Calcium 9.1 Total Bilirubin 0.40 AST 10 L ALT 13 L Alkaline Phosphatase 126 H Total Protein 7.2 Albumin 3.0 L Globulin 4.2 Albumin/Globulin Ratio 0.7 L Lipase 55 L Discharge Plan Triage Chief Complaint: Nausea/Vomiting ED Provider: Donn Galdamez Dx/Rx/DC Orders Clinical Impression: Gastroparesis, Vomiting Instructions: Gastroparesis, Nausea Vomit Control Prescriptions: New ondansetron [ondansetron] 4 MG tablet 4 mg PO Q6H PRN PRN (Reason: Nausea) Qty: 15 RF: 0 metoclopramide HCl [Reglan] 10 mg tablet 10 mg PO Q6H PRN (Reason: nausea and vomiting) Qty: 20 RF: 0 No Action losartan 100 mg tablet 100 mg PO DAILY RF: 0 metoprolol tartrate 25 mg tablet 50 mg PO BID RF: 0 amlodipine 5 mg tablet 5 mg PO DAILY RF: 0 furosemide 40 mg tablet 60 mg PO DAILY RF: 0 sucralfate [Carafate] 1 gram tablet 1 g PO .qid RF: 0 metoclopramide HCl 10 mg tablet 10 mg PO Q6H PRN (Reason: nausea and vomiting) 30 Days Qty: 120 RF: 0 lactulose 10 gram/15 mL solution 20 g PO TID Qty: 473 RF: 0 Lantus U-100 Insulin 100 UNIT/ML solution 70 unit subcut QHS RF: 0 atorvastatin 80 MG tablet 80 mg PO DAILY RF: 0 aspirin 81 MG tablet,chewable 81 mg PO DAILY RF: 0 pregabalin 50 mg capsule 50 mg PO BID RF: 0 amitriptyline 25 mg tablet 25 mg PO QHS RF: 0 pantoprazole 40 mg tablet,delayed release (DR/EC) 40 mg PO BID RF: 0 ondansetron HCl [Zofran] 4 mg tablet 4 mg PO Q8H PRN (Reason: nausea and vomiting) 4 Days RF: 0 clopidogrel 75 mg tablet 75 mg PO DAILY Qty: 30 RF: 11 Primary Care Provider: Tamanna Moreno Referrals: Friend,DO Raul [STAFF PHYSICIAN] - Keep Carol appointment Tamanna Moreno MD [Primary Care Provider] - Disposition Disposition: Home, Self Care
[2021-05-31] MEDS: 0.9% Normal Saline 1,000 ML 1000 ML IV (23:10)
[2021-05-31] MEDS: Metoclopramide 10 MG/2 ML Vial 5 MG IV (23:10)
[2021-05-31 23:14] LABS: Absolute Lymphocyte Count 1.28 X10^3/uL (0.83-4.51); Basophil# 0.06 X10^3/uL; Basophil% 0.5 % (0-1); Eosinophil# 0.04 X10^3/uL; Eosinophils% 0.3 % (0-5); Hematocrit 40.2 % (40-54); Hemoglobin 13.7 g/dL (13.0-16.5); Lymphocyte # 1.28 X10^3/ul (0.83-4.51); Lymphocyte % 9.6 % (19-41); Mean Corp Hgb Conc 34.1 g/dL (32-36); Mean Corpuscular Hgb 31.9 pg (27.0-32.0); Mean Corpuscular Volume 93.5 fL (80-94); Mean Platelet Vol. 10.4 fl (6.2-12.0); Monocyte# 0.76 X10^3/uL; Monocyte% 5.7 % (0-10); NRBC Flagged by Analyzer 0 % (0-5); Neutrophil # 10.98 X10^3/uL (2.7-7.7); Neutrophil % 82.7 % (47-70); Platelet Count 217 K/mm3 (150-450); RBC Distribution Width CV 13.3 % (11.6-14.6); RBC Distribution Width SD 45.5 fl (35.1-43.9); White Blood Count 13.3 K/mm3 (4.4-11.0)
[2021-05-31 23:28] LABS: ALB/GLOB Ratio 0.7 RATIO (0.9-2.4); AST(SGOT) 10 U/L (15-37); Alanine Aminotransfer ALT/SGPT 13 U/L (16-61); Alkaline Phosphatase 126 U/L (45-117); Anion Gap 5 (5-15); BUN 52 mg/dL (7-18); BUN/Creat Ratio 13.3 RATIO (10-20); Calcium,Total 9.1 mg/dL (8.5-10.1); Chloride 108 mmol/L (98-107); Creatinine, Serum 3.92 mg/dL (0.70-1.30); EST Glomerular Filtration Rate 16 mL/min (>60); Est Glom Filt Rate - Afr Amer 20 mL/min (>60); Estimated Creatinine Clearance 18.97 ml/min; Globulin 4.2 g/dL (2.2-4.2); Glucose 226 mg/dL (74-106); Lipase 55 U/L (73-393); Potassium 4.7 mmol/L (3.5-5.1); Protein, Total 7.2 g/dL (6.4-8.2); Sodium Level 138 mmol/L (136-145)
[2021-06-01 00:14] VITALS: BP 140/60; PULSE 88; RESP 18; O2SAT 99
== END 2021-06-01 00:17 | disposition home or self-care (01) ==
PROVIDERS: Emergency Provider Emergency Medicine; PCP Internal Medicine Infectious Disease
DX: K31.84 Gastroparesis (principal); R11.2 Nausea with vomiting, unspecified; F17.210 Nicotine dependence, cigarettes, uncomplicated; I25.10 Atherosclerotic heart disease of native coronary artery without angina pectoris; I25.2 Old myocardial infarction; K21.9 Gastro-esophageal reflux disease without esophagitis; E11.22 Type 2 diabetes mellitus with diabetic chronic kidney disease; I12.0 Hypertensive chronic kidney disease with stage 5 chronic kidney disease or end stage renal disease; N18.6 End stage renal disease; E78.00 Pure hypercholesterolemia, unspecified; Z87.19 Personal history of other diseases of the digestive system; Z79.899 Other long term (current) drug therapy; Z79.82 Long term (current) use of aspirin; Z79.4 Long term (current) use of insulin
CPT/HCPCS: 80053; 83690; 85025; 96374; 99282; J7030

== ENCOUNTER 2021-06-01 17:42 | Emergency (ER) | payer MEDICARE, MEDICAID, SELFPAY ==
[2021-06-01 17:44] VITALS: BP 166/98; PULSE 92; RESP 16; TEMP 36.4; O2SAT 98; BMI 26.7
[2021-06-01 18:36] VITALS: RESP 18
[2021-06-01 18:52] LABS: Absolute Lymphocyte Count 0.94 X10^3/uL (0.83-4.51); Absolute Neutrophil Count 9.7 X10^3/uL (2.0-7.7); Basophil# 0.04 X10^3/uL; Basophil% 0.4 % (0-1); Hemoglobin 13.7 g/dL (13.0-16.5); Lymphocyte # 0.94 X10^3/ul (0.83-4.51); Lymphocyte % 8.4 % (19-41); Mean Corp Hgb Conc 33.4 g/dL (32-36); Mean Corpuscular Hgb 30.9 pg (27.0-32.0); Mean Corpuscular Volume 92.6 fL (80-94); Mean Platelet Vol. 10.4 fl (6.2-12.0); Monocyte# 0.53 X10^3/uL; Monocyte% 4.7 % (0-10); NRBC Flagged by Analyzer 0 % (0-5); Neutrophil # 9.69 X10^3/uL (2.7-7.7); Neutrophil % 86.2 % (47-70); Platelet Count 232 K/mm3 (150-450); RBC Distribution Width CV 13.1 % (11.6-14.6); RBC Distribution Width SD 44.8 fl (35.1-43.9); Red Blood Count 4.43 M/mm3 (4.6-6.2); White Blood Count 11.2 K/mm3 (4.4-11.0)
[2021-06-01] MEDS: Metoclopramide 10 MG/2 ML Vial IV (18:53)
[2021-06-01 19:04] LABS: Anion Gap 9 (5-15); BUN 53 mg/dL (7-18); BUN/Creat Ratio 12.5 RATIO (10-20); Calcium,Total 9.3 mg/dL (8.5-10.1); Chloride 105 mmol/L (98-107); Creatinine, Serum 4.25 mg/dL (0.70-1.30); EST Glomerular Filtration Rate 15 mL/min (>60); Est Glom Filt Rate - Afr Amer 18 mL/min (>60); Glucose 279 mg/dL (74-106); Potassium 4.4 mmol/L (3.5-5.1); Sodium Level 138 mmol/L (136-145)
[2021-06-01 19:32] LABS: Bacteria 0 SEEN /hpf (None Seen); Mucous, Urine 0 SEEN /hpf (<or=2+); Squamous Epithelial Cells - UA 0 SEEN /hpf (0-5); White Blood Cells 0 SEEN /hpf (0-5)
[2021-06-01] MEDS: Mag Hydrox/Al Hydrox/Simeth 30 ML UDC PO (19:33)
[2021-06-01 19:47] LABS: Color, Urine Yellow (Yellow); Glucose, Dipstick 1000 mg/dl (Normal); Ketone-Dipstick 15 mg/dl (Negative); Leukocyte Esterase-Dipstick Negative /ul (Negative); Nitrite-Dipstick Negative (Negative); Occult Blood-Urine 50 /ul (Negative); Protein-Dipstick 500 mg/dl (Negative); Specific Gravity, Urine 1.015 (1.002-1.030); Urine Bilirubin Dipstick Negative (Negative); Urine Clarity Clear (Clear); Urine Urobilinogen Normal (Normal)
[2021-06-01] MEDS: Famotidine 200 MG/20 ML MDV 20 MG in 0.9% Normal Saline (Pres. free 8 ML 300 MG IV (19:52)
[2021-06-01 19:53] LABS: Red Blood Cells-Urine 0-5 SEEN /hpf (0-5)
[2021-06-01 20:17] VITALS: BP 188/94; PULSE 81; RESP 16; O2SAT 95
--- NOTE | 2021-06-01 21:42 | EX.ED.DYSGE1 ---
HPI History of Present Illness Chief Complaint: Nausea/Vomiting Detail of Chief Complaint: Nausea and vomiting Informant: patient and family Onset/Context/Timing Onset: Month(s) Context: Sudden Onset Timing: Continuous and Waxes and wanes Current Severity: Severe Maximum Severity: Severe Worsened by: Nothing Relieved by: Nothing Associated Symptoms Associated Symptoms: Dry mouth, generalized weakness Narrative Narrative: Patient is an elderly male who was seen yesterday for nausea and vomiting. Patient son yesterday told the ER physician that he has been vomiting for the past 3 days. Patient states he has been vomiting for the past 3 months. Patient was seen at outside facility prior to presenting to the emergency department yesterday. He had blood work and a CT at that time. Patient has been seen by Dr. Jacome. Dr. Jacome's notes were reviewed and he has history of gastroparesis most likely due to his diabetes, end-stage renal disease, Schaeffer's esophagitis. CT of the abdomen was negative and gastric emptying study was remarkable for delay. He was given a course of Reglan. And lactulose for his constipation. He is on a PPI. Patient presents because of recurrent nausea and vomiting since discharge. Patient does not appear well. Complains of thirst and dry mouth. Prior similar symptoms: Yes Recent Illness/Hospitalization: Yes [facility] Medical History Ambulates with cane Arthritis Atherosclerotic heart disease of [place] coronary artery without angina pectoris Barretts esophagus Cardiology follow-up encounter Constipation COPD (chronic obstructive pulmonary disease) Depression Diabetes mellitus Dietary restriction Dizziness and giddiness Easy bruising Essential hypertension Falls frequently Gastric reflux Gastritis Gastroparesis GERD (gastroesophageal reflux disease) High cholesterol History of echocardiogram History of edema History of GI bleed History of pain when walking History of ST elevation myocardial infarction (STEMI) (01/11/13) History of stress test HLD (hyperlipidemia) Injury of back Injury of head and neck Insulin dependent diabetes mellitus Migraine headache Nausea Neuropathy Nicotine dependence 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) On home oxygen therapy Orthostatic hypotension Pain in limb Problem with dialysis access Shortness of breath on exertion Smoker Stomach ulcer Wears dentures Wears glasses Home Medications losartan 100 mg tablet 100 mg PO DAILY 12/01/17 [History Last Taken 12/23/17] Lantus U-100 Insulin 70 unit SUBCUT QHS 12/23/17 [History Last Taken 12/22/17] aspirin 81 mg PO DAILY 12/23/17 [History Last Taken 05/04/21] atorvastatin 80 mg PO DAILY 12/23/17 [History Last Taken 12/23/17] clopidogrel 75 mg tablet 75 mg PO DAILY #30 tab 03/13/20 [Rx Last Taken 05/04/21] amlodipine 5 mg tablet 5 mg PO DAILY 08/09/20 [History Last Taken Unknown] metoprolol tartrate 25 mg tablet 50 mg PO BID tab 08/09/20 [History Last Taken Unknown] pregabalin 50 mg capsule 50 mg PO BID cap 08/09/20 [History Last Taken Unknown] amitriptyline 25 mg PO QHS 01/25/21 [History Last Taken Unknown] pantoprazole 40 mg PO BID 01/25/21 [History Last Taken Unknown] furosemide 40 mg tablet 60 mg PO DAILY 03/06/21 [History Last Taken Unknown] ondansetron HCl [Zofran] 4 mg PO Q8H PRN 4 Days tab 03/14/21 [Rx Last Taken Unknown] sucralfate 1 gram tablet 1 g PO .qid tab 04/26/21 [History Last Taken Unknown] lactulose 10 gram/15 mL oral solution 20 g PO TID #473 ml 05/22/21 [Rx Last Taken Unknown] metoclopramide HCl 10 mg tablet 10 mg PO Q6H PRN 30 Days #120 tab 05/22/21 [Rx Last Taken Unknown] metoclopramide HCl [Reglan] 10 mg PO Q6H PRN #20 tab 05/31/21 [Rx Last Taken Unknown] ondansetron 4 mg PO Q6H PRN PRN #15 tab 05/31/21 [Rx Last Taken Unknown] Allergy/AdvReac Type Severity Reaction Status Date / Time No Known Allergies Allergy Verified 05/31/21 22:43 Family History Father CAD (coronary artery disease) CABG Diabetes Brother Heart disease Myocardial infarction Sister Diabetes Surgical History History of back surgery History of coronary artery stent placement History of laparoscopic cholecystectomy History of left heart catheterization (06/03/14) Hx of arteriovenostomy for renal dialysis (02/01/21) Hx of colonoscopy Hx of surgical procedure Social History (Updated 06/01/21 @ 21:[address] Jesus Alberto Gibson MD) household members: spouse Smoking Status: Current every day smoker tobacco type: cigarettes alcohol intake: never substance use type: does not use ROS ROS ED Constitutional Constitutional ED: Denies chills, fever(s), subjective, sweats or weight loss Eyes Eyes: Denies blurry vision, change in vision or diplopia ENT ENT ED: Denies ear pain, rhinorrhea or sore throat Cardiovascular Cardiovascular: Denies chest pain, orthopnea, palpitations, paroxysmal nocturnal dyspnea or racing heartbeat Respiratory/Chest Respiratory/Chest: Denies cough, dyspnea, dyspnea on exertion, orthopnea, paroxysmal nocturnal dyspnea or sputum Gastrointestinal Gastrointestinal: Reports abdominal pain, nausea and vomiting; Denies constipation or diarrhea Genitourinary Genitourinary ED: Denies dysuria, hematuria or urinary frequency Musculoskeletal Musculoskeletal: Denies arthralgias, myalgias or neck pain Neurologic Neurologic: Reports weakness; Denies headache(s) or paresthesias Psychiatric Psychiatric: Reports depression; Denies anxiety Endocrine Endocrinology: Denies polydipsia, polyphagia or polyuria EXAM Physical Exam Const Vital Signs: 06/01/21 17:44 06/01/21 18:36 06/01/21 20:17 Temperature 97.6 F L Temperature Source Temporal Pulse Rate 92 81 Respiratory Rate 16 18 16 Blood Pressure 166/98 H 188/94 H Blood Pressure Mean 120 125 Pulse Ox 98 95 Oxygen Delivery Method Room Air Room Air Room Air Positive well nourished, well developed and unkempt General Appearance ED: unkempt and well developed; Negative for cyanotic, diaphoretic or pallor HEENT HEENT Narrative: Head is atraumatic normocephalic. Mucosa is dry. Ears normal. Nares patent. Eyes PERRL and EOMs intact bilaterally General Eye ED: Negative for pale conjunctiva or scleral icterus Neck no lymphadenopathy, supple and no JVD Resp normal respiratory effort and clear to auscultation bilaterally GI no masses; Negative for hepatosplenomegaly Inspection: Negative for abdominal distention Auscultation: hypoactive bowel sounds; Negative for normoactive bowel sounds Palpation: soft and tender; Negative for guarding or rebound tenderness present Back/Spine no CVA tenderness Cervical Spine: Negative for cervical spine tenderness Thoracic Spine / Upper Back: Negative for thoracic spinal tenderness Lumbar Spine / Lower Back: Negative for lumbar spinal tenderness Extremity normal to inspection General Extremety ED: Negative for edema or tenderness General Extremity: Negative for edema Neuro oriented x3 and CN's II-XII intact bilaterally Sensorium / Orientation: alert Psych mental status grossly normal Appearance: unkempt Skin no rashes or lesions noted and no wounds General Skin Exam: Negative for jaundice or pallor MDM MDM MDM Narrative Medical decision making narrative: With history of diabetes and end-stage renal disease basic metabolic panel was a obtained to assess glucose, CO2 anion gap, electrolytes. CBC was obtained to assess for anemia. UA to assess for ketones in the event that the blood sugar is elevated there is an anion gap and to rule out urinary tract infection. Lab Data Attestation: I reviewed the patient's lab results. Lab results narrative: CBC is unremarkable and unchanged from prior. Creatinine is slightly higher than baseline. UA is remarkable for glucose, ketones and blood. There is no active infection. Patient was treated with IV Reglan. He has passed p.o. challenge. Patient was informed this is a chronic issue and would prescribe Reglan however after reviewing Dr. Jacome's note he has been prescribed Reglan. We will confirm that he has a prescription for Reglan and if so if he is taking it. Labs: Laboratory Results - last 24 hr 06/01/21 06/01/21 06/01/21 18:40 18:40 19:25 WBC 11.2 H RBC 4.43 L Hgb 13.7 Hct 41.0 MCV 92.6 MCH 30.9 MCHC 33.4 RDW Std Deviation 44.8 H RDW Coeff of [place] 13.1 Plt Count 232 MPV 10.4 Immature Gran % (Auto) 0.300 Neut % (Auto) 86.2 H Lymph % (Auto) 8.4 L [place] % (Auto) 4.7 Eos % (Auto) 0.0 Baso % (Auto) 0.4 Absolute Neuts (auto) 9.7 H Absolute Lymphs (auto) 0.94 Nucleated RBC % 0 Sodium 138 Potassium 4.4 Chloride 105 Carbon Dioxide 24.0 Anion Gap 9 BUN 53 H Creatinine 4.25 H Estim Creat Clear Calc 17.50 Est GFR (MDRD) Af Amer 18 L Est GFR (MDRD) Non-Af 15 L BUN/Creatinine Ratio 12.5 Glucose 279 H Calcium 9.3 Urine Color Yellow Urine Clarity Clear Urine pH 7.0 Ur Specific [place] 1.015 Urine Protein 500 H Urine Glucose (UA) 1000 H Urine Ketones 15 H Urine Occult Blood 50 H Urine Nitrite Negative Urine Bilirubin Negative Urine Urobilinogen Normal Ur Leukocyte Esterase Negative Urine RBC 0-5 SEEN Urine WBC 0 SEEN Ur Squamous Epith Cells 0 SEEN Urine Bacteria 0 SEEN Urine Mucus 0 SEEN Discharge Plan Triage Chief Complaint: Nausea/Vomiting ED Provider: Jesus Alberto Gibson Dx/Rx/DC Orders Clinical Impression: Gastroparesis due to DM Instructions: Delayed Gastric Emptying Prescriptions: No Action losartan 100 mg tablet 100 mg PO DAILY RF: 0 metoprolol tartrate 25 mg tablet 50 mg PO BID RF: 0 amlodipine 5 mg tablet 5 mg PO DAILY RF: 0 furosemide 40 mg tablet 60 mg PO DAILY RF: 0 sucralfate [Carafate] 1 gram tablet 1 g PO .qid RF: 0 metoclopramide HCl 10 mg tablet 10 mg PO Q6H PRN (Reason: nausea and vomiting) 30 Days Qty: 120 RF: 0 lactulose 10 gram/15 mL solution 20 g PO TID Qty: 473 RF: 0 Lantus U-100 Insulin 100 UNIT/ML solution 70 unit subcut QHS RF: 0 atorvastatin 80 MG tablet 80 mg PO DAILY RF: 0 aspirin 81 MG tablet,chewable 81 mg PO DAILY RF: 0 pregabalin 50 mg capsule 50 mg PO BID RF: 0 amitriptyline 25 mg tablet 25 mg PO QHS RF: 0 pantoprazole 40 mg tablet,delayed release (DR/EC) 40 mg PO BID RF: 0 ondansetron HCl [Zofran] 4 mg tablet 4 mg PO Q8H PRN (Reason: nausea and vomiting) 4 Days RF: 0 ondansetron [ondansetron] 4 MG tablet 4 mg PO Q6H PRN PRN (Reason: Nausea) Qty: 15 RF: 0 metoclopramide HCl [Reglan] 10 mg tablet 10 mg PO Q6H PRN (Reason: nausea and vomiting) Qty: 20 RF: 0 clopidogrel 75 mg tablet 75 mg PO DAILY Qty: 30 RF: 11 Primary Care Provider: Tamanna Moreno Referrals: Tamanna Moreno MD [Primary Care Provider] - 3-5 Days if not improving Activity Restrictions/Additional Instructions: Reviewing Dr. Jacome's notes and your prior records you are presently on Reglan, which is metoclopramide. You need to take it 4 times a day and not as needed. Disposition Disposition: Home, Self Care
[2021-06-01 22:19] VITALS: BP 117/71; PULSE 78; RESP 16; O2SAT 97
== END 2021-06-01 22:19 | disposition home or self-care (01) ==
PROVIDERS: Emergency Provider Emergency Medicine; PCP Internal Medicine Infectious Disease
DX: E11.43 Type 2 diabetes mellitus with diabetic autonomic (poly)neuropathy (principal); K31.84 Gastroparesis; F17.210 Nicotine dependence, cigarettes, uncomplicated; I25.10 Atherosclerotic heart disease of native coronary artery without angina pectoris; I25.2 Old myocardial infarction
CPT/HCPCS: 80048; 81001; 85025; 96374; 99283; J7030; A4216; J3490